=== PATIENT | female | born 1945 | race Caucasian/White ===

== ENCOUNTER → 2018-08-01 | Outpatient (CLI) | payer MEDICARE, BC ==
--- NOTE | 2018-08-02 12:06 | MM ---
Reason for exam: screening (asymptomatic). Last mammogram was performed 1 year ago. History: Patient is postmenopausal. Family history of breast cancer in maternal cousin at age 63, breast cancer in maternal cousin at age 50, and breast cancer in maternal cousin at age 59. Took hormonal contraceptives for 10 years beginning at age 19. Took estrogen for 5 years beginning at age 50. Physical Findings: A clinical breast exam by your physician is recommended on an annual basis and results should be correlated with mammographic findings. MG 3D Screening Mammo W/Cad Bilateral CC and MLO view(s) were taken. Prior study comparison: July 18, 2017, bilateral MG 3d screening mammo w/cad. July 17, 2016, bilateral MG 3d screening mammo w/cad. The breast tissue is heterogeneously dense. This may lower the sensitivity of mammography. Focal asymmetry upper outer left breast. This finding is changed when compared with previous exams. ASSESSMENT: Incomplete: need additional imaging evaluation, BI-RAD 0 RECOMMENDATION: Special view mammogram of the left breast. If lesion persists on supplemental views, image directed ultrasound is recommended. [facility] will attempt to contact patient to return for supplemental views and ultrasound if indicated.
== END | disposition home or self-care (01) ==
LOC: RADMAMWWP 09:45
PROVIDERS: ATTEND Family Medicine
DX: Z12.31 Encounter for screening mammogram for malignant neoplasm of breast (principal)
CPT/HCPCS: 77063; 77067

== ENCOUNTER → 2019-01-17 | Outpatient (CLI) | payer MEDICARE, BC ==
--- NOTE | 2019-01-17 10:03 | P.STRESS ---
- Stress Test Note Stress Test Results/Findings: Exam Performed: stress echo exercise Exam Date: 01/17/19 Reason for Exam: HTN / SOB Height: 5 ft 6 in Weight: 95.254 kg Protocol: DAREK Stage: 2 Duration of Exercise: 4:00 Resting Heart Rate: 78 Resting Blood Pressure: 194/65 Maximum Achieved Heart Rate: 139 Maximum Achieved Blood Pressure: 204/79 85% PMHR: 124 100% PMHR: 146 METS: 5.8 Technologist Comment: Stress Test Results/Findings: This is a 73-year-old female with history of hypertension, diabetes and hypercholesterolemia being evaluated for cardiac status and chest pains and symptoms of shortness of breath. Stress data: Baseline EKG showed sinus rhythm with normal MS interval and QRS duration. Blood pressure at rest is 194/65 with a pulse rate of about 78. Patient walked on the Darek protocol for 4 minutes achieving a maximum heart rate of 139 with a blood pressure of 204/79. EKGs taken during and after exercise did not reveal any significant changes from baseline. Echo data: Baseline echo images show normal wall motion and thickening. Exercise echo images showed augmentation of wall motion and thickening in all the segments. Final impression: #1. Negative stress test #2. Limited excess capacity #3. Negative stress echo.
== END | disposition home or self-care (01) ==
LOC: RADNMMAIN 08:34
PROVIDERS: ATTEND Family Medicine
DX: I20.9 Angina pectoris, unspecified (principal); Z88.1 Allergy status to other antibiotic agents; Z88.7 Allergy status to serum and vaccine
CPT/HCPCS: 93351

== ENCOUNTER → 2019-02-05 | Outpatient (CLI) | payer MEDICARE, BC ==
--- NOTE | 2019-02-05 10:14 | MM ---
Reason for exam: follow-up at short interval from prior study. Last mammogram was performed 6 months ago. History: Patient is postmenopausal. Family history of breast cancer in maternal cousin at age 63, breast cancer in maternal cousin at age 50, and breast cancer in maternal cousin at age 59. Took hormonal contraceptives for 10 years beginning at age 19. Took estrogen for 5 years beginning at age 50. Physical Findings: Nurse did not find any significant physical abnormalities on exam. MG 3D Diag Mammo W/Cad LT CC and MLO view(s) were taken of the left breast. Prior study comparison: August 07, 2018, left breast MG 3d work up w/cad LT. August 01, 2018, bilateral MG 3d screening mammo w/cad. July 18, 2017, bilateral MG 3d screening mammo w/cad. July 17, 2016, bilateral MG 3d screening mammo w/cad. July 13, 2015, bilateral MG screening mammo w CAD. The breast tissue is heterogeneously dense. This may lower the sensitivity of mammography. There is a stable left upper outer quadrant mass with possible fatty notch likely a lymph node. Left upper outer quadrant focal asymmetry appears similar to priors. These results were verbally communicated with the patient and result sheet given to the patient on 02/05/19. ASSESSMENT: Benign, BI-RAD 2 RECOMMENDATION: Return to routine screening mammogram schedule for both breasts. Back on schedule.
--- NOTE | 2019-02-05 10:52 | USB ---
Reason for exam: follow-up at short interval from prior study. History: Patient is postmenopausal. Family history of breast cancer in maternal cousin at age 63, breast cancer in maternal cousin at age 50, and breast cancer in maternal cousin at age 59. Took hormonal contraceptives for 10 years beginning at age 19. Took estrogen for 5 years beginning at age 50. US Breast Limited LT Left limited breast ultrasound including focal area of concern, retroareolar and axilla demonstrates a 5 x 2 x 5mm benign cystic cluster at 1 o'clock and a 4 x 5 x 4mm benign cystic cluster at 2 o'clock. These results were verbally communicated with the patient and result sheet given to the patient on 02/05/19. ASSESSMENT: Benign, BI-RAD 2 RECOMMENDATION: Return to routine screening mammogram schedule for both breasts. Back on schedule for July 2019.
== END | disposition home or self-care (01) ==
LOC: RADMAMWWP 09:26
PROVIDERS: ATTEND Family Medicine
DX: R92.8 Other abnormal and inconclusive findings on diagnostic imaging of breast (principal)
CPT/HCPCS: 77065; 76642; G0279; 77061

== ENCOUNTER 2019-06-22 11:43 | Inpatient (IN) | payer MEDICARE, BC ==
[2019-06-22 13:35] LABS: Basophils # (A) 0.2 k/uL (0-0.2); Basophils % (A) 1 %; Eosinophils # (A) 0.3 k/uL (0-0.7); Eosinophils % (A) 2 %; HCT 40.2 % (34.0-46.0); HGB 13.8 gm/dL (11.4-16.0); Lymphocytes % (A) 28 %; MCH 31.8 pg (25.0-35.0); MCHC 34.4 g/dL (31.0-37.0); MCV 92.3 fL (80.0-100.0); Mean Platelet Volume 7.2; Monocytes # (A) 1.1 k/uL (0-1.0); Monocytes % (A) 8 %; Neutrophils % (A) 57 %; Platelet Count 314 k/uL (150-450); RBC 4.36 m/uL (3.80-5.40); RDW 13.9 % (11.5-15.5)
--- NOTE | 2019-06-22 13:38 | ED ---
General Adult HPI - General Chief complaint: Upper Respiratory Infection Stated complaint: Cough/congestion Time Seen by Provider: 06/22/19 12:27 Source: patient, RN notes reviewed Mode of arrival: ambulatory Limitations: no limitations - History of Present Illness Initial comments: 74-year-old patient with a past medical history IDDM, splenectomy presents to the emergency department for a chief complaint of congestion and cough 3 weeks. States that it started as a congestion and then seemed to settle in her chest. States cough is productive. States she has not had any known fevers. Patient states she was on antibiotic and it did not help her symptoms. Denies sore throat. Denies any ear pain.Patient has no other complaints at this time in cluding shortness of breath, chest pain, abdominal pain, nausea or vomiting, headache, or visual changes. - Related Data Allergies Allergy/AdvReac Type Severity Reaction Status Date / Time erythromycin base Allergy Unknown Verified 06/22/19 15:19 Review of Systems ROS Statement: Those systems with pertinent positive or pertinent negative responses have been documented in the HPI. ROS Other: All systems not noted in ROS Statement are negative. Past Medical History Past Medical History: Diabetes Mellitus History of Any Multi-Drug Resistant Organisms: None Reported Past Surgical History: Appendectomy, Hysterectomy Additional Past Surgical History / Comment(s): splenectomy pancreas cateracts Past Psychological History: No Psychological Hx Reported Smoking Status: Never smoker Past Alcohol Use History: None Reported Past Drug Use History: None Reported General Exam Limitations: no limitations General appearance: alert, in no apparent distress Head exam: Present: atraumatic, normocephalic, normal inspection Eye exam: Present: normal appearance, PERRL, EOMI. Absent: scleral icterus, conjunctival injection, periorbital swelling ENT exam: Present: normal exam, normal oropharynx, mucous membranes moist, TM's normal bilaterally, normal external ear exam Neck exam: Present: normal inspection, full ROM. Absent: tenderness, meningismus, lymphadenopathy Respiratory exam: Present: normal lung sounds bilaterally. Absent: respiratory distress, wheezes, rales, rhonchi, stridor Cardiovascular Exam: Present: regular rate, normal rhythm, normal heart sounds. Absent: systolic murmur, diastolic murmur, rubs, gallop, clicks GI/Abdominal exam: Present: soft, normal bowel sounds. Absent: distended, tenderness, guarding, rebound, rigid Neurological exam: Present: alert Psychiatric exam: Present: normal affect, normal mood Course Vital Signs 06/22/19 06/22/19 06/22/19 12:10 14:12 14:18 Temperature 98.3 F Pulse Rate 80 73 77 Respiratory 18 Rate Blood Pressure 154/82 O2 Sat by Pulse 94 L Oximetry 06/22/19 14:44 Temperature 97.5 F L Pulse Rate 73 Respiratory 18 Rate Blood Pressure 163/67 O2 Sat by Pulse 97 Oximetry EKG Findings - EKG Comments: EKG Findings:: Normal sinus rhythm, ventricular rate 76, [place] interval 158, QTC 454 Medical Decision Making - Medical Decision Making 74-year-old patient with past medical history of IDDM, splenectomy presents for chief of congestion and cough 3 weeks. Started as congestion and then settled in her chest. No fevers at home. Patient has been on antibiotic which has not been helping. She has been hemodynamically stable and well-appearing throughout her time in the emergency department. She has a leukocytosis of 14 noted. CMP unremarkable. Glucose is 228, patient has a history of diabetes. Patient has a lactic acid of 3.2, does not meet sepsis criteria with only one Sirs criteria met. However patient was given fluid bolus and kept on maintenance fluids. Urinalysis and influenza are unremarkable. Chest x-ray shows basilar atelectasis versus early infiltrate. Patient was started on Rocephin and azithromycin. Patient will be admitted given his history of splenectomy. - Lab Data Result diagrams: 06/22/19 13:10 06/22/19 13:10 Lab Results 06/22/19 06/22/19 06/22/19 Range/Units 12:50 13:10 13:10 WBC 14.0 H (3.8-10.6) k/uL RBC 4.36 (3.80-5.40) m/uL Hgb 13.8 (11.4-16.0) gm/dL Hct 40.2 (34.0-46.0) % MCV 92.3 (80.0-100.0) fL MCH 31.8 (25.0-35.0) pg MCHC 34.4 (31.0-37.0) g/dL RDW 13.9 (11.5-15.5) % Plt Count 314 (150-450) k/uL Neutrophils % 57 % Lymphocytes % 28 % Monocytes % 8 % Eosinophils % 2 % Basophils % 1 % Neutrophils # 8.0 H (1.3-7.7) k/uL Lymphocytes # 4.0 (1.0-4.8) k/uL Monocytes # 1.1 H (0-1.0) k/uL Eosinophils # 0.3 (0-0.7) k/uL Basophils # 0.2 (0-0.2) k/uL PT (9.0-12.0) sec INR (<1.2) APTT (22.0-30.0) sec Sodium 139 (137-145) mmol/L Potassium 4.1 (3.5-5.1) mmol/L Chloride 99 (98-107) mmol/L Carbon Dioxide 28 (22-30) mmol/L Anion Gap 12 mmol/L BUN 19 H (7-17) mg/dL Creatinine 0.82 (0.52-1.04) mg/dL Est GFR (CKD-EPI)AfAm 81 (>60 ml/min/1.73 sqM) Est GFR (CKD-EPI)NonAf 70 (>60 ml/min/1.73 sqM) Glucose 228 H (74-99) mg/dL Plasma Lactic Acid Reji (0.7-2.0) mmol/L Calcium 10.3 H (8.4-10.2) mg/dL Total Bilirubin 0.5 (0.2-1.3) mg/dL AST 26 (14-36) U/L ALT 20 (9-52) U/L Alkaline Phosphatase 86 (38-126) U/L Total Protein 6.7 (6.3-8.2) g/dL Albumin 4.1 (3.5-5.0) g/dL Urine Color Urine Appearance (Clear) Urine pH (5.0-8.0) Ur Specific [place] (1.001-1.035) Urine Protein (Negative) Urine Glucose (UA) (Negative) Urine Ketones (Negative) Urine Blood (Negative) Urine Nitrite (Negative) Urine Bilirubin (Negative) Urine Urobilinogen (<2.0) mg/dL Ur Leukocyte Esterase (Negative) Urine RBC (0-5) /hpf Urine WBC (0-5) /hpf Ur Squamous Epith Cells (0-4) /hpf Urine Mucus (None) /hpf Influenza Type A RNA Not Detected (Not Detectd) Influenza Type B (PCR) Not Detected (Not Detectd) 06/22/19 06/22/19 06/22/19 Range/Units 13:10 13:10 13:55 WBC (3.8-10.6) k/uL RBC (3.80-5.40) m/uL Hgb (11.4-16.0) gm/dL Hct (34.0-46.0) % MCV (80.0-100.0) fL MCH (25.0-35.0) pg MCHC (31.0-37.0) g/dL RDW (11.5-15.5) % Plt Count (150-450) k/uL Neutrophils % % Lymphocytes % % Monocytes % % Eosinophils % % Basophils % % Neutrophils # (1.3-7.7) k/uL Lymphocytes # (1.0-4.8) k/uL Monocytes # (0-1.0) k/uL Eosinophils # (0-0.7) k/uL Basophils # (0-0.2) k/uL PT 9.9 (9.0-12.0) sec INR 0.9 (<1.2) APTT 23.0 (22.0-30.0) sec Sodium (137-145) mmol/L Potassium (3.5-5.1) mmol/L Chloride (98-107) mmol/L Carbon Dioxide (22-30) mmol/L Anion Gap mmol/L BUN (7-17) mg/dL Creatinine (0.52-1.04) mg/dL Est GFR (CKD-EPI)AfAm (>60 ml/min/1.73 sqM) Est GFR (CKD-EPI)NonAf (>60 ml/min/1.73 sqM) Glucose (74-99) mg/dL Plasma Lactic Acid Reji 3.2 H* (0.7-2.0) mmol/L Calcium (8.4-10.2) mg/dL Total Bilirubin (0.2-1.3) mg/dL AST (14-36) U/L ALT (9-52) U/L Alkaline Phosphatase (38-126) U/L Total Protein (6.3-8.2) g/dL Albumin (3.5-5.0) g/dL Urine Color Yellow Urine Appearance Clear (Clear) Urine pH 7.0 (5.0-8.0) Ur Specific [place] 1.016 (1.001-1.035) Urine Protein Negative (Negative) Urine Glucose (UA) Negative (Negative) Urine Ketones Negative (Negative) Urine Blood Negative (Negative) Urine Nitrite Negative (Negative) Urine Bilirubin Negative (Negative) Urine Urobilinogen <2.0 (<2.0) mg/dL Ur Leukocyte Esterase Trace H (Negative) Urine RBC <1 (0-5) /hpf Urine WBC 3 (0-5) /hpf Ur Squamous Epith Cells 3 (0-4) /hpf Urine Mucus Rare H (None) /hpf Influenza Type A RNA (Not Detectd) Influenza Type B (PCR) (Not Detectd) Disposition Clinical Impression: Pneumonia, History of splenectomy, Lactic acidosis Disposition: ADMITTED IP TO THIS HOSP Is patient prescribed a controlled substance at d/c from ED?: No Referrals: Hector Sheridan MD [Primary Care Provider] - 1-2 days Time of Disposition: 15:21
[2019-06-22 13:47] LABS: Albumin 4.1 g/dL (3.5-5.0); Calcium 10.3 mg/dL (8.4-10.2); Potassium 4.1 mmol/L (3.5-5.1); Total Bilirubin 0.5 mg/dL (0.2-1.3); Total Protein 6.7 g/dL (6.3-8.2)
[2019-06-22 13:53] LABS: INR 0.9 (<1.2); Prothrombin Time 9.9 sec (9.0-12.0)
[2019-06-22] MEDS ORDERED: IPRATROPIUM-ALBUTEROL 3 ML NEB INHALATION STA (13:59)
[2019-06-22] MEDS ORDERED: SODIUM CHLORIDE 0.9% 1,000 ML IV STA (14:01)
[2019-06-22] MEDS ORDERED: cefTRIAXone IN SWFI 1,000 MG/10 ML SYRINGE IVP STA (14:10)
[2019-06-22 14:20] LABS: Appearance,Urine Clear (Clear); Bilirubin,Urine Negative (Negative); Blood,Urine Negative (Negative); Color,Urine Yellow; Glucose,Urine (UA) Negative (Negative); Ketones,Urine Negative (Negative); Leukocyte Esterase,Urine Trace (Negative); Mucus,Urine Rare /hpf; Nitrite,Urine Negative (Negative); Protein,Urine Negative (Negative); RBC,Urine <1 /hpf (0-5); Specific Gravity,Urine 1.016 (1.001-1.035); Squamous Epithelial Cell,Urine 3 /hpf (0-4); Urobilinogen,Urine <2.0 mg/dL (<2.0); WBC,Urine 3 /hpf (0-5)
--- NOTE | 2019-06-22 14:31 | XR ---
EXAMINATION TYPE: XR chest 2V DATE OF EXAM: 06/22/2019 COMPARISON: NONE TECHNIQUE: PA and lateral views submitted. HISTORY: Fever FINDINGS: Subsegmental changes at the left lung base. No overt failure or pneumothorax. Biapical pleural thicke emmanuel. Heart size normal. Mild degenerative change spine. IMPRESSION: 1. Basilar atelectasis versus early infiltrate.
[2019-06-22] MEDS ORDERED: AZITHROMYCIN 500 MG in SODIUM CHLORIDE 0.9% 250 ML IVPB STA (15:00)
[2019-06-22] MEDS ORDERED: PNEUMONIA PROTOCOL UTILIZED 1 EACH MISC PO PRN (15:13)
[2019-06-22] MEDS: SODIUM CHLORIDE 0.9% 1,000 ML IV SCH ×2 (15:29→23:58)
[2019-06-22 17:02] LABS: Glucose,Whole Blood 152 mg/dL (75-99)
[2019-06-22] MEDS: INSULIN ASPART (NovoLOG) 100 UNIT/ML VIAL SQ SCH ×2 (17:34→20:47)
[2019-06-22 17:51] VITALS: BMI 34.1
[2019-06-22 20:21] LABS: Glucose,Whole Blood 271 mg/dL (75-99)
[2019-06-22] MEDS ORDERED: ACETAMINOPHEN TAB 500 MG TAB PO PRN (21:38)
[2019-06-22] MEDS ORDERED: ALPRAZolam 0.25 MG TAB PO PRN (21:38)
[2019-06-22] MEDS ORDERED: ATORVASTATIN 20 MG TAB PO SCH (21:45)
[2019-06-23 06:22] LABS: Basophils # (A) 0.1 k/uL (0-0.2); Basophils % (A) 1 %; Eosinophils # (A) 0.4 k/uL (0-0.7); Eosinophils % (A) 3 %; HCT 35.4 % (34.0-46.0); HGB 12.3 gm/dL (11.4-16.0); Lymphocytes # (A) 4.4 k/uL (1.0-4.8); Lymphocytes % (A) 36 %; MCH 31.6 pg (25.0-35.0); MCHC 34.8 g/dL (31.0-37.0); MCV 90.9 fL (80.0-100.0); Mean Platelet Volume 6.2; Monocytes % (A) 8 %; Neutrophils % (A) 49 %; Platelet Count 300 k/uL (150-450); RBC 3.89 m/uL (3.80-5.40); RDW 13.9 % (11.5-15.5); WBC 12.3 k/uL (3.8-10.6)
[2019-06-23 06:31] LABS: Glucose,Whole Blood 147 mg/dL (75-99)
[2019-06-23 06:38] LABS: ALT 22 U/L (9-52); AST 21 U/L (14-36); African American GFR (CKD) >90 (>60 ml/min/1.73 sqM); Albumin 3.3 g/dL (3.5-5.0); Alkaline Phosphatase 66 U/L (38-126); Anion Gap 6 mmol/L; Blood Urea Nitrogen 14 mg/dL (7-17); Calcium 8.8 mg/dL (8.4-10.2); Carbon Dioxide 27 mmol/L (22-30); Chloride 107 mmol/L (98-107); Glucose 142 mg/dL (74-99); Potassium 3.7 mmol/L (3.5-5.1); Sodium 140 mmol/L (137-145); Total Bilirubin 0.6 mg/dL (0.2-1.3); Total Protein 5.8 g/dL (6.3-8.2)
[2019-06-23] MEDS: INSULIN ASPART (NovoLOG) 100 UNIT/ML VIAL SQ SCH ×2 (06:56→12:36)
[2019-06-23] MEDS ORDERED: metFORMIN 500 MG TAB PO SCH (07:30)
[2019-06-23] MEDS ORDERED: INSULIN NPH 300 UNIT/3 ML VIAL SQ SCH (07:30)
[2019-06-23] MEDS ORDERED: VERAPAMIL SR 120 MG TABLET.ER PO SCH (09:00)
[2019-06-23] MEDS ORDERED: PSYLLIUM HUSK 100% 6 GM PACKET PO SCH (09:00)
[2019-06-23] MEDS ORDERED: ATENOLOL 50 MG TAB PO SCH (09:00)
[2019-06-23] MEDS ORDERED: MULTIVITAMINS, THERA 1 EACH TAB PO SCH (09:00)
[2019-06-23] MEDS ORDERED: AZITHROMYCIN 500 MG TAB PO SCH (09:00)
[2019-06-23] MEDS ORDERED: LOSARTAN-HCTZ 50-12.5 MG 1 EACH TAB PO SCH (09:00)
[2019-06-23 09:01] VITALS: RESP 16; TEMP 97.2
[2019-06-23 11:48] LABS: Glucose,Whole Blood 193 mg/dL (75-99)
[2019-06-23 12:39] VITALS: BP 137/63; PULSE 76
--- NOTE | 2019-06-23 13:42 | P.HPIM ---
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 Patient said the cough was productive but denies any fever or chills she was on oral antibiotic that did not help her. Vitals in the ER suggested temp of 98.3 pulse of 80 blood pressure 154/82 oxygen sats were 94% on room air. EKG showed normal sinus rhythm. Chest x-ray was obtained that suggested a small infiltrate in the left lung base. Labs suggestive leukocytosis of 14,000. Lactic acid was 3.1. Patient did have sinus dehydration had a blood sugar of 270 on admission. She takes NovoLog N 65 units in the day. He was started on antibiotic Rocephin and azithromycin. Fluid was initially 200 mL/h after IV bolus of 1 L. On evaluation today patient endorses cough which is nonproductive and some sinus pressure but no shortness of breath on exertion. Pro-calcitonin came back as negative. Patient does have history of splenectomy for which she has been vaccinated against pneumonia. Patient will be given Medrol Dosepak and insulin dosage will be adjusted to Novolin N 7030 35 units in the morning and 25 units in the night. Review of Systems Constitutional: Denies chills, Denies fever, Denies lethargy, Denies malaise, Denies poor appetite, Denies weakness, Denies weight loss Eyes: denies decreased vision, denies diplopia, denies discharge, denies pain Ears: deny: decreased hearing Ears, nose, mouth and throat: Denies dental pain, Denies headache, Denies nasal discharge, Denies nose pain Cardiovascular: Denies chest pain, Denies decreased exercise tolerance, Denies edema, Denies high blood pressure, Denies irregular heart beat, Denies palpitations, Denies paroxysmal nocturnal dyspnea, Denies rapid heart beat, Denies shortness of breath Respiratory: Endorses cough and congestion Denies cough with sputum, Denies dyspnea, Denies home oxygen, Denies wheezing Gastrointestinal: Denies abdominal pain, Denies change in bowel habits, Denies coffee ground emesis, Denies early satiety, Denies excessive gas, Denies heartburn, Denies hematemesis, Denies hematochezia, Denies loss of appetite, Denies nausea, Denies vomiting Genitourinary: Denies dysuria, Denies flank pain, Denies kidney stones, Denies menorrhagia, Denies urgency, Denies urinary frequency Musculoskeletal: Denies gait dysfunction, Denies limitation of motion, Denies morning stiffness, Denies muscle cramps Integumentary: Denies rash, Denies wounds, Denies brittle nails, Denies change in hair/nails, Denies darkening of skin Neurological: Denies balance difficulties, Denies change in speech, Denies double vision, Denies gait dysfunction, Denies loss of vision, Denies motor disturbance, Denies numbness, Denies paralysis, Denies paresthesias, Denies seizures Psychiatric: Denies anxiety, Denies depression Endocrine: Denies excessive sweating, Denies excessive thirst, Denies high blood sugars, Denies palpitations Hematologic/Lymphatic: Denies easy bruising, Denies lymphadenopathy Past Medical History Past Medical History: Diabetes Mellitus, Hyperlipidemia, Hypertension, Pneumonia History of Any Multi-Drug Resistant Organisms: None Reported Past Surgical History: Appendectomy, Hysterectomy Additional Past Surgical History / Comment(s): splenectomy, partial pancreas removal, cateracts Additional Past Anesthesia/Blood Transfusion Reaction / Comment(s): Never Received Blood Transfusion Past Psychological History: No Psychological Hx Reported Smoking Status: Never smoker Past Alcohol Use History: None Reported Past Drug Use History: None Reported - Past Family History Father Family Medical History: Myocardial Infarction ([place]) Medications and Allergies Home Medications Medication Instructions Recorded Confirmed Type ALPRAZolam [Xanax] 0.25 mg PO DAILY PRN 06/22/19 06/22/19 History Atenolol [Tenormin] 50 mg PO DAILY 06/22/19 06/22/19 History Atorvastatin [Lipitor] 20 mg PO HS 06/22/19 06/22/19 History Losartan/Hydrochlorothiazide 1 tab PO DAILY 06/22/19 06/22/19 History [Hyzaar 100-25 Tablet] Multivitamins, Thera [Multivitamin 1 tab PO DAILY 06/22/19 06/22/19 History (formulary)] Psyllium Husk (with Sugar) 20 ml PO DAILY 06/22/19 06/22/19 History [Metamucil Powder] Verapamil HCl [Verapamil ER] 120 mg PO DAILY 06/22/19 06/22/19 History metFORMIN HCL [Glucophage] 500 mg PO BID 06/22/19 06/22/19 History Insulin NPH/Reg Insulin 7030 35 unit SQ BID #1 vial 06/23/19 Rx [humuLIN 70/30 VIAL] methylPREDNISolone Dose Pack 4 mg PO DIRECTED #21 package 06/23/19 Rx [Medrol Dose Pack] Allergies Allergy/AdvReac Type Severity Reaction Status Date / Time erythromycin base Allergy Unknown Verified 06/22/19 15:19 Physical Exam Vitals: Vital Signs Temp Pulse Pulse Resp BP BP Pulse Ox 06/23/19 12:00 76 16 137/63 94 L 06/23/19 08:00 97.2 F L 94 16 130/73 98 06/23/19 03:30 98.1 F 69 18 141/63 95 06/22/19 23:50 98.2 F 74 16 160/72 97 06/22/19 20:45 98.3 F 73 16 157/68 95 06/22/19 17:38 98.3 F 79 18 158/72 94 L 06/22/19 16:04 97.9 F 77 18 155/79 96 06/22/19 14:44 97.5 F L 73 18 163/67 97 06/22/19 14:18 77 06/22/19 14:12 73 Intake and Output 06/22/19 06/23/19 06/23/19 22:59 06:59 14:59 Intake Total 360 118 Balance 360 118 Intake: Oral 360 118 Other: Voiding Method Toilet Toilet Toilet # Voids 1 2 1 Weight 96.7 kg - Constitutional General appearance: cooperative, no acute distress, obese - EENT Eyes: anicteric sclerae, PERRLA, normal appearance ENT: hearing grossly normal - Neck Neck: no lymphadenopathy, normal ROM, no other, no rigidity, no stridor, no thyromegaly - Respiratory Respiratory: bilateral: CTA, negative: diminished, dullness, rales, rhonchi - Cardiovascular Rhythm: regular Heart sounds: normal: S1, S2 Abnormal Heart Sounds: no systolic murmur, no diastolic murmur, no rub, no S3 Gallop, no S4 Gallop, no click, no other - Gastrointestinal General gastrointestinal: normal bowel sounds, soft - Integumentary Integumentary: no rash - Neurologic Neurologic: CNII-XII intact - Musculoskeletal Musculoskeletal: gait normal, strength equal bilaterally - Psychiatric Psychiatric: A&O x's 3, appropriate affect Results CBC & Chem 7: 06/23/19 06:00 06/23/19 06:00 Labs: Abnormal Lab Results - Last 24 Hours (Table) 06/22/19 06/22/19 06/22/19 Range/Units 13:10 13:10 13:10 WBC 14.0 H (3.8-10.6) k/uL Neutrophils # 8.0 H (1.3-7.7) k/uL Monocytes # 1.1 H (0-1.0) k/uL BUN 19 H (7-17) mg/dL Glucose 228 H (74-99) mg/dL POC Glucose (mg/dL) (75-99) mg/dL Plasma Lactic Acid Reji 3.2 H* (0.7-2.0) mmol/L Calcium 10.3 H (8.4-10.2) mg/dL Total Protein (6.3-8.2) g/dL Albumin (3.5-5.0) g/dL Ur Leukocyte Esterase (Negative) Urine Mucus (None) /hpf 06/22/19 06/22/19 06/22/19 Range/Units 13:55 17:00 20:20 WBC (3.8-10.6) k/uL Neutrophils # (1.3-7.7) k/uL Monocytes # (0-1.0) k/uL BUN (7-17) mg/dL Glucose (74-99) mg/dL POC Glucose (mg/dL) 152 H 271 H (75-99) mg/dL Plasma Lactic Acid Reji (0.7-2.0) mmol/L Calcium (8.4-10.2) mg/dL Total Protein (6.3-8.2) g/dL Albumin (3.5-5.0) g/dL Ur Leukocyte Esterase Trace H (Negative) Urine Mucus Rare H (None) /hpf 06/23/19 06/23/19 06/23/19 Range/Units 06:00 06:00 06:28 WBC 12.3 H (3.8-10.6) k/uL Neutrophils # (1.3-7.7) k/uL Monocytes # (0-1.0) k/uL BUN (7-17) mg/dL Glucose 142 H (74-99) mg/dL POC Glucose (mg/dL) 147 H (75-99) mg/dL Plasma Lactic Acid Reji (0.7-2.0) mmol/L Calcium (8.4-10.2) mg/dL Total Protein 5.8 L (6.3-8.2) g/dL Albumin 3.3 L (3.5-5.0) g/dL Ur Leukocyte Esterase (Negative) Urine Mucus (None) /hpf 06/23/19 Range/Units 11:46 WBC (3.8-10.6) k/uL Neutrophils # (1.3-7.7) k/uL Monocytes # (0-1.0) k/uL BUN (7-17) mg/dL Glucose (74-99) mg/dL POC Glucose (mg/dL) 193 H (75-99) mg/dL Plasma Lactic Acid Reji (0.7-2.0) mmol/L Calcium (8.4-10.2) mg/dL Total Protein (6.3-8.2) g/dL Albumin (3.5-5.0) g/dL Ur Leukocyte Esterase (Negative) Urine Mucus (None) /hpf Thrombosis Risk Factor Assmnt - DVT/VTE Prophylaxis DVT/VTE Prophylaxis: Pharmacologic Prophylaxis ordered - Choose All That Apply Each Risk Factor Represents 3 Points: Age 75 years or older Thrombosis Risk Factor Assessment Total Risk Factor Score: 3 Thrombosis Risk Factor Assessment Level: Moderate Risk Assessment and Plan Plan: #1 acute cough likely secondary to bronchitis. Chest x-ray concerning for infiltrate which appears to be atelectasis pro-calcitonin negative for any pneumonia. Medrol Dosepak ordered for the patient #2 insulin-dependent diabetes currently on NPH 65 units once a day. Will switch to NPH 7030 35 units in the morning and 25 in the night. New prescription sent to the pharmacy follow up with Dr. Sheridan as outpatient to follow-up on the blood sugar and A1c #3 history of pancreatic cyst status post splenectomy stable #4 hypertension continue metoprolol 120 mg by mouth daily #5 DVT prophylaxis with ambulation #6 disposition can be discharged home today
== END 2019-06-23 13:39 | disposition home or self-care (01) | DRG 202 ==
LOC: EC 11:43 → 3SCARD 15:13
PROVIDERS: ADMIT Internal Medicine; ATTEND Internal Medicine
DX: J40 Bronchitis, not specified as acute or chronic (principal); J98.11 Atelectasis; E11.9 Type 2 diabetes mellitus without complications; E78.5 Hyperlipidemia, unspecified; E86.0 Dehydration; I10 Essential (primary) hypertension; Z79.4 Long term (current) use of insulin; Z79.899 Other long term (current) drug therapy; Z82.49 Family history of ischemic heart disease and other diseases of the circulatory system; Z90.710 Acquired absence of both cervix and uterus; Z90.81 Acquired absence of spleen; Z87.01 Personal history of pneumonia (recurrent); Z88.1 Allergy status to other antibiotic agents
CPT/HCPCS: 36415; 71046; 80053; 81001; 83605; 84145; 85025; 85610; 85730; 87040; 87502; 93005; 94640; 96361; 96365; 96375; 99284

== ENCOUNTER → 2019-08-11 | Outpatient (CLI) | payer MEDICARE, BC ==
--- NOTE | 2019-08-12 11:44 | MM ---
Reason for exam: screening (asymptomatic). Last mammogram was performed 6 months ago. History: Patient is postmenopausal. Family history of breast cancer in maternal cousin at age 63, breast cancer in maternal cousin at age 50, and breast cancer in maternal cousin at age 59. Took hormonal contraceptives for 10 years beginning at age 19. Took estrogen for 5 years beginning at age 50. Physical Findings: A clinical breast exam by your physician is recommended on an annual basis and results should be correlated with mammographic findings. MG 3D Screening Mammo W/Cad Bilateral CC and MLO view(s) were taken. Prior study comparison: February 05, 2019, left breast MG 3d diag mammo w/cad LT. August 07, 2018, left breast MG 3d work up w/cad LT. The breast tissue is heterogeneously dense. This may lower the sensitivity of mammography. Neodensity upper outer right breast 11cm from nipple. This finding is changed when compared with previous exams. ASSESSMENT: Incomplete: need additional imaging evaluation, BI-RAD 0 RECOMMENDATION: Special view mammogram and ultrasound of the right breast. [facility] will attempt to contact patient to return for supplemental views and ultrasound.
== END | disposition home or self-care (01) ==
LOC: RADMAMWWP 10:47
PROVIDERS: ATTEND Family Medicine
DX: Z12.31 Encounter for screening mammogram for malignant neoplasm of breast (principal)
CPT/HCPCS: 77063; 77067

== ENCOUNTER → 2019-08-25 | Outpatient (CLI) | payer MEDICARE, BC ==
--- NOTE | 2019-08-25 15:08 | MM ---
Reason for exam: additional evaluation requested from abnormal screening. Last mammogram was performed less than 1 month ago. History: Patient is postmenopausal. Family history of breast cancer in maternal cousin at age 63, breast cancer in maternal cousin at age 50, and breast cancer in maternal cousin at age 59. Took hormonal contraceptives for 10 years beginning at age 19. Took estrogen for 5 years beginning at age 50. Physical Findings: Nurse did not find any significant physical abnormalities on exam. MG 3D Work Up W/Cad RT Spot compression CC, spot compression MLO, and LM view(s) were taken of the right breast. Prior study comparison: August 11, 2019, bilateral MG 3d screening mammo w/cad. February 05, 2019, left breast MG 3d diag mammo w/cad LT. August 01, 2018, bilateral MG 3d screening mammo w/cad. July 18, 2017, bilateral MG 3d screening mammo w/cad. The breast tissue is heterogeneously dense. This may lower the sensitivity of mammography. Finding: There is a 9 mm spiculated irregular mass in the upper outer quadrant, posterior position of the right breast with calcifications, persists on additional views. New finding since August 11, 2019, February 05, 2019, August 01, 2018, and July 18, 2017. These results were verbally communicated with the patient and result sheet given to the patient on 08/25/19. ASSESSMENT: Incomplete: need additional imaging evaluation, BI-RAD 0 RECOMMENDATION: Ultrasound of the right breast.
--- NOTE | 2019-08-25 15:10 | USB ---
Reason for exam: additional evaluation requested from abnormal screening. History: Patient is postmenopausal. Family history of breast cancer in maternal cousin at age 63, breast cancer in maternal cousin at age 50, and breast cancer in maternal cousin at age 59. Took hormonal contraceptives for 10 years beginning at age 19. Took estrogen for 5 years beginning at age 50. US Breast Workup Limited RT Right limited breast ultrasound including focal area of concern, retroareolar and axilla demonstrates a 0.7 x 0.6 x 0.5cm irregular, hypoechoic, vascular lesion at 11 o'clock. These results were verbally communicated with the patient and result sheet given to the patient on 08/25/19. ASSESSMENT: Suspicious, BI-RAD 4 RECOMMENDATION: Ultrasound core biopsy of the right breast. Called office with mammographic findings and has scheduled an appointment for the patient for 08/26/19 at 10:[address] Weaver. PRELIMINARY REPORT CALLED AND FAXED TO DR. WEAVER ON 08/25/19.
== END ==
LOC: RADMAMWWP 13:59
PROVIDERS: ATTEND Family Medicine
DX: R92.8 Other abnormal and inconclusive findings on diagnostic imaging of breast (principal)
CPT/HCPCS: 77065; 76642; G0279; 77061

== ENCOUNTER → 2019-09-08 | Day surgery (SDC) | payer MEDICARE, BC ==
[2019-09-08 13:15] VITALS: RESP 16
[2019-09-08 15:05] VITALS: BP 140/72; PULSE 77; TEMP 98.1
--- NOTE | 2019-09-08 15:51 | USB ---
EXAMINATION TYPE: US biopsy breast VAD RT, MG diagnostic mammo RT wo CAD DATE OF EXAM: 09/08/2019 CLINICAL HISTORY: R92.8 Abnormal Mammo. TECHNIQUE: Ultrasound guided core biopsy of right breast. COMPARISON: Right breast ultrasound and mammogram dated 08/25/2019 and 08/11/2019 respectively. FINDINGS: The procedure of ultrasound guided core biopsy was explained to the patient. Benefits, alt ernatives, and risks were discussed. An informed consent was then obtained. Preprocedural timeout w as performed. The patient was placed in supine positioning for imaging and for the procedure. The overlying skin w as prepped and draped in usual sterile fashion. 10 cc of 1% lidocaine was used as anesthetic into the skin and subcutaneous tissue up to a 0.7 cm mass at the 11:00 position in the right breast. Under ultrasound guidance, a 12-gauge vacuum assisted biopsy gun device was used to obtain 4 core sarah ples. Following this, a wing shaped biopsy marker was left at the site of biopsy. Postprocedure rosario mogram demonstrates appropriate biopsy marker placement concordant with the mammographic mass. The patient tolerated the procedure well without any immediate complication. The patient was kept in the radiology department for short stay after the procedure and then discharged home in stable condi tion. IMPRESSION: Successful, uncomplicated ultrasound guided core biopsy of a 7 mm mass at the 11:00 posit ion in the right breast, full pathology results to follow.
== END ==
LOC: RADUSWWP 12:46
PROVIDERS: ATTEND Family Medicine
DX: C50.411 Malignant neoplasm of upper-outer quadrant of right female breast (principal); Z17.0 Estrogen receptor positive status [ER+]
CPT/HCPCS: 88305; 88342; 88341; 77065; 19083; A4648; J2001

== ENCOUNTER 2020-02-05 04:14 | Inpatient (IN) | payer MEDICARE, BC ==
[2020-02-05 04:39] LABS: Glucose,Whole Blood 82 mg/dL (75-99)
[2020-02-05] MEDS ORDERED: SODIUM CHLORIDE 0.9% 1,000 ML IV STA ×2 (05:02→06:19)
--- NOTE | 2020-02-05 05:08 | ED ---
Weakness HPI - General Chief complaint: Weakness Stated complaint: Weakness Time Seen by Provider: 02/05/20 05:02 Source: patient, EMS, RN notes reviewed, old records reviewed Mode of arrival: EMS - History of Present Illness Initial comments: This is a 74-year-old female DF for evaluation patient main complaint today is weakness patient states that she is overall not feeling well woke up with chills and rigors this afternoon. Patient just recently finished chemotherapy for breast cancer she also had surgery for breast cancer multiple recent hospital contacts. Patient hospital visits. No fevers. Patient usually does service and dehydration she admits to significantly decreased appetite MD Complaint: generalized weakness, lack of energy -: hour(s) Location: generalized Severity: moderate Severity scale (1-10): 6 Quality: numbness, other (Patient complains of diffuse chills) Consistency: constant Improves with: none Context: recent illness, recent surgery Associated Symptoms: fever/chills, loss of appetite - Related Data Home Medications Medication Instructions Recorded Confirmed ALPRAZolam [Xanax] 0.25 mg PO DAILY PRN 06/22/19 02/05/20 Atenolol [Tenormin] 50 mg PO DAILY 06/22/19 02/05/20 Atorvastatin [Lipitor] 20 mg PO HS 06/22/19 02/05/20 Losartan/Hydrochlorothiazide 1 tab PO DAILY 06/22/19 02/05/20 [Hyzaar 100-25 Tablet] Verapamil HCl [Verapamil ER] 120 mg PO DAILY 06/22/19 02/05/20 Insulin NPH Human Isophane 80 unit SQ DAILY 08/28/19 02/05/20 [NovoLIN N] Fluconazole [Diflucan] 200 mg PO DAILY 02/05/20 02/05/20 Multivit-Min/Iron/Folic/Lutein 1 tab PO DAILY 02/05/20 02/05/20 [Centrum Silver Women Tablet] metFORMIN HCL [Glucophage] 1,000 mg PO BID 02/05/20 02/05/20 Allergies Allergy/AdvReac Type Severity Reaction Status Date / Time erythromycin base Allergy Unknown Verified 02/05/20 08:04 Review of Systems ROS Statement: Those systems with pertinent positive or pertinent negative responses have been documented in the HPI. ROS Other: All systems not noted in ROS Statement are negative. Past Medical History Past Medical History: Diabetes Mellitus, Hyperlipidemia, Hypertension, Pneumonia History of Any Multi-Drug Resistant Organisms: None Reported Past Surgical History: Appendectomy, Hysterectomy Additional Past Surgical History / Comment(s): splenectomy, partial pancreas removal, cateracts Past Anesthesia/Blood Transfusion Reactions: No Reported Reaction Additional Past Anesthesia/Blood Transfusion Reaction / Comment(s): Never Received Blood Transfusion Past Psychological History: No Psychological Hx Reported Smoking Status: Never smoker Past Alcohol Use History: None Reported Past Drug Use History: None Reported - Past Family History Father Family Medical History: Myocardial Infarction ([place]) Mother Additional Family Medical History / Comment(s): Mother at age 75 from a myocardial infarction. Brother(s) Additional Family Medical History / Comment(s): Patient does not have any brothers. Sister(s) Additional Family Medical History / Comment(s): Patient has one sister at age 82 with history of hypertension. General Exam - General Exam Comments Initial Comments: Patient is hypothermic General appearance: alert, in no apparent distress Head exam: Present: atraumatic, normocephalic, normal inspection Eye exam: Present: normal appearance, PERRL, EOMI. Absent: scleral icterus, conjunctival injection, periorbital swelling ENT exam: Present: normal exam, mucous membranes moist Neck exam: Present: normal inspection. Absent: tenderness, meningismus, lymphadenopathy Respiratory exam: Present: normal lung sounds bilaterally. Absent: respiratory distress, wheezes, rales, rhonchi, stridor Cardiovascular Exam: Present: regular rate, normal rhythm, normal heart sounds. Absent: systolic murmur, diastolic murmur, rubs, gallop, clicks GI/Abdominal exam: Present: soft, normal bowel sounds. Absent: distended, tenderness, guarding, rebound, rigid Extremities exam: Present: normal inspection, full ROM, normal capillary refill. Absent: tenderness, pedal edema, joint swelling, calf tenderness Back exam: Present: normal inspection Neurological exam: Present: alert, oriented X3, CN II-XII intact Psychiatric exam: Present: normal affect, normal mood Skin exam: Present: warm, dry, intact, normal color. Absent: rash Course Vital Signs 02/05/20 02/05/20 02/05/20 04:16 06:34 07:33 Temperature 92.8 F L 97.4 F L Pulse Rate 84 79 77 Pulse Rate [ Left Lateral] Respiratory 18 16 16 Rate Blood Pressure 122/101 176/80 154/76 Blood Pressure [Left Radial Artery] O2 Sat by Pulse 96 96 Oximetry 02/05/20 02/05/20 10:40 15:00 Temperature 97.8 F Pulse Rate 92 Pulse Rate [ 88 Left Lateral] Respiratory 18 17 Rate Blood Pressure 143/77 Blood Pressure 154/80 [Left Radial Artery] O2 Sat by Pulse 98 Oximetry - Reevaluation(s) Reevaluation #1: Medical records reviewed Spoke with patient and family regarding results, questions answered Patient still feeling very cold chills temperature is improving the patient still having tremors and rigors - Consultations Consultation #1: Spoke with Dr. Braxton who is agreeable for admission EKG Findings - EKG Comments: EKG Findings:: EKG shows sinus rhythm of 72, NE 136, QRS 104, QTc 479 Medical Decision Making - Medical Decision Making 74 female hypothermic with tremor coming in with UTI complicated with pneumonia as well. Patient covered for antibiotics and will be admitted for IV antibiotics and continued rewarming - Lab Data Result diagrams: 02/05/20 04:39 02/05/20 04:39 Lab Results 02/05/20 02/05/20 02/05/20 Range/Units 04:38 04:39 04:39 WBC 21.7 H (3.8-10.6) k/uL RBC 3.79 L (3.80-5.40) m/uL Hgb 12.0 (11.4-16.0) gm/dL Hct 35.6 (34.0-46.0) % MCV 94.0 (80.0-100.0) fL MCH 31.7 (25.0-35.0) pg MCHC 33.8 (31.0-37.0) g/dL RDW 17.5 H (11.5-15.5) % Plt Count 290 (150-450) k/uL Neutrophils % (Manual) 77 % Band Neutrophils % 10 % Lymphocytes % (Manual) 6 % Monocytes % (Manual) 7 % Neutrophils # (Manual) 18.80 H (1.3-7.7) k/uL Lymphocytes # (Manual) 1.30 (1.0-4.8) k/uL Monocytes # (Manual) 1.52 H (0-1.0) k/uL Nucleated RBCs 0 (0-0) /100 WBC Differential Comment Manual Slide Review Performed Hypochromasia Slight Poikilocytosis Slight Poikilocytosis (manual Present Anisocytosis Slight Anisocytosis (manual) Present Target Cells Present Perry-Castella Bodies Present Fragmented RBCs Present Sodium 139 (137-145) mmol/L Potassium 3.7 (3.5-5.1) mmol/L Chloride 99 (98-107) mmol/L Carbon Dioxide 30 (22-30) mmol/L Anion Gap 10 mmol/L BUN 11 (7-17) mg/dL Creatinine 0.80 (0.52-1.04) mg/dL Est GFR (CKD-EPI)AfAm 84 (>60 ml/min/1.73 sqM) Est GFR (CKD-EPI)NonAf 73 (>60 ml/min/1.73 sqM) Glucose 68 L (74-99) mg/dL POC Glucose (mg/dL) 82 (75-99) mg/dL POC Glu Cyanide Case Hardener ID Chelo Knott Plasma Lactic Acid Reji (0.7-2.0) mmol/L Calcium 9.6 (8.4-10.2) mg/dL Phosphorus 5.1 H (2.5-4.5) mg/dL Magnesium 1.4 L (1.6-2.3) mg/dL Total Bilirubin 0.4 (0.2-1.3) mg/dL AST 37 H (14-36) U/L ALT 25 (4-34) U/L Alkaline Phosphatase 118 (38-126) U/L Total Protein 6.5 (6.3-8.2) g/dL Albumin 3.9 (3.5-5.0) g/dL Lipase 310 H (23-300) U/L Procalcitonin (0.02-0.09) ng/mL 02/05/20 02/05/20 Range/Units 04:39 04:39 WBC (3.8-10.6) k/uL RBC (3.80-5.40) m/uL Hgb (11.4-16.0) gm/dL Hct (34.0-46.0) % MCV (80.0-100.0) fL MCH (25.0-35.0) pg MCHC (31.0-37.0) g/dL RDW (11.5-15.5) % Plt Count (150-450) k/uL Neutrophils % (Manual) % Band Neutrophils % % Lymphocytes % (Manual) % Monocytes % (Manual) % Neutrophils # (Manual) (1.3-7.7) k/uL Lymphocytes # (Manual) (1.0-4.8) k/uL Monocytes # (Manual) (0-1.0) k/uL Nucleated RBCs (0-0) /100 WBC Differential Comment Manual Slide Review Hypochromasia Poikilocytosis Poikilocytosis (manual Anisocytosis Anisocytosis (manual) Target Cells Perry-Castella Bodies Fragmented RBCs Sodium (137-145) mmol/L Potassium (3.5-5.1) mmol/L Chloride (98-107) mmol/L Carbon Dioxide (22-30) mmol/L Anion Gap mmol/L BUN (7-17) mg/dL Creatinine (0.52-1.04) mg/dL Est GFR (CKD-EPI)AfAm (>60 ml/min/1.73 sqM) Est GFR (CKD-EPI)NonAf (>60 ml/min/1.73 sqM) Glucose (74-99) mg/dL POC Glucose (mg/dL) (75-99) mg/dL POC Glu Cyanide Case Hardener ID Plasma Lactic Acid Reji 1.3 (0.7-2.0) mmol/L Calcium (8.4-10.2) mg/dL Phosphorus (2.5-4.5) mg/dL Magnesium (1.6-2.3) mg/dL Total Bilirubin (0.2-1.3) mg/dL AST (14-36) U/L ALT (4-34) U/L Alkaline Phosphatase (38-126) U/L Total Protein (6.3-8.2) g/dL Albumin (3.5-5.0) g/dL Lipase (23-300) U/L Procalcitonin 0.08 (0.02-0.09) ng/mL - Radiology Data Radiology results: report reviewed (Chest x-ray shows positive pneumonia), image reviewed Critical Care Time Critical Care Time: Yes Total Critical Care Time: 31 Disposition Clinical Impression: Hypothermia, History of splenectomy, Pneumonia, Nosocomial pneumonia, Dehydration, UTI (urinary tract infection), Leukocytosis Disposition: ADMITTED IP TO THIS [facility] Condition: Serious Is patient prescribed a controlled substance at d/c from ED?: No
[2020-02-05] MEDS ORDERED: ONDANSETRON 4 MG/2 ML VIAL IVP STA (05:15)
[2020-02-05 05:44] LABS: Albumin 3.9 g/dL (3.5-5.0); Calcium 9.6 mg/dL (8.4-10.2); Magnesium 1.4 mg/dL (1.6-2.3); Phosphorus 5.1 mg/dL (2.5-4.5); Potassium 3.7 mmol/L (3.5-5.1); Total Bilirubin 0.4 mg/dL (0.2-1.3); Total Protein 6.5 g/dL (6.3-8.2)
--- NOTE | 2020-02-05 05:45 | XR ---
EXAMINATION TYPE: XR chest 2V DATE OF EXAM: 02/05/2020 COMPARISON: 06/22/2019 HISTORY: Chest congestion TECHNIQUE: 2 views FINDINGS: There is some mild infiltrate and atelectasis left lung base. There is no heart failure. Th ere is poor inspiration. There is no evidence of pleural effusion. There are chest leads. IMPRESSION: Minimal atelectasis and infiltrate left lung base is slightly worse than old exam. No hea rt failure seen.
[2020-02-05 05:49] LABS: Anisocytosis Slight; HCT 35.6 % (34.0-46.0); Hypochromasia Slight; MCH 31.7 pg (25.0-35.0); MCHC 33.8 g/dL (31.0-37.0); Mean Platelet Volume 7.9; Platelet Count 290 k/uL (150-450); Poikilocytosis Slight; RBC 3.79 m/uL (3.80-5.40); RDW 17.5 % (11.5-15.5); WBC 21.7 k/uL (3.8-10.6)
[2020-02-05 06:11] LABS: Band Neutrophils % 10 %; Monocytes # (M) 1.52 k/uL (0-1.0); Neutrophils % (M) 77 %; Nucleated Red Blood Cells 0 /100 WBC (0-0); Total Cells Counted 100
[2020-02-05 06:12] LABS: Anisocytosis (M) Present; Howell-Jolly Bodies Present; Poikilocytosis (M) Present; RBC Fragments Present; Target Cells Present
[2020-02-05] MEDS ORDERED: PIPERACILLIN-TAZOBACTAM 3.375 GM in SODIUM CHLORIDE 0.9% 100 ML IVPB STA (06:18)
[2020-02-05] MEDS ORDERED: LEVOFLOXACIN 750MG-D5W PMX 750 MG in DEXTROSE/WATER 1 150ML.BAG IVPB STA (06:18)
[2020-02-05] MEDS ORDERED: PNEUMONIA PROTOCOL UTILIZED 1 EACH MISC PO PRN (06:18)
[2020-02-05] MEDS ORDERED: IPRATROPIUM-ALBUTEROL 3 ML NEB INHALATION PRN (06:18)
[2020-02-05] MEDS ORDERED: ONDANSETRON 4 MG/2 ML VIAL IVP PRN (06:19)
[2020-02-05] MEDS ORDERED: LEVOFLOXACIN 750MG-D5W PMX 750 MG in DEXTROSE/WATER 1 150ML.BAG IVPB ONE (06:21)
[2020-02-05] MEDS: SODIUM CHLORIDE 0.9% 1,000 ML IV SCH ×3 (07:31→23:56)
[2020-02-05] MEDS ORDERED: ALPRAZolam 0.25 MG TAB PO PRN (08:54)
[2020-02-05 09:51] LABS: Appearance,Urine Turbid (Clear); Bilirubin,Urine Negative (Negative); Blood,Urine Small (Negative); Color,Urine Light Yellow; Glucose,Urine (UA) Negative (Negative); Ketones,Urine Negative (Negative); Leukocyte Esterase,Urine Large (Negative); Nitrite,Urine Positive (Negative); PH, Urine 6.5 (5.0-8.0); Protein,Urine Trace (Negative); RBC,Urine 5 /hpf (0-5); Specific Gravity,Urine 1.015 (1.001-1.035); Urobilinogen,Urine <2.0 mg/dL (<2.0); WBC,Urine >182 /hpf (0-5)
[2020-02-05] MEDS: LOSARTAN 50 MG TAB PO SCH (10:37)
[2020-02-05] MEDS: MULTIVITAMINS, THERA 1 EACH TAB PO SCH (10:38)
[2020-02-05] MEDS: VERAPAMIL SR 120 MG TABLET.ER PO SCH (10:38)
[2020-02-05] MEDS: PANTOPRAZOLE 40 MG/10 ML VIAL IVP SCH (10:41)
[2020-02-05] MEDS: ENOXAPARIN 40 MG/0.4 ML SYRINGE SQ SCH (10:42)
[2020-02-05] MEDS: ATENOLOL 50 MG TAB PO SCH (10:44)
[2020-02-05] MEDS: FLUCONAZOLE 100 MG TAB PO SCH (10:44)
--- NOTE | 2020-02-05 11:48 | P.HPIM ---
History of Present Illness H&P Date: 02/05/20 Chief Complaint: chills, nausea This is a 74-year-old female patient of Dr. 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 Newman and Dr. Vogel. Patient's last radiation therapy is scheduled for next week. Her last chemotherapy was a couple weeks ago. Complains of nausea that started on Sunday without vomiting. She denies having any body aches. She states she has had some loose stools and then developed crampy abdominal pain in the lower abdomen. Patient denies black or bloody stools. She denies any dysuria but feels like she has to go often but unable to urinate. She patient complains of chills which are improved at the time of this evaluation. She states she has had a hard time eating and drinking and was recently diagnosed with thrush and took her first pill yesterday. She denies any pain with swallowing. She does states she has had change in taste since she started chemotherapy. She denies any cough. Patient came into [facility] emergency center for evaluation. Electrolytes and renal function were normal, lactic acid 1.3, lipase 310, liver function test showed AST of 37. WBC 21.7, hemoglobin 12.0 platelet count 290. Urinalysis turbid, nitrite positive, leukoesterase large, WBC greater than 182 and WBC clumps many. Influenza testing and strep group a rapid negative. Chest x-ray reveals minimal atelectasis and infiltrate left lung base is slightly worse than old exam. No heart failure. Review of Systems Constitutional: Reports chills, Reports fatigue, Reports poor appetite, Denies fever, Denies weight loss Eyes: denies blurred vision, denies pain Ears, nose, mouth and throat: Denies dysphagia, Denies headache, Denies nasal congestion, Denies nasal discharge, Denies sore throat, Denies vertigo Cardiovascular: Denies chest pain, Denies decreased exercise tolerance, Denies dyspnea on exertion, Denies edema, Denies leg edema, Denies lightheadedness, Denies shortness of breath, Denies syncope Respiratory: Reports cough, Denies cough with sputum, Denies dyspnea, Denies excessive sputum, Denies hemoptysis, Denies home oxygen, Denies respiratory infections, Denies wheezing Gastrointestinal: Reports abdominal pain, Reports diarrhea, Reports loss of appetite, Reports nausea, Denies BRBPR, Denies constipation, Denies melena, Denies vomiting Genitourinary: Reports urgency, Reports urinary frequency, Denies dysuria Menstruation: Reports postmenopausal Musculoskeletal: Denies frequent falls, Denies gait dysfunction, Denies muscle weakness, Denies myalgias Integumentary: Denies pruritus, Denies rash, Denies wounds Neurological: Denies change in mentation, Denies change in speech, Denies gait dysfunction, Denies numbness, Denies seizures, Denies weakness Psychiatric: Denies anxiety, Denies depression Endocrine: Denies fatigue, Denies weight change Past Medical History Past Medical History: Diabetes Mellitus, Hyperlipidemia, Hypertension, Pneumonia Additional Past Medical History / Comment(s): Right breast invasive carcinoma status post chemotherapy, radiation therapy History of Any Multi-Drug Resistant Organisms: None Reported Past Surgical History: Appendectomy, Hysterectomy Additional Past Surgical History / Comment(s): splenectomy, partial pancreas removal,, breast biopsy, cataract removal and intraocular lens implants Past Anesthesia/Blood Transfusion Reactions: No Reported Reaction Additional Past Anesthesia/Blood Transfusion Reaction / Comment(s): Never Received Blood Transfusion Past Psychological History: No Psychological Hx Reported Smoking Status: Never smoker Past Alcohol Use History: None Reported Additional Past Alcohol Use History / Comment(s): The patient is a lifelong nonsmoker. No illicit drug use, marijuana use, alcohol use. Past Drug Use History: None Reported - Past Family History Father Family Medical History: Myocardial Infarction ([place]) Additional Family Medical History / Comment(s): Father at age 65 from a m yocardial infarction. Mother Additional Family Medical History / Comment(s): Mother at age 75 from a myocardial infarction. Brother(s) Additional Family Medical History / Comment(s): Patient does not have any brothers. Sister(s) Additional Family Medical History / Comment(s): Patient has one sister at age 82 with history of hypertension. Medications and Allergies Home Medications Medication Instructions Recorded Confirmed Type ALPRAZolam [Xanax] 0.25 mg PO DAILY PRN 06/22/19 02/05/20 History Atenolol [Tenormin] 50 mg PO DAILY 06/22/19 02/05/20 History Atorvastatin [Lipitor] 20 mg PO HS 06/22/19 02/05/20 History Losartan/Hydrochlorothiazide 1 tab PO DAILY 06/22/19 02/05/20 History [Hyzaar 100-25 Tablet] Verapamil HCl [Verapamil ER] 120 mg PO DAILY 06/22/19 02/05/20 History Insulin NPH Human Isophane 80 unit SQ DAILY 08/28/19 02/05/20 History [NovoLIN N] Fluconazole [Diflucan] 200 mg PO DAILY 02/05/20 02/05/20 History Multivit-Min/Iron/Folic/Lutein 1 tab PO DAILY 02/05/20 02/05/20 History [Centrum Silver Women Tablet] metFORMIN HCL [Glucophage] 1,000 mg PO BID 02/05/20 02/05/20 History Allergies Allergy/AdvReac Type Severity Reaction Status Date / Time erythromycin base Allergy Unknown Verified 02/05/20 08:04 Physical Exam Vitals: Vital Signs Temp Pulse Resp BP Pulse Ox 02/05/20 07:33 77 16 154/76 02/05/20 06:34 97.4 F L 79 16 176/80 96 02/05/20 04:16 92.8 F L 84 18 122/101 96 Intake and Output 02/04/20 02/05/20 02/05/20 22:59 06:59 14:59 Other: Weight 93.44 kg Gen: This is a 74-year-old obese, female. Patient is resting on the ER stretcher and appears to be in no acute distress. HEENT: Head is atraumatic, normocephalic. Pupils equal, round. Sclerae is anicteric. NECK: Supple. No JVD. No lymphadenopathy. No thyromegaly. LUNGS: Clear to auscultation. No wheezes or rhonchi. No intercostal retractions. HEART: Regular rate and rhythm. No murmur. ABDOMEN: Soft. Bowel sounds are present. No masses. Generalized low abdominal tenderness. EXTREMITIES: No pedal edema. No calf tenderness. Dorsalis pedis +2 bilaterally. NEUROLOGICAL: Patient is awake, alert and oriented x3. Cranial nerves 2 through 12 are grossly intact. Results CBC & Chem 7: 02/05/20 04:39 02/06/20 07:43 Labs: Abnormal Lab Results - Last 24 Hours (Table) 02/05/20 02/05/20 Range/Units 04:39 04:39 WBC 21.7 H (3.8-10.6) k/uL RBC 3.79 L (3.80-5.40) m/uL RDW 17.5 H (11.5-15.5) % Neutrophils # (Manual) 18.80 H (1.3-7.7) k/uL Monocytes # (Manual) 1.52 H (0-1.0) k/uL Glucose 68 L (74-99) mg/dL Phosphorus 5.1 H (2.5-4.5) mg/dL Magnesium 1.4 L (1.6-2.3) mg/dL AST 37 H (14-36) U/L Lipase 310 H (23-300) U/L Thrombosis Risk Factor Assmnt - DVT/VTE Prophylaxis DVT/VTE Prophylaxis: Mechanical Prophylaxis ordered Assessment and Plan Plan: 1. Sepsis with hypothermia and leukocytosis in immunocompromised host secondary to acute urinary tract infection, pneumonia less likely. Continue. IV antibiotics, consult Dr. Contreras, blood culture and urine culture. Continue Zofran as needed for nausea. DuoNeb treatments as needed. 2. Thrush with difficulty eating and drinking. Modified barium swallow. Co ntinued Diflucan 200 mg daily. 3. Breast cancer status post chemotherapy and radiation under the care of Dr. Newman. 4. Insulin-dependent diabetes secondary to pancreatic cyst removal. Continue NovoLog scale for now. Hold scheduled NPH and metformin. Obtain hemoglobin A1c. 5. Hypertension. Continue verapamil 120 mg daily, atenolol 50 mg daily, losartan 100 mg daily. Hold hydrochlorothiazide for now. 6. Hyperlipidemia. Continue atorvastatin 20 mg at bedtime. 7. Generalized anxiety disorder. Continue Xanax or 0.25 mg as needed. 8. GI prophylaxis. Protonix. 9. DVT prophylaxis. Lovenox. 10. History of splenectomy. 11. COVID-19 infection not present. Patient will be admitted to the hospital for a minimum of 2 night stay. Discharge plan: Most likely return home. PT and OT added. Impression and plan of care have been directed as dictated by the signing physician. Indira Campos nurse practitioner acting as scribe for signing physician.
[2020-02-05 12:38] LABS: Glucose,Whole Blood 169 mg/dL (75-99)
[2020-02-05] MEDS: INSULIN ASPART (NovoLOG) 100 UNIT/ML VIAL SQ SCH ×3 (13:28→21:53)
[2020-02-05] MEDS ORDERED: VANCOMYCIN 1,000 MG in SODIUM CHLORIDE 0.9% 250 ML IVPB STA (15:08)
[2020-02-05] MEDS ORDERED: PIPERACILLIN-TAZOBACTAM 3.375 GM in SODIUM CHLORIDE 0.9% 100 ML IVPB SCH (16:00)
[2020-02-05] MEDS: VANCOMYCIN 1,500 MG in SODIUM CHLORIDE 0.9% 250 ML IVPB SCH (16:18)
[2020-02-05] MEDS: PIPERACILLIN-TAZOBACTAM 3.375 GM in SODIUM CHLORIDE 0.9% 100 ML IVPB SCH ×2 (16:31→23:57)
[2020-02-05 16:39] LABS: Glucose,Whole Blood 181 mg/dL (75-99)
[2020-02-05] MEDS: IOPAMIDOL CONTRAST (ORAL USE) VIAL PO PRN ×2 (19:40→20:28)
--- NOTE | 2020-02-05 21:37 | CT ---
EXAMINATION TYPE: CT abdomen pelvis w con DATE OF EXAM: 02/05/2020 COMPARISON: 05/13/2010 HISTORY: Sepsis. CT DLP: 1408.1 mGycm Automated exposure control for dose reduction was used. CONTRAST: Performed with IV Contrast, patient injected with 100 mL of Isovue 300. There is some patchy atelectasis at the lung bases on the left side more than the right. Heart is bor derline enlarged. There is no pericardial effusion. There is no pleural effusion. Liver shows no foca l defect. Gallbladder appears normal. Stomach is intact. The spleen is absent. There is no evidence o f the pancreatic mass. Tail of the pancreas is absent. There are surgical clips at the anterior aspec t of the pancreatic head. There is no adrenal mass. Kidneys show satisfactory contrast opacification. There is no hydronephrosi s. There is 1.5 cm cortical cyst lateral right kidney. The right renal collecting system is larger th an the left. I see no definite obstructing calculus. Delayed images show fairly normal renal excretio n. The bladder distends smoothly. There is no inguinal hernia. There are scattered sigmoid diverticul a. There is no sign of diverticulitis. There is no free fluid in the pelvis. There is no evidence of pelvic mass. Appendix is not seen. There is no sign of thickened appendix. There is no mesenteric edema. There is no ascites or free air. There is no sign of bowel obstruction. Lumbar vertebra have normal alignment. There is some narrowing of L4-5 disc space. The posterior barrow ents are intact. There is no compression fracture. The bony pelvis is intact. IMPRESSION: There is pancreatic surgery compared to old exam. No dilated ducts. No evidence of renal stone or obs truction. There is clearing of the pancreatic pseudocysts compared to old exam. Sigmoid diverticulosis without diverticulitis.
[2020-02-05 21:48] LABS: Glucose,Whole Blood 223 mg/dL (75-99)
[2020-02-05] MEDS: ATORVASTATIN 20 MG TAB PO SCH (21:54)
--- NOTE | 2020-02-06 00:45 | P.CONS ---
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 patient also have recent diagnosis of breast cancer for the patient is on chemoradiation therapy last chemo has been about 2 weeks ago patient is presenting to my clinic [facility] ER with chief complaints of generalized body aches not feeling well decreased appetite however denies having any difficulty swallowing no headache or URI symptoms no chest pain or shortness of breath very minimal cough has been complaining some lower abdominal pain and loose stool but no blood or mucus in the stool with the symptom the patient has been evaluated by the ER physician on arrival to the ER patient did have a hypothermia with a temperature of 92.degrees Fahrenheit, patient did have elevated white count of 21,000 ,patient did have a positive UA, influenza PCR was negative, patient did have a have a chest x-ray some minimal infiltrate but no definite consolidation, patient has been started on vancomycin and Zosyn admitted to the hospital infectious was consulted for further management of antibiotic therapy Review of Systems Positive point has been mentioned in HPI rest of the systems are negative Past Medical History Past Medical History: Diabetes Mellitus, Hyperlipidemia, Hypertension, Pneumonia Additional Past Medical History / Comment(s): Right breast invasive carcinoma status post chemotherapy, radiation therapy History of Any Multi-Drug Resistant Organisms: None Reported Past Surgical History: Appendectomy, Hysterectomy Additional Past Surgical History / Comment(s): splenectomy, partial pancreas removal,, breast biopsy, cataract removal and intraocular lens implants Past Anesthesia/Blood Transfusion Reactions: No Reported Reaction Additional Past Anesthesia/Blood Transfusion Reaction / Comm: Never Received Blood Transfusion Past Psychological History: No Psychological Hx Reported Smoking Status: Never smoker Past Alcohol Use History: None Reported Additional Past Alcohol Use History / Comment(s): The patient is a lifelong nonsmoker. No illicit drug use, marijuana use, alcohol use. Past Drug Use History: None Reported - Past Family History Father Family Medical History: Myocardial Infarction ([place]) Additional Family Medical History / Comment(s): Father at age 65 from a myocardial infarction. Mother Additional Family Medical History / Comment(s): Mother at age 75 from a myocardial infarction. Brother(s) Additional Family Medical History / Comment(s): Patient does not have any brothers. Sister(s) Additional Family Medical History / Comment(s): Patient has one sister at age 82 with history of hypertension. Medications and Allergies Home Medications Medication Instructions Recorded Confirmed Type ALPRAZolam [Xanax] 0.25 mg PO DAILY PRN 06/22/19 02/05/20 History Atenolol [Tenormin] 50 mg PO DAILY 06/22/19 02/05/20 History Atorvastatin [Lipitor] 20 mg PO HS 06/22/19 02/05/20 History Losartan/Hydrochlorothiazide 1 tab PO DAILY 06/22/19 02/05/20 History [Hyzaar 100-25 Tablet] Verapamil HCl [Verapamil ER] 120 mg PO DAILY 06/22/19 02/05/20 History Insulin NPH Human Isophane 80 unit SQ DAILY 08/28/19 02/05/20 History [NovoLIN N] Fluconazole [Diflucan] 200 mg PO DAILY 02/05/20 02/05/20 History Multivit-Min/Iron/Folic/Lutein 1 tab PO DAILY 02/05/20 02/05/20 History [Centrum Silver Women Tablet] metFORMIN HCL [Glucophage] 1,000 mg PO BID 02/05/20 02/05/20 History Allergies Allergy/AdvReac Type Severity Reaction Status Date / Time erythromycin base Allergy Unknown Verified 02/05/20 08:04 Physical Exam Vitals: Vital Signs Temp Pulse Pulse Resp BP BP Pulse Ox 02/05/20 15:07 98 F 80 18 128/79 98 02/05/20 15:00 97.8 F 88 17 154/80 98 02/05/20 10:40 92 18 143/77 02/05/20 07:33 77 16 154/76 02/05/20 06:34 97.4 F L 79 16 176/80 96 02/05/20 04:16 92.8 F L 84 18 122/101 96 Intake and Output 02/05/20 02/05/20 02/05/20 06:59 14:59 22:59 Other: Weight 93.44 kg 93.44 kg GENERAL DESCRIPTION: Elderly female up in the chair, no distress. No tachypnea or accessory muscle of respiration use. HEENT: Shows Pallor , no scleral icterus. Oral mucous membrane is dry. NECK: Trachea central, no thyromegaly. LUNGS: Unlabored breathing. Clear to auscultation anteriorly. No wheeze or crackle. HEART: S1, S2, regular rate and rhythm. ABDOMEN: Soft, no tenderness , guarding or rigidity EXTREMITIES: No edema of feet. SKIN: No rash, no masses palpable. NEUROLOGICAL: The patient is awake, alert, oriented x3, mood and affect normal. Results CBC & Chem 7: 02/05/20 04:39 02/05/20 04:39 Labs: Abnormal Lab Results - Last 24 Hours (Table) 02/05/20 02/05/20 02/05/20 Range/Units 04:39 04:39 09:25 WBC 21.7 H (3.8-10.6) k/uL RBC 3.79 L (3.80-5.40) m/uL RDW 17.5 H (11.5-15.5) % Neutrophils # (Manual) 18.80 H (1.3-7.7) k/uL Monocytes # (Manual) 1.52 H (0-1.0) k/uL Glucose 68 L (74-99) mg/dL POC Glucose (mg/dL) (75-99) mg/dL Phosphorus 5.1 H (2.5-4.5) mg/dL Magnesium 1.4 L (1.6-2.3) mg/dL AST 37 H (14-36) U/L Lipase 310 H (23-300) U/L Urine Appearance Turbid H (Clear) Urine Protein Trace H (Negative) Urine Blood Small H (Negative) Urine Nitrite Positive H (Negative) Ur Leukocyte Esterase Large H (Negative) Urine WBC >182 H (0-5) /hpf Urine WBC Clumps Many H (None) /hpf 02/05/20 Range/Units 12:35 WBC (3.8-10.6) k/uL RBC (3.80-5.40) m/uL RDW (11.5-15.5) % Neutrophils # (Manual) (1.3-7.7) k/uL Monocytes # (Manual) (0-1.0) k/uL Glucose (74-99) mg/dL POC Glucose (mg/dL) 169 H (75-99) mg/dL Phosphorus (2.5-4.5) mg/dL Magnesium (1.6-2.3) mg/dL AST (14-36) U/L Lipase (23-300) U/L Urine Appearance (Clear) Urine Protein (Negative) Urine Blood (Negative) Urine Nitrite (Negative) Ur Leukocyte Esterase (Negative) Urine WBC (0-5) /hpf Urine WBC Clumps (None) /hpf Microbiology - Last 24 Hours (Table) 02/05/20 09:25 Urine Culture - Preliminary Urine,Voided 02/05/20 06:30 Group A Strep Throat Culture - Preliminary Throat Assessment and Plan Assessment: -patient presented hospital generalized weakness in this patient who did have a hypothermia significant elevated white count patient with a history of breast cancer for the patient is currently undergoing chemo therapy asking her visit about 2 weeks ago patient did have a positive UA that could be the likely source of infection clinical suspicion is low for a underlying pneumonia do not have any predominant respiratory symptom with concern for abdominal and underlying abdominal source needs to be ruled out (1) UTI (urinary tract infection) Current Visit: Yes Status: Acute Code(s): N39.0 - URINARY TRACT INFECTION, SITE NOT SPECIFIED SNOMED Code(s): 83378814 Plan: 1-we will obtain CT of abdominal pelvis with contrast that should evaluate the lung bases as well 2-Zosyn 3.375 g every 8 hours to continue or discontinue vancomycin We will follow on clinical condition and cultures to further adjust medication if needed Thank you for this consultation we will follow the patient along with you Time with Patient: Greater than 30
[2020-02-06 07:10] LABS: Glucose,Whole Blood 152 mg/dL (75-99)
[2020-02-06] MEDS: PIPERACILLIN-TAZOBACTAM 3.375 GM in SODIUM CHLORIDE 0.9% 100 ML IVPB SCH ×2 (07:34→16:03)
[2020-02-06] MEDS: SODIUM CHLORIDE 0.9% 1,000 ML IV SCH (07:34)
[2020-02-06] MEDS: VANCOMYCIN 1,500 MG in SODIUM CHLORIDE 0.9% 250 ML IVPB SCH (07:35)
[2020-02-06] MEDS: INSULIN ASPART (NovoLOG) 100 UNIT/ML VIAL SQ SCH ×4 (07:36→20:55)
[2020-02-06] MEDS ORDERED: LEVOFLOXACIN 750MG-D5W PMX 750 MG in DEXTROSE/WATER 1 150ML.BAG IVPB SCH (08:00)
[2020-02-06] MEDS: ENOXAPARIN 40 MG/0.4 ML SYRINGE SQ SCH (08:25)
[2020-02-06] MEDS: FLUCONAZOLE 100 MG TAB PO SCH (08:26)
[2020-02-06] MEDS: LOSARTAN 50 MG TAB PO SCH (08:26)
[2020-02-06] MEDS: PANTOPRAZOLE 40 MG/10 ML VIAL IVP SCH (08:26)
[2020-02-06] MEDS: MULTIVITAMINS, THERA 1 EACH TAB PO SCH (08:26)
[2020-02-06] MEDS: ATENOLOL 50 MG TAB PO SCH (08:26)
[2020-02-06] MEDS: VERAPAMIL SR 120 MG TABLET.ER PO SCH (08:26)
[2020-02-06] MEDS: INSULIN NPH 300 UNIT/3 ML VIAL SQ SCH ×2 (09:19→17:30)
[2020-02-06] MEDS: IBUPROFEN 400 MG TAB PO PRN ×2 (09:23→20:54)
--- NOTE | 2020-02-06 12:07 | P.PN ---
Subjective Progress Note Date: 02/06/20 This is a 74-year-old female patient of Dr. 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 Newman and Dr. Vogel. Patient's last radiation therapy is scheduled for next week. Her last chemotherapy was a couple weeks ago. Complains of nausea that started on Sunday without vomiting. She denies h aving any body aches. She states she has had some loose stools and then developed crampy abdominal pain in the lower abdomen. Patient denies black or bloody stools. She denies any dysuria but feels like she has to go often but unable to urinate. She patient complains of chills which are improved at the time of this evaluation. She states she has had a hard time eating and drinking and was recently diagnosed with thrush and took her first pill yesterday. She denies any pain with swallowing. She does states she has had change in taste since she started chemotherapy. She denies any cough. Patient came into [facility] emergency center for evaluation. Electrolytes and renal function were normal, lactic acid 1.3, lipase 310, liver function test showed AST of 37. WBC 21.7, hemoglobin 12.0 platelet count 290. Urinalysis turbid, nitrite positive, leukoesterase large, WBC greater than 182 and WBC clumps many. Influenza testing and strep group a rapid negative. Chest x-ray reveals minimal atelectasis and infiltrate left lung base is slightly worse than old exam. No heart failure. 02/05: Patient states that her lower abdominal pain is improved from yesterday but not quite 100%. She states she ate her supper well last evening but not much appetite this morning for breakfast. She does complain of some nasal congestion but no cough or shortness of breath. She states she has had some diarrhea since contrast for CAT scan. Patient has been seen by Dr. Contreras and he has ordered a CAT scan of the abdomen and pelvis with contrast that revealed pancreatic surgery compared to old exam, comparison was from April 2010. No dilated ducts. No evidence of renal stone or obstruction. Clearing of pancreatic pseudocysts compared to old exam. Sigmoid diverticulosis without diverticulitis. There is some patchy atelectasis at the lung bases on the left side more than the right. Heart is borderline enlarged. No pericardial effusion. No pleural effusion. Patient is currently on Zosyn and vancomycin. Urine culture is in progress. Blood culture no growth after 24 hours. Patient's temperature has been normal since admission, heart rate 87, blood pressure 10/17/1964, pulse ox 95% on room air. Blood sugars are running between 152-223. Repeat creatinine 0.82. Patient has been evaluated by speech therapy and no deficits were noted. Speech therapist did not feel patient would benefit from a modified barium swallow. Patient denies having any difficulty with swallowing. She states her lack of taste is at the tip of her tongue. Patient is on Diflucan for thrush. Repeat blood work is ordered for tomorrow. Coronavirus PCR not detected. Objective - Vital Signs Vital signs: Vital Signs Temp 97.7 F 02/06/20 07:00 Pulse 87 02/06/20 07:00 Resp 17 02/06/20 07:00 BP 124/64 02/06/20 07:00 Pulse Ox 95 02/06/20 07:00 Intake & Output 02/05/20 02/06/20 02/06/20 18:59 06:59 18:59 Intake Total 1200 Balance 1200 Weight 93.44 kg Intake: Oral 1200 - Exam Review of Systems Constitutional: Denies chills, Denies fatigue, Reports poor appetite, Denies fever, Denies weight loss Eyes: denies blurred vision, denies pain Ears, nose, mouth and throat: Denies dysphagia, Denies headache, reports nasal congestion, Denies nasal discharge, Denies sore throat, Denies vertigo Cardiovascular: Denies chest pain, Denies decreased exercise tolerance, Denies dyspnea on exertion, Denies edema, Denies leg edema, Denies lightheadedness, Denies shortness of breath, Denies syncope Respiratory: Denies cough, Denies cough with sputum, Denies dyspnea, Denies excessive sputum, Denies hemoptysis, Denies home oxygen, Denies respiratory infections, Denies wheezing Gastrointestinal: Reports abdominal pain, Reports diarrhea, Reports loss of appetite, denies nausea, Denies BRBPR, Denies constipation, Denies melena, Denies vomiting Genitourinary: Reports urgency, Reports urinary frequency, Denies dysuria Menstruation: Reports postmenopausal Musculoskeletal: Denies frequent falls, Denies gait dysfunction, Denies muscle weakness, Denies myalgias Integumentary: Denies pruritus, Denies rash, Denies wounds Neurological: Denies change in mentation, Denies change in speech, Denies gait dysfunction, Denies numbness, Denies seizures, Denies weakness Psychiatric: Denies anxiety, Denies depression Endocrine: Denies fatigue, Denies weight change Physical Examination Gen: This is a 74-year-old obese, female. Patient is ambulating in her room and appears to be in no acute distress. HEENT: Head is atraumatic, normocephalic. Pupils equal, round. Sclerae is anicteric. NECK: Supple. No JVD. No lymphadenopathy. No thyromegaly. LUNGS: Clear to auscultation. No wheezes or rhonchi. No intercostal retractions. HEART: Regular rate and rhythm. No murmur. ABDOMEN: Soft. Bowel sounds are present. No masses. Mild low abdominal tenderness. EXTREMITIES: No pedal edema. No calf tenderness. Dorsalis pedis +2 bilaterally. NEUROLOGICAL: Patient is awake, alert and oriented x3. Cranial nerves 2 through 12 are grossly intact. - Labs CBC & Chem 7: 02/05/20 04:39 02/06/20 07:43 Labs: Abnormal Lab Results - Last 24 Hours (Table) 02/05/20 02/05/20 02/05/20 Range/Units 09:25 12:35 16:37 POC Glucose (mg/dL) 169 H 181 H (75-99) mg/dL Urine Appearance Turbid H (Clear) Urine Protein Trace H (Negative) Urine Blood Small H (Negative) Urine Nitrite Positive H (Negative) Ur Leukocyte Esterase Large H (Negative) Urine WBC >182 H (0-5) /hpf Urine WBC Clumps Many H (None) /hpf 02/05/20 02/06/20 Range/Units 21:46 07:08 POC Glucose (mg/dL) 223 H 152 H (75-99) mg/dL Urine Appearance (Clear) Urine Protein (Negative) Urine Blood (Negative) Urine Nitrite (Negative) Ur Leukocyte Esterase (Negative) Urine WBC (0-5) /hpf Urine WBC Clumps (None) /hpf Microbiology - Last 24 Hours (Table) 02/05/20 04:39 Blood Culture - Preliminary Blood No Growth after 24 hours 02/05/20 09:25 Urine Culture - Preliminary Urine,Voided 02/05/20 06:30 Group A Strep Throat Culture - Preliminary Throat Assessment and Plan Plan: 1. Sepsis with hypothermia and leukocytosis in immunocompromised host secondary to acute urinary tract infection, pneumonia less likely. Continue IV Zosyn and vancomycin, consult Dr. Contreras, blood culture and urine culture. Continue Zofran as needed for nausea. DuoNeb treatments as needed. 2. Thrush with difficulty eating and drinking. Speech therapy evaluation revealed no swallowing difficulties. Continued Diflucan 200 mg daily. 3. Breast cancer status post chemotherapy and radiation under the care of Dr. Newman. 4. Insulin-dependent diabetes secondary to pancreatic cyst removal. Continue NovoLog scale for now. Hold scheduled NPH and metformin. Obtain hemoglobin A1c. 5. Hypertension. Continue verapamil 120 mg daily, atenolol 50 mg daily, losartan 100 mg daily. Hold hydrochlorothiazide for now. 6. Hyperlipidemia. Continue atorvastatin 20 mg at bedtime. 7. Generalized anxiety disorder. Continue Xanax or 0.25 mg as needed. 8. GI prophylaxis. Protonix. 9. DVT prophylaxis. Lovenox. 10. History of splenectomy. 11. COVID-19 infection not present. Discharge plan: home on Sunday pending urine culture report. Impression and plan of care have been directed as dictated by the signing physician. Indira Campos nurse practitioner acting as scribe for signing physician.
[2020-02-06 12:09] LABS: Glucose,Whole Blood 197 mg/dL (75-99)
[2020-02-06 16:29] LABS: Glucose,Whole Blood 169 mg/dL (75-99)
[2020-02-06 16:58] LABS: Hemoglobin A1C 9.4 % (4.0-6.0)
[2020-02-06 20:33] LABS: Glucose,Whole Blood 150 mg/dL (75-99)
[2020-02-06] MEDS: ATORVASTATIN 20 MG TAB PO SCH (20:54)
--- NOTE | 2020-02-06 22:56 | PN ---
PROGRESS NOTE DATE OF SERVICE: 02/06/2020 REASON FOR FOLLOWUP: Fever, likely UTI. INTERVAL HISTORY: The patient is currently afebrile. The patient overall is feeling better, breathing comfortably. Denies having any chest pain or shortness of breath or cough. No nausea, no vomiting. No abdominal pain. No diarrhea. PHYSICAL EXAMINATION: Blood pressure 119/72 with a pulse of 69, temperature 97.3. She is 93% on room air. General description is an elderly female up in the chair in no distress. RESPIRATORY SYSTEM: Unlabored breathing with decreased breath sounds at the base. No wheeze. HEART: S1, S2. Regular rate and rhythm. ABDOMEN: Soft. No tenderness. LABS: No new labs have been obtained today. Culture so far pending. DIAGNOSTIC IMPRESSION AND PLAN: Patient admitted to hospital with weakness, mental status changes and concern for urinary tract infection, as no other obvious clinical focus of infection. Continue Zosyn. Follow cultures. Monitor clinical course closely. MMODL / IJN: [id number] /
[2020-02-07] MEDS: SODIUM CHLORIDE 0.9% 1,000 ML IV SCH ×3 (00:13→20:21)
[2020-02-07] MEDS: PIPERACILLIN-TAZOBACTAM 3.375 GM in SODIUM CHLORIDE 0.9% 100 ML IVPB SCH ×3 (00:14→17:30)
[2020-02-07 07:06] LABS: Glucose,Whole Blood 79 mg/dL (75-99)
[2020-02-07] MEDS: INSULIN ASPART (NovoLOG) 100 UNIT/ML VIAL SQ SCH ×4 (07:10→20:21)
[2020-02-07 08:10] LABS: Anisocytosis Slight; HCT 32.6 % (34.0-46.0); HGB 10.8 gm/dL (11.4-16.0); Hypochromasia Slight; MCH 31.2 pg (25.0-35.0); MCV 94.5 fL (80.0-100.0); Macrocytosis Slight; Mean Platelet Volume 8.4; Platelet Count 275 k/uL (150-450); Poikilocytosis Slight; RBC 3.45 m/uL (3.80-5.40); WBC 15.9 k/uL (3.8-10.6)
[2020-02-07 08:29] LABS: ALT 20 U/L (4-34); AST 36 U/L (14-36); African American GFR (CKD) >90 (>60 ml/min/1.73 sqM); Albumin 3.3 g/dL (3.5-5.0); Alkaline Phosphatase 91 U/L (38-126); Anion Gap 8 mmol/L; Blood Urea Nitrogen 7 mg/dL (7-17); Calcium 8.8 mg/dL (8.4-10.2); Carbon Dioxide 26 mmol/L (22-30); Chloride 111 mmol/L (98-107); Glucose 67 mg/dL (74-99); Non-African American GFR(CKD) 80 (>60 ml/min/1.73 sqM); Sodium 145 mmol/L (137-145); Total Bilirubin 0.4 mg/dL (0.2-1.3); Total Protein 5.8 g/dL (6.3-8.2)
[2020-02-07] MEDS: LOSARTAN 50 MG TAB PO SCH (08:56)
[2020-02-07] MEDS: INSULIN NPH 300 UNIT/3 ML VIAL SQ SCH ×2 (08:56→17:50)
[2020-02-07] MEDS: ENOXAPARIN 40 MG/0.4 ML SYRINGE SQ SCH (08:57)
[2020-02-07] MEDS: PANTOPRAZOLE 40 MG/10 ML VIAL IVP SCH (08:57)
[2020-02-07] MEDS: FLUCONAZOLE 100 MG TAB PO SCH (08:57)
[2020-02-07] MEDS: MULTIVITAMINS, THERA 1 EACH TAB PO SCH (08:57)
[2020-02-07] MEDS: VERAPAMIL SR 120 MG TABLET.ER PO SCH (08:57)
[2020-02-07] MEDS: ATENOLOL 50 MG TAB PO SCH (08:57)
--- NOTE | 2020-02-07 10:13 | P.PN ---
Subjective Progress Note Date: 02/07/20 This is a 74-year-old female patient of Dr. 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 Newman and Dr. Vogel. Patient's last radiation therapy is scheduled for next week. Her last chemotherapy was a couple weeks ago. Complains of nausea that started on Sunday without vomiting. She denies having any body aches. She states she has had some loose stools and then developed crampy abdominal pain in the lower abdomen. Patient denies black or bloody stools. She denies any dysuria but feels like she has to go often but unable to urinate. She patient complains of chills which are improved at the time of this evaluation. She states she has had a hard time eating and drinking and was rece ntly diagnosed with thrush and took her first pill yesterday. She denies any pain with swallowing. She does states she has had change in taste since she started chemotherapy. She denies any cough. Patient came into [facility] emergency center for evaluation. Electrolytes and renal function were normal, lactic acid 1.3, lipase 310, liver function test showed AST of 37. WBC 21.7, hemoglobin 12.0 platelet count 290. Urinalysis turbid, nitrite positive, leukoesterase large, WBC greater than 182 and WBC clumps many. Influenza testing and strep group a rapid negative. Chest x-ray reveals minimal atelectasis and infiltrate left lung base is slightly worse than old exam. No heart failure. 02/07/2020: Patient is sitting up in a chair with complaints of chills. Patient states that in the night she began to feel cold and has not been able to get warm. Patient states she is able to tolerate food and drink without any difficulties she continues to take Diflucan. Urine culture has shown no growth and 18 hours. Patient is anxious to go home we'll await recommendations for oral antibiotics prior to discharge. Review of Systems: Constitutional: Reports chills, Reports fatigue, Reports poor appetite improved, Denies fever, Denies weight loss Eyes: denies blurred vision, denies pain Ears, nose, mouth and throat: Denies dysphagia, Denies headache, Denies nasal congestion, Denies nasal discharge, Denies sore throat, Denies vertigo Cardiovascular: Denies chest pain, Denies decreased exercise tolerance, Denies dyspnea on exertion, Denies edema, Denies leg edema, Denies lightheadedness, Denies shortness of breath, Denies syncope Respiratory: Reports cough, Denies cough with sputum, Denies dyspnea, Denies excessive sputum, Denies hemoptysis, Denies home oxygen, Denies respiratory infections, Denies wheezing Gastrointestinal: Reports abdominal pain, Reports diarrhea, Reports loss of appetite, Reports nausea, Denies BRBPR, Denies constipation, Denies melena, De nies vomiting Genitourinary: Reports urgency, Reports urinary frequency, Denies dysuria Menstruation: Reports postmenopausal Musculoskeletal: Denies frequent falls, Denies gait dysfunction, Denies muscle weakness, Denies myalgias Integumentary: Denies pruritus, Denies rash, Denies wounds Neurological: Denies change in mentation, Denies change in speech, Denies gait dysfunction, Denies numbness, Denies seizures, Denies weakness Psychiatric: Denies anxiety, Denies depression Endocrine: Denies fatigue, Denies weight change Objective - Vital Signs Vital signs: Vital Signs Temp 97.4 F L 02/07/20 09:07 Pulse 69 02/07/20 07:55 Resp 16 02/07/20 07:55 BP 132/83 02/07/20 07:55 Pulse Ox 95 02/07/20 07:55 Intake & Output 02/06/20 02/07/20 02/07/20 18:59 06:59 18:59 Intake Total 750 600 Balance 750 600 Intake: Intake, IV Titration 750 Amount Piperacillin-Tazobactam 3 100 .375 gm In Sodium Chloride 0.9% 100 ml @ 25 mls/hr IVPB Q8HR ISATU Rx# :[id number] Sodium Chloride 0.9% 1, 400 000 ml @ 100 mls/hr IV . Q10H ISATU Rx#:[id number] Vancomycin 1,500 mg In 250 Sodium Chloride 0.9% 250 ml @ 125 mls/hr IVPB Q16H ISATU Rx#:[id number] Oral 600 Other: Voiding Method Toilet # Voids 2 - Exam Gen: This is a 74-year-old obese, female. Patient is resting in the chair at bedside and appears to be in no acute distress. HEENT: Head is atraumatic, normocephalic. Pupils equal, round. Sclerae is anicteric. NECK: Supple. No JVD. No lymphadenopathy. No thyromegaly. LUNGS: Clear to auscultation. No wheezes or rhonchi. No intercostal retractions. HEART: Regular rate and rhythm. No murmur. ABDOMEN: Soft. Bowel sounds are present. No masses. Generalized low abdominal tenderness. EXTREMITIES: No pedal edema. No calf tenderness. Dorsalis pedis +2 bilaterally. NEUROLOGICAL: Patient is awake, alert and oriented x3. Cranial nerves 2 through 12 are grossly intact. - Labs CBC & Chem 7: 02/07/20 06:59 02/07/20 06:59 Labs: Abnormal Lab Results - Last 24 Hours (Table) 02/06/20 02/06/20 02/06/20 Range/Units 07:43 12:07 16:27 WBC (3.8-10.6) k/uL RBC (3.80-5.40) m/uL Hgb (11.4-16.0) gm/dL Hct (34.0-46.0) % RDW (11.5-15.5) % Chloride (98-107) mmol/L Glucose (74-99) mg/dL POC Glucose (mg/dL) 197 H 169 H (75-99) mg/dL Hemoglobin A1c 9.4 H (4.0-6.0) % Total Protein (6.3-8.2) g/dL Albumin (3.5-5.0) g/dL 02/06/20 02/07/20 02/07/20 Range/Units 20:31 06:59 06:59 WBC 15.9 H (3.8-10.6) k/uL RBC 3.45 L (3.80-5.40) m/uL Hgb 10.8 L (11.4-16.0) gm/dL Hct 32.6 L (34.0-46.0) % RDW 18.0 H (11.5-15.5) % Chloride 111 H (98-107) mmol/L Glucose 67 L (74-99) mg/dL POC Glucose (mg/dL) 150 H (75-99) mg/dL Hemoglobin A1c (4.0-6.0) % Total Protein 5.8 L (6.3-8.2) g/dL Albumin 3.3 L (3.5-5.0) g/dL Microbiology - Last 24 Hours (Table) 02/05/20 06:30 Group A Strep Throat Culture - Final Throat 02/05/20 04:39 Blood Culture - Preliminary Blood No Growth after 48 hours 02/05/20 09:25 Urine Culture - Final Urine,Voided Assessment and Plan Plan: 1. Sepsis with hypothermia and leukocytosis in immunocompromised host secondary to acute urinary tract infection, pneumonia less likely. Urine culture shows no growth and 18 hours and final. Awaiting Dr. Contreras recommendations for oral antibiotics for discharge. Continue Zofran as needed for nausea. DuoNeb treatments as needed. 2. Thrush with difficulty eating and drinking. Modified barium swallow. Continued Diflucan 200 mg daily. 3. Breast cancer status post chemotherapy and radiation under the care of Dr. Newman. 4. Insulin-dependent diabetes secondary to pancreatic cyst removal. Continue NovoLog scale for now. Hold scheduled NPH and metformin. Obtain hemoglobin A1c. 5. Hypertension. Continue verapamil 120 mg daily, atenolol 50 mg daily, losartan 100 mg daily. Hold hydrochlorothiazide for now. 6. Hyperlipidemia. Continue atorvastatin 20 mg at bedtime. 7. Generalized anxiety disorder. Continue Xanax or 0.25 mg as needed. 8. GI prophylaxis. Protonix. 9. DVT prophylaxis. Lovenox. 10. History of splenectomy. 11. COVID-19 infection not present. Patient will be admitted to the hospital for a minimum of 2 night stay. Discharge plan: Most likely return home. PT and OT added. Impression and plan of care have been directed as dictated by the signing physician. Roseanna Pinto nurse practitioner acting as scribe for signing physician. Additional CC's: Hector Sheridan
[2020-02-07 11:49] LABS: Glucose,Whole Blood 302 mg/dL (75-99)
[2020-02-07 11:54] VITALS: BMI 33.2
[2020-02-07 12:45] LABS: Glucose,Whole Blood 270 mg/dL (75-99)
--- NOTE | 2020-02-07 16:37 | PN ---
PROGRESS NOTE DATE OF SERVICE: 02/07/2020 REASON FOR FOLLOWUP: Fever, likely UTI. INTERVAL HISTORY: The patient is currently afebrile. The patient is breathing comfortably. Denies having any chest pain. No shortness of breath or cough. No nausea, vomiting, abdominal pain or diarrhea. PHYSICAL EXAMINATION: Blood pressure is 132/83 with a pulse of 79, temperature 97.4. She is 95% on room air. General description is an elderly female up in the chair in no distress. Respiratory system: Unlabored breathing, clear to auscultation. Heart S1, S2. Regular rate and rhythm. Abdomen soft, no tenderness. LABS: Hemoglobin is 10.8, white count 15.9. BUN of 7, creatinine 0.74. Blood culture negative. Urine so far negative as well. DIAGNOSTIC IMPRESSION AND PLAN: Patient admitted to hospital with hyperthermia, elevated white count. She did have positive UA and has been treated with Zosyn with overall improvement of her symptoms. Culture has been negative. Keep on IV antibiotic for 24 hours . Hopefully switch to oral antibiotics. Continue supportive care. MMODL / IJN: [id number] /
[2020-02-07 17:11] LABS: Glucose,Whole Blood 289 mg/dL (75-99)
[2020-02-07 20:10] LABS: Glucose,Whole Blood 319 mg/dL (75-99)
[2020-02-07] MEDS: ATORVASTATIN 20 MG TAB PO SCH (20:21)
[2020-02-08] MEDS: PIPERACILLIN-TAZOBACTAM 3.375 GM in SODIUM CHLORIDE 0.9% 100 ML IVPB SCH ×3 (00:46→17:22)
[2020-02-08] MEDS: IBUPROFEN 400 MG TAB PO PRN (00:50)
[2020-02-08 07:02] LABS: Glucose,Whole Blood 99 mg/dL (75-99)
[2020-02-08] MEDS: SODIUM CHLORIDE 0.9% 1,000 ML IV SCH ×2 (07:04→17:14)
[2020-02-08] MEDS: INSULIN ASPART (NovoLOG) 100 UNIT/ML VIAL SQ SCH ×4 (07:04→21:20)
[2020-02-08 08:17] LABS: Anisocytosis Slight; Basophils # (A) 0.1 k/uL (0-0.2); Basophils % (A) 1 %; Eosinophils # (A) 0.1 k/uL (0-0.7); Eosinophils % (A) 1 %; HCT 30.5 % (34.0-46.0); HGB 9.6 gm/dL (11.4-16.0); Hypochromasia Slight; Lymphocytes # (A) 2.6 k/uL (1.0-4.8); Lymphocytes % (A) 22 %; MCH 30.3 pg (25.0-35.0); MCHC 31.6 g/dL (31.0-37.0); MCV 95.8 fL (80.0-100.0); Macrocytosis Slight; Monocytes # (A) 0.9 k/uL (0-1.0); Monocytes % (A) 8 %; Neutrophils # (A) 7.5 k/uL (1.3-7.7); Neutrophils % (A) 64 %; Platelet Count 311 k/uL (150-450); Poikilocytosis Slight; RBC 3.18 m/uL (3.80-5.40); RDW 18.4 % (11.5-15.5); WBC 11.6 k/uL (3.8-10.6)
[2020-02-08 08:23] LABS: Calcium 8.3 mg/dL (8.4-10.2); Potassium 3.8 mmol/L (3.5-5.1)
[2020-02-08] MEDS: FLUCONAZOLE 100 MG TAB PO SCH (08:35)
[2020-02-08] MEDS: ENOXAPARIN 40 MG/0.4 ML SYRINGE SQ SCH (08:35)
[2020-02-08] MEDS: INSULIN NPH 300 UNIT/3 ML VIAL SQ SCH ×2 (08:35→17:50)
[2020-02-08] MEDS: ATENOLOL 50 MG TAB PO SCH (08:35)
[2020-02-08] MEDS: PANTOPRAZOLE 40 MG TABLET PO SCH (08:36)
[2020-02-08] MEDS: VERAPAMIL SR 120 MG TABLET.ER PO SCH (08:36)
[2020-02-08] MEDS: LOSARTAN 50 MG TAB PO SCH (08:36)
[2020-02-08] MEDS: MULTIVITAMINS, THERA 1 EACH TAB PO SCH (08:36)
--- NOTE | 2020-02-08 09:36 | P.PN ---
Subjective Progress Note Date: 02/08/20 This is a 74-year-old female patient of Dr. 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 Newman and Dr. Vogel. Patient's last radiation therapy is scheduled for next week. Her last chemotherapy was a couple weeks ago. Complains of nausea that started on Sunday without vomiting. She denies having any body aches. She states she has had some loose stools and then developed crampy abdominal pain in the lower abdomen. Patient denies black or bloody stools. She denies any dysuria but feels like she has to go often but unable to urinate. She patient complains of chills which are improved at the time of this evaluation. She states she has had a hard time eating and drinking and was rece ntly diagnosed with thrush and took her first pill yesterday. She denies any pain with swallowing. She does states she has had change in taste since she started chemotherapy. She denies any cough. Patient came into [facility] emergency center for evaluation. Electrolytes and renal function were normal, lactic acid 1.3, lipase 310, liver function test showed AST of 37. WBC 21.7, hemoglobin 12.0 platelet count 290. Urinalysis turbid, nitrite positive, leukoesterase large, WBC greater than 182 and WBC clumps many. Influenza testing and strep group a rapid negative. Chest x-ray reveals minimal atelectasis and infiltrate left lung base is slightly worse than old exam. No heart failure. 02/07/2020: Patient is sitting up in a chair with complaints of chills. Patient states that in the night she began to has not been able to get warm. Patient states she is able to tolerate food and drink without any difficulties she continues to take Diflucan. Urine culture has shown no growth and 18 hours. Patient is anxious to go home we'll await recommendations for oral antibiotics prior to discharge. 02/08/2020: Patient is sitting up in the chair without any complaints or concerns today. Patient is anxious to go home. ID patient yesterday and requested 24 hours of Zosyn to be completed. To transition to oral antibiotics. At this time patient may go home if approved by infectious disease. WBC 11.6, Hemoglobin 9.6, potassium 3.8, BUN 8 creatinine 0.8. Vision has been afebrile. Blood pressure 157/77 heart rate 67 pulse ox 95% on room air Review of Systems: Constitutional: Reports chills, denies fatigue, denies poor appetite improved, Denies fever, Denies weight loss Eyes: denies blurred vision, denies pain Ears, nose, mouth and throat: Denies dysphagia, Denies headache, Denies nasal congestion, Denies nasal discharge, Denies sore throat, Denies vertigo Cardiovascular: Denies chest pain, Denies decreased exercise tolerance, Denies dyspnea on exertion, Denies edema, Denies leg edema, Denies lightheadedness, Denies shortness of breath, Denies syncope Respiratory: Reports cough, Denies cough with sputum, Denies dyspnea, Denies excessive sputum, Denies hemoptysis, Denies home oxygen, Denies respiratory infections, Denies wheezing Gastrointestinal: Reports abdominal pain, Reports diarrhea, Reports loss of appetite, Reports nausea, Denies BRBPR, Denies constipation, Denies melena, Denies vomiting Genitourinary: Denies urgency, denies urinary frequency, Denies dysuria Menstruation: Reports postmenopausal Musculoskeletal: Denies frequent falls, Denies gait dysfunction, Denies muscle weakness, Denies myalgias Integumentary: Denies pruritus, Denies rash, Denies wounds Neurological: Denies change in mentation, Denies change in speech, Denies gait dysfunction, Denies numbness, Denies seizures, Denies weakness Psychiatric: Denies anxiety, Denies depression Endocrine: Denies fatigue, Denies weight change Objective - Vital Signs Vital signs: Vital Signs Temp 98.2 F 02/08/20 04:11 Pulse 67 02/08/20 04:11 Resp 17 02/08/20 04:11 BP 157/77 02/08/20 04:11 Pulse Ox 95 02/08/20 04:11 Intake & Output 02/07/20 02/08/20 02/08/20 18:59 06:59 18:59 Intake Total 600 Balance 600 Weight 93.44 kg Intake: Intake, IV Titration 600 Amount Piperacillin-Tazobactam 3 100 .375 gm In Sodium Chloride 0.9% 100 ml @ 25 mls/hr IVPB Q8HR [facility] Rx# :[id number] Sodium Chloride 0.9% 1, 500 000 ml @ 100 mls/hr IV . Q10H [facility] Rx#:[id number] Other: Voiding Method Toilet Toilet # Voids 1 # Bowel Movements 1 - Exam Gen: This is a 74-year-old obese, female. Patient is resting in the chair at bedside and appears to be in no acute distress. HEENT: Head is atraumatic, normocephalic. Pupils equal, round. Sclerae is anic teric. NECK: Supple. No JVD. No lymphadenopathy. No thyromegaly. LUNGS: Clear to auscultation. No wheezes or rhonchi. No intercostal retractions. HEART: Regular rate and rhythm. No murmur. ABDOMEN: Soft. Bowel sounds are present. No masses. Generalized low abdominal tenderness. EXTREMITIES: No pedal edema. No calf tenderness. Dorsalis pedis +2 bilaterally. NEUROLOGICAL: Patient is awake, alert and oriented x3. Cranial nerves 2 through 12 are grossly intact. - Labs CBC & Chem 7: 02/08/20 07:38 02/08/20 07:38 Labs: Abnormal Lab Results - Last 24 Hours (Table) 02/07/20 02/07/20 02/07/20 Range/Units 11:47 12:44 17:08 WBC (3.8-10.6) k/uL RBC (3.80-5.40) m/uL Hgb (11.4-16.0) gm/dL Hct (34.0-46.0) % RDW (11.5-15.5) % Chloride (98-107) mmol/L POC Glucose (mg/dL) 302 H 270 H 289 H (75-99) mg/dL Calcium (8.4-10.2) mg/dL 02/07/20 02/08/20 02/08/20 Range/Units 20:08 07:38 07:38 WBC 11.6 H (3.8-10.6) k/uL RBC 3.18 L (3.80-5.40) m/uL Hgb 9.6 L (11.4-16.0) gm/dL Hct 30.5 L (34.0-46.0) % RDW 18.4 H (11.5-15.5) % Chloride 110 H (98-107) mmol/L POC Glucose (mg/dL) 319 H (75-99) mg/dL Calcium 8.3 L (8.4-10.2) mg/dL Microbiology - Last 24 Hours (Table) 02/05/20 04:39 Blood Culture - Preliminary Blood No Growth after 72 hours 02/05/20 06:30 Group A Strep Throat Culture - Final Throat Assessment and Plan Plan: 1. Sepsis with hypothermia and leukocytosis in immunocompromised host secondary to acute urinary tract infection, pneumonia less likely. Urine culture shows no growth and 18 hours and final. Patient is able to go home today if oral antibiotic recommendations are given. Continue Zofran as needed for nausea. DuoNeb treatments as needed. 2. Thrush with difficulty eating and drinking. Modified barium swallow. Continued Diflucan 200 mg daily. 3. Breast cancer status post chemotherapy and radiation under the care of Dr. Newman. 4. Insulin-dependent diabetes secondary to pancreatic cyst removal. Continue NovoLog scale for now. Hold scheduled NPH and metformin. Obtain hemoglobin A1c. 5. Hypertension. Continue verapamil 120 mg daily, atenolol 50 mg daily, losartan 100 mg daily. Hold hydrochlorothiazide for now. 6. Hyperlipidemia. Continue atorvastatin 20 mg at bedtime. 7. Generalized anxiety disorder. Continue Xanax or 0.25 mg as needed. 8. GI prophylaxis. Protonix. 9. DVT prophylaxis. Lovenox. 10. History of splenectomy. 11. COVID-19 infection not present. Patient will be admitted to the hospital for a minimum of 2 night stay. Discharge plan: Most likely return home. PT and OT added. Impression and plan of care have been directed as dictated by the signing physician. Roseanna Pinto nurse practitioner acting as scribe for signing physician. Additional CC's: Hector Sheridan
[2020-02-08 11:59] LABS: Glucose,Whole Blood 163 mg/dL (75-99)
[2020-02-08 17:27] LABS: Glucose,Whole Blood 182 mg/dL (75-99)
[2020-02-08 20:19] LABS: Glucose,Whole Blood 254 mg/dL (75-99)
[2020-02-08] MEDS: ATORVASTATIN 20 MG TAB PO SCH (21:20)
[2020-02-09] MEDS: PIPERACILLIN-TAZOBACTAM 3.375 GM in SODIUM CHLORIDE 0.9% 100 ML IVPB SCH ×2 (00:34→08:13)
[2020-02-09] MEDS: SODIUM CHLORIDE 0.9% 1,000 ML IV SCH (00:35)
--- NOTE | 2020-02-09 00:48 | PN ---
PROGRESS NOTE DATE OF SERVICE: 02/08/2020 REASON FOR FOLLOWUP: Fever, question of UTI. INTERVAL HISTORY: The patient is currently afebrile. Patient is breathing comfortably, feeling better. No chest pain or shortness of breath or cough. No nausea, no vomiting. No abdominal pain. Still complaining of some diarrhea. No other symptoms. PHYSICAL EXAMINATION: Blood pressure 137/78 with a pulse of 68, temperature 98.2. She is 96% on room air. General description is an elderly female up in the chair in no distress. RESPIRATORY SYSTEM: Unlabored breathing, clear to auscultation. No wheeze. HEART: S1, S2. Regular rate and rhythm. ABDOMEN: Soft, no tenderness. EXTREMITIES: No edema of the feet. LABS: White count 11.6. Creatinine 0.80. All cultures have been negative so far. DIAGNOSTIC IMPRESSION AND PLAN: Patient admitted to the hospital sepsis with concern for possible urinary source as the patient did have significantly positive UA and other obvious focus of infection overall resolution improvement of symptoms with Zosyn with culture negative. She will be able to finish therapy with oral Ceftin 500 b.i.d. for 7 days. She was offered discharge today however the patient wanted to stay until tomorrow. MMODL / IJN: [id number] /
[2020-02-09 07:08] LABS: Glucose,Whole Blood 155 mg/dL (75-99)
[2020-02-09 08:12] VITALS: BP 159/79; PULSE 76; RESP 16; TEMP 98
[2020-02-09] MEDS: INSULIN ASPART (NovoLOG) 100 UNIT/ML VIAL SQ SCH (08:13)
[2020-02-09] MEDS: INSULIN NPH 300 UNIT/3 ML VIAL SQ SCH (08:14)
[2020-02-09] MEDS: VERAPAMIL SR 120 MG TABLET.ER PO SCH (08:15)
[2020-02-09] MEDS: MULTIVITAMINS, THERA 1 EACH TAB PO SCH (08:15)
[2020-02-09] MEDS: PANTOPRAZOLE 40 MG TABLET PO SCH (08:15)
[2020-02-09] MEDS: ENOXAPARIN 40 MG/0.4 ML SYRINGE SQ SCH (08:15)
[2020-02-09] MEDS: LOSARTAN 50 MG TAB PO SCH (08:15)
[2020-02-09] MEDS: ATENOLOL 50 MG TAB PO SCH (08:15)
[2020-02-09] MEDS: FLUCONAZOLE 100 MG TAB PO SCH (08:15)
--- NOTE | 2020-02-09 10:54 | P.DS ---
Providers Date of admission: 02/05/20 06:18 Expected date of discharge: 02/09/20 Attending physician: Bandar Moore Consults: 02/05/20 08:59 Consult Physician Routine Consulting Provider: Edmundo Contreras Consult Reason/Comments: immunocompromised sepsis Do you want consulting provider notified?: Yes Primary care physician: Hector Sheridan [facility] Course: This is a 74-year-old female patient of Dr. 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 Newman and Dr. Vogel. Patient's last radiation therapy is scheduled for next week. Her last chemotherapy was a couple weeks ago. Complains of nausea that started on Sunday without vomiting. She denies having any body aches. She states she has had some loose stools and then developed crampy abdominal pain in the lower abdomen. Patient denies black or bloody stools. She denies any dysuria but feels like she has to go often but unable to urinate. She patient complains of chills which are improved at the time of this evaluation. She states she has had a hard time eating and drinking and was recently diagnosed with thrush and took her first pill yesterday. She denies any pain with swallowing. She does states she has had change in taste since she started chemotherapy. She denies any cough. Patient came into [facility] emergency center for evaluation. Electrolytes and renal function were normal, lactic acid 1.3, lipase 310, liver function test showed AST of 37. WBC 21.7, hemoglobin 12.0 platelet count 290. Urinalysis turbid, nitrite positive, leukoesterase large, WBC greater than 182 and WBC clumps many. Influenza testing and strep group a rapid negative. Chest x-ray reveals minimal atelectasis and infiltrate left lung base is slightly worse than old exam. No heart failure. 02/07/2020: Patient is sitting up in a chair with complaints of chills. Patient states that in the night she began to has not been able to get warm. Patient states she is able to tolerate food and drink without any difficulties she continues to take Diflucan. Urine culture has shown no growth and 18 hours. Patient is anxious to go home we'll await recommendations for oral antibiotics prior to discharge. 02/08/2020: Patient is sitting up in the chair without any complaints or concerns today. Patient is anxious to go home. ID patient yesterday and requested 24 hours of Zosyn to be completed. To transition to oral antibiotics. At this time patient may go home if approved by infectious disease. WBC 11.6, Hemoglobin 9.6, potassium 3.8, BUN 8 creatinine 0.8. Vision has been afebrile. Blood pressure 157/77 heart rate 67 pulse ox 95% on room air 02/08: Dr. Contreras has recommended Ceftin for 7 days and cleared for discharge. Patient does have some lower extremity edema for which we will give her a prescription for Lasix to continue for 2 weeks. Patient would like to leave by noon today. She has been afebrile, heart rate 76, blood pressure 159/79, pulse ox 94% on room air. Capillary blood glucose running between 155 and 254. Patient will be discharged home today in stable condition. Discharge diagnoses: 1. Sepsis with hypothermia and leukocytosis in immunocompromised host secondary to acute urinary tract infection, pneumonia not likely. 2. Thrush with difficulty eating and drinking. 3. Breast cancer status post chemotherapy and radiation under the care of Dr. Newman. 4. Insulin-dependent diabetes secondary to pancreatic cyst removal. 5. Hypertension. 6. Hyperlipidemia. 7. Generalized anxiety disorder. 8. History of splenectomy. 9. COVID-19 infection not present. . Discharge plan: home. Impression and plan of care have been directed as dictated by the signing physician. Roseanna Pinto nurse practitioner acting as scribe for signing physician. Patient Condition at Discharge: Good Plan - Discharge Summary Discharge Rx Participant: Yes New Discharge Prescriptions: New Cefuroxime Axetil [Ceftin] 500 mg PO BID 7 Days #14 tab Potassium Chloride [Klor-Con 10] 10 meq PO DAILY #14 tablet.er Furosemide [Lasix] 20 mg PO DAILY #14 tab Continue ALPRAZolam [Xanax] 0.25 mg PO DAILY PRN PRN Reason: Anxiety Verapamil HCl [Verapamil ER] 120 mg PO DAILY Losartan/Hydrochlorothiazide [Hyzaar 100-25 Tablet] 1 tab PO DAILY Atorvastatin [Lipitor] 20 mg PO HS Atenolol [Tenormin] 50 mg PO DAILY Insulin NPH Human Isophane [NovoLIN N] 80 unit SQ DAILY metFORMIN HCL [Glucophage] 1,000 mg PO BID Multivit-Min/Iron/Folic/Lutein [Centrum Silver Women Tablet] 1 tab PO DAILY Fluconazole [Diflucan] 200 mg PO DAILY Discharge Medication List ALPRAZolam [Xanax] 0.25 mg PO DAILY PRN 06/22/19 [History] Atenolol [Tenormin] 50 mg PO DAILY 06/22/19 [History] Atorvastatin [Lipitor] 20 mg PO HS 06/22/19 [History] Losartan/Hydrochlorothiazide [Hyzaar 100-25 Tablet] 1 tab PO DAILY 06/22/19 [History] Verapamil HCl [Verapamil ER] 120 mg PO DAILY 06/22/19 [History] Insulin NPH Human Isophane [NovoLIN N] 80 unit SQ DAILY 08/28/19 [History] Fluconazole [Diflucan] 200 mg PO DAILY 02/05/20 [History] Multivit-Min/Iron/Folic/Lutein [Centrum Silver Women Tablet] 1 tab PO DAILY 02/05/20 [History] metFORMIN HCL [Glucophage] 1,000 mg PO BID 02/05/20 [History] Cefuroxime Axetil [Ceftin] 500 mg PO BID 7 Days #14 tab 02/09/20 [Rx] Furosemide [Lasix] 20 mg PO DAILY #14 tab 02/09/20 [Rx] Potassium Chloride [Klor-Con 10] 10 meq PO DAILY #14 tablet.er 02/09/20 [Rx] Follow up Appointment(s)/Referral(s): Hector Sheridan MD [Primary Care Provider] - 02/12/20 1:15 pm Patient Instructions/Handouts: Viral Pneumonia (DC)
[2020-02-09 11:51] LABS: Glucose,Whole Blood 158 mg/dL (75-99)
--- NOTE | 2020-02-09 14:11 | PN ---
PROGRESS NOTE DATE OF SERVICE: 02/09/2028. REASON FOR FOLLOWUP: Fever, possible UTI. INTERVAL HISTORY: The patient is seen on rounds this afternoon. The patient has been afebrile. Patient is breathing comfortably. Denies having any chest pain or shortness of breath. No abdominal pain and diarrhea improved. PHYSICAL EXAMINATION: Blood pressure 110/79 with a pulse of 76, temperature 98. She is 94% on room air. General description is an elderly female, up in the chair, in no distress. RESPIRATORY SYSTEM: Unlabored breathing, clear to auscultation anteriorly. HEART: S1, S2. Regular rate and rhythm. ABDOMEN: Soft, no tenderness. LABS: Cultures remain to be negative. White count 9.6 from yesterday. DIAGNOSTIC IMPRESSION AND PLAN: Patient admitted to the hospital with sepsis, concern for UTI, overall improvement on Zosyn. Finish therapy with oral Ceftin. Continue supportive care. MMODL / IJN: [id number] /
== END 2020-02-09 12:25 | disposition home or self-care (01) | DRG 872 ==
LOC: EC 04:14 → 4SSUR 06:18
PROVIDERS: ADMIT Internal Medicine Geriatric Medicine; ATTEND Internal Medicine Geriatric Medicine
DX: A41.9 Sepsis, unspecified organism (principal); N39.0 Urinary tract infection, site not specified; E78.5 Hyperlipidemia, unspecified; E86.0 Dehydration; F41.1 Generalized anxiety disorder; I10 Essential (primary) hypertension; Z96.1 Presence of intraocular lens; R63.3 Feeding difficulties; B37.9 Candidiasis, unspecified; E11.9 Type 2 diabetes mellitus without complications; C50.911 Malignant neoplasm of unspecified site of right female breast; K57.30 Diverticulosis of large intestine without perforation or abscess without bleeding; T45.1X5A Adverse effect of antineoplastic and immunosuppressive drugs, initial encounter; Z20.828 Contact with and (suspected) exposure to other viral communicable diseases; Z92.3 Personal history of irradiation; Z92.21 Personal history of antineoplastic chemotherapy; Z90.81 Acquired absence of spleen; Z90.710 Acquired absence of both cervix and uterus; Z90.411 Acquired partial absence of pancreas; Z85.3 Personal history of malignant neoplasm of breast; Z82.49 Family history of ischemic heart disease and other diseases of the circulatory system; Z79.899 Other long term (current) drug therapy; Z79.4 Long term (current) use of insulin; Z88.1 Allergy status to other antibiotic agents; Z87.01 Personal history of pneumonia (recurrent); Z90.49 Acquired absence of other specified parts of digestive tract; Z98.890 Other specified postprocedural states; Z98.49 Cataract extraction status, unspecified eye
CPT/HCPCS: 36415; 71046; 74177; 80048; 80053; 81001; 82565; 83036; 83605; 83690; 83735; 84100; 84145; 85025; 85027; 87040; 87081; 87086; 87430; 87502; 87635; 93005; 96361; 96365; 96366; 96367; 96372; 96375; 96376; 99291

== ENCOUNTER 2020-02-15 13:30 | Emergency (ER) | payer MEDICARE, BC ==
[2020-02-15 13:36] VITALS: RESP 18; TEMP 98.6
--- NOTE | 2020-02-15 15:13 | ED ---
Recheck HPI - General Chief Complaint: Recheck/Abnormal Lab/Rx Stated Complaint: Fever, chills Time Seen by Provider: 02/15/20 14:57 Source: patient Mode of arrival: ambulatory Limitations: no limitations - History of Present Illness Initial Comments: 74-year-old presenting for possible urinary tract infection patient states she has had chills and night sweats. She states that she had a recent urinary tract infection on the hospital with outpatient antibiotics. Patients states she is on lasix and not sure if that is the cause of the increased frequency. I asked patient about the SOB and cough documented in her triage, she states "i dont know why they keep saying that, I am not short of breath and I dont have a cough anymore". She states she was concerned the chills and night sweats were secondary to UTI because she also mentioned sensation of fullness in her back. No sharp stabbing unilateral pain, no hematuria noted or history of stones. crissy kidd dneies chest pain. .Denies leg swelling or difficulty lying flat. Patient denies current diarrhea but states she had a day where she had multiple episodes 2 days ago. Denies bloody stools or abdominal pain. Patient states she has no additional complaints. On arrival afebrile, nontoxic in appearance. - Related Data Home Medications Medication Instructions Recorded Confirmed ALPRAZolam [Xanax] 0.25 mg PO DAILY PRN 06/22/19 02/05/20 Atenolol [Tenormin] 50 mg PO DAILY 06/22/19 02/05/20 Atorvastatin [Lipitor] 20 mg PO HS 06/22/19 02/05/20 Losartan/Hydrochlorothiazide 1 tab PO DAILY 06/22/19 02/05/20 [Hyzaar 100-25 Tablet] Verapamil HCl [Verapamil ER] 120 mg PO DAILY 06/22/19 02/05/20 Insulin NPH Human Isophane 80 unit SQ DAILY 08/28/19 02/05/20 [NovoLIN N] Fluconazole [Diflucan] 200 mg PO DAILY 02/05/20 02/05/20 Multivit-Min/Iron/Folic/Lutein 1 tab PO DAILY 02/05/20 02/05/20 [Centrum Silver Women Tablet] metFORMIN HCL [Glucophage] 1,000 mg PO BID 02/05/20 02/05/20 Previous Rx's Medication Instructions Recorded Cefuroxime Axetil [Ceftin] 500 mg PO BID 7 Days #14 tab 02/09/20 Furosemide [Lasix] 20 mg PO DAILY #14 tab 02/09/20 Potassium Chloride [Klor-Con 10] 10 meq PO DAILY #14 tablet.er 02/09/20 Allergies Allergy/AdvReac Type Severity Reaction Status Date / Time erythromycin base Allergy Unknown Verified 02/15/20 13:36 Review of Systems ROS Statement: Those systems with pertinent positive or pertinent negative responses have been documented in the HPI. ROS Other: All systems not noted in ROS Statement are negative. Past Medical History Past Medical History: Diabetes Mellitus, Hyperlipidemia, Hypertension, Pneumonia Additional Past Medical History / Comment(s): Right breast invasive carcinoma status post chemotherapy, radiation therapy History of Any Multi-Drug Resistant Organisms: None Reported Past Surgical History: Appendectomy, Hysterectomy Additional Past Surgical History / Comment(s): splenectomy, partial pancreas removal,, breast biopsy, cataract removal and intraocular lens implants Past Anesthesia/Blood Transfusion Reactions: No Reported Reaction Additional Past Anesthesia/Blood Transfusion Reaction / Comment(s): Never Received Blood Transfusion Past Psychological History: No Psychological Hx Reported Smoking Status: Never smoker Past Alcohol Use History: None Reported Past Drug Use History: None Reported - Past Family History Father Family Medical History: Myocardial Infarction ([place]) Additional Family Medical History / Comment(s): Father at age 65 from a myocardial infarction. Mother Additional Family Medical History / Comment(s): Mother at age 75 from a myocardial infarction. Brother(s) Additional Family Medical History / Comment(s): Patient does not have any brothers. Sister(s) Additional Family Medical History / Comment(s): Patient has one sister at age 82 with history of hypertension. General Exam - General Exam Comments Initial Comments: General: The patient is awake and alert, in no distress Eye: +3 mm pupils are equal, round and reactive to light, extra-ocular movements are intact. No nystagmus. There is normal conjunctiva bilaterally. No signs of icterus. Ears, nose, mouth and throat: There are moist mucous membranes and no oral lesions. Neck: The neck is supple, there is no tenderness or JVD. Cardiovascular: There is a regular rate and rhythm. No murmur, rub or gallop is appreciated. Respiratory: Lungs are clear to auscultation, respirations are non-labored, breath sounds are equal. No wheezes, stridor, rales, or rhonchi. Gastrointestinal: Soft, non-distended, non-tender abdomen without masses or org anomegaly noted. There is no rebound or guarding present. NO CVA tenderness. Musculoskeletal: Normal ROM, no tenderness. Strength 5/5. Sensation intact. Radial pulses equal bilaterally 2+. Neurological: A&O x 3. CN II-XII intact grossly, There are no obvious motor or sensory deficits. Coordination appears grossly intact. Speech is normal. Skin: Skin is warm and dry and no rashes or lesions are noted. No LE swelling. Psychiatric: Cooperative, appropriate mood & affect, normal judgment. Limitations: no limitations Course Vital Signs 02/15/20 02/15/20 13:34 18:53 Temperature 98.6 F Pulse Rate 77 72 Respiratory 18 18 Rate Blood Pressure 129/79 135/57 O2 Sat by Pulse 97 99 Oximetry Medical Decision Making - Medical Decision Making ABdomen benign, Pt appears dry. Lactic acid elevated otherwise labs stable. Patient CT (-) for acute process. UA unremarkable. CXR no acute findings. No other localizing symptoms. Patient requesting to go home. Patient lactic trending down with fluids. Patient VS stable discussed case with Dr. Ellington who is agreeable to discharge. Urine culture pending. - Lab Data Result diagrams: 02/15/20 15:33 02/15/20 15:33 Lab Results 02/15/20 02/15/20 02/15/20 Range/Units 15:33 15:33 15:33 WBC 10.6 (3.8-10.6) k/uL RBC 4.01 (3.80-5.40) m/uL Hgb 11.9 (11.4-16.0) gm/dL Hct 37.9 (34.0-46.0) % MCV 94.6 (80.0-100.0) fL MCH 29.6 (25.0-35.0) pg MCHC 31.3 (31.0-37.0) g/dL RDW 18.3 H (11.5-15.5) % Plt Count 483 H (150-450) k/uL Neutrophils % 53 % Lymphocytes % 33 % Monocytes % 11 % Eosinophils % 1 % Basophils % 1 % Neutrophils # 5.6 (1.3-7.7) k/uL Lymphocytes # 3.5 (1.0-4.8) k/uL Monocytes # 1.1 H (0-1.0) k/uL Eosinophils # 0.1 (0-0.7) k/uL Basophils # 0.1 (0-0.2) k/uL Hypochromasia Slight Poikilocytosis Slight Anisocytosis Slight Macrocytosis Slight PT 10.5 (9.0-12.0) sec INR 1.0 (<1.2) APTT 23.6 (22.0-30.0) sec Sodium 134 L (137-145) mmol/L Potassium 4.5 (3.5-5.1) mmol/L Chloride 97 L (98-107) mmol/L Carbon Dioxide 25 (22-30) mmol/L Anion Gap 12 mmol/L BUN 20 H (7-17) mg/dL Creatinine 0.84 (0.52-1.04) mg/dL Est GFR (CKD-EPI)AfAm 79 (>60 ml/min/1.73 sqM) Est GFR (CKD-EPI)NonAf 68 (>60 ml/min/1.73 sqM) Glucose 105 H (74-99) mg/dL Lactic Ac Sepsis Rflx Plasma Lactic Acid Reji (0.7-2.0) mmol/L Calcium 10.7 H (8.4-10.2) mg/dL Total Bilirubin 0.6 (0.2-1.3) mg/dL AST 36 (14-36) U/L ALT 20 (4-34) U/L Alkaline Phosphatase 84 (38-126) U/L Total Protein 7.0 (6.3-8.2) g/dL Albumin 4.3 (3.5-5.0) g/dL Urine Color Urine Appearance (Clear) Urine pH (5.0-8.0) Ur Specific [place] (1.001-1.035) Urine Protein (Negative) Urine Glucose (UA) (Negative) Urine Ketones (Negative) Urine Blood (Negative) Urine Nitrite (Negative) Urine Bilirubin (Negative) Urine Urobilinogen (<2.0) mg/dL Ur Leukocyte Esterase (Negative) Urine RBC (0-5) /hpf Urine WBC (0-5) /hpf Ur Squamous Epith Cells (0-4) /hpf Hyaline Casts (0-2) /lpf Urine Mucus (None) /hpf 02/15/20 02/15/20 02/15/20 Range/Units 15:33 15:33 16:29 WBC (3.8-10.6) k/uL RBC (3.80-5.40) m/uL Hgb (11.4-16.0) gm/dL Hct (34.0-46.0) % MCV (80.0-100.0) fL MCH (25.0-35.0) pg MCHC (31.0-37.0) g/dL RDW (11.5-15.5) % Plt Count (150-450) k/uL Neutrophils % % Lymphocytes % % Monocytes % % Eosinophils % % Basophils % % Neutrophils # (1.3-7.7) k/uL Lymphocytes # (1.0-4.8) k/uL Monocytes # (0-1.0) k/uL Eosinophils # (0-0.7) k/uL Basophils # (0-0.2) k/uL Hypochromasia Poikilocytosis Anisocytosis Macrocytosis PT (9.0-12.0) sec INR (<1.2) APTT (22.0-30.0) sec Sodium (137-145) mmol/L Potassium (3.5-5.1) mmol/L Chloride (98-107) mmol/L Carbon Dioxide (22-30) mmol/L Anion Gap mmol/L BUN (7-17) mg/dL Creatinine (0.52-1.04) mg/dL Est GFR (CKD-EPI)AfAm (>60 ml/min/1.73 sqM) Est GFR (CKD-EPI)NonAf (>60 ml/min/1.73 sqM) Glucose (74-99) mg/dL Lactic Ac Sepsis Rflx Y Plasma Lactic Acid Reji 3.9 H* (0.7-2.0) mmol/L Calcium (8.4-10.2) mg/dL Total Bilirubin (0.2-1.3) mg/dL AST (14-36) U/L ALT (4-34) U/L Alkaline Phosphatase (38-126) U/L Total Protein (6.3-8.2) g/dL Albumin (3.5-5.0) g/dL Urine Color Yellow Urine Appearance Clear (Clear) Urine pH 5.5 (5.0-8.0) Ur Specific [place] 1.011 (1.001-1.035) Urine Protein Negative (Negative) Urine Glucose (UA) Negative (Negative) Urine Ketones Negative (Negative) Urine Blood Negative (Negative) Urine Nitrite Negative (Negative) Urine Bilirubin Negative (Negative) Urine Urobilinogen <2.0 (<2.0) mg/dL Ur Leukocyte Esterase Trace H (Negative) Urine RBC 1 (0-5) /hpf Urine WBC 3 (0-5) /hpf Ur Squamous Epith Cells 1 (0-4) /hpf Hyaline Casts 51 H (0-2) /lpf Urine Mucus Rare H (None) /hpf 02/15/20 02/15/20 Range/Units 17:55 18:23 WBC (3.8-10.6) k/uL RBC (3.80-5.40) m/uL Hgb (11.4-16.0) gm/dL Hct (34.0-46.0) % MCV (80.0-100.0) fL MCH (25.0-35.0) pg MCHC (31.0-37.0) g/dL RDW (11.5-15.5) % Plt Count (150-450) k/uL Neutrophils % % Lymphocytes % % Monocytes % % Eosinophils % % Basophils % % Neutrophils # (1.3-7.7) k/uL Lymphocytes # (1.0-4.8) k/uL Monocytes # (0-1.0) k/uL Eosinophils # (0-0.7) k/uL Basophils # (0-0.2) k/uL Hypochromasia Poikilocytosis Anisocytosis Macrocytosis PT (9.0-12.0) sec INR (<1.2) APTT (22.0-30.0) sec Sodium (137-145) mmol/L Potassium (3.5-5.1) mmol/L Chloride (98-107) mmol/L Carbon Dioxide (22-30) mmol/L Anion Gap mmol/L BUN (7-17) mg/dL Creatinine (0.52-1.04) mg/dL Est GFR (CKD-EPI)AfAm (>60 ml/min/1.73 sqM) Est GFR (CKD-EPI)NonAf (>60 ml/min/1.73 sqM) Glucose (74-99) mg/dL Lactic Ac Sepsis Rflx Y Plasma Lactic Acid Reji 2.6 H* (0.7-2.0) mmol/L Calcium (8.4-10.2) mg/dL Total Bilirubin (0.2-1.3) mg/dL AST (14-36) U/L ALT (4-34) U/L Alkaline Phosphatase (38-126) U/L Total Protein (6.3-8.2) g/dL Albumin (3.5-5.0) g/dL Urine Color Urine Appearance (Clear) Urine pH (5.0-8.0) Ur Specific [place] (1.001-1.035) Urine Protein (Negative) Urine Glucose (UA) (Negative) Urine Ketones (Negative) Urine Blood (Negative) Urine Nitrite (Negative) Urine Bilirubin (Negative) Urine Urobilinogen (<2.0) mg/dL Ur Leukocyte Esterase (Negative) Urine RBC (0-5) /hpf Urine WBC (0-5) /hpf Ur Squamous Epith Cells (0-4) /hpf Hyaline Casts (0-2) /lpf Urine Mucus (None) /hpf Disposition Clinical Impression: Chills, Lactic acidosis, Dehydration Disposition: HOME SELF-CARE Condition: Good Additional Instructions: Please use medication as discussed. Please follow-up with family doctor in the next 2 days. Please return to emergency room if the symptoms increase or worsen or for any other concerns. Is patient prescribed a controlled substance at d/c from ED?: No Referrals: Hector Sheridan MD [Primary Care Provider] - 1-2 days Time of Disposition: 19:24
[2020-02-15 16:10] LABS: Anisocytosis Slight; Basophils # (A) 0.1 k/uL (0-0.2); Basophils % (A) 1 %; Eosinophils # (A) 0.1 k/uL (0-0.7); Eosinophils % (A) 1 %; HCT 37.9 % (34.0-46.0); HGB 11.9 gm/dL (11.4-16.0); Hypochromasia Slight; Lymphocytes # (A) 3.5 k/uL (1.0-4.8); Lymphocytes % (A) 33 %; MCH 29.6 pg (25.0-35.0); MCHC 31.3 g/dL (31.0-37.0); MCV 94.6 fL (80.0-100.0); Macrocytosis Slight; Mean Platelet Volume 7.7; Monocytes # (A) 1.1 k/uL (0-1.0); Monocytes % (A) 11 %; Neutrophils # (A) 5.6 k/uL (1.3-7.7); Neutrophils % (A) 53 %; Platelet Count 483 k/uL (150-450); Poikilocytosis Slight; RBC 4.01 m/uL (3.80-5.40); RDW 18.3 % (11.5-15.5); WBC 10.6 k/uL (3.8-10.6)
[2020-02-15 16:14] LABS: Appearance,Urine Clear (Clear); Bilirubin,Urine Negative (Negative); Blood,Urine Negative (Negative); Color,Urine Yellow; Glucose,Urine (UA) Negative (Negative); Hyaline Casts,Urine 51 /lpf (0-2); Ketones,Urine Negative (Negative); Leukocyte Esterase,Urine Trace (Negative); Mucus,Urine Rare /hpf; Nitrite,Urine Negative (Negative); PH, Urine 5.5 (5.0-8.0); Protein,Urine Negative (Negative); RBC,Urine 1 /hpf (0-5); Specific Gravity,Urine 1.011 (1.001-1.035); Squamous Epithelial Cell,Urine 1 /hpf (0-4); Urobilinogen,Urine <2.0 mg/dL (<2.0); WBC,Urine 3 /hpf (0-5)
[2020-02-15 16:17] LABS: Albumin 4.3 g/dL (3.5-5.0); Calcium 10.7 mg/dL (8.4-10.2); Potassium 4.5 mmol/L (3.5-5.1); Total Bilirubin 0.6 mg/dL (0.2-1.3)
[2020-02-15 16:22] LABS: Partial Thromboplastin Time 23.6 sec (22.0-30.0); Prothrombin Time 10.5 sec (9.0-12.0)
[2020-02-15] MEDS ORDERED: SODIUM CHLORIDE 0.9% 500 ML 500 ML IV ONE (16:29)
[2020-02-15] MEDS ORDERED: SODIUM CHLORIDE 0.9% 1,000 ML IV ONE (16:29)
[2020-02-15] MEDS ORDERED: SODIUM CHLORIDE 0.9% 1,000 ML IV SCH (16:30)
--- NOTE | 2020-02-15 16:44 | XR ---
EXAMINATION TYPE: XR chest 2V DATE OF EXAM: 02/15/2020 COMPARISON: Prior chest x-ray 02/05/2020 HISTORY: Chills, cough and shortness of breath TECHNIQUE: Frontal and lateral views of the chest are obtained. FINDINGS: There is no focal air space opacity, pleural effusion, or pneumothorax seen. The cardiac silhouette size is stable. Metallic densities are present within the right breast. The osseous struc tures are intact. IMPRESSION: No acute cardiopulmonary process.
[2020-02-15 18:56] VITALS: BP 135/57; PULSE 72
--- NOTE | 2020-02-15 18:56 | CT ---
EXAMINATION TYPE: CT abdomen pelvis w con DATE OF EXAM: 02/15/2020 COMPARISON: CT 02/05/2020 HISTORY: Lactic acidosis, low back abdominal pain. CT DLP: 1251.5 mGycm Automated exposure control for dose reduction was used. TECHNIQUE: Helical acquisition of images from the lung bases through the pelvis have been completed. CONTRAST: Performed without Oral Contrast and with IV Contrast, patient injected with 100 mL of Isovue 300. FINDINGS: Calcified focus within the mesenteric fat the left lower quadrant shows is stable appearanc e is likely no clinical significance LUNG BASES: No significant abnormality is appreciated, minimal dependent atelectatic changes on the l eft AORTA: No significant abnormality is appreciated. LIVER/GB: No significant abnormality is appreciated. Gallbladder is contracted. PANCREAS: No significant interval change is seen. Distal pancreas is not seen, question prior pancrea tic surgery SPLEEN: Spleen is not seen as on prior exam, some minimal soft tissue shows a stable appearance at th is level the splenic fossa ADRENALS: No significant abnormality is seen. KIDNEYS: No significant change is seen. REPRODUCTIVE ORGANS: Not seen BOWEL: No significant abnormality is seen. FREE AIR: No Free Air visible. ASCITES: None visible. PELVIC ADENOPATHY: None visualized. RETROPERITONEAL ADENOPATHY: No Retroperitoneal Adenopathy visible. URINARY BLADDER: No significant abnormality is seen. OSSEOUS STRUCTURES: No significant abnormality is seen. IMPRESSION: POSTOP CHANGES. NO SIGNIFICANT INTERVAL CHANGE COMPARED TO PRIOR EXAM 10 DAYS PRIOR.
== END 2020-02-15 19:41 | disposition home or self-care (01) ==
LOC: EC 13:30
DX: E86.0 Dehydration (principal); E87.2 Acidosis; R68.83 Chills (without fever); E11.9 Type 2 diabetes mellitus without complications; I10 Essential (primary) hypertension; E78.5 Hyperlipidemia, unspecified; Z79.899 Other long term (current) drug therapy; Z79.4 Long term (current) use of insulin; Z88.1 Allergy status to other antibiotic agents; Z85.3 Personal history of malignant neoplasm of breast; Z92.21 Personal history of antineoplastic chemotherapy; Z92.3 Personal history of irradiation
CPT/HCPCS: 36415; 80053; 83605; 85025; 85610; 85730; 81001; 71046; 74177; 99284; 96360; Q9967

== ENCOUNTER 2020-02-21 06:56 | Emergency (ER) | payer MEDICARE, BC ==
[2020-02-21] MEDS ORDERED: SODIUM CHLORIDE 0.9% 500 ML 500 ML IV STA (07:16)
[2020-02-21] MEDS ORDERED: LORazepam 2 MG/ML INJ IV STA (07:16)
[2020-02-21 07:27] VITALS: RESP 18; TEMP 98.5
--- NOTE | 2020-02-21 07:34 | ED ---
General Adult HPI - General Source: EMS, RN notes reviewed, old records reviewed Mode of arrival: EMS Limitations: no limitations <Ben Vallejo - Last Filed: 02/21/20 10:48> <Quinton Hodges - Last Filed: 02/21/20 15:37> - General Stated complaint: Weakness Time Seen by Provider: 02/21/20 07:10 - History of Present Illness Initial comments: 74-year-old female patient past history significant for type 2 diabetes, splenectomy, right breast cancer, status post surgery, chemotherapy which is since been completed for over a month still undergoing she'll be radiation presents to ED for chief complaint of generalized weakness, tremulousness. Patient reports has been ongoing for 2 weeks. States that her upper extremities are somewhat tremulous as well. Denies any facial droop. Denies any area pain. She states that she has had a very mild cough for the last 3 days. Denies any other complaints. Systemic: Pt denies fatigue, fever/chills, rash. Pt denies weakness, night sweats, weight loss. Neuro: Pt denies headache, visual disturbances, syncope or pre-syncope. HEENT: Pt denies ocular discharge or irritation, otalgia, rhinorrhea, pharyngitis or notable lymphadenopathy. Cardiopulmonary: Pt denies chest pain, SOB, heart palpitations, dyspnea on exertion. Abdominal/GI: Pt denies abdominal pain, n/v/d. : Pt denies dysuria, burning w/ urination, frequency/urgency. Denies new onset urinary or bowel incontinence. MSK: Pt denies myalgia, loss of strength or function in extremities. Neuro: Pt denies new onset weakness, paresthesias. (Ben Vallejo) - Related Data Home Medications Medication Instructions Recorded Confirmed ALPRAZolam [Xanax] 0.25 mg PO DAILY PRN 06/22/19 02/05/20 Atenolol [Tenormin] 50 mg PO DAILY 06/22/19 02/05/20 Atorvastatin [Lipitor] 20 mg PO HS 06/22/19 02/05/20 Losartan/Hydrochlorothiazide 1 tab PO DAILY 06/22/19 02/05/20 [Hyzaar 100-25 Tablet] Verapamil HCl [Verapamil ER] 120 mg PO DAILY 06/22/19 02/05/20 Insulin NPH Human Isophane 80 unit SQ DAILY 08/28/19 02/05/20 [NovoLIN N] Fluconazole [Diflucan] 200 mg PO DAILY 02/05/20 02/05/20 Multivit-Min/Iron/Folic/Lutein 1 tab PO DAILY 02/05/20 02/05/20 [Centrum Silver Women Tablet] metFORMIN HCL [Glucophage] 1,000 mg PO BID 02/05/20 02/05/20 Previous Rx's Medication Instructions Recorded Cefuroxime Axetil [Ceftin] 500 mg PO BID 7 Days #14 tab 02/09/20 Furosemide [Lasix] 20 mg PO DAILY #14 tab 02/09/20 Potassium Chloride [Klor-Con 10] 10 meq PO DAILY #14 tablet.er 02/09/20 Cephalexin [Keflex] 500 mg PO Q6HR 10 Days #40 cap 02/21/20 Allergies Allergy/AdvReac Type Severity Reaction Status Date / Time erythromycin base Allergy Unknown Verified 02/15/20 13:36 Review of Systems ROS Other: All systems not noted in ROS Statement are negative. <Ben Vallejo - Last Filed: 02/21/20 10:48> ROS Other: All systems not noted in ROS Statement are negative. <Quinton Hodges - Last Filed: 02/21/20 15:37> ROS Statement: Those systems with pertinent positive or pertinent negative responses have been documented in the HPI. Past Medical History Past Medical History: Diabetes Mellitus, Hyperlipidemia, Hypertension, Pneumonia Additional Past Medical History / Comment(s): Right breast invasive carcinoma status post chemotherapy, radiation therapy History of Any Multi-Drug Resistant Organisms: None Reported Past Surgical History: Appendectomy, Hysterectomy Additional Past Surgical History / Comment(s): splenectomy, partial pancreas removal,, breast biopsy, cataract removal and intraocular lens implants Past Anesthesia/Blood Transfusion Reactions: No Reported Reaction Additional Past Anesthesia/Blood Transfusion Reaction / Comment(s): Never Received Blood Transfusion Past Psychological History: No Psychological Hx Reported Smoking Status: Never smoker Past Alcohol Use History: None Reported Past Drug Use History: None Reported - Past Family History Father Family Medical History: Myocardial Infarction (VT) Additional Family Medical History / Comment(s): Father at age 65 from a myocardial infarction. Mother Additional Family Medical History / Comment(s): Mother at age 75 from a myocardial infarction. Brother(s) Additional Family Medical History / Comment(s): Patient does not have any brot hers. Sister(s) Additional Family Medical History / Comment(s): Patient has one sister at age 82 with history of hypertension. <Ben Vallejo - Last Filed: 02/21/20 10:48> General Exam Limitations: no limitations <GenevieveBen Kavitha - Last Filed: 02/21/20 10:48> - General Exam Comments Initial Comments: Constitutional: NAD, AOX3, Pt has pleasant affect. HEENT: NC/AT, trachea midline, neck supple, no lymphadenopathy. Posterior pharynx non erythematous, without exudates. External ears appear normal, without discharge. Mucous membranes moist. Eyes PERRLA, EOM intact. There is no scleral icterus. No pallor noted. Cardiopulmonary: RRR, no murmurs, rubs or gallops, no JVD noted. Lungs CTAB in anterior and posterior urrutia. No peripheral edema. Abdominal exam: Abdomen soft and non-distended. Abdomen non-tender to palpation in all 4 quadrants. Bowel sounds active in LLQ. No hepatosplenomegaly. No ecchymosis Neuro: CN II-XII intact. No nuchal rigidity. No raccon eyes, no weir sign, no hemotympanum. No cervical spinal tenderness. NIH 0. MSK: No posterior calf tenderness bilaterally, homans sign negative bilaterally. Posterior tibialis and radial pulse +2 bilaterally. Sensation intact in upper and lower extremities. Full active ROM in upper and lower extremities, 5/5 stregnth. (Ben Vallejo) Course <Quinton Hodges - Last Filed: 02/21/20 15:37> Vital Signs 02/21/20 02/21/20 02/21/20 07:10 09:08 10:21 Temperature 98.5 F Pulse Rate 76 90 72 Respiratory 18 18 18 Rate Blood Pressure 167/85 152/76 139/69 O2 Sat by Pulse 97 98 96 Oximetry - Reevaluation(s) Reevaluation #1: 02/21/20 15:35 PA supervision: I proceeded [id number] evaluation the patient did discuss the findings the patient and her family member who was present. Patient does have a history of breast cancer with chemotherapy last 1 month ago and radiation therapy this week. Patient was found to have evidence of a UTI with dehydration. Patient is feeling improved after treatment in the emergency department we did a long discussion regarding the findings the patient family as well as I did discuss the case with Dr. Gunter. Patient does have a history of splenectomy. She currently is in satisfactory condition for discharge the family was given closed return parameters. Ago home and try to stay in the hospital realizing there is a slightly increased risk of splenectomy medications. During the current pandemic they feel better at home. (Quinton Hodges) Medical Decision Making - Lab Data Result diagrams: 02/21/20 07:02 02/21/20 07:02 - EKG Data -: EKG Interpreted by Me (and Dr. Hodges ) <Ben Vallejo - Last Filed: 02/21/20 10:48> - Lab Data Result diagrams: 02/21/20 07:02 02/21/20 07:02 <Quinton Hodges - Last Filed: 02/21/20 15:37> - Medical Decision Making 74-year-old female patient past history significant for type 2 diabetes, splenectomy, right breast cancer, status post surgery, chemotherapy which is since been completed for over a month still undergoing she'll be radiation presents to ED for chief complaint of generalized weakness, tremulousness. Patient reports has been ongoing for 2 weeks. States that her upper extremities are somewhat tremulous as well. Denies any facial droop. Denies any area pain. She states that she has had a very mild cough for the last 3 days. D enies any other complaints. Patient rolled signs are stable, afebrile. Physical exam the acute pathology. Neurologic exam is intact, and a G0. Abdomen soft nontender, cardiopulmonary exam is nonimpressive. Laboratory investigations are obtained, significant for hypomagnesemia at 1.4 this was aly bmitted orally in ED. BUN is slightly elevated patient was administered a 500 mL normal saline bolus. UA significant for a nitrate positive urinary tract infection. Previous culture did not reveal gross. Patient initiated on Rocephin. Will be discharged with close return precautions and will follow up with primary care provider Sunday and return to ER physician worsens. Case discussed with Dr. Hodges who discussed case with patient's recreation facilities supervisor physician Dr. Gunter who is in agreement with plan and antibiotics. (Ben Vallejo) - Lab Data Lab Results 02/21/20 02/21/20 02/21/20 Range/Units 07:02 07:02 07:02 WBC 9.8 (3.8-10.6) k/uL RBC 3.80 (3.80-5.40) m/uL Hgb 11.3 L (11.4-16.0) gm/dL Hct 36.4 (34.0-46.0) % MCV 96.0 (80.0-100.0) fL MCH 29.8 (25.0-35.0) pg MCHC 31.0 (31.0-37.0) g/dL RDW 17.3 H (11.5-15.5) % Plt Count 343 (150-450) k/uL Neutrophils % 69 % Lymphocytes % 18 % Monocytes % 9 % Eosinophils % 1 % Basophils % 1 % Neutrophils # 6.8 (1.3-7.7) k/uL Lymphocytes # 1.8 (1.0-4.8) k/uL Monocytes # 0.9 (0-1.0) k/uL Eosinophils # 0.1 (0-0.7) k/uL Basophils # 0.1 (0-0.2) k/uL Hypochromasia Slight Poikilocytosis Slight Anisocytosis Slight Macrocytosis Slight PT 10.4 (9.0-12.0) sec INR 1.0 (<1.2) APTT 23.9 (22.0-30.0) sec Sodium 136 L (137-145) mmol/L Potassium 4.5 (3.5-5.1) mmol/L Chloride 102 (98-107) mmol/L Carbon Dioxide 28 (22-30) mmol/L Anion Gap 6 mmol/L BUN 22 H (7-17) mg/dL Creatinine 0.65 (0.52-1.04) mg/dL Est GFR (CKD-EPI)AfAm >90 (>60 ml/min/1.73 sqM) Est GFR (CKD-EPI)NonAf 87 (>60 ml/min/1.73 sqM) Glucose 82 (74-99) mg/dL Plasma Lactic Acid Reji (0.7-2.0) mmol/L Calcium 9.9 (8.4-10.2) mg/dL Phosphorus 5.5 H (2.5-4.5) mg/dL Magnesium 1.4 L (1.6-2.3) mg/dL Total Bilirubin 0.6 (0.2-1.3) mg/dL AST 33 (14-36) U/L ALT 17 (4-34) U/L Alkaline Phosphatase 85 (38-126) U/L Troponin I (0.000-0.034) ng/mL Total Protein 6.4 (6.3-8.2) g/dL Albumin 3.9 (3.5-5.0) g/dL Urine Color Urine Appearance (Clear) Urine pH (5.0-8.0) Ur Specific Nickerson (1.001-1.035) Urine Protein (Negative) Urine Glucose (UA) (Negative) Urine Ketones (Negative) Urine Blood (Negative) Urine Nitrite (Negative) Urine Bilirubin (Negative) Urine Urobilinogen (<2.0) mg/dL Ur Leukocyte Esterase (Negative) Urine RBC (0-5) /hpf Urine WBC (0-5) /hpf Urine Bacteria (None) /hpf 02/21/20 02/21/20 02/21/20 Range/Units 07:02 07:54 09:06 WBC (3.8-10.6) k/uL RBC (3.80-5.40) m/uL Hgb (11.4-16.0) gm/dL Hct (34.0-46.0) % MCV (80.0-100.0) fL MCH (25.0-35.0) pg MCHC (31.0-37.0) g/dL RDW (11.5-15.5) % Plt Count (150-450) k/uL Neutrophils % % Lymphocytes % % Monocytes % % Eosinophils % % Basophils % % Neutrophils # (1.3-7.7) k/uL Lymphocytes # (1.0-4.8) k/uL Monocytes # (0-1.0) k/uL Eosinophils # (0-0.7) k/uL Basophils # (0-0.2) k/uL Hypochromasia Poikilocytosis Anisocytosis Macrocytosis PT (9.0-12.0) sec INR (<1.2) APTT (22.0-30.0) sec Sodium (137-145) mmol/L Potassium (3.5-5.1) mmol/L Chloride (98-107) mmol/L Carbon Dioxide (22-30) mmol/L Anion Gap mmol/L BUN (7-17) mg/dL Creatinine (0.52-1.04) mg/dL Est GFR (CKD-EPI)AfAm (>60 ml/min/1.73 sqM) Est GFR (CKD-EPI)NonAf (>60 ml/min/1.73 sqM) Glucose (74-99) mg/dL Plasma Lactic Acid Reji 1.2 (0.7-2.0) mmol/L Calcium (8.4-10.2) mg/dL Phosphorus (2.5-4.5) mg/dL Magnesium (1.6-2.3) mg/dL Total Bilirubin (0.2-1.3) mg/dL AST (14-36) U/L ALT (4-34) U/L Alkaline Phosphatase (38-126) U/L Troponin I <0.012 (0.000-0.034) ng/mL Total Protein (6.3-8.2) g/dL Albumin (3.5-5.0) g/dL Urine Color Light Yellow Urine Appearance Turbid H (Clear) Urine pH 6.5 (5.0-8.0) Ur Specific Nickerson 1.014 (1.001-1.035) Urine Protein Trace H (Negative) Urine Glucose (UA) Negative (Negative) Urine Ketones Negative (Negative) Urine Blood Small H (Negative) Urine Nitrite Positive H (Negative) Urine Bilirubin Negative (Negative) Urine Urobilinogen <2.0 (<2.0) mg/dL Ur Leukocyte Esterase Large H (Negative) Urine RBC 7 H (0-5) /hpf Urine WBC >182 H (0-5) /hpf Urine Bacteria Few H (None) /hpf - EKG Data EKG Comments: Ventricular rate 88, OR interval 170, QRS 94, QT/QTc 402/486, Normal sinus rhythm, possible left atrial enlargement, possible anterior infarct, age undetermined, abnormal EKG. No concern for acute ischemia. No significant from prior. (Ben Vallejo) Disposition Is patient prescribed a controlled substance at d/c from ED?: No <Ben Vallejo - Last Filed: 02/21/20 10:48> <Quinton Hodges - Last Filed: 02/21/20 15:37> Clinical Impression: UTI (urinary tract infection) Disposition: HOME SELF-CARE Condition: Stable Instructions (If sedation given, give patient instructions): Urinary Tract Infection in Women (ED) Additional Instructions: Patient to adhere to previously discussed treatment plan and will take medications as directed. Follow up with PCP tomorrow. Return immediately to emergency department if condition worsens in any way. Prescriptions: Cephalexin [Keflex] 500 mg PO Q6HR 10 Days #40 cap Referrals: Hector Sheridan MD [Primary Care Provider] - 1-2 days
[2020-02-21 07:56] LABS: Anisocytosis Slight; Basophils # (A) 0.1 k/uL (0-0.2); Basophils % (A) 1 %; Eosinophils # (A) 0.1 k/uL (0-0.7); Eosinophils % (A) 1 %; HCT 36.4 % (34.0-46.0); HGB 11.3 gm/dL (11.4-16.0); Hypochromasia Slight; Lymphocytes # (A) 1.8 k/uL (1.0-4.8); Lymphocytes % (A) 18 %; MCH 29.8 pg (25.0-35.0); Macrocytosis Slight; Mean Platelet Volume 8.4; Monocytes # (A) 0.9 k/uL (0-1.0); Monocytes % (A) 9 %; Neutrophils # (A) 6.8 k/uL (1.3-7.7); Neutrophils % (A) 69 %; Platelet Count 343 k/uL (150-450); Poikilocytosis Slight; RDW 17.3 % (11.5-15.5); WBC 9.8 k/uL (3.8-10.6)
[2020-02-21 07:59] LABS: Partial Thromboplastin Time 23.9 sec (22.0-30.0); Prothrombin Time 10.4 sec (9.0-12.0)
[2020-02-21 08:01] LABS: ALT 17 U/L (4-34); AST 33 U/L (14-36); African American GFR (CKD) >90 (>60 ml/min/1.73 sqM); Albumin 3.9 g/dL (3.5-5.0); Alkaline Phosphatase 85 U/L (38-126); Anion Gap 6 mmol/L; Blood Urea Nitrogen 22 mg/dL (7-17); Calcium 9.9 mg/dL (8.4-10.2); Carbon Dioxide 28 mmol/L (22-30); Chloride 102 mmol/L (98-107); Glucose 82 mg/dL (74-99); Magnesium 1.4 mg/dL (1.6-2.3); Non-African American GFR(CKD) 87 (>60 ml/min/1.73 sqM); Phosphorus 5.5 mg/dL (2.5-4.5); Potassium 4.5 mmol/L (3.5-5.1); Sodium 136 mmol/L (137-145); Total Bilirubin 0.6 mg/dL (0.2-1.3); Total Protein 6.4 g/dL (6.3-8.2)
--- NOTE | 2020-02-21 08:05 | XR ---
EXAMINATION TYPE: XR chest 2V DATE OF EXAM: 02/21/2020 COMPARISON: Chest x-ray 6 days ago. HISTORY: Weakness. TECHNIQUE: Frontal and lateral views of the chest are obtained. FINDINGS: Diminished inspiration on current study. There is redemonstration of chronic parenchymal ch jigna without suspicious new focal air space opacity, pleural effusion, or pneumothorax seen. The car diac silhouette size remains upper limits of normal. The osseous structures are intact. Surgical cl ips in the right breast redemonstrated. IMPRESSION: Diminished inspiration current study. No new focal infiltrate.
--- NOTE | 2020-02-21 08:08 | CT ---
EXAMINATION TYPE: CT brain cspine wo con DATE OF EXAM: 02/21/2020 COMPARISON: CT brain and cervical spine September 01, 2016 HISTORY: shakes and weakness, history of breast CA, neck pain. CT DLP: 1502.1 mGycm. Automated Exposure Control for Dose Reduction was Utilized. TECHNIQUE: CT scan of the head and cervical spine are performed without contrast. FINDINGS: There is no acute intracranial hemorrhage or midline shift identified. Diffuse ventricula r and sulcal prominence. Low-attenuation in the periventricular white matter. Bilateral basal gangli a calcifications redemonstrated. Vascular calcification distal internal carotid and vertebral arterie s noted. The globes are intact and the visualized sinuses are clear. Cervical spine is visualized in its entirety from C1 through upper thoracic levels and demonstrates s atisfactory alignment without evidence of acute fracture or dislocation. Prevertebral soft tissue ap pears within normal limits. The C1-C2 articulation is within normal limits on the coronal images. V ertebral body heights and disc space heights fairly well maintained. Axial images show multilevel unc overtebral facet degenerative changes contributing to multilevel mild neural foraminal narrowing. Thy roid gland felt within normal limits. Some emphysematous change seen in the visualized upper lungs. IMPRESSION: 1. There is no acute fracture or dislocation evident in the cervical spine. 2. No acute intracranial hemorrhage or midline shift is seen. [id number] diffuse cerebral atrop hy and chronic small vessel ischemic changes redemonstrated with some progression from 2016 study not ed.
[2020-02-21 09:22] LABS: Appearance,Urine Turbid (Clear); Bacteria,Urine Few /hpf; Bilirubin,Urine Negative (Negative); Blood,Urine Small (Negative); Color,Urine Light Yellow; Glucose,Urine (UA) Negative (Negative); Ketones,Urine Negative (Negative); Leukocyte Esterase,Urine Large (Negative); Nitrite,Urine Positive (Negative); PH, Urine 6.5 (5.0-8.0); Protein,Urine Trace (Negative); RBC,Urine 7 /hpf (0-5); Specific Gravity,Urine 1.014 (1.001-1.035); Urobilinogen,Urine <2.0 mg/dL (<2.0); WBC,Urine >182 /hpf (0-5)
[2020-02-21] MEDS ORDERED: MAGNESIUM OXIDE 400 MG TAB PO STA (09:37)
[2020-02-21 10:22] VITALS: BP 139/69; PULSE 72
[2020-02-21] MEDS ORDERED: CEPHALEXIN 500MG STARTER PACK 4 CAP BTL PO STA (10:31)
== END 2020-02-21 10:32 | disposition home or self-care (01) ==
LOC: EC 06:56
DX: N39.0 Urinary tract infection, site not specified (principal); R05 Cough; E11.9 Type 2 diabetes mellitus without complications; E83.42 Hypomagnesemia; I10 Essential (primary) hypertension; E78.5 Hyperlipidemia, unspecified; Z79.4 Long term (current) use of insulin; Z79.899 Other long term (current) drug therapy; Z88.1 Allergy status to other antibiotic agents; Z90.81 Acquired absence of spleen; Z85.3 Personal history of malignant neoplasm of breast; Z92.21 Personal history of antineoplastic chemotherapy; Z92.3 Personal history of irradiation
CPT/HCPCS: 36415; 93005; 80053; 83605; 83735; 84100; 84484; 85025; 85610; 85730; 81001; 87086; 71046; 72125; 70450; 99285; 96365; 96375; 96361; U0003; J2060; J0696; 87077; 87186

== ENCOUNTER 2020-02-23 18:53 | Emergency (ER) | payer MEDICARE, BC ==
[2020-02-23 19:21] LABS: Glucose,Whole Blood 80 mg/dL (75-99)
--- NOTE | 2020-02-23 19:38 | ED ---
Recheck HPI - General Chief Complaint: Recheck/Abnormal Lab/Rx Stated Complaint: Hyperglycemia Time Seen by Provider: 02/23/20 19:21 Source: patient, family, EMS, RN notes reviewed, old records reviewed Mode of arrival: EMS Limitations: no limitations - History of Present Illness Initial Comments: This a 74-year-old female with a recent history of chemotherapy and radiation treatment which is her last week for cancer who came in today because of change in mental status and she was found have a low blood sugar. She states she's feeling chilled today he has no other complaints she did have her last chemo therapy in January 11 and started radiation therapy last week. No overt phlegm production or cough no sore throat rhinorrhea earaches she is currently being treated for urinary tract infection which was found 2 days ago. She is being treated with Keflex. Otherwise medication change. - Related Data Home Medications Medication Instructions Recorded Confirmed ALPRAZolam [Xanax] 0.25 mg PO DAILY PRN 06/22/19 02/05/20 Atenolol [Tenormin] 50 mg PO DAILY 06/22/19 02/05/20 Atorvastatin [Lipitor] 20 mg PO HS 06/22/19 02/05/20 Losartan/Hydrochlorothiazide 1 tab PO DAILY 06/22/19 02/05/20 [Hyzaar 100-25 Tablet] Verapamil HCl [Verapamil ER] 120 mg PO DAILY 06/22/19 02/05/20 Insulin NPH Human Isophane 80 unit SQ DAILY 08/28/19 02/05/20 [NovoLIN N] Fluconazole [Diflucan] 200 mg PO DAILY 02/05/20 02/05/20 Multivit-Min/Iron/Folic/Lutein 1 tab PO DAILY 02/05/20 02/05/20 [Centrum Silver Women Tablet] metFORMIN HCL [Glucophage] 1,000 mg PO BID 02/05/20 02/05/20 Previous Rx's Medication Instructions Recorded Cefuroxime Axetil [Ceftin] 500 mg PO BID 7 Days #14 tab 02/09/20 Furosemide [Lasix] 20 mg PO DAILY #14 tab 02/09/20 Potassium Chloride [Klor-Con 10] 10 meq PO DAILY #14 tablet.er 02/09/20 Cephalexin [Keflex] 500 mg PO Q6HR 10 Days #40 cap 02/21/20 Allergies Allergy/AdvReac Type Severity Reaction Status Date / Time erythromycin base Allergy Unknown Verified 02/23/20 19:06 Review of Systems ROS Statement: Those systems with pertinent positive or pertinent negative responses have been documented in the HPI. ROS Other: All systems not noted in ROS Statement are negative. Past Medical History Past Medical History: Cancer, Diabetes Mellitus, Hyperlipidemia, Hypertension, Pneumonia Additional Past Medical History / Comment(s): Right breast invasive carcinoma s tatus post chemotherapy, radiation therapy History of Any Multi-Drug Resistant Organisms: None Reported Past Surgical History: Appendectomy, Hysterectomy Additional Past Surgical History / Comment(s): splenectomy, partial pancreas removal,, breast biopsy, cataract removal and intraocular lens implants, Past Anesthesia/Blood Transfusion Reactions: No Reported Reaction Additional Past Anesthesia/Blood Transfusion Reaction / Comment(s): Never Received Blood Transfusion Past Psychological History: No Psychological Hx Reported Smoking Status: Never smoker Past Alcohol Use History: None Reported Past Drug Use History: None Reported - Past Family History Father Family Medical History: Myocardial Infarction ([place]) Additional Family Medical History / Comment(s): Father at age 65 from a my ocardial infarction. Mother Additional Family Medical History / Comment(s): Mother at age 75 from a myocardial infarction. Brother(s) Additional Family Medical History / Comment(s): Patient does not have any brothers. Sister(s) Additional Family Medical History / Comment(s): Patient has one sister at age 82 with history of hypertension. General Exam - General Exam Comments Initial Comments: This is a well-developed well-nourished awake alert oriented 3 female Limitations: no limitations General appearance: alert, in no apparent distress Head exam: Present: atraumatic, normocephalic, normal inspection Eye exam: Present: normal appearance, PERRL, EOMI. Absent: scleral icterus, conjunctival injection, periorbital swelling ENT exam: Present: mucous membranes dry Neck exam: Present: normal inspection. Absent: tenderness, meningismus, lymphadenopathy Respiratory exam: Present: normal lung sounds bilaterally. Absent: respiratory distress, wheezes, rales, rhonchi, stridor Cardiovascular Exam: Present: regular rate, normal rhythm, normal heart sounds. Absent: systolic murmur, diastolic murmur, rubs, gallop, clicks GI/Abdominal exam: Present: soft, normal bowel sounds. Absent: distended, tenderness, guarding, rebound, rigid Extremities exam: Present: normal inspection, full ROM, normal capillary refill. Absent: tenderness, pedal edema, joint swelling, calf tenderness Back exam: Present: normal inspection Neurological exam: Present: alert, oriented X3, CN II-XII intact Psychiatric exam: Present: normal affect, normal mood Skin exam: Present: warm, dry, intact, normal color. Absent: rash Course Vital Signs 02/23/20 02/23/20 19:02 20:39 Temperature 97.7 F Pulse Rate 68 77 Respiratory 18 16 Rate Blood Pressure 165/84 127/78 O2 Sat by Pulse 97 97 Oximetry Medical Decision Making - Medical Decision Making I did a long discussion with the patient and her daughter regarding the findings patient is feeling back to normal no evidence of any infectious processes the patient is are ready discuss insulin dosing adjustments with her doctor she did initially give himself extra insulin tonight. She'll be discharged home she will cut down the insulin as directed to 50 units instead of the current number up. She will follow-up with him tomorrow as planned. - Lab Data Result diagrams: 02/23/20 19:55 02/23/20 19:18 Lab Results 02/23/20 02/23/20 02/23/20 Range/Units 19:11 19:18 19:55 WBC 11.0 H (3.8-10.6) k/uL RBC 3.79 L (3.80-5.40) m/uL Hgb 12.1 (11.4-16.0) gm/dL Hct 36.7 (34.0-46.0) % MCV 96.9 (80.0-100.0) fL MCH 31.9 (25.0-35.0) pg MCHC 32.9 (31.0-37.0) g/dL RDW 17.4 H (11.5-15.5) % Plt Count 331 (150-450) k/uL Neutrophils % 72 % Lymphocytes % 17 % Monocytes % 7 % Eosinophils % 2 % Basophils % 1 % Neutrophils # 7.9 H (1.3-7.7) k/uL Lymphocytes # 1.8 (1.0-4.8) k/uL Monocytes # 0.8 (0-1.0) k/uL Eosinophils # 0.2 (0-0.7) k/uL Basophils # 0.1 (0-0.2) k/uL Hypochromasia Slight Poikilocytosis Slight Anisocytosis Slight Macrocytosis Slight Sodium 134 L (137-145) mmol/L Potassium 3.8 (3.5-5.1) mmol/L Chloride 105 (98-107) mmol/L Carbon Dioxide 20 L (22-30) mmol/L Anion Gap 9 mmol/L BUN 16 (7-17) mg/dL Creatinine 0.60 (0.52-1.04) mg/dL Est GFR (CKD-EPI)AfAm >90 (>60 ml/min/1.73 sqM) Est GFR (CKD-EPI)NonAf 90 (>60 ml/min/1.73 sqM) Glucose 73 L (74-99) mg/dL POC Glucose (mg/dL) 80 (75-99) mg/dL POC Glu Delivery Crew Worker ID Marilin Reyna Calcium 9.1 (8.4-10.2) mg/dL Magnesium (1.6-2.3) mg/dL Total Bilirubin 0.6 (0.2-1.3) mg/dL AST 40 H (14-36) U/L ALT 16 (4-34) U/L Alkaline Phosphatase 63 (38-126) U/L Creatine Kinase (30-135) U/L Troponin I (0.000-0.034) ng/mL Total Protein 6.1 L (6.3-8.2) g/dL Albumin 3.6 (3.5-5.0) g/dL Urine Color Urine Appearance (Clear) Urine pH (5.0-8.0) Ur Specific [place] (1.001-1.035) Urine Protein (Negative) Urine Glucose (UA) (Negative) Urine Ketones (Negative) Urine Blood (Negative) Urine Nitrite (Negative) Urine Bilirubin (Negative) Urine Urobilinogen (<2.0) mg/dL Ur Leukocyte Esterase (Negative) Urine RBC (0-5) /hpf Urine WBC (0-5) /hpf Ur Squamous Epith Cells (0-4) /hpf 02/23/20 02/23/20 02/23/20 Range/Units 19:55 19:55 20:52 WBC (3.8-10.6) k/uL RBC (3.80-5.40) m/uL Hgb (11.4-16.0) gm/dL Hct (34.0-46.0) % MCV (80.0-100.0) fL MCH (25.0-35.0) pg MCHC (31.0-37.0) g/dL RDW (11.5-15.5) % Plt Count (150-450) k/uL Neutrophils % % Lymphocytes % % Monocytes % % Eosinophils % % Basophils % % Neutrophils # (1.3-7.7) k/uL Lymphocytes # (1.0-4.8) k/uL Monocytes # (0-1.0) k/uL Eosinophils # (0-0.7) k/uL Basophils # (0-0.2) k/uL Hypochromasia Poikilocytosis Anisocytosis Macrocytosis Sodium (137-145) mmol/L Potassium (3.5-5.1) mmol/L Chloride (98-107) mmol/L Carbon Dioxide (22-30) mmol/L Anion Gap mmol/L BUN (7-17) mg/dL Creatinine (0.52-1.04) mg/dL Est GFR (CKD-EPI)AfAm (>60 ml/min/1.73 sqM) Est GFR (CKD-EPI)NonAf (>60 ml/min/1.73 sqM) Glucose (74-99) mg/dL POC Glucose (mg/dL) (75-99) mg/dL POC Glu Delivery Crew Worker ID Calcium (8.4-10.2) mg/dL Magnesium 1.6 (1.6-2.3) mg/dL Total Bilirubin (0.2-1.3) mg/dL AST (14-36) U/L ALT (4-34) U/L Alkaline Phosphatase (38-126) U/L Creatine Kinase 142 H (30-135) U/L Troponin I <0.012 (0.000-0.034) ng/mL Total Protein (6.3-8.2) g/dL Albumin (3.5-5.0) g/dL Urine Color Light Yellow Urine Appearance Clear (Clear) Urine pH 6.0 (5.0-8.0) Ur Specific [place] 1.007 (1.001-1.035) Urine Protein Negative (Negative) Urine Glucose (UA) Negative (Negative) Urine Ketones Negative (Negative) Urine Blood Negative (Negative) Urine Nitrite Negative (Negative) Urine Bilirubin Negative (Negative) Urine Urobilinogen <2.0 (<2.0) mg/dL Ur Leukocyte Esterase Small H (Negative) Urine RBC 1 (0-5) /hpf Urine WBC 13 H (0-5) /hpf Ur Squamous Epith Cells <1 (0-4) /hpf - Radiology Data Radiology results: report reviewed (I did review the imaging and report no acute findings.), image reviewed Disposition Clinical Impression: Hypoglycemia Disposition: HOME SELF-CARE Condition: Good Instructions (If sedation given, give patient instructions): Hypoglycemia in a Person with Diabetes (ED) Is patient prescribed a controlled substance at d/c from ED?: No Referrals: Hector Sheridan MD [Primary Care Provider] - 1-2 days
[2020-02-23 20:05] LABS: ALT 16 U/L (4-34); AST 40 U/L (14-36); African American GFR (CKD) >90 (>60 ml/min/1.73 sqM); Albumin 3.6 g/dL (3.5-5.0); Alkaline Phosphatase 63 U/L (38-126); Anion Gap 9 mmol/L; Blood Urea Nitrogen 16 mg/dL (7-17); Calcium 9.1 mg/dL (8.4-10.2); Carbon Dioxide 20 mmol/L (22-30); Chloride 105 mmol/L (98-107); Glucose 73 mg/dL (74-99); Non-African American GFR(CKD) 90 (>60 ml/min/1.73 sqM); Sodium 134 mmol/L (137-145); Total Bilirubin 0.6 mg/dL (0.2-1.3); Total Protein 6.1 g/dL (6.3-8.2)
[2020-02-23 20:13] LABS: Potassium 3.8 mmol/L (3.5-5.1)
[2020-02-23 20:19] LABS: Anisocytosis Slight; Basophils # (A) 0.1 k/uL (0-0.2); Basophils % (A) 1 %; Eosinophils # (A) 0.2 k/uL (0-0.7); Eosinophils % (A) 2 %; HCT 36.7 % (34.0-46.0); HGB 12.1 gm/dL (11.4-16.0); Hypochromasia Slight; Lymphocytes # (A) 1.8 k/uL (1.0-4.8); Lymphocytes % (A) 17 %; MCH 31.9 pg (25.0-35.0); MCHC 32.9 g/dL (31.0-37.0); MCV 96.9 fL (80.0-100.0); Macrocytosis Slight; Mean Platelet Volume 7.7; Monocytes # (A) 0.8 k/uL (0-1.0); Monocytes % (A) 7 %; Neutrophils # (A) 7.9 k/uL (1.3-7.7); Neutrophils % (A) 72 %; Platelet Count 331 k/uL (150-450); Poikilocytosis Slight; RBC 3.79 m/uL (3.80-5.40); RDW 17.4 % (11.5-15.5)
--- NOTE | 2020-02-23 20:26 | XR ---
EXAMINATION TYPE: XR chest 2V DATE OF EXAM: 02/23/2020 COMPARISON: 02/21/2020 HISTORY: 74-year-old female with mental status change, confusion TECHNIQUE: AP and lateral views FINDINGS: Heart mildly enlarged. Low lung volumes with crowded vascular markings. Interstitial prominence is un changed. Some strandy atelectasis left base. No pleural effusion. IMPRESSION: Mild cardiomegaly. Hypoventilatory changes. No acute change identified.
[2020-02-23 20:44] VITALS: TEMP 97.7
[2020-02-23 20:48] LABS: Magnesium 1.6 mg/dL (1.6-2.3)
[2020-02-23 21:00] LABS: Appearance,Urine Clear (Clear); Bilirubin,Urine Negative (Negative); Blood,Urine Negative (Negative); Color,Urine Light Yellow; Glucose,Urine (UA) Negative (Negative); Ketones,Urine Negative (Negative); Leukocyte Esterase,Urine Small (Negative); Nitrite,Urine Negative (Negative); Protein,Urine Negative (Negative); RBC,Urine 1 /hpf (0-5); Specific Gravity,Urine 1.007 (1.001-1.035); Squamous Epithelial Cell,Urine <1 /hpf (0-4); Urobilinogen,Urine <2.0 mg/dL (<2.0); WBC,Urine 13 /hpf (0-5)
[2020-02-23 21:46] VITALS: BP 133/68; PULSE 79; RESP 17
== END 2020-02-23 21:53 | disposition home or self-care (01) ==
LOC: EC 18:53
DX: E11.649 Type 2 diabetes mellitus with hypoglycemia without coma (principal); E78.5 Hyperlipidemia, unspecified; I10 Essential (primary) hypertension; Z79.899 Other long term (current) drug therapy; Z79.4 Long term (current) use of insulin; Z88.1 Allergy status to other antibiotic agents; Z92.21 Personal history of antineoplastic chemotherapy; Z92.3 Personal history of irradiation; Z85.3 Personal history of malignant neoplasm of breast; Z98.890 Other specified postprocedural states
CPT/HCPCS: 36415; 71046; 80053; 81001; 82550; 83735; 84484; 85025; 87086; 99285

== ENCOUNTER 2020-03-30 08:19 | Inpatient (IN) | payer MEDICARE, BC ==
[2020-03-30] MEDS ORDERED: LIDOCAINE 5% PATCH TOPICAL STA (08:54)
--- NOTE | 2020-03-30 08:55 | ED ---
General Adult HPI - General Chief complaint: Back Pain/Injury Stated complaint: abd & back pain Time Seen by Provider: 03/30/20 08:32 Source: patient Mode of arrival: ambulatory Limitations: no limitations - History of Present Illness Initial comments: Dictation was produced using [employer] dictation software. please excuse any grammatical, word or spelling errors. This patient was cared for during a federal and state declared state of emergency secondary to Covid 19 Chief Complaint: 74-year-old male presents with mid back pain. History of Present Illness: 74-year-old female she presents today with mid back pain. Patient states her symptoms began yesterday. She was sitting outside of the son. She thought that her symptoms are secondary to being outside in the heat. She went to bed however could not get comfortable and did not really sleep. States that right lateral decubitus position is worse for her pain however she feels pain constantly despite her positioning. Pain is worse with taking deep breath. Patient has multiple comorbidities including splenectomy for a spleen cyst, diabetes, dyslipidemia hypertension and pneumonia. She reports that she has a chronic cough. She denies that her cough is any worse. Her cough is not productive. She does complain of some nausea and right abdominal pain. Denies any shortness of breath. States that her abdominal pain is in the suprapubic region. Denies any urinary changes. She also has had some diarrhea. The ROS documented in this emergency department record has been reviewed and confirmed by me. Those systems with pertinent positive or negative responses h ave been documented in the HPI. All other systems are other negative and/or noncontributory. PHYSICAL EXAM: General Impression: Alert and oriented x3, not in acute distress HEENT: Normocephalic atraumatic, extra-ocular movements intact, pupils equal and reactive to light bilaterally, mucous membranes moist. Cardiovascular: Heart regular rate and rhythm Chest: Able to complete full sentences, no retractions, no tachypnea, bilateral basilar lung crackles Abdomen: abdomen soft, non-tender, non-distended, no organomegaly Musculoskeletal: Pulses present and equal in all extremities, no peripheral edema, tenderness to palpation over the right paraspinal muscle at the level of approximately T10 Motor: no focal deficits noted Neurological: CN II-XII grossly intact, no focal motor or sensory deficits noted, no gait ataxia, able to stand Skin: Intact with no visualized rashes Psych: Normal affect and mood ED course: 74-year-old female presents with mid back pain. Vital signs upon arrival are within acceptable limits. Laboratory evaluation obtained. Leukocytosis 16.3. Coag panel unremarkable. D-dimer is 2.24. Metabolic panel shows sodium 132. There is elevated BUN of 18. Glucose 319. Cardiac enzymes negative. Urinalysis shows findings to suggest urinary tract infection. There are 3 white blood cells. Chest x-ray shows bibasilar infiltrates with 1 for drift on the right. Results concern of underlying mass with convex outer margin of the right hilum. Patient has a history of cancer. CT angios the chest was ordered because elevated d-dimer. D-dimer was requested by Dr. Moore. Radiology interpretation shows acute right lower lobe pulmonary embolism patient started on heparin. Pulmonology consulted. Patient will be admitted. EKG interpretation: Ventricular rate 65, sinus rhythm second-degree type I AV block, QRS 104, QTC 449. No NE prolongation, no QTC prolongation, no ST or T- wave changes noted. Overall, this EKG is unremarkable - Related Data Home Medications Medication Instructions Recorded Confirmed ALPRAZolam [Xanax] 0.25 mg PO DAILY PRN 06/22/19 03/30/20 Atenolol [Tenormin] 50 mg PO DAILY 06/22/19 03/30/20 Atorvastatin [Lipitor] 20 mg PO HS 06/22/19 03/30/20 Losartan/Hydrochlorothiazide 1 tab PO DAILY 06/22/19 03/30/20 [Hyzaar 100-25 Tablet] Verapamil HCl [Verapamil ER] 120 mg PO DAILY 06/22/19 03/30/20 Insulin NPH Human Isophane 50 unit SQ DAILY 08/28/19 03/30/20 [NovoLIN N] Multivit-Min/Iron/Folic/Lutein 1 tab PO DAILY 02/05/20 03/30/20 [Centrum Silver Women Tablet] metFORMIN HCL [Glucophage] 1,000 mg PO BID 02/05/20 03/30/20 Nystatin 100,000 Unit/ml Susp 4 ml PO QID 03/30/20 03/30/20 [Mycostatin Oral Susp] Ondansetron [Zofran] 4 mg PO TID PRN 03/30/20 03/30/20 Allergies Allergy/AdvReac Type Severity Reaction Status Date / Time erythromycin base Allergy Unknown Verified 03/30/20 09:56 Review of Systems ROS Statement: Those systems with pertinent positive or pertinent negative responses have been documented in the HPI. ROS Other: All systems not noted in ROS Statement are negative. Past Medical History Past Medical History: Cancer, Diabetes Mellitus, Hyperlipidemia, Hypertension, Pneumonia Additional Past Medical History / Comment(s): Right breast invasive carcinoma status post chemotherapy, radiation therapy History of Any Multi-Drug Resistant Organisms: None Reported Past Surgical History: Appendectomy, Hysterectomy Additional Past Surgical History / Comment(s): splenectomy, partial pancreas removal,, breast biopsy, cataract removal and intraocular lens implants, Past Anesthesia/Blood Transfusion Reactions: No Reported Reaction Additional Past Anesthesia/Blood Transfusion Reaction / Comment(s): Never Received Blood Transfusion Past Psychological History: No Psychological Hx Reported Smoking Status: Never smoker Past Alcohol Use History: None Reported Past Drug Use History: None Reported - Past Family History Father Family Medical History: Myocardial Infarction ([place]) Additional Family Medical History / Comment(s): Father at age 65 from a myocardial infarction. Mother Additional Family Medical History / Comment(s): Mother at age 75 from a myocardial infarction. Brother(s) Additional Family Medical History / Comment(s): Patient does not have any brothers. Sister(s) Additional Family Medical History / Comment(s): Patient has one sister at age 82 with history of hypertension. General Exam Limitations: no limitations Course Vital Signs 03/30/20 03/30/20 03/30/20 08:28 10:41 12:15 Temperature 98.1 F Pulse Rate 77 71 71 Respiratory 16 18 18 Rate Blood Pressure 119/61 119/61 116/72 O2 Sat by Pulse 95 95 93 L Oximetry Medical Decision Making - Lab Data Result diagrams: 03/30/20 08:55 03/30/20 08:55 Lab Results 03/30/20 03/30/20 03/30/20 Range/Units 08:55 08:55 08:55 WBC 16.3 H (3.8-10.6) k/uL RBC 3.69 L (3.80-5.40) m/uL Hgb 11.5 (11.4-16.0) gm/dL Hct 35.4 (34.0-46.0) % MCV 95.8 (80.0-100.0) fL MCH 31.1 (25.0-35.0) pg MCHC 32.4 (31.0-37.0) g/dL RDW 14.3 (11.5-15.5) % Plt Count 217 (150-450) k/uL Neutrophils % 73 % Lymphocytes % 15 % Monocytes % 8 % Eosinophils % 1 % Basophils % 1 % Neutrophils # 12.0 H (1.3-7.7) k/uL Lymphocytes # 2.4 (1.0-4.8) k/uL Monocytes # 1.4 H (0-1.0) k/uL Eosinophils # 0.2 (0-0.7) k/uL Basophils # 0.1 (0-0.2) k/uL PT 10.2 (9.0-12.0) sec INR 1.0 (<1.2) APTT 24.4 (22.0-30.0) sec D-Dimer (<0.60) mg/L FEU Sodium 132 L (137-145) mmol/L Potassium 4.0 (3.5-5.1) mmol/L Chloride 96 L (98-107) mmol/L Carbon Dioxide 24 (22-30) mmol/L Anion Gap 12 mmol/L BUN 18 H (7-17) mg/dL Creatinine 1.02 (0.52-1.04) mg/dL Est GFR (CKD-EPI)AfAm 63 (>60 ml/min/1.73 sqM) Est GFR (CKD-EPI)NonAf 54 (>60 ml/min/1.73 sqM) Glucose 319 H (74-99) mg/dL Calcium 9.4 (8.4-10.2) mg/dL Total Bilirubin 0.8 (0.2-1.3) mg/dL AST 23 (14-36) U/L ALT 14 (4-34) U/L Alkaline Phosphatase 77 (38-126) U/L Troponin I (0.000-0.034) ng/mL Total Protein 6.2 L (6.3-8.2) g/dL Albumin 4.0 (3.5-5.0) g/dL Lipase 46 (23-300) U/L Urine Color Urine Appearance (Clear) Urine pH (5.0-8.0) Ur Specific [place] (1.001-1.035) Urine Protein (Negative) Urine Glucose (UA) (Negative) Urine Ketones (Negative) Urine Blood (Negative) Urine Nitrite (Negative) Urine Bilirubin (Negative) Urine Urobilinogen (<2.0) mg/dL Ur Leukocyte Esterase (Negative) Urine RBC (0-5) /hpf Urine WBC (0-5) /hpf Ur Squamous Epith Cells (0-4) /hpf Urine Bacteria (None) /hpf Hyaline Casts (0-2) /lpf Urine Mucus (None) /hpf 03/30/20 03/30/20 03/30/20 Range/Units 08:55 08:55 10:11 WBC (3.8-10.6) k/uL RBC (3.80-5.40) m/uL Hgb (11.4-16.0) gm/dL Hct (34.0-46.0) % MCV (80.0-100.0) fL MCH (25.0-35.0) pg MCHC (31.0-37.0) g/dL RDW (11.5-15.5) % Plt Count (150-450) k/uL Neutrophils % % Lymphocytes % % Monocytes % % Eosinophils % % Basophils % % Neutrophils # (1.3-7.7) k/uL Lymphocytes # (1.0-4.8) k/uL Monocytes # (0-1.0) k/uL Eosinophils # (0-0.7) k/uL Basophils # (0-0.2) k/uL PT (9.0-12.0) sec INR (<1.2) APTT (22.0-30.0) sec D-Dimer 2.24 H (<0.60) mg/L FEU Sodium (137-145) mmol/L Potassium (3.5-5.1) mmol/L Chloride (98-107) mmol/L Carbon Dioxide (22-30) mmol/L Anion Gap mmol/L BUN (7-17) mg/dL Creatinine (0.52-1.04) mg/dL Est GFR (CKD-EPI)AfAm (>60 ml/min/1.73 sqM) Est GFR (CKD-EPI)NonAf (>60 ml/min/1.73 sqM) Glucose (74-99) mg/dL Calcium (8.4-10.2) mg/dL Total Bilirubin (0.2-1.3) mg/dL AST (14-36) U/L ALT (4-34) U/L Alkaline Phosphatase (38-126) U/L Troponin I <0.012 (0.000-0.034) ng/mL Total Protein (6.3-8.2) g/dL Albumin (3.5-5.0) g/dL Lipase (23-300) U/L Urine Color Yellow Urine Appearance Cloudy H (Clear) Urine pH 6.5 (5.0-8.0) Ur Specific [place] 1.011 (1.001-1.035) Urine Protein Trace H (Negative) Urine Glucose (UA) Trace H (Negative) Urine Ketones Negative (Negative) Urine Blood Negative (Negative) Urine Nitrite Negative (Negative) Urine Bilirubin Negative (Negative) Urine Urobilinogen <2.0 (<2.0) mg/dL Ur Leukocyte Esterase Large H (Negative) Urine RBC 5 (0-5) /hpf Urine WBC 30 H (0-5) /hpf Ur Squamous Epith Cells 14 H (0-4) /hpf Urine Bacteria Occasional H (None) /hpf Hyaline Casts 15 H (0-2) /lpf Urine Mucus Rare H (None) /hpf Disposition Clinical Impression: Pulmonary embolism, Pneumonia Disposition: ADMITTED IP TO THIS [facility] Condition: Fair Referrals: Hector Sheridan MD [Primary Care Provider] - 1-2 days Decision Time: 12:48
[2020-03-30 09:12] LABS: Basophils # (A) 0.1 k/uL (0-0.2); Basophils % (A) 1 %; Eosinophils # (A) 0.2 k/uL (0-0.7); Eosinophils % (A) 1 %; HCT 35.4 % (34.0-46.0); HGB 11.5 gm/dL (11.4-16.0); Lymphocytes # (A) 2.4 k/uL (1.0-4.8); Lymphocytes % (A) 15 %; MCH 31.1 pg (25.0-35.0); MCHC 32.4 g/dL (31.0-37.0); MCV 95.8 fL (80.0-100.0); Mean Platelet Volume 7.9; Monocytes # (A) 1.4 k/uL (0-1.0); Monocytes % (A) 8 %; Neutrophils % (A) 73 %; Platelet Count 217 k/uL (150-450); RBC 3.69 m/uL (3.80-5.40); RDW 14.3 % (11.5-15.5); WBC 16.3 k/uL (3.8-10.6)
[2020-03-30 09:30] LABS: Calcium 9.4 mg/dL (8.4-10.2); Total Bilirubin 0.8 mg/dL (0.2-1.3); Total Protein 6.2 g/dL (6.3-8.2)
[2020-03-30 09:39] LABS: Partial Thromboplastin Time 24.4 sec (22.0-30.0); Prothrombin Time 10.2 sec (9.0-12.0)
--- NOTE | 2020-03-30 09:39 | XR ---
EXAMINATION TYPE: XR chest 2V DATE OF EXAM: 03/30/2020 COMPARISON: 02/23/2020 TECHNIQUE: PA and lateral views submitted. HISTORY: Body aches back pain FINDINGS: Subsegmental changes at both lung bases. Surgical clips overlying the right chest or breast. Limited inspiration. Heart size normal. There is prominence of the right hilum. Biapical pleural thickening. No overt failure. IMPRESSION: 1. Bibasilar areas of infiltrate greater on the right. 2. Convex outer margin of the right hilum. Underlying mass or adenopathy in the differential consider CT scan chest.
[2020-03-30] MEDS ORDERED: AMPICILLIN-SULBACTAM 3 GM in SODIUM CHLORIDE 0.9% 100 ML IVPB STA (10:46)
[2020-03-30 10:57] LABS: Appearance,Urine Cloudy (Clear); Bacteria,Urine Occasional /hpf; Bilirubin,Urine Negative (Negative); Blood,Urine Negative (Negative); Color,Urine Yellow; Glucose,Urine (UA) Trace (Negative); Hyaline Casts,Urine 15 /lpf (0-2); Ketones,Urine Negative (Negative); Leukocyte Esterase,Urine Large (Negative); Mucus,Urine Rare /hpf; Nitrite,Urine Negative (Negative); PH, Urine 6.5 (5.0-8.0); Protein,Urine Trace (Negative); RBC,Urine 5 /hpf (0-5); Specific Gravity,Urine 1.011 (1.001-1.035); Squamous Epithelial Cell,Urine 14 /hpf (0-4); Urobilinogen,Urine <2.0 mg/dL (<2.0); WBC,Urine 30 /hpf (0-5)
[2020-03-30] MEDS ORDERED: MORPHINE SULFATE 4 MG/ML SYRINGE IV STA (11:42)
--- NOTE | 2020-03-30 12:42 | CT ---
EXAMINATION TYPE: CT angio chest DATE OF EXAM: 03/30/2020 12:31 PM COMPARISON: None HISTORY: elevated d dimer CT DLP: 319.6 mGycm Automated exposure control for dose reduction was used. CONTRAST: CTA scan of the thorax is performed with IV Contrast, patient injected with 66 mL of Isovue 370, pulm onary embolism protocol. . FINDINGS: LUNGS: Bilateral areas of subsegmental consolidation are noted. Small right pleural effusion. No pneu mothorax. Apical pleural thickening noted. Groundglass changes are seen posterior likely in the basis of dependent atelectasis. Calcified granuloma right upper lobe with additional 3 mm subpleural nodul e. MEDIASTINUM: There is abnormal attenuation in the subcutaneous tissues the right chest. Adjacent lymp h nodes are seen all measuring short axis less than a centimeter correlate for recent biopsy or proce dure with surgical clips. Multiple adjacent small lymph nodes are seen. Skin thickening correlate for history of previous breast cancer. There is an intraluminal filling defect within the right lower lobe on axial image 82 through 95 comp atible with acute pulmonary embolism. Heart is mildly enlarged and there is dense coronary artery sj cification. Atherosclerotic change of the aorta. Prominent lymph node is seen in the right hilum fazal uring a short axis of 1.4 cm compatible with pathologic adenopathy. OTHER: Abnormal soft tissue attenuation in the left upper quadrant may be related to splenules and w ere present on the prior CT scan of 02/15/2020. Hypertrophic and degenerative change of the spine. IMPRESSION: 1. Acute right lower lobe pulmonary embolism bilateral lower lobe consolidation and small right effus ion. 2. Cardiomegaly and dense coronary artery calcification. 3. Postsurgical changes involving the right breast correlate for history of breast cancer or biopsy. 4. Probable splenules noted in the left upper quadrant with absence of spleen. 5. Right hilar adenopathy. Calcified granuloma right upper lobe with additional nonspecific 3 mm subpleural nodule axial image 6 7 too small to characterize.
[2020-03-30] MEDS ORDERED: HEPARIN SODIUM,PORCINE 10,000 UNIT/ML 1 ML VIAL IV ONE (12:46)
[2020-03-30] MEDS ORDERED: HEPARIN SODIUM,PORCINE 5,000 UNIT/ML 1 ML VIAL IV PRN (12:46)
[2020-03-30] MEDS ORDERED: NALOXONE 0.4 MG/ML 1 ML VIAL IV PRN (12:48)
[2020-03-30] MEDS ORDERED: ACETAMINOPHEN TAB 325 MG TAB PO PRN (12:48)
[2020-03-30 13:16] LABS: Glucose,Whole Blood 186 mg/dL (75-99)
[2020-03-30] MEDS: SODIUM CHLORIDE 0.9% 1,000 ML IV SCH (13:36)
[2020-03-30] MEDS: HEPARIN SOD,PORK IN 0.45% NACL 25,000 UNIT in 0.45% NACL 1 250ML.BAG IV SCH (13:37)
[2020-03-30] MEDS ORDERED: ONDANSETRON 4 MG/2 ML VIAL IVP PRN (17:26)
[2020-03-30 17:50] LABS: Glucose,Whole Blood 153 mg/dL (75-99)
[2020-03-30] MEDS: INSULIN ASPART (NovoLOG) 100 UNIT/ML VIAL SQ SCH ×2 (17:53→21:24)
[2020-03-30 20:35] LABS: Glucose,Whole Blood 226 mg/dL (75-99)
[2020-03-30] MEDS ORDERED: ALPRAZolam 0.25 MG TAB PO PRN (20:37)
[2020-03-30] MEDS: NYSTATIN 100,000 UNIT/ML SUSP 500,000 UNIT/5 ML CUP PO SCH (21:24)
[2020-03-30] MEDS: ATORVASTATIN 20 MG TAB PO SCH (21:24)
--- NOTE | 2020-03-30 22:55 | P.HPIM ---
History of Present Illness H&P Date: 03/30/20 Chief Complaint: Acute PE, bilateral pneumonia, UTI, severe dyspnea and shor tness of breath. 74-year-old female one of Dr. Hector Sheridan's patient with past medical history of breast cancer, diabetes, hypertension, hyperlipidemia and recurrent pneumonia who developed since yesterday to have right flank pain worsening with deep inspiration along with severe dyspnea and shortness of breath has been having low-grade temperature with mild cough nonproductive along with mild lower abdominal pain and discomfort with urination. With the severity of her discomfort ended up coming to demurs department at [facility] chest x- ray shows bibasilar infiltrate worsening on the right than the left side. CTA after d-dimer was positive came back with right lower side acute pulmonary embolism with bilateral infiltrate. Surprisingly her UA came back very positive for urinary tract infection. D-dimer was negative blood sugar was mildly elevated and patient had significantly elevated white blood cell at 16.3. Patient was started on Rocephin and azithromycin heparin drip and will be admitted to the hospital. Review of Systems CONSTITUTIONAL: Well-developed no acute respiratory distress. EYES: No icterus sclerae, no conjunctivitis. EARS, NOSE, MOUTH, THROAT, and FACE: No sore throat, lymphadenopathy, carotid bruits or deformity. RESPIRATORY: Positive shortness of breath cough wheezes. CARDIOVASCULAR: Positive PND and orthopnea with worsening chest pain with inspiration. GASTROINTESTINAL: No Abd pain, Nausea or vomiting, no Diarrhea or constipation, No GI Bleed, no distention or masses. GENITOURINARY: Positive lower abdominal discomfort and mild irritation with urination. INTEGUMENT/BREAST: Negative for any muscular injury with mild osteoarthritis.. HEMATOLOGIC/LYMPHATIC: Negative for bleed or purpura. MUSCULOSKELTAL: Negative for Myalgia or arthralgia. NEURLOGICAL: No LOC, Sz or syncope, blurred vision dizziness or abnormality.. BEHAVIORAL/PSYCH: Negative. ENDOCRINE: Negative. Past Medical History Past Medical History: Cancer, Diabetes Mellitus, GERD/Reflux, Hyperlipidemia, Hypertension, Pneumonia Additional Past Medical History / Comment(s): R breast cancer with lumpectomy/chemo finished 01/21/20 and radiation that finished 3 weeks ago, pt states she has a bitter taste with eating and that the tip of her tongue always feels burned since chemo, PT HAS HAD A SPLEENECTOMY/partial pancreas removed d/t cysts, IDDM, neuropathy bilateral feet, UTIs, UTI with sepsis, chronic cough, past gastric ulcer. History of Any Multi-Drug Resistant Organisms: None Reported Past Surgical History: Appendectomy, Breast Surgery, Hysterectomy Additional Past Surgical History / Comment(s): splenectomy, partial pancreas removal, R breast biopsy, R breast lumpectomy, cataracts removal and intraocular lens implants, colonoscopy Past Anesthesia/Blood Transfusion Reactions: No Reported Reaction Additional Past Anesthesia/Blood Transfusion Reaction / Comment(s): Never Received Blood Transfusion Smoking Status: Never smoker - Past Family History Father Family Medical History: Myocardial Infarction ([place]) Additional Family Medical History / Comment(s): Father at age 65 from a myocardial infarction. Mother Additional Family Medical History / Comment(s): Mother at age 75 from a myocardial infarction. Brother(s) Additional Family Medical History / Comment(s): Patient does not have any brothers. Sister(s) Family Medical History: Hypertension Additional Family Medical History / Comment(s): Patient has one sister at age 82. Medications and Allergies Home Medications Medication Instructions Recorded Confirmed Type ALPRAZolam [Xanax] 0.25 mg PO DAILY PRN 06/22/19 03/30/20 History Atenolol [Tenormin] 50 mg PO DAILY 06/22/19 03/30/20 History Atorvastatin [Lipitor] 20 mg PO HS 06/22/19 03/30/20 History Losartan/Hydrochlorothiazide 1 tab PO DAILY 06/22/19 03/30/20 History [Hyzaar 100-25 Tablet] Verapamil HCl [Verapamil ER] 120 mg PO DAILY 06/22/19 03/30/20 History Insulin NPH Human Isophane 50 unit SQ DAILY 08/28/19 03/30/20 History [NovoLIN N] Multivit-Min/Iron/Folic/Lutein 1 tab PO DAILY 02/05/20 03/30/20 History [Centrum Silver Women Tablet] metFORMIN HCL [Glucophage] 1,000 mg PO BID 02/05/20 03/30/20 History Nystatin 100,000 Unit/ml Susp 4 ml PO QID 03/30/20 03/30/20 History [Mycostatin Oral Susp] Ondansetron [Zofran] 4 mg PO TID PRN 03/30/20 03/30/20 History Allergies Allergy/AdvReac Type Severity Reaction Status Date / Time erythromycin base Allergy Unknown Verified 03/30/20 09:56 Physical Exam Vitals: Vital Signs Temp Pulse Resp BP Pulse Ox 03/30/20 19:12 98.3 F 75 18 134/59 96 03/30/20 16:26 67 18 138/58 97 03/30/20 15:00 70 18 124/45 92 L 03/30/20 13:43 65 18 129/55 95 03/30/20 12:15 71 18 116/72 93 L 03/30/20 10:41 71 18 119/61 95 03/30/20 08:28 98.1 F 77 16 119/61 95 Intake and Output 03/30/20 03/30/20 03/30/20 06:59 14:59 22:59 Other: # Voids 0 Weight 89.358 kg General Appearance: Alert, cooperative, no distress, appears stated age. Neck HEENT: Supple, no lymphadenopathy, no thyroid enlargement, no carotid bruits. Lungs: Decreased breath sound bilaterally with rhonchi and mild crackles in the bases with worsening expiratory wheezes. Chest Wall: Decrease expansion with deep inspiration no tenderness and no deformity was found on exam, no costochondral positive slight discomfort with pleuritic discomfort in the right lower chest area. Heart: Regular rate and rhythm, S1, S2 normal, no murmur, rub or gallop. Back: Symmetric, no curvature, ROM normal, no CVA tenderness. Abdomen: Soft, non-tender, bowel sounds active all four quadrants, no masses, no organomegaly. Extremities: Extremities normal, atraumatic, no cyanosis or edema. Pulses: 2+ and symmetric. Skin: Skin color, texture, tugor normal, no rashes or lesions. Neurologic: Alert oriented x3 cranial nerves II through XII intact, no motor deficit, no abnormal balance or gait. Results CBC & Chem 7: 03/30/20 08:55 03/30/20 08:55 Labs: Abnormal Lab Results - Last 24 Hours (Table) 03/30/20 03/30/20 03/30/20 Range/Units 08:55 08:55 08:55 WBC 16.3 H (3.8-10.6) k/uL RBC 3.69 L (3.80-5.40) m/uL Neutrophils # 12.0 H (1.3-7.7) k/uL Monocytes # 1.4 H (0-1.0) k/uL APTT (22.0-30.0) sec D-Dimer 2.24 H (<0.60) mg/L FEU Sodium 132 L (137-145) mmol/L Chloride 96 L (98-107) mmol/L BUN 18 H (7-17) mg/dL Glucose 319 H (74-99) mg/dL POC Glucose (mg/dL) (75-99) mg/dL Total Protein 6.2 L (6.3-8.2) g/dL Urine Appearance (Clear) Urine Protein (Negative) Urine Glucose (UA) (Negative) Ur Leukocyte Esterase (Negative) Urine WBC (0-5) /hpf Ur Squamous Epith Cells (0-4) /hpf Urine Bacteria (None) /hpf Hyaline Casts (0-2) /lpf Urine Mucus (None) /hpf 03/30/20 03/30/20 03/30/20 Range/Units 10:11 13:15 17:48 WBC (3.8-10.6) k/uL RBC (3.80-5.40) m/uL Neutrophils # (1.3-7.7) k/uL Monocytes # (0-1.0) k/uL APTT (22.0-30.0) sec D-Dimer (<0.60) mg/L FEU Sodium (137-145) mmol/L Chloride (98-107) mmol/L BUN (7-17) mg/dL Glucose (74-99) mg/dL POC Glucose (mg/dL) 186 H 153 H (75-99) mg/dL Total Protein (6.3-8.2) g/dL Urine Appearance Cloudy H (Clear) Urine Protein Trace H (Negative) Urine Glucose (UA) Trace H (Negative) Ur Leukocyte Esterase Large H (Negative) Urine WBC 30 H (0-5) /hpf Ur Squamous Epith Cells 14 H (0-4) /hpf Urine Bacteria Occasional H (None) /hpf Hyaline Casts 15 H (0-2) /lpf Urine Mucus Rare H (None) /hpf 03/30/20 03/30/20 Range/Units 19:46 20:30 WBC (3.8-10.6) k/uL RBC (3.80-5.40) m/uL Neutrophils # (1.3-7.7) k/uL Monocytes # (0-1.0) k/uL APTT >200.0 H* (22.0-30.0) sec D-Dimer (<0.60) mg/L FEU Sodium (137-145) mmol/L Chloride (98-107) mmol/L BUN (7-17) mg/dL Glucose (74-99) mg/dL POC Glucose (mg/dL) 226 H (75-99) mg/dL Total Protein (6.3-8.2) g/dL Urine Appearance (Clear) Urine Protein (Negative) Urine Glucose (UA) (Negative) Ur Leukocyte Esterase (Negative) Urine WBC (0-5) /hpf Ur Squamous Epith Cells (0-4) /hpf Urine Bacteria (None) /hpf Hyaline Casts (0-2) /lpf Urine Mucus (None) /hpf Thrombosis Risk Factor Assmnt - DVT/VTE Prophylaxis DVT/VTE Prophylaxis: Pharmacologic Prophylaxis ordered, Mechanical Prophylaxis ordered - Choose All That Apply Any of the Below Risk Factors Present?: Yes Each Factor Represents 1 point: Serious lung disease incl. pneumonia (< 1month) Other Risk Factors: Yes Each Risk Factor Represents 2 Points: Malignancy Each Risk Factor Represents 3 Points: Age 75 years or older, History of DVT/PE Thrombosis Risk Factor Assessment Total Risk Factor Score: 9 Thrombosis Risk Factor Assessment Level: High Risk Assessment and Plan Assessment: 1 acute pulmonary embolism: Not a clear etiology will order ultrasound of the lower extremity exclude DVT. Patient will be continue on heparin drip for now with switch patient to oral anticoagulation next 48 hours, consult pulmonary. 2 bilateral pneumonia: Patient has not had any further exposure, Covid 19 still pending at this point, patient will be continue on Rocephin and azithromycin continue updrafts and O2. 3 UTI with sepsis: UA was very positive for the elevated white blood cell continue patient on Rocephin 1 g daily switch to oral Ceftin in the next 2 days. 4 severe hypoxia: Most likely secondary to PE and pneumonia continue patient on updraft with DuoNeb along with O2 titrate oxygen to keep pulse ox above 92 percentile. 5 type 2 diabetes: Has been on metformin 500 mg 2 tablets twice a day with insulin NPH 50 daily. continue medication continue Accu-Chek with sliding scales coverage. 6 hypertension: Has been on verapamil 120 mg a day atenolol 50 mg daily and losartan HCT handed/25 mg a day. 7 hyperlipidemia: Continue patient on atorvastatin 20 mg a day. 8 tachycardia: Continue patient on verapamil and Tenormin. 9 history of breast cancer: Has been in remission doing well. 10 DVT prophylaxis: Continue patient on heparin drip. 11 GI prophylaxis: Continue patient on Pepcid 20 mg daily. 12 Covid 19 testing is pending. CODE STATUS: Full code. Admit patient to inpatient service for more than 2 night stay.
--- NOTE | 2020-03-31 00:01 | US ---
EXAMINATION TYPE: US venous doppler duplex LE DATE OF EXAM: 03/30/2020 11:41 PM COMPARISON: No previous US CLINICAL HISTORY: DVT. DVT per order. Patient on heparin. Patient has PE. SIDE PERFORMED: Bilateral TECHNIQUE: The lower extremity deep venous system is examined utilizing real time linear array sonog north with graded compression, doppler sonography and color-flow sonography. VESSELS IMAGED: External Iliac Vein (EIV) Common Femoral Vein Deep Femoral Vein Greater Saphenous Vein * Femoral Vein Popliteal Vein Small Saphenous Vein * Proximal Calf Veins (* superficial vessels) Right Leg: No evidence of DVT in veins imaged at this time from prox calf veins to EIV. Anechoic are a seen right popliteal fossa: 4.3 x 2.7 x 1.1 cm. Left Leg: No evidence of DVT in veins imaged at this time from prox calf veins to EIV. IMPRESSION: No evidence of deep vein thrombosis in both legs. Right side popliteal cyst noted.
[2020-03-31] MEDS: AZITHROMYCIN 500 MG in SODIUM CHLORIDE 0.9% 250 ML IVPB SCH ×2 (01:14→23:58)
[2020-03-31 04:09] LABS: Basophils # (A) 0.1 k/uL (0-0.2); Basophils % (A) 1 %; Eosinophils # (A) 0.4 k/uL (0-0.7); Eosinophils % (A) 3 %; HCT 35.4 % (34.0-46.0); HGB 11.7 gm/dL (11.4-16.0); Lymphocytes # (A) 2.4 k/uL (1.0-4.8); Lymphocytes % (A) 16 %; MCH 31.9 pg (25.0-35.0); MCV 96.7 fL (80.0-100.0); Mean Platelet Volume 8.5; Monocytes # (A) 0.9 k/uL (0-1.0); Monocytes % (A) 7 %; Neutrophils # (A) 10.4 k/uL (1.3-7.7); Neutrophils % (A) 72 %; Platelet Count 243 k/uL (150-450); RBC 3.66 m/uL (3.80-5.40); WBC 14.4 k/uL (3.8-10.6)
[2020-03-31 04:24] LABS: Albumin 3.6 g/dL (3.5-5.0); Calcium 9.2 mg/dL (8.4-10.2); Potassium 3.5 mmol/L (3.5-5.1); Total Bilirubin 0.5 mg/dL (0.2-1.3)
[2020-03-31] MEDS: HEPARIN SOD,PORK IN 0.45% NACL 25,000 UNIT in 0.45% NACL 1 250ML.BAG IV SCH ×2 (05:16→06:32)
[2020-03-31 06:10] LABS: Glucose,Whole Blood 137 mg/dL (75-99)
[2020-03-31] MEDS: INSULIN ASPART (NovoLOG) 100 UNIT/ML VIAL SQ SCH ×4 (06:33→21:06)
[2020-03-31] MEDS ORDERED: IPRATROPIUM-ALBUTEROL 3 ML NEB INHALATION PRN (08:30)
--- NOTE | 2020-03-31 10:55 | ECHOF ---
Referral Reason:lvfunction MEASUREMENTS -------- HEIGHT: 165.1 cm WEIGHT: 90.3 kg BP: RVIDd: 2.7 cm (< 3.3) IVSd: 1.1 cm (0.6 - 1.1) LVIDd: 4.6 cm (3.9 - 5.3) LVPWd: 1.1 cm (0.6 - 1.1) IVSs: 1.3 cm LVIDs: 3.4 cm LVPWs: 1.6 cm LA Diam: 4.6 cm (2.7 - 3.8) LAESV Index (A-L): 34.86 ml/m Ao Diam: 2.9 cm (2.0 - 3.7) AV Cusp: 1.8 cm (1.5 - 2.6) LA Diam: 4.0 cm (2.7 - 3.8) MV EXCURSION: 17.354 mm (> 18.000) MV EF SLOPE: 71 mm/s (70 - 150) EPSS: 0.5 cm MV E Branden: 0.59 m/s MV DecT: 249 ms MV A Branden: 0.84 m/s MV E/A Ratio: 0.70 RAP: 5.00 mmHg RVSP: 13.57 mmHg FINDINGS -------- Sinus rhythm. This was a techncally difficult study with suboptimal views, , Lumason utilized for enhancement of im ages. The left ventricular size is normal. There is mild concentric left ventricular hypertrophy. Overa ll left ventricular systolic function is normal with, an EF between 55 - 60 %. The right ventricle is normal in size. LA is moderately dilated 34-39 ml/m2 The right atrial size is normal. 5.0mg OF Lumason UTLIZED: 2 OR MORE WALL SEGMENTS NOT VISUALIZED. There is mild aortic valve sclerosis. There is mild aortic regurgitation. Mild mitral annular calcification present. Mild mitral regurgitation is present. Mild tricuspid regurgitation present. Right ventricular systolic pressure is normal at < 35 mmHg. The pulmonic valve was not well visualized. Trace/mild (physiologic) pulmonic regurgitation. The aortic root size is normal. There is no pericardial effusion. CONCLUSIONS -------- 1. This was a techncally difficult study with suboptimal views, , Lumason utilized for enhancement of images. 2. The left ventricular size is normal. 3. There is mild concentric left ventricular hypertrophy. 4. Overall left ventricular systolic function is normal with, an EF between 55 - 60 %. 5. LA is moderately dilated 34-39 ml/m2 6. 5.0mg OF Lumason UTLIZED: 2 OR MORE WALL SEGMENTS NOT VISUALIZED. 7. There is mild aortic valve sclerosis. 8. There is mild aortic regurgitation. 9. Mild mitral annular calcification present. 10. Mild mitral regurgitation is present. 11. Mild tricuspid regurgitation present. 12. Trace/mild (physiologic) pulmonic regurgitation. 13. There is no pericardial effusion. STUDENT SERVICES DEAN: Deloris Muñoz RDCS
[2020-03-31 12:02] LABS: Glucose,Whole Blood 231 mg/dL (75-99)
[2020-03-31] MEDS: MULTIVITAMINS, THERA 1 EACH TAB PO SCH (12:46)
[2020-03-31] MEDS: FAMOTIDINE 20 MG TAB PO SCH (12:46)
[2020-03-31] MEDS: LOSARTAN 50 MG TAB PO SCH (12:46)
[2020-03-31] MEDS: INSULIN NPH 300 UNIT/3 ML VIAL SQ SCH (12:46)
[2020-03-31] MEDS: atenoloL 50 MG TAB PO SCH (12:46)
[2020-03-31] MEDS: hydroCHLOROthiazide 25 MG TAB PO SCH (12:46)
[2020-03-31] MEDS: NYSTATIN 100,000 UNIT/ML SUSP 500,000 UNIT/5 ML CUP PO SCH ×4 (12:47→21:06)
[2020-03-31] MEDS: VERAPAMIL SR 120 MG TABLET.ER PO SCH (12:47)
[2020-03-31] MEDS: SODIUM CHLORIDE 0.9% 1,000 ML IV SCH (13:11)
--- NOTE | 2020-03-31 14:07 | P.CONS ---
History of Present Illness - Reason for Consult Consult date: 03/31/20 breast cancer Requesting physician: Bandar Moore - Chief Complaint PE - History of Present Illness Mrs. Bush is a very pleasant 74-year-old female patient of Dr. Alexander who was diagnosed in August 2019 with breast cancer. On routine mammogram, patient was found to have a non-palpable mass, upper outer quadrant of the right breast at 11:00, US confirmed 7 mm nodule, core biopsy 09/08/19 revealed grade 2 invasive ductal carcinoma, ER/CA 91%/91%, HER-2/camila +1 by IHC- negative. She had a right partial mastectomy with sentinel lymph node biopsy on 10/09/[address] mireles. Final path grade 3, invasive ductal carcinoma of 1 cm, 0 of 3 sentinel lymph nodes, residual focus of DCIS, margins were negative. She is started on adjuvant TC with Neulasta in November, status post 4 cycles. She just completed radiation 03/10/20. She has follow-up scheduled for next week. Patient noted yesterday that she had pain in the upper part of her back and front of the chest that she couldn't relieve, no positioning helped, she also noted a dry cough, some mild shortness of breath. Review of Systems 14 point review of systems is negative except as stated in HPI Past Medical History Past Medical History: Cancer, Diabetes Mellitus, GERD/Reflux, Hyperlipidemia, Hypertension, Pneumonia Additional Past Medical History / Comment(s): R breast cancer with lumpectomy/chemo finished 01/21/20 and radiation that finished 3 weeks ago, pt states she has a bitter taste with eating and that the tip of her tongue always feels burned since chemo, PT HAS HAD A SPLEENECTOMY/partial pancreas removed d/t cysts, IDDM, neuropathy bilateral feet, UTIs, UTI with sepsis, chronic cough, past gastric ulcer. History of Any Multi-Drug Resistant Organisms: None Reported Past Surgical History: Appendectomy, Breast Surgery, Hysterectomy Additional Past Surgical History / Comment(s): splenectomy, partial pancreas removal, R breast biopsy, R breast lumpectomy, cataracts removal and intraocular lens implants, colonoscopy Past Anesthesia/Blood Transfusion Reactions: No Reported Reaction Additional Past Anesthesia/Blood Transfusion Reaction / Comm: Never Received Blood Transfusion Smoking Status: Never smoker - Past Family History Father Family Medical History: Myocardial Infarction ([place]) Additional Family Medical History / Comment(s): Father at age 65 from a myocardial infarction. Mother Additional Family Medical History / Comment(s): Mother at age 75 from a myocardial infarction. Brother(s) Additional Family Medical History / Comment(s): Patient does not have any brothers. Sister(s) Family Medical History: Hypertension Additional Family Medical History / Comment(s): Patient has one sister at age 82. Medications and Allergies Home Medications Medication Instructions Recorded Confirmed Type ALPRAZolam [Xanax] 0.25 mg PO DAILY PRN 06/22/19 03/30/20 History Atenolol [Tenormin] 50 mg PO DAILY 06/22/19 03/30/20 History Atorvastatin [Lipitor] 20 mg PO HS 06/22/19 03/30/20 History Losartan/Hydrochlorothiazide 1 tab PO DAILY 06/22/19 03/30/20 History [Hyzaar 100-25 Tablet] Verapamil HCl [Verapamil ER] 120 mg PO DAILY 06/22/19 03/30/20 History Insulin NPH Human Isophane 50 unit SQ DAILY 08/28/19 03/30/20 History [NovoLIN N] Multivit-Min/Iron/Folic/Lutein 1 tab PO DAILY 02/05/20 03/30/20 History [Centrum Silver Women Tablet] metFORMIN HCL [Glucophage] 1,000 mg PO BID 02/05/20 03/30/20 History Nystatin 100,000 Unit/ml Susp 4 ml PO QID 03/30/20 03/30/20 History [Mycostatin Oral Susp] Ondansetron [Zofran] 4 mg PO TID PRN 03/30/20 03/30/20 History Rivaroxaban [Xarelto Starter Pack] 0 mg PO DIRECTED 30 Days #1 pack 03/31/20 Rx Allergies Allergy/AdvReac Type Severity Reaction Status Date / Time erythromycin base Allergy Unknown Verified 03/30/20 09:56 Physical Exam Vitals: Vital Signs Temp Pulse Pulse Resp BP BP Pulse Ox 03/31/20 12:41 97.1 F L 70 18 112/76 97 03/31/20 08:00 97.1 F L 72 19 144/61 98 03/31/20 04:00 79 18 158/65 98 03/31/20 00:00 71 18 152/67 98 03/30/20 20:00 97.9 F 102 H 18 103/69 100 03/30/20 19:12 98.3 F 75 18 134/59 96 03/30/20 16:26 67 18 138/58 97 03/30/20 15:00 70 18 124/45 92 L Intake and Output 03/30/20 03/31/20 03/31/20 22:59 06:59 14:59 Intake Total 136.446 113.040 480 Output Total 400 Balance 136.446 -286.960 480 Intake: Intake, IV Titration 136.446 113.040 Amount Heparin Sod,Pork in 0.45% 136.446 113.040 NaCl 25,000 unit In 0.45 % NaCl 1 250ml.bag @ 18 UNITS/KG/HR 16.084 mls/hr IV .[id number] [facility] Rx#: [id number] Oral 480 Output: Urine 400 Other: Voiding Method Bedpan Bedpan # Voids 0 1 Weight 90.4 kg 90.4 kg - Constitutional General appearance: average body habitus, cooperative, no acute distress - EENT Eyes: anicteric sclerae, EOMI ENT: hearing grossly normal, normal oropharynx - Neck Neck: no lymphadenopathy - Respiratory Respiratory: right: diminished, left: CTA - Cardiovascular Rhythm: regular Heart sounds: normal: S1, S2 Abnormal Heart Sounds: no systolic murmur, no diastolic murmur, no rub, no S3 Gallop, no S4 Gallop, no click, no other leg Peripheral Edema: bilateral: None - Gastrointestinal General gastrointestinal: no absent bowel sounds, no decreased bowel sounds, no distended, no hepatomegaly, no hyperactive bowel sounds, normal bowel sounds, no organomegaly, no rigid, no scaphoid, soft, no splenomegaly, no tenderness, no umbilical hernia, no ventral hernia - Integumentary Integumentary: normal - Neurologic Neurologic: CNII-XII intact - Musculoskeletal Musculoskeletal: strength equal bilaterally - Psychiatric Psychiatric: A&O x's 3, appropriate affect, intact judgment & insight Results CBC & Chem 7: 04/01/20 06:00 04/01/20 06:00 Labs: Abnormal Lab Results - Last 24 Hours (Table) 03/30/20 03/30/20 03/30/20 Range/Units 17:48 19:46 20:30 WBC (3.8-10.6) k/uL RBC (3.80-5.40) m/uL Neutrophils # (1.3-7.7) k/uL APTT >200.0 H* (22.0-30.0) sec Sodium (137-145) mmol/L BUN (7-17) mg/dL Glucose (74-99) mg/dL POC Glucose (mg/dL) 153 H 226 H (75-99) mg/dL Total Protein (6.3-8.2) g/dL 03/31/20 03/31/20 03/31/20 Range/Units 03:30 03:30 03:30 WBC 14.4 H (3.8-10.6) k/uL RBC 3.66 L (3.80-5.40) m/uL Neutrophils # 10.4 H (1.3-7.7) k/uL APTT 59.1 H (22.0-30.0) sec Sodium 135 L (137-145) mmol/L BUN 21 H (7-17) mg/dL Glucose 115 H (74-99) mg/dL POC Glucose (mg/dL) (75-99) mg/dL Total Protein 6.0 L (6.3-8.2) g/dL 03/31/20 03/31/20 Range/Units 06:05 11:49 WBC (3.8-10.6) k/uL RBC (3.80-5.40) m/uL Neutrophils # (1.3-7.7) k/uL APTT (22.0-30.0) sec Sodium (137-145) mmol/L BUN (7-17) mg/dL Glucose (74-99) mg/dL POC Glucose (mg/dL) 137 H 231 H (75-99) mg/dL Total Protein (6.3-8.2) g/dL Microbiology - Last 24 Hours (Table) 03/30/20 10:11 Urine Culture - Preliminary Urine,Voided CT Scan - head: report reviewed Venous US: report reviewed Assessment and Plan (1) Pulmonary embolism Narrative/Plan: New pulmonary embolism, right upper lobe. There is a small amount of hilar adenopathy on the right as well. Bilateral lower extremity Dopplers negative. Would consider this a provoked PE has patient has been recently treated for cancer with chemotherapy, she just completed radiation about 3 weeks ago. Patient is symptomatic at this time. States her symptoms are improving (specifically positioning for pain in the upper part of her back). She still has a dry cough with any deep inspiration. Recommend continuing heparin drip until tomorrow morning and transition over to Xarelto (which her insurance has approved). Did communicate with [facility]. Current Visit: Yes Status: Acute Priority: High Code(s): I26.99 - OTHER PULMONARY EMBOLISM WITHOUT ACUTE COR PULMONALE SNOMED Code(s): 83352615 (2) Breast cancer Narrative/Plan: Patient completed radiation about 3 weeks ago. She is hormone receptor positive, HER-2 negative. Would anticipate AI treatment in the near future. She does have a follow-up appointment next Sunday which she will keep. It will be communicated to her Primary Oncologist her current situation. Current Visit: No Status: Chronic Priority: Medium Code(s): C50.919 - MALIGNANT NEOPLASM OF UNSP SITE OF UNSPECIFIED FEMALE BREAST SNOMED Code(s): 610596219
--- NOTE | 2020-03-31 14:28 | P.PN ---
Subjective Progress Note Date: 03/31/20 74-year-old female one of Dr. Hector Sheridan's patient with past medical history of breast cancer, diabetes, hypertension, hyperlipidemia and recurrent pneumonia who developed since yesterday to have right flank pain worsening with deep inspiration along with severe dyspnea and shortness of breath has been having low-grade temperature with mild cough nonproductive along with mild lower abdominal pain and discomfort with urination. With the severity of her discomfort ended up coming to demurs department at [facility] chest x- ray shows bibasilar infiltrate worsening on the right than the left side. CTA after d-dimer was positive came back with right lower side acute pulmonary embolism with bilateral infiltrate. Surprisingly her UA came back very positive for urinary tract infection. D-dimer was negative blood sugar was mildly elevated and patient had significantly elevated white blood cell at 16.3. Patient was started on Rocephin and azithromycin heparin drip and will be admitted to the hospital. 03/31: Patient is seen today in follow-up. She states her breathing is better tod ay. But she feels tired. She has been started on antibiotics for UTI and pneumonia. Nebulizer treatments and Solu-Medrol will be ordered.. She states she would have an appointment on Sunday with Dr. Newman and Dr. Vogel. She has been seen by oncology and pulmonary medicine. She has been afebrile, heart rate 72, blood pressure 144/61, pulse ox 90% on 3 L nasal cannula. Lower extremity ultrasound negative for DVT. Echocardiogram reveals EF of 55-60%, mild concentric left ventricular hypertrophy, LV moderately dilated, mild aortic regurgitation, mild mitral regurgitation, mild tricuspid regurgitation. Repeat blood work reveals WBC 14.4, hemoglobin 11.7, platelet count 243. Sodium 135, BUN 21 creatinine 0.92. Blood sugars run between 115 and 226. Urine culture is in progress. The patient is currently on heparin drip. Eliquis is not covered by her insurance and patient will be started on Xarelto. Review of Systems CONSTITUTIONAL: Well-developed no acute respiratory distress. Denies fever, denies chills. EYES: No icterus sclerae, no conjunctivitis. EARS, NOSE, MOUTH, THROAT, and FACE: No sore throat, lymphadenopathy, carotid bruits or deformity. RESPIRATORY: Positive shortness of breath cough improved from yesterday, reports wheezes. CARDIOVASCULAR: Positive PND and orthopnea with worsening chest pain with inspiration. GASTROINTESTINAL: No Abd pain, Nausea or vomiting, no Diarrhea or constipation, No GI Bleed, no distention or masses. GENITOURINARY: Positive lower abdominal discomfort and mild irritation with urination. INTEGUMENT/BREAST: Negative for any muscular injury with mild osteoarthritis. HEMATOLOGIC/LYMPHATIC: Negative for bleed or purpura. MUSCULOSKELTAL: Negative for Myalgia or arthralgia. NEURLOGICAL: No LOC, Sz or syncope, blurred vision dizziness or abnormality. BEHAVIORAL/PSYCH: Negative. ENDOCRINE: Negative. Physical Examination General Appearance: Alert, cooperative, no distress, appears stated age. Patient is sitting on edge of the bed and appears to be comfortable. No acute respiratory distress noted. Neck HEENT: Supple, no lymphadenopathy, no thyroid enlargement, no carotid bruits. Lungs: Decreased breath sound bilaterally with rhonchi and mild crackles in the bases with worsening expiratory wheezes. Chest Wall: Decrease expansion with deep inspiration no tenderness and no deformity was found on exam, no costochondral positive slight discomfort with pleuritic discomfort in the right lower chest area. Heart: Regular rate and rhythm, S1, S2 normal, no murmur, rub or gallop. Back: Symmetric, no curvature, ROM normal, no CVA tenderness. Abdomen: Soft, non-tender, bowel sounds active all four quadrants, no masses, no organomegaly. Extremities: Extremities normal, atraumatic, no cyanosis or edema. Pulses: 2+ and symmetric. Skin: Skin color, texture, tugor normal, no rashes or lesions. Neurologic: Alert oriented x3 cranial nerves II through XII intact, no motor deficit, no abnormal balance or gait. Assessment and Plan 1 acute pulmonary embolism. Lower extremity ultrasound ruled out DVT. Patient will be continue on heparin drip and transitioned to Xarelto for now if okay with oncology. Consult pulmonary medicine and oncology. 2 bilateral pneumonia. Continue on Rocephin and azithromycin continue updrafts and O2. Start Solu-Medrol 40 mg IV every 8 hours. Consult with pulmonary medicine. 3 UTI with sepsis: UA was very positive for the elevated white blood cell continue patient on Rocephin 1 g daily switch to oral Ceftin in the next 2 days. Urine culture is pending. 4 severe hypoxia: Most likely secondary to PE and pneumonia continue patient on updraft with DuoNeb along with O2 titrate oxygen to keep pulse ox above 92 percentile. 5 type 2 diabetes: Has been on metformin 500 mg 2 tablets twice a day with insulin NPH 50 daily. continue medication continue Accu-Chek with sliding scales coverage. 6 hypertension: Has been on verapamil 120 mg a day atenolol 50 mg daily and losartan HCT handed/25 mg a day. 7 hyperlipidemia: Continue patient on atorvastatin 20 mg a day. 8 tachycardia: Continue patient on verapamil and Tenormin. 9 history of breast cancer. Oncology consult. 10 DVT prophylaxis: Continue patient on heparin drip. 11 GI prophylaxis: Continue patient on Pepcid 20 mg daily. 12 Covid 19 testing is pending. CODE STATUS: Full code. Discharge plan: Home Impression and plan of care have been directed as dictated by the signing physician. Indira Campos nurse practitioner acting as scribe for signing physician. Objective - Vital Signs Vital signs: Vital Signs Temp 97.9 F 03/30/20 20:00 Pulse 79 03/31/20 04:00 Resp 18 03/31/20 04:00 BP 158/65 03/31/20 04:00 Pulse Ox 98 03/31/20 04:00 Intake & Output 03/30/20 03/31/20 03/31/20 18:59 06:59 18:59 Intake Total 249.486 Output Total 400 Balance -150.514 Weight 89.358 kg 90.4 kg Intake: Intake, IV Titration 249.486 Amount Heparin Sod,Pork in 0.45% 249.486 NaCl 25,000 unit In 0.45 % NaCl 1 250ml.bag @ 18 UNITS/KG/HR 16.084 mls/hr IV .[id number] [facility] Rx#: [id number] Output: Urine 400 Other: Voiding Method Bedpan # Voids 1 - Labs CBC & Chem 7: 03/31/20 03:30 03/31/20 03:30 Labs: Abnormal Lab Results - Last 24 Hours (Table) 03/30/20 03/30/20 03/30/20 Range/Units 08:55 08:55 08:55 WBC 16.3 H (3.8-10.6) k/uL RBC 3.69 L (3.80-5.40) m/uL Neutrophils # 12.0 H (1.3-7.7) k/uL Monocytes # 1.4 H (0-1.0) k/uL APTT (22.0-30.0) sec D-Dimer 2.24 H (<0.60) mg/L FEU Sodium 132 L (137-145) mmol/L Chloride 96 L (98-107) mmol/L BUN 18 H (7-17) mg/dL Glucose 319 H (74-99) mg/dL POC Glucose (mg/dL) (75-99) mg/dL Total Protein 6.2 L (6.3-8.2) g/dL Urine Appearance (Clear) Urine Protein (Negative) Urine Glucose (UA) (Negative) Ur Leukocyte Esterase (Negative) Urine WBC (0-5) /hpf Ur Squamous Epith Cells (0-4) /hpf Urine Bacteria (None) /hpf Hyaline Casts (0-2) /lpf Urine Mucus (None) /hpf 03/30/20 03/30/20 03/30/20 Range/Units 10:11 13:15 17:48 WBC (3.8-10.6) k/uL RBC (3.80-5.40) m/uL Neutrophils # (1.3-7.7) k/uL Monocytes # (0-1.0) k/uL APTT (22.0-30.0) sec D-Dimer (<0.60) mg/L FEU Sodium (137-145) mmol/L Chloride (98-107) mmol/L BUN (7-17) mg/dL Glucose (74-99) mg/dL POC Glucose (mg/dL) 186 H 153 H (75-99) mg/dL Total Protein (6.3-8.2) g/dL Urine Appearance Cloudy H (Clear) Urine Protein Trace H (Negative) Urine Glucose (UA) Trace H (Negative) Ur Leukocyte Esterase Large H (Negative) Urine WBC 30 H (0-5) /hpf Ur Squamous Epith Cells 14 H (0-4) /hpf Urine Bacteria Occasional H (None) /hpf Hyaline Casts 15 H (0-2) /lpf Urine Mucus Rare H (None) /hpf 03/30/20 03/30/20 03/31/20 Range/Units 19:46 20:30 03:30 WBC (3.8-10.6) k/uL RBC (3.80-5.40) m/uL Neutrophils # (1.3-7.7) k/uL Monocytes # (0-1.0) k/uL APTT >200.0 H* 59.1 H (22.0-30.0) sec D-Dimer (<0.60) mg/L FEU Sodium (137-145) mmol/L Chloride (98-107) mmol/L BUN (7-17) mg/dL Glucose (74-99) mg/dL POC Glucose (mg/dL) 226 H (75-99) mg/dL Total Protein (6.3-8.2) g/dL Urine Appearance (Clear) Urine Protein (Negative) Urine Glucose (UA) (Negative) Ur Leukocyte Esterase (Negative) Urine WBC (0-5) /hpf Ur Squamous Epith Cells (0-4) /hpf Urine Bacteria (None) /hpf Hyaline Casts (0-2) /lpf Urine Mucus (None) /hpf 03/31/20 03/31/20 03/31/20 Range/Units 03:30 03:30 06:05 WBC 14.4 H (3.8-10.6) k/uL RBC 3.66 L (3.80-5.40) m/uL Neutrophils # 10.4 H (1.3-7.7) k/uL Monocytes # (0-1.0) k/uL APTT (22.0-30.0) sec D-Dimer (<0.60) mg/L FEU Sodium 135 L (137-145) mmol/L Chloride (98-107) mmol/L BUN 21 H (7-17) mg/dL Glucose 115 H (74-99) mg/dL POC Glucose (mg/dL) 137 H (75-99) mg/dL Total Protein 6.0 L (6.3-8.2) g/dL Urine Appearance (Clear) Urine Protein (Negative) Urine Glucose (UA) (Negative) Ur Leukocyte Esterase (Negative) Urine WBC (0-5) /hpf Ur Squamous Epith Cells (0-4) /hpf Urine Bacteria (None) /hpf Hyaline Casts (0-2) /lpf Urine Mucus (None) /hpf Microbiology - Last 24 Hours (Table) 03/30/20 10:11 Urine Culture - Preliminary Urine,Voided
[2020-03-31] MEDS ORDERED: IPRATROPIUM-ALBUTEROL 3 ML NEB IH PRN (16:46)
[2020-03-31 17:13] LABS: Glucose,Whole Blood 218 mg/dL (75-99)
--- NOTE | 2020-03-31 17:18 | CONS ---
CONSULTATION This is a pulmonary medical consultation. This is a 74-year-old female patient of Dr. Hector Sheridan with past medical history of breast cancer status post lumpectomy followed by chemotherapy and radiation, diabetes mellitus type 2, hypertension, hyperlipidemia, and recurrent pneumonia who presented to the emergency department on 03/30/2020 with complaint of right flank pain that was worsening with deep inspiration and was accompanied by severe shortness of breath. The patient also had a mild cough, nonproductive. The pain in her back was also radiating to the front wrapping around the abdomen and the patient was also having some discomfort with urination. In the emergency department, the patient had a chest x- ray that showed bibasilar infiltrates, right greater than left. The D-dimer was elevated at 2.24 and this was followed by CTA chest that showed acute right lower lobe pulmonary embolism, bilateral lower lobe consolidation and a small right-sided pleural effusion. There was a right hilar adenopathy with calcified granuloma in the right upper lobe with additional nonspecific 3 mm subpleural nodule that was too small to characterize. Her blood work was reviewed, white blood cell count was 16.3. Hemoglobin is 11.5, sodium was 132, potassium is 4.0, chloride is 96, CO2 is 24, BUN is 18, creatinine is 1.02, LFTs were within normal limits. Troponin was less than 0.012, urinalysis showed evidence of infection with large amount of leukocyte esterase, bacteria, and white blood cells. Patient was started on antibiotics, she was started on heparin infusion for acute pulmonary embolism in the right lung. She was afebrile, EKG showed sinus rhythm with first-degree AV block with no acute ST or T-wave changes. It was an unremarkable EKG. REVIEW OF SYSTEM: Patient reports shortness of breath, mild nonproductive cough, right flank pain, abdominal pain, and dysuria. Reports fever, but no night sweats, no recent weight gain or loss. SKIN: No rashes or other changes. HEENT: Reports no dry eyes, no vision changes. No irritation, reports no difficulty hearing and no ear pain. Reports no nosebleeds or sinus problems, no sore throat, bleeding gums or snoring. NECK: No lumps, goiter or pain. BREASTS: Patient has a history of right breast cancer with lumpectomy, but no pain or discharge. RESPIRATORY: See history of present illness. CARDIOVASCULAR: Reports no orthopnea or palpitations. Does report dyspnea and right flank pain. Reports no heart disease. GI: No nausea, vomiting, no indigestion, no pain, no jaundice. : Patient does report dysuria. MUSCULOSKELETAL: No muscle aches. No muscle weakness. No arthralgias. Does report some mild swelling in the lower extremities. PSYCHIATRIC: No history of psychiatric illness. NEUROLOGIC: No seizures, motor or sensory loss. No headaches. PHYSICAL EXAM: GENERAL: Well-developed 74-year-old white female, on 2 L of oxygen, sitting up on the side of the bed, in no acute distress. HEENT: Patient has alopecia. No scalp lesions were noted. Normocephalic, atraumatic. Conjunctivae are pink, sclera is white, PERRLA. NECK: Supple. No neck masses. No JVD. No thyroid enlargement. No adenopathy. LUNGS: Symmetrical expansion, diminished breath sounds at the bases. No crackles, rhonchi, or wheezes. CARDIOVASCULAR: Regular rate and rhythm. Normal S1, S2. No gallops, no murmurs, no rubs. ABDOMEN: Soft, nontender, obese. No organomegaly. No rebound tenderness. No guarding. Positive bowel sounds. EXTREMITIES: No clubbing, no edema. No cyanosis. 2+ pulses in upper and lower extremities, mild pretibial edema. MUSCULOSKELETAL: Muscle strength and tone are normal. NEUROLOGIC: Patient is alert and oriented x3, no focal neurological deficits. ASSESSMENT: 1. Acute pulmonary embolism. CTA chest showed acute right lower lobe pulmonary embolism. 2. Bilateral lower lobe consolidation and small right-sided pleural effusions likely related to bilateral pneumonia, COVID-19 is still pending at this time, patient has been started on combination of Rocephin and azithromycin for possibility of community-acquired pneumonia. 3. Acute urinary tract infection. 4. Acute hypoxic respiratory failure related to acute pulmonary embolism and community- acquired pneumonia. 5. History of right breast cancer, status post lumpectomy followed by chemoradiation, the patient is under the care of Dr. Newman. 6. Type 2 diabetes mellitus. 7. History of hypertension. 8. Hyperlipidemia. 9. Previous episodes of pneumonia. PLAN: Continue azithromycin and Rocephin, continue breathing treatments. Continue heparin infusion, echocardiogram has been completed, we do not have the report available to us yet, hemodynamically patient is stable, troponin was negative, no CT evidence of right heart strain. Try to collect sputum for culture, we are unable to review any of the films of the chest x-ray or CTA chest, at this time, will review, patient is otherwise stable, mentation is appropriate, awaiting results of the urine culture. Will continue to follow. MMSIOBHANL / IJN: [id number] /
[2020-03-31] MEDS ORDERED: RIVAROXABAN 15 MG TAB PO SCH (17:30)
[2020-03-31] MEDS: methylPREDNISolone SOD SUCCI 40 MG/ML 1 ML VIAL IV SCH ×2 (17:56→23:59)
[2020-03-31] MEDS: RIVAROXABAN 15 MG TAB PO SCH (17:58)
[2020-03-31] MEDS: IPRATROPIUM-ALBUTEROL 3 ML NEB IH SCH (19:28)
[2020-03-31 20:13] LABS: Glucose,Whole Blood 239 mg/dL (75-99)
[2020-03-31] MEDS: ATORVASTATIN 20 MG TAB PO SCH (21:06)
[2020-04-01 06:44] LABS: Glucose,Whole Blood 364 mg/dL (75-99)
[2020-04-01] MEDS: INSULIN ASPART (NovoLOG) 100 UNIT/ML VIAL SQ SCH ×3 (06:57→17:38)
[2020-04-01] MEDS: RIVAROXABAN 15 MG TAB PO SCH ×2 (06:57→17:39)
[2020-04-01 07:05] LABS: HCT 36.2 % (34.0-46.0); HGB 11.9 gm/dL (11.4-16.0); MCH 31.6 pg (25.0-35.0); MCHC 32.9 g/dL (31.0-37.0); MCV 96.3 fL (80.0-100.0); Mean Platelet Volume 8.5; Platelet Count 267 k/uL (150-450); RBC 3.76 m/uL (3.80-5.40); RDW 14.1 % (11.5-15.5); WBC 12.4 k/uL (3.8-10.6)
[2020-04-01] MEDS: methylPREDNISolone SOD SUCCI 40 MG/ML 1 ML VIAL IV SCH ×4 (07:22→08:26)
[2020-04-01] MEDS: IPRATROPIUM-ALBUTEROL 3 ML NEB INHALATION SCH ×2 (07:22→07:23)
[2020-04-01 07:34] LABS: ALT 18 U/L (4-34); AST 31 U/L (14-36); African American GFR (CKD) >90 (>60 ml/min/1.73 sqM); Albumin 3.5 g/dL (3.5-5.0); Alkaline Phosphatase 100 U/L (38-126); Anion Gap 9 mmol/L; Blood Urea Nitrogen 21 mg/dL (7-17); Calcium 9.2 mg/dL (8.4-10.2); Carbon Dioxide 24 mmol/L (22-30); Chloride 102 mmol/L (98-107); Glucose 350 mg/dL (74-99); Magnesium 1.9 mg/dL (1.6-2.3); Non-African American GFR(CKD) 78 (>60 ml/min/1.73 sqM); Potassium 4.6 mmol/L (3.5-5.1); Sodium 135 mmol/L (137-145); Total Bilirubin 0.4 mg/dL (0.2-1.3)
[2020-04-01] MEDS: FAMOTIDINE 20 MG TAB PO SCH (08:24)
[2020-04-01] MEDS: LOSARTAN 50 MG TAB PO SCH (08:24)
[2020-04-01] MEDS: MULTIVITAMINS, THERA 1 EACH TAB PO SCH (08:25)
[2020-04-01] MEDS: INSULIN NPH 300 UNIT/3 ML VIAL SQ SCH (08:25)
[2020-04-01] MEDS: hydroCHLOROthiazide 25 MG TAB PO SCH (08:25)
[2020-04-01] MEDS: atenoloL 50 MG TAB PO SCH (08:25)
[2020-04-01] MEDS: NYSTATIN 100,000 UNIT/ML SUSP 500,000 UNIT/5 ML CUP PO SCH ×4 (08:29→23:39)
[2020-04-01] MEDS: VERAPAMIL SR 120 MG TABLET.ER PO SCH (08:30)
[2020-04-01] MEDS: IPRATROPIUM-ALBUTEROL 3 ML NEB IH SCH ×3 (08:50→20:22)
--- NOTE | 2020-04-01 09:34 | P.PN ---
Subjective Progress Note Date: 04/01/20 74-year-old female one of Dr. Hector Sheridan's patient with past medical history of breast cancer, diabetes, hypertension, hyperlipidemia and recurrent pneumonia who developed since yesterday to have right flank pain worsening with deep inspiration along with severe dyspnea and shortness of breath has been having low-grade temperature with mild cough nonproductive along with mild lower abdominal pain and discomfort with urination. With the severity of her discomfort ended up coming to demurs department at [facility] chest x- ray shows bibasilar infiltrate worsening on the right than the left side. CTA after d-dimer was positive came back with right lower side acute pulmonary embolism with bilateral infiltrate. Surprisingly her UA came back very positive for urinary tract infection. D-dimer was negative blood sugar was mildly elevated and patient had significantly elevated white blood cell at 16.3. Patient was started on Rocephin and azithromycin heparin drip and will be admitted to the hospital. 03/31: Patient is seen today in follow-up. She states her breathing is better tod ay. But she feels tired. She has been started on antibiotics for UTI and pneumonia. Nebulizer treatments and Solu-Medrol will be ordered.. She states she would have an appointment on Sunday with Dr. Newman and Dr. Vogel. She has been seen by oncology and pulmonary medicine. She has been afebrile, heart rate 72, blood pressure 144/61, pulse ox 90% on 3 L nasal cannula. Lower extremity ultrasound negative for DVT. Echocardiogram reveals EF of 55-60%, mild concentric left ventricular hypertrophy, LV moderately dilated, mild aortic regurgitation, mild mitral regurgitation, mild tricuspid regurgitation. Repeat blood work reveals WBC 14.4, hemoglobin 11.7, platelet count 243. Sodium 135, BUN 21 creatinine 0.92. Blood sugars run between 115 and 226. Urine culture is in progress. The patient is currently on heparin drip. Eliquis is not covered by her insurance and patient will be started on Xarelto. 04/01: The patient's shortness of breath is most improved as well as chest d iscomfort. She states that she is no longer coughing with deep breathing. She was started on Xarelto last evening and heparin drip was discontinued. Patient has been afebrile, heart rate 67, blood pressure 140/64, pulse ox 96% on 3 L nasal cannula. Repeat blood work reveals WBC 12.4, hemoglobin 11.9, platelet count 367. Sodium 135, potassium 4.6, chloride 102, CO2 24, BUN 21 creatinine 0.75. Urine culture is in progress. Blood sugars running between 350 and 218. Schedule NovoLog will be started and patient will resume metformin this evening. Solu-Medrol will be decreased frequency and start prednisone in the morning. Plan to increase activity with anticipated discharge home tomorrow. Review of Systems CONSTITUTIONAL: Well-developed no acute respiratory distress. Denies fever, denies chills. EYES: No icterus sclerae, no conjunctivitis. EARS, NOSE, MOUTH, THROAT, and FACE: No sore throat, lymphadenopathy, carotid bruits or deformity. RESPIRATORY: shortness of breath cough improved, denies wheezes. CARDIOVASCULAR: Positive PND and orthopnea, chest pain improved. GASTROINTESTINAL: No Abd pain, Nausea or vomiting, no Diarrhea or constipation, No GI Bleed, no distention or masses. GENITOURINARY: Positive lower abdominal discomfort and mild irritation with urination. INTEGUMENT/BREAST: Negative for any muscular injury with mild osteoarthritis. HEMATOLOGIC/LYMPHATIC: Negative for bleed or purpura. MUSCULOSKELTAL: Negative for Myalgia or arthralgia. NEURLOGICAL: No LOC, Sz or syncope, blurred vision dizziness or abnormality. BEHAVIORAL/PSYCH: Negative. ENDOCRINE: Negative. Physical Examination General Appearance: Alert, cooperative, no distress, appears stated age. Patient is sitting on edge of the bed and appears to be comfortable. No acute respiratory distress noted. Neck HEENT: Supple, no lymphadenopathy, no thyroid enlargement, no carotid bruits. Lungs: Decreased breath sound bilaterally with rhonchi and mild crackles in the bases with worsening expiratory wheezes. Chest Wall: no tenderness and no deformity was found on exam, no costochondral positive slight discomfort with pleuritic discomfort in the right lower chest area. Heart: Regular rate and rhythm, S1, S2 normal, no murmur, rub or gallop. Back: Symmetric, no curvature, ROM normal, no CVA tenderness. Abdomen: Soft, non-tender, bowel sounds active all four quadrants, no masses, no organomegaly. Extremities: Extremities normal, atraumatic, no cyanosis or edema. Pulses: 2+ and symmetric. Skin: Skin color, texture, tugor normal, no rashes or lesions. Neurologic: Alert oriented x3 cranial nerves II through XII intact, no motor deficit, no abnormal balance or gait. Assessment and Plan 1 acute pulmonary embolism. Lower extremity ultrasound ruled out DVT. Continue Xarelto. Consult pulmonary medicine and oncology appreciated. 2 bilateral pneumonia. Continue on Rocephin and azithromycin continue updrafts and O2. Continue Solu-Medrol 40 mg IV and decreased frequency to every 12 hours and start prednisone in the morning. Consult with pulmonary medicine appreciated. 3 UTI with sepsis: UA was very positive for the elevated white blood cell continue patient on Rocephin 1 g daily switch to oral Ceftin in the next 2 days. Urine culture is pending. 4 severe hypoxia: Most likely secondary to PE and pneumonia continue patient on updraft with DuoNeb along with O2 titrate oxygen to keep pulse ox above 92 percentile. 5 type 2 diabetes uncontrolled with hyperglycemia secondary to steroids. Continue NPH 50 units daily, and NovoLog 5 units scheduled with meals, continue NovoLog scale, resume metformin this evening. 6 hypertension. Continue verapamil 120 mg a day atenolol 50 mg daily and losartan HCT 100/25 mg a day. 7 hyperlipidemia. Continue patient on atorvastatin 20 mg a day. 8 tachycardia: Continue patient on verapamil and Tenormin. 9 history of breast cancer. Oncology consult. 10 DVT prophylaxis: Continue patient on heparin drip. 11 GI prophylaxis: Continue patient on Pepcid 20 mg daily. 12 Covid 19 infection present. CODE STATUS: Full code. Discharge plan: Home on Sunday. Impression and plan of care have been directed as dictated by the signing physician. Indira Campos nurse practitioner acting as scribe for signing physician. Objective - Vital Signs Vital signs: Vital Signs Temp 97.4 F L 03/31/20 20:00 Pulse 76 04/01/20 04:00 Resp 18 04/01/20 04:00 BP 137/66 04/01/20 04:00 Pulse Ox 96 04/01/20 04:00 Intake & Output 03/31/20 04/01/20 04/01/20 18:59 06:59 18:59 Intake Total 1569.231 Balance 1569.231 Weight 90.4 kg 91.5 kg Intake: Intake, IV Titration 349.231 Amount Heparin Sod,Pork in 0.45% 149.231 NaCl 25,000 unit In 0.45 % NaCl 1 250ml.bag @ 18 UNITS/KG/HR 16.084 mls/hr IV .[id number] [facility] Rx#: [id number] Sodium Chloride 0.9% 1, 200 000 ml @ 20 mls/hr IV . Q24H [facility] Rx#:[id number] Oral 1220 Other: Voiding Method Toilet Toilet # Voids 4 1 - Labs CBC & Chem 7: 04/01/20 06:00 04/01/20 06:00 Labs: Abnormal Lab Results - Last 24 Hours (Table) 03/31/20 03/31/20 03/31/20 Range/Units 11:49 17:08 20:12 WBC (3.8-10.6) k/uL RBC (3.80-5.40) m/uL Sodium (137-145) mmol/L BUN (7-17) mg/dL Glucose (74-99) mg/dL POC Glucose (mg/dL) 231 H 218 H 239 H (75-99) mg/dL Total Protein (6.3-8.2) g/dL 04/01/20 04/01/20 04/01/20 Range/Units 06:00 06:00 06:41 WBC 12.4 H (3.8-10.6) k/uL RBC 3.76 L (3.80-5.40) m/uL Sodium 135 L (137-145) mmol/L BUN 21 H (7-17) mg/dL Glucose 350 H (74-99) mg/dL POC Glucose (mg/dL) 364 H (75-99) mg/dL Total Protein 6.0 L (6.3-8.2) g/dL Microbiology - Last 24 Hours (Table) 03/30/20 10:11 Urine Culture - Preliminary Urine,Voided 03/30/20 11:43 Blood Culture - Preliminary Blood No Growth after 24 hours
--- NOTE | 2020-04-01 11:29 | P.PN ---
Subjective Progress Note Date: 04/01/20 Principal diagnosis: Back pain, abdominal pain, shortness of breath 74-year-old white female patient that was admitted to the hospital on 04/01/2020 when she came in for evaluation of right flank pain, there was rapid on her abdomen extending to her abdomen, increased shortness of breath, and cough. Her chest x-ray showed subsegmental changes at both lung bases with possibility of infiltrates. Since d-dimer was elevated at 2.24, CTA chest was obtained showing acute right lower lobe pulmonary embolism and bilateral lower lobe consolidation and small right pleural effusion. There was a right hilar adenopathy. She is under the care of Dr. Newman whom she follows with for her history of breast cancer status post lumpectomy followed by chemoradiation. Lower extremity Dopplers showed no evidence of DVT in the left leg, right leg showed anechoic area in the right popliteal fossa, but no evidence of DVT in the proximal calf veins. Patient was placed on heparin infusion, today she has been transitioned over to Xarelto, she continues on azithromycin and Rocephin. Sravani diggs was also found to have urinary tract infection, urine culture is pending. Blood culture has shown no growth. She seen resting in bed, she is complaining of some chills, but she has been afebrile while in hospital, they on 3 L of oxygen pulse ox of 96%, lung sounds are positive for coarse inspiratory crackles and bilateral mid to lower lungs posteriorly. His labs have been reviewed, showing white blood cell count trending down and is down to 12.4 on today's labs, hemoglobin is 11.9, sodium is 135, Mary electrolytes and renal profile were unremarkable Objective - Vital Signs Vital signs: Vital Signs Temp 97.0 F L 04/01/20 08:00 Pulse 74 04/01/20 09:03 Resp 16 04/01/20 08:00 BP 140/64 04/01/20 08:00 Pulse Ox 96 04/01/20 04:00 Intake & Output 03/31/20 04/01/20 04/01/20 18:59 06:59 18:59 Intake Total 1569.231 236 Balance 1569.231 236 Weight 90.4 kg 91.5 kg Intake: Intake, IV Titration 349.231 Amount Heparin Sod,Pork in 0.45% 149.231 NaCl 25,000 unit In 0.45 % NaCl 1 250ml.bag @ 18 UNITS/KG/HR 16.084 mls/hr IV .[id number] [facility] Rx#: [id number] Sodium Chloride 0.9% 1, 200 000 ml @ 20 mls/hr IV . Q24H [facility] Rx#:[id number] Oral 1220 236 Other: Voiding Method Toilet Toilet # Voids 4 1 - Exam GENERAL EXAM: Alert, very pleasant, 74-year-old white female, currently on 3 L of oxygen, the pulse ox of 96%, comfortable in no apparent distress. HEAD: Normocephalic/atraumatic. EYES: Normal reaction of pupils, equal size. Conjunctiva pink, sclera white. NOSE: Clear with pink turbinates. THROAT: No erythema or exudates. NECK: No masses, no JVD, no thyroid enlargement, no adenopathy. CHEST: No chest wall deformity. Symmetrical expansion. LUNGS: Equal air entry with coarse inspiratory crackles bilateral mid to lower lungs bilaterally CVS: Regular rate and rhythm, normal S1 and S2, no gallops, no murmurs, no rubs ABDOMEN: Soft, nontender. No hepatosplenomegaly, normal bowel sounds, no guarding or rigidity. EXTREMITIES: No clubbing, no edema, no cyanosis, 2+ pulses and upper and lower extremities. MUSCULOSKELETAL: Muscle strength and tone normal. SPINE: No scoliosis or deformity SKIN: No rashes CENTRAL NERVOUS SYSTEM: Alert and oriented -3. No focal deficits, tone is normal in all 4 extremities. PSYCHIATRIC: Alert and oriented -3. Appropriate affect. Intact judgment and insight. - Labs CBC & Chem 7: 04/01/20 06:00 04/01/20 06:00 Labs: Abnormal Lab Results - Last 24 Hours (Table) 03/31/20 03/31/20 03/31/20 Range/Units 11:49 17:08 20:12 WBC (3.8-10.6) k/uL RBC (3.80-5.40) m/uL Sodium (137-145) mmol/L BUN (7-17) mg/dL Glucose (74-99) mg/dL POC Glucose (mg/dL) 231 H 218 H 239 H (75-99) mg/dL Total Protein (6.3-8.2) g/dL 04/01/20 04/01/20 04/01/20 Range/Units 06:00 06:00 06:41 WBC 12.4 H (3.8-10.6) k/uL RBC 3.76 L (3.80-5.40) m/uL Sodium 135 L (137-145) mmol/L BUN 21 H (7-17) mg/dL Glucose 350 H (74-99) mg/dL POC Glucose (mg/dL) 364 H (75-99) mg/dL Total Protein 6.0 L (6.3-8.2) g/dL Microbiology - Last 24 Hours (Table) 03/30/20 10:11 Urine Culture - Preliminary Urine,Voided 03/30/20 11:43 Blood Culture - Preliminary Blood No Growth after 24 hours Assessment and Plan Plan: Assessment: #1. Acute pulmonary embolism, CTA chest showing right lower lobe pulmonary embolism #2. Bilateral lower lobe consolidation and small right-sided pleural effusion, with the possibility of community-acquired pneumonia, patient is covered with a combination of azithromycin and Rocephin. COVID 19 was ruled out #3. Acute urinary tract infection #4. Acute hypoxic respiratory failure related to acute pulmonary embolism and community-acquired pneumonia #5. History of right breast cancer, status post lumpectomy followed by chemoradiation the patient is under the care of Dr. Harris #6. History of type 2 diabetes mellitus #7. Hypertension #8. Hyperlipidemia #9. Previous episodes of pneumonia Plan: Continue current medical treatment, continue same antibiotics, patient is on conization of azithromycin and Rocephin, today's chest x-ray CTA chest have been reviewed, showing some bibasilar densities, small right-sided pleural effusion, with the possibility of of pneumonia. We'll obtain follow-up chest x-ray tomorrow. Clinically patient stable, she has been transitioned to oral anticoagulation. Continue with breathing treatments, will follow I performed a history & physical examination of the patient and discussed their management with my nurse practitioner, Sangita Quesada. I reviewed the nurse practitioner's note and agree with the documented findings and plan of care. Lung sounds are positive for crackles in both lungs. The findings and the impression was discussed with the patient. I attest to the documentation by the nurse practitioner. Time with Patient: Less than 30
[2020-04-01 12:06] LABS: Glucose,Whole Blood 450 mg/dL (75-99)
[2020-04-01] MEDS ORDERED: INSULIN ASPART (NovoLOG) 100 UNIT/ML VIAL SQ SCH ×2 (12:30→17:30)
--- NOTE | 2020-04-01 13:30 | P.PN ---
Subjective Progress Note Date: 04/01/20 Principal diagnosis: PE In follow-up today patient's symptoms from pulmonary embolism are resolved, even her dry cough is decreased. She is just got out of the shower, she denies any chest pain, difficulty breathing, bleeding Objective - Vital Signs Vital signs: Vital Signs Temp 96.9 F L 04/01/20 12:00 Pulse 74 04/01/20 12:10 Resp 16 04/01/20 12:00 BP 138/65 04/01/20 12:00 Pulse Ox 94 L 04/01/20 12:00 Intake & Output 03/31/20 04/01/20 04/01/20 18:59 06:59 18:59 Intake Total 1569.231 236 Balance 1569.231 236 Weight 90.4 kg 91.5 kg Intake: Intake, IV Titration 349.231 Amount Heparin Sod,Pork in 0.45% 149.231 NaCl 25,000 unit In 0.45 % NaCl 1 250ml.bag @ 18 UNITS/KG/HR 16.084 mls/hr IV .[id number] [facility] Rx#: [id number] Sodium Chloride 0.9% 1, 200 000 ml @ 20 mls/hr IV . Q24H [facility] Rx#:[id number] Oral 1220 236 Other: Voiding Method Toilet Toilet # Voids 4 1 - Exam Well-developed, overweight female, no acute distress, alert and oriented 4 - Labs CBC & Chem 7: 04/01/20 06:00 04/01/20 06:00 Labs: Abnormal Lab Results - Last 24 Hours (Table) 03/31/20 03/31/20 04/01/20 Range/Units 17:08 20:12 06:00 WBC 12.4 H (3.8-10.6) k/uL RBC 3.76 L (3.80-5.40) m/uL Sodium (137-145) mmol/L BUN (7-17) mg/dL Glucose (74-99) mg/dL POC Glucose (mg/dL) 218 H 239 H (75-99) mg/dL Total Protein (6.3-8.2) g/dL 04/01/20 04/01/20 04/01/20 Range/Units 06:00 06:41 12:01 WBC (3.8-10.6) k/uL RBC (3.80-5.40) m/uL Sodium 135 L (137-145) mmol/L BUN 21 H (7-17) mg/dL Glucose 350 H (74-99) mg/dL POC Glucose (mg/dL) 364 H 450 H (75-99) mg/dL Total Protein 6.0 L (6.3-8.2) g/dL Microbiology - Last 24 Hours (Table) 03/30/20 10:11 Urine Culture - Preliminary Urine,Voided 03/30/20 11:43 Blood Culture - Preliminary Blood No Growth after 24 hours Assessment and Plan (1) Pulmonary embolism Narrative/Plan: New pulmonary embolism, right upper lobe. Xarelto started. Symptoms improved. Bilateral lower extremity is negative for DVT. Requested bilateral upper extremity Doppler for baseline. Current Visit: Yes Status: Acute Priority: High Code(s): I26.99 - OTHER PULMONARY EMBOLISM WITHOUT ACUTE COR PULMONALE SNOMED Code(s): 46029583 (2) Breast cancer Narrative/Plan: Patient completed radiation about 3 weeks ago. She is hormone receptor positive, HER-2 negative. Would anticipate AI treatment in the near future. She does have a follow-up appointment next Sunday which she will keep. It will be communicated to her Primary Oncologist her current situation. Current Visit: No Status: Chronic Priority: Medium Code(s): C50.919 - MALIGNANT NEOPLASM OF UNSP SITE OF UNSPECIFIED FEMALE BREAST SNOMED Code(s): 060840182
[2020-04-01 14:26] LABS: Glucose,Whole Blood 586 mg/dL (75-99)
[2020-04-01 14:26] LABS: Glucose,Whole Blood >600 mg/dL (75-99)
[2020-04-01] MEDS ORDERED: INSULIN ASPART (NovoLOG) 100 UNIT/ML VIAL SQ ONE ×2 (14:31→14:45)
--- NOTE | 2020-04-01 16:00 | US ---
EXAMINATION TYPE: US venous doppler duplex UE DATE OF EXAM: 04/01/2020 COMPARISON: NONE CLINICAL HISTORY: PE. SIDE PERFORMED: Bilateral Grayscale, color doppler, spectral doppler imaging performed of the deep veins of the upper extremiti es. The left and right internal jugular vein, visualized portions of the subclavian veins and axillary ve ins, brachial veins all show normal compressibility and no abnormal luminal echoes. Cephalic and basi lic veins are also unremarkable. Radial and ulnar veins are unremarkable. Patient of large body habitus. There is normal flow, compressibility and vascular waveforms. Right Arm: Negative for DVT Left Arm: Negative for DVT IMPRESSION: No evident deep venous thrombosis.
[2020-04-01] MEDS: SODIUM CHLORIDE 0.9% 1,000 ML IV SCH (16:53)
[2020-04-01] MEDS ORDERED: INSULIN REGULAR BOLUS (FROM DRIP BAG) IV ONE (16:57)
[2020-04-01 16:58] LABS: Glucose,Whole Blood 543 mg/dL (75-99)
[2020-04-01] MEDS ORDERED: metFORMIN 500 MG TAB PO SCH (17:30)
[2020-04-01 18:00] LABS: Glucose,Whole Blood 451 mg/dL (75-99)
[2020-04-01] MEDS: INSULIN REGULAR 100 UNIT in SODIUM CHLORIDE 0.9% 100 ML IV SCH (18:00)
[2020-04-01 18:33] LABS: Glucose,Whole Blood 394 mg/dL (75-99)
[2020-04-01 19:03] LABS: Glucose,Whole Blood 329 mg/dL (75-99)
[2020-04-01 19:33] LABS: Glucose,Whole Blood 266 mg/dL (75-99)
[2020-04-01 20:02] LABS: Glucose,Whole Blood 221 mg/dL (75-99)
[2020-04-01] MEDS: ATORVASTATIN 20 MG TAB PO SCH (20:04)
[2020-04-01] MEDS: AZITHROMYCIN 500 MG TAB PO SCH (20:04)
[2020-04-01] MEDS ORDERED: methylPREDNISolone SOD SUCCI 40 MG/ML 1 ML VIAL IV SCH (21:00)
[2020-04-01 22:02] LABS: Glucose,Whole Blood 177 mg/dL (75-99)
[2020-04-02] LABS: Glucose,Whole Blood 176 mg/dL (75-99)
[2020-04-02 02:06] LABS: Glucose,Whole Blood 269 mg/dL (75-99)
[2020-04-02 04:04] LABS: Glucose,Whole Blood 228 mg/dL (75-99)
[2020-04-02 06:03] LABS: Glucose,Whole Blood 194 mg/dL (75-99)
[2020-04-02] MEDS: INSULIN REGULAR 100 UNIT in SODIUM CHLORIDE 0.9% 100 ML IV SCH (06:07)
[2020-04-02] MEDS: RIVAROXABAN 15 MG TAB PO SCH ×2 (06:51→17:30)
[2020-04-02 07:58] LABS: Glucose,Whole Blood 164 mg/dL (75-99)
[2020-04-02] MEDS: FAMOTIDINE 20 MG TAB PO SCH (08:31)
[2020-04-02] MEDS: LOSARTAN 50 MG TAB PO SCH (08:31)
[2020-04-02] MEDS: MULTIVITAMINS, THERA 1 EACH TAB PO SCH (08:32)
[2020-04-02] MEDS: hydroCHLOROthiazide 25 MG TAB PO SCH (08:32)
[2020-04-02] MEDS: atenoloL 50 MG TAB PO SCH (08:32)
[2020-04-02] MEDS: IPRATROPIUM-ALBUTEROL 3 ML NEB IH SCH ×3 (08:38→19:14)
[2020-04-02] MEDS: NYSTATIN 100,000 UNIT/ML SUSP 500,000 UNIT/5 ML CUP PO SCH ×4 (08:38→21:29)
[2020-04-02] MEDS: VERAPAMIL SR 120 MG TABLET.ER PO SCH (08:39)
[2020-04-02] MEDS: INSULIN ASPART (NovoLOG) 100 UNIT/ML VIAL SQ SCH ×6 (08:39→21:21)
--- NOTE | 2020-04-02 08:53 | XR ---
EXAMINATION TYPE: XR chest 2V DATE OF EXAM: 04/02/2020 COMPARISON: 03/30/2020 TECHNIQUE: PA and lateral views submitted. HISTORY: Abnormal x-ray FINDINGS: Subsegmental changes at both lung bases with small right pleural effusion. Heart is prominent there i s atherosclerotic change aorta. No interstitial edema. There is degenerative change of the spine. IMPRESSION: 1. Bibasilar infiltrate and small right pleural effusion.
[2020-04-02] MEDS ORDERED: predniSONE 20 MG TAB PO SCH (09:00)
[2020-04-02 09:21] VITALS: BMI 32.1
[2020-04-02] MEDS: INSULIN NPH 300 UNIT/3 ML VIAL SQ SCH (09:52)
[2020-04-02 10:02] LABS: Glucose,Whole Blood 358 mg/dL (75-99)
[2020-04-02 11:49] LABS: Glucose,Whole Blood 275 mg/dL (75-99)
--- NOTE | 2020-04-02 11:52 | P.PN ---
Subjective Progress Note Date: 04/02/20 Principal diagnosis: Back pain, abdominal pain, shortness of breath 74-year-old white female patient that was admitted to the hospital on 04/01/2020 when she came in for evaluation of right flank pain, there was rapid on her abdomen extending to her abdomen, increased shortness of breath, and cough. Her chest x-ray showed subsegmental changes at both lung bases with possibility of infiltrates. Since d-dimer was elevated at 2.24, CTA chest was obtained showing acute right lower lobe pulmonary embolism and bilateral lower lobe consolidation and small right pleural effusion. There was a right hilar adenopathy. She is under the care of Dr. Newman whom she follows with for her history of breast cancer status post lumpectomy followed by chemoradiation. Lower extremity Dopplers showed no evidence of DVT in the left leg, right leg showed anechoic area in the right popliteal fossa, but no evidence of DVT in the proximal calf veins. Patient was placed on heparin infusion, today she has been transitioned over to Xarelto, she continues on azithromycin and Rocephin. Sravani diggs was also found to have urinary tract infection, urine culture is pending. Blood culture has shown no growth. She seen resting in bed, she is complaining of some chills, but she has been afebrile while in hospital, they on 3 L of oxygen pulse ox of 96%, lung sounds are positive for coarse inspiratory crackles and bilateral mid to lower lungs posteriorly. His labs have been reviewed, showing white blood cell count trending down and is down to 12.4 on today's labs, hemoglobin is 11.9, sodium is 135, Mary electrolytes and renal profile were unremarkable On 04/02/2020 patient seen in follow-up on selective care unit, she is only comfortable, room air pulse ox is 97-98%, she's been afebrile, breathing is comfortable, no acute complaints, no acute events overnight, vital signs have been stable. Patient has developed significant steroid-induced hyperglycemia, requiring additional insulin, she has been transitioned to oral prednisone, at this time she can be taken off the steroids altogether, no rhonchi no wheezing, no significant cough or congestion. Today's chest x-ray shows subsegmental changes of both lung bases with small right pleural effusion, clinically stable, patient continues on Rocephin and Zithromax, continues on breathing treatments and oral anticoagulation for acute pulmonary embolism. Objective - Vital Signs Vital signs: Vital Signs Temp 98.5 F 04/02/20 08:00 Pulse 79 04/02/20 08:00 Resp 16 04/02/20 08:00 BP 119/57 04/02/20 08:00 Pulse Ox 98 04/02/20 09:07 Intake & Output 04/01/20 04/02/20 04/02/20 18:59 06:59 18:59 Intake Total 735.5 67.646 246.975 Balance 735.5 67.646 246.975 Weight 91.8 kg Intake: Intake, IV Titration 19.5 67.646 10.975 Amount Insulin Regular 100 unit 19.5 67.646 10.975 In Sodium Chloride 0.9% 100 ml @ Titrate IV .Q0M [facility] Rx#:[id number] Oral 716 236 Other: Voiding Method Toilet # Voids 2 2 - Exam GENERAL EXAM: Alert, very pleasant, 74-year-old white female, currently on room air,, the pulse ox of 97%, comfortable in no apparent distress. HEAD: Normocephalic/atraumatic. EYES: Normal reaction of pupils, equal size. Conjunctiva pink, sclera white. NOSE: Clear with pink turbinates. THROAT: No erythema or exudates. NECK: No masses, no JVD, no thyroid enlargement, no adenopathy. CHEST: No chest wall deformity. Symmetrical expansion. LUNGS: Equal air entry with coarse inspiratory crackles bilateral mid to lower lungs bilaterally CVS: Regular rate and rhythm, normal S1 and S2, no gallops, no murmurs, no rubs ABDOMEN: Soft, nontender. No hepatosplenomegaly, normal bowel sounds, no guarding or rigidity. EXTREMITIES: No clubbing, no edema, no cyanosis, 2+ pulses and upper and lower extremities. MUSCULOSKELETAL: Muscle strength and tone normal. SPINE: No scoliosis or deformity SKIN: No rashes CENTRAL NERVOUS SYSTEM: Alert and oriented -3. No focal deficits, tone is normal in all 4 extremities. PSYCHIATRIC: Alert and oriented -3. Appropriate affect. Intact judgment and insight. - Labs CBC & Chem 7: 04/01/20 06:00 04/01/20 14:51 Labs: Abnormal Lab Results - Last 24 Hours (Table) 04/01/20 04/01/20 04/01/20 Range/Units 12:01 14:21 14:23 Glucose (74-99) mg/dL POC Glucose (mg/dL) 450 H >600 H 586 H (75-99) mg/dL 04/01/20 04/01/20 04/01/20 Range/Units 14:51 16:55 17:59 Glucose 581 H* (74-99) mg/dL POC Glucose (mg/dL) 543 H 451 H (75-99) mg/dL 04/01/20 04/01/20 04/01/20 Range/Units 18:32 19:01 19:29 Glucose (74-99) mg/dL POC Glucose (mg/dL) 394 H 329 H 266 H (75-99) mg/dL 04/01/20 04/01/20 04/01/20 Range/Units 19:59 22:01 23:58 Glucose (74-99) mg/dL POC Glucose (mg/dL) 221 H 177 H 176 H (75-99) mg/dL 04/02/20 04/02/20 04/02/20 Range/Units 02:04 04:02 06:02 Glucose (74-99) mg/dL POC Glucose (mg/dL) 269 H 228 H 194 H (75-99) mg/dL 04/02/20 04/02/20 Range/Units 07:57 10:00 Glucose (74-99) mg/dL POC Glucose (mg/dL) 164 H 358 H (75-99) mg/dL Microbiology - Last 24 Hours (Table) 03/30/20 10:11 Urine Culture - Final Urine,Voided Enterococcus faecalis 03/30/20 11:43 Blood Culture - Preliminary Blood No Growth after 48 hours Assessment and Plan Plan: Assessment: #1. Acute pulmonary embolism, CTA chest showing right lower lobe pulmonary embolism #2. Bilateral lower lobe infiltrates and small right-sided pleural effusion, with the possibility of community-acquired pneumonia, patient is covered with a combination of azithromycin and Rocephin. COVID 19 was ruled out #3. Acute urinary tract infection #4. Acute hypoxic respiratory failure related to acute pulmonary embolism and community-acquired pneumonia #5. History of right breast cancer, status post lumpectomy followed by chemoradiation the patient is under the care of Dr. Harris #6. History of type 2 diabetes mellitus #7. Hypertension #8. Hyperlipidemia #9. Previous episodes of pneumonia #10. Steroid-induced hyperglycemia Plan: We can discontinue the oral prednisone, no significant rhonchi or wheezing, breathing is comfortable, patient is on room air, no fever or chills, clinically stable, she can be considered for discharge home today from pulmonary perspective. However the patient developed significant steroid-induced hyperglycemia and will likely need additional management of her blood sugars. She will need outpatient follow-up in the office with Dr. Jacobsen in 7-10 days. I performed a history & physical examination of the patient and discussed their management with my nurse practitioner, Sangita Quesada. I reviewed the nurse practitioner's note and agree with the documented findings and plan of care. Lung sounds are positive for crackles in both lungs. The findings and the impression was discussed with the patient. I attest to the documentation by the nurse practitioner. Time with Patient: Less than 30
--- NOTE | 2020-04-02 13:05 | P.PN ---
Subjective Progress Note Date: 04/02/20 74-year-old female one of Dr. Hector Sheridan's patient with past medical history of breast cancer, diabetes, hypertension, hyperlipidemia and recurrent pneumonia who developed since yesterday to have right flank pain worsening with deep inspiration along with severe dyspnea and shortness of breath has been having low-grade temperature with mild cough nonproductive along with mild lower abdominal pain and discomfort with urination. With the severity of her discomfort ended up coming to demurs department at [facility] chest x- ray shows bibasilar infiltrate worsening on the right than the left side. CTA after d-dimer was positive came back with right lower side acute pulmonary embolism with bilateral infiltrate. Surprisingly her UA came back very positive for urinary tract infection. D-dimer was negative blood sugar was mildly elevated and patient had significantly elevated white blood cell at 16.3. Patient was started on Rocephin and azithromycin heparin drip and will be admitted to the hospital. 03/31: Patient is seen today in follow-up. She states her breathing is better tod ay. But she feels tired. She has been started on antibiotics for UTI and pneumonia. Nebulizer treatments and Solu-Medrol will be ordered.. She states she would have an appointment on Sunday with Dr. Newman and Dr. Vogel. She has been seen by oncology and pulmonary medicine. She has been afebrile, heart rate 72, blood pressure 144/61, pulse ox 90% on 3 L nasal cannula. Lower extremity ultrasound negative for DVT. Echocardiogram reveals EF of 55-60%, mild concentric left ventricular hypertrophy, LV moderately dilated, mild aortic regurgitation, mild mitral regurgitation, mild tricuspid regurgitation. Repeat blood work reveals WBC 14.4, hemoglobin 11.7, platelet count 243. Sodium 135, BUN 21 creatinine 0.92. Blood sugars run between 115 and 226. Urine culture is in progress. The patient is currently on heparin drip. Eliquis is not covered by her insurance and patient will be started on Xarelto. 04/01: The patient's shortness of breath is most improved as well as chest d iscomfort. She states that she is no longer coughing with deep breathing. She was started on Xarelto last evening and heparin drip was discontinued. Patient has been afebrile, heart rate 67, blood pressure 140/64, pulse ox 96% on 3 L nasal cannula. Repeat blood work reveals WBC 12.4, hemoglobin 11.9, platelet count 367. Sodium 135, potassium 4.6, chloride 102, CO2 24, BUN 21 creatinine 0.75. Urine culture is in progress. Blood sugars running between 350 and 218. Schedule NovoLog will be started and patient will resume metformin this evening. Solu-Medrol will be decreased frequency and start prednisone in the morning. Plan to increase activity with anticipated discharge home tomorrow. 04/02: Yesterday, blood sugars were elevated and patient required insulin drip. This morning, we will transition to NPH, NovoLog scale and NovoLog scheduled. Urine culture is positive for Enterococcus faecalis and aromatics we'll transition to Cipro. Dr. Earl is clear patient for discharge and no need for steroids which will be discontinued. She did have a dose of prednisone this morning plan to monitor blood sugars overnight and discharge home tomorrow. Patient has been afebrile, heart rate 79, blood pressure 119/57, pulse ox 97% on room air. Review of Systems CONSTITUTIONAL: Well-developed no acute respiratory distress. Denies fever, denies chills. EYES: No icterus sclerae, no conjunctivitis. EARS, NOSE, MOUTH, THROAT, and FACE: No sore throat, lymphadenopathy, carotid bruits or deformity. RESPIRATORY: shortness of breath cough improved, denies wheezes. CARDIOVASCULAR: Positive PND and orthopnea, chest pain improved. GASTROINTESTINAL: No Abd pain, Nausea or vomiting, no Diarrhea or constipation, No GI Bleed, no distention or masses. GENITOURINARY: Positive lower abdominal discomfort and mild irritation with urination. INTEGUMENT/BREAST: Negative for any muscular injury with mild osteoarthritis. HEMATOLOGIC/LYMPHATIC: Negative for bleed or purpura. MUSCULOSKELTAL: Negative for Myalgia or arthralgia. NEURLOGICAL: No LOC, Sz or syncope, blurred vision dizziness or abnormality. BEHAVIORAL/PSYCH: Negative. ENDOCRINE: Negative. Reports abnormal blood sugars. Physical Examination General Appearance: Alert, cooperative, no distress, appears stated age. Patient is sitting on edge of the bed and appears to be comfortable. No acute respiratory distress noted. Neck HEENT: Supple, no lymphadenopathy, no thyroid enlargement, no carotid bruits. Lungs: Decreased breath sound bilaterally with rhonchi and mild crackles in the bases without wheezes. Chest Wall: no tenderness and no deformity was found on exam. Heart: Regular rate and rhythm, S1, S2 normal, no murmur, rub or gallop. Back: Symmetric, no curvature, ROM normal, no CVA tenderness. Abdomen: Soft, non-tender, bowel sounds active all four quadrants, no masses, no organomegaly. Extremities: Extremities normal, atraumatic, no cyanosis or edema. Pulses: 2+ and symmetric. Skin: Skin color, texture, tugor normal, no rashes or lesions. Neurologic: Alert oriented x3 cranial nerves II through XII intact, no motor deficit, no abnormal balance or gait. Assessment and Plan 1 acute pulmonary embolism. Lower extremity ultrasound ruled out DVT. Continue Xarelto. Consult pulmonary medicine and oncology appreciated. 2 bilateral pneumonia. Continue on Rocephin and azithromycin continue updrafts and O2. Continue Solu-Medrol 40 mg IV and decreased frequency to every 12 hours and start prednisone in the morning and subsequently discontinued no steroids needed per pulmonary medicine. Consult with pulmonary medicine appreciated. 3 enterococcus UTI with sepsis. Change Rocephin to Cipro. 4 severe hypoxia: Most likely secondary to PE and pneumonia continue patient on updraft with DuoNeb along with O2 titrate oxygen to keep pulse ox above 92 percentile. 5 type 2 diabetes uncontrolled with hyperglycemia secondary to steroids. Yesterday, patient was started on insulin drip and we will transition to NPH 50 units daily, and NovoLog 10 units scheduled with meals, continue NovoLog scale, resume metformin this evening. 6 hypertension. Continue verapamil 120 mg a day atenolol 50 mg daily and losartan HCT 100/25 mg a day. 7 hyperlipidemia. Continue patient on atorvastatin 20 mg a day. 8 tachycardia: Continue patient on verapamil and Tenormin. 9 history of breast cancer. Oncology consult. 10 DVT prophylaxis: Continue patient on heparin drip. 11 GI prophylaxis: Continue patient on Pepcid 20 mg daily. 12 Covid 19 infection present. CODE STATUS: Full code. Discharge plan: Home on Sunday. Impression and plan of care have been directed as dictated by the signing physician. Indira Campos nurse practitioner acting as scribe for signing physician. Objective - Vital Signs Vital signs: Vital Signs Temp 98.5 F 04/02/20 08:00 Pulse 79 04/02/20 08:00 Resp 16 04/02/20 08:00 BP 119/57 04/02/20 08:00 Pulse Ox 98 04/02/20 09:07 Intake & Output 04/01/20 04/02/20 04/02/20 18:59 06:59 18:59 Intake Total 735.5 67.646 246.975 Balance 735.5 67.646 246.975 Weight 91.8 kg Intake: Intake, IV Titration 19.5 67.646 10.975 Amount Insulin Regular 100 unit 19.5 67.646 10.975 In Sodium Chloride 0.9% 100 ml @ Titrate IV .Q0M [facility] Rx#:[id number] Oral [id number] [id number] Other: Voiding Method Toilet # Voids 2 2 - Labs CBC & Chem 7: 04/01/20 06:00 04/01/20 14:51 Labs: Abnormal Lab Results - Last 24 Hours (Table) 04/01/20 04/01/20 04/01/20 Range/Units 14:21 14:23 14:51 Glucose 581 H* (74-99) mg/dL POC Glucose (mg/dL) >600 H 586 H (75-99) mg/dL 04/01/20 04/01/20 04/01/20 Range/Units 16:55 17:59 18:32 Glucose (74-99) mg/dL POC Glucose (mg/dL) 543 H 451 H 394 H (75-99) mg/dL 04/01/20 04/01/20 04/01/20 Range/Units 19:01 19:29 19:59 Glucose (74-99) mg/dL POC Glucose (mg/dL) 329 H 266 H 221 H (75-99) mg/dL 04/01/20 04/01/20 04/02/20 Range/Units 22:01 23:58 02:04 Glucose (74-99) mg/dL POC Glucose (mg/dL) 177 H 176 H 269 H (75-99) mg/dL 04/02/20 04/02/20 04/02/20 Range/Units 04:02 06:02 07:57 Glucose (74-99) mg/dL POC Glucose (mg/dL) 228 H 194 H 164 H (75-99) mg/dL 04/02/20 04/02/20 Range/Units 10:00 11:48 Glucose (74-99) mg/dL POC Glucose (mg/dL) 358 H 275 H (75-99) mg/dL Microbiology - Last 24 Hours (Table) 03/30/20 10:11 Urine Culture - Final Urine,Voided Enterococcus faecalis 03/30/20 11:43 Blood Culture - Preliminary Blood No Growth after 48 hours
--- NOTE | 2020-04-02 15:04 | P.PN ---
Subjective Progress Note Date: 04/02/20 Principal diagnosis: Pulm Embolism Improving daily, still SOB, Chest xray reviewed. Afebrile Objective - Vital Signs Vital signs: Vital Signs Temp 97.5 F L 04/02/20 12:00 Pulse 76 04/02/20 13:55 Resp 16 04/02/20 12:00 BP 125/66 04/02/20 12:00 Pulse Ox 96 04/02/20 12:00 Intake & Output 04/01/20 04/02/20 04/02/20 18:59 06:59 18:59 Intake Total 735.5 67.646 246.975 Balance 735.5 67.646 246.975 Weight 91.8 kg Intake: Intake, IV Titration 19.5 67.646 10.975 Amount Insulin Regular 100 unit 19.5 67.646 10.975 In Sodium Chloride 0.9% 100 ml @ Titrate IV .Q0M [facility] Rx#:[id number] Oral 716 [id number] Other: Voiding Method Toilet # Voids 2 2 - Constitutional General appearance: Present: no acute distress, obese - EENT Eyes: Present: EOMI, PERRLA ENT: Present: NA/AT, normal oropharynx - Neck Neck: Present: normal ROM - Respiratory Respiratory: bilateral: diminished (mild increase effort) - Cardiovascular Rhythm: regular Heart sounds: normal: S1, S2 - Gastrointestinal General gastrointestinal: Present: normal bowel sounds, soft - Integumentary Integumentary: Present: pale - Neurologic Neurologic: Present: CNII-XII intact - Musculoskeletal Musculoskeletal: Present: gait normal, generalized weakness, strength equal bilaterally - Psychiatric Psychiatric: Present: A&O x's 3, appropriate affect, intact judgment & insight - Labs CBC & Chem 7: 04/01/20 06:00 04/01/20 14:51 Labs: Abnormal Lab Results - Last 24 Hours (Table) 04/01/20 04/01/20 04/01/20 Range/Units 14:51 16:55 17:59 Glucose 581 H* (74-99) mg/dL POC Glucose (mg/dL) 543 H 451 H (75-99) mg/dL 04/01/20 04/01/20 04/01/20 Range/Units 18:32 19:01 19:29 Glucose (74-99) mg/dL POC Glucose (mg/dL) 394 H 329 H 266 H (75-99) mg/dL 04/01/20 04/01/20 04/01/20 Range/Units 19:59 22:01 23:58 Glucose (74-99) mg/dL POC Glucose (mg/dL) 221 H 177 H 176 H (75-99) mg/dL 04/02/20 04/02/20 04/02/20 Range/Units 02:04 04:02 06:02 Glucose (74-99) mg/dL POC Glucose (mg/dL) 269 H 228 H 194 H (75-99) mg/dL 04/02/20 04/02/20 04/02/20 Range/Units 07:57 10:00 11:48 Glucose (74-99) mg/dL POC Glucose (mg/dL) 164 H 358 H 275 H (75-99) mg/dL Microbiology - Last 24 Hours (Table) 03/30/20 11:43 Blood Culture - Preliminary Blood No Growth after 72 hours 03/30/20 10:11 Urine Culture - Final Urine,Voided Enterococcus faecalis - Imaging and Cardiology Chest x-ray: report reviewed Assessment and Plan Plan: Assessment and Plan Pulmonary embolism - New pulmonary embolism, right upper lobe. - Xarelto started. - Continue on Xarelto - Bilateral lower extremity is negative for DVT. - Bilateral Upper extremity Dopplers negative Breast cancer - Patient completed radiation about 3 weeks ago. - She is hormone receptor positive, HER-2 negative. - Would anticipate AI treatment in the near future. - She does have a follow-up appointment next Sunday which she will keep. - It will be communicated to her Primary Oncologist her current situation. Bilateral Pneumonia: - IV antibiotics - Solu Medrol - Pulmonary Following Aevere Hypoxia: Secondary to PNA and Pulm Embolism - Pulm Following COntinu as above UTI: Positive Culture Enterococcus - Antibiotics per primary team Type 2 DM - Uncontrolled sugars - Per Primary Team - Was on Insulin Drip Physician Attest I have completed full history and physical and agree with above dictation, dictated as a scribe
[2020-04-02 16:41] LABS: Glucose,Whole Blood 317 mg/dL (75-99)
[2020-04-02] MEDS: metFORMIN 500 MG TAB PO SCH (17:29)
[2020-04-02] MEDS: AZITHROMYCIN 500 MG TAB PO SCH (20:40)
[2020-04-02] MEDS: CIPROFLOXACIN HCL 500 MG TAB PO SCH (20:41)
[2020-04-02] MEDS: ATORVASTATIN 20 MG TAB PO SCH (20:41)
[2020-04-02 20:52] LABS: Glucose,Whole Blood 332 mg/dL (75-99)
[2020-04-02] MEDS ORDERED: INSULIN ASPART (NovoLOG) 100 UNIT/ML VIAL SQ ONE (23:29)
[2020-04-02 23:32] LABS: Glucose,Whole Blood 229 mg/dL (75-99)
[2020-04-03 03:28] VITALS: TEMP 98
[2020-04-03 06:12] LABS: Glucose,Whole Blood 157 mg/dL (75-99)
[2020-04-03] MEDS: RIVAROXABAN 15 MG TAB PO SCH (06:37)
[2020-04-03] MEDS: metFORMIN 500 MG TAB PO SCH (06:37)
[2020-04-03 08:08] LABS: Glucose,Whole Blood 138 mg/dL (75-99)
[2020-04-03] MEDS: hydroCHLOROthiazide 25 MG TAB PO SCH (08:33)
[2020-04-03] MEDS: LOSARTAN 50 MG TAB PO SCH (08:33)
[2020-04-03] MEDS: CIPROFLOXACIN HCL 500 MG TAB PO SCH (08:33)
[2020-04-03] MEDS: INSULIN NPH 300 UNIT/3 ML VIAL SQ SCH (08:34)
[2020-04-03] MEDS: FAMOTIDINE 20 MG TAB PO SCH (08:34)
[2020-04-03] MEDS: INSULIN ASPART (NovoLOG) 100 UNIT/ML VIAL SQ SCH ×2 (08:34)
[2020-04-03] MEDS: atenoloL 50 MG TAB PO SCH (08:34)
[2020-04-03] MEDS: VERAPAMIL SR 120 MG TABLET.ER PO SCH (08:35)
[2020-04-03] MEDS: NYSTATIN 100,000 UNIT/ML SUSP 500,000 UNIT/5 ML CUP PO SCH (08:35)
[2020-04-03 08:48] VITALS: BP 178/77; PULSE 65; RESP 18
--- NOTE | 2020-04-03 09:34 | P.DS ---
Providers Date of admission: 03/30/20 12:45 Attending physician: Bandar Moore Consults: 03/30/20 12:46 Consult Physician Routine Consulting Provider: Quinton Jacobsen Consult Reason/Comments: PE Do you want consulting provider notified?: Yes 03/31/20 08:29 Consult Physician Routine Consulting Provider: Quang Leyva Consult Reason/Comments: hx breast ca, New PE Do you want consulting provider notified?: Yes Primary care physician: Hector Sheridan [facility] Course: 74-year-old female one of Dr. Hector Sheridan's patient with past medical history of breast cancer, diabetes, hypertension, hyperlipidemia and recurrent pneumonia who developed since yesterday to have right flank pain worsening with deep inspiration along with severe dyspnea and shortness of breath has been having low-grade temperature with mild cough nonproductive along with mild lower abdominal pain and discomfort with urination. With the severity of her discomfort ended up coming to demurs department at [facility] chest x- ray shows bibasilar infiltrate worsening on the right than the left side. CTA after d-dimer was positive came back with right lower side acute pulmonary embolism with bilateral infiltrate. Surprisingly her UA came back very positive for urinary tract infection. D-dimer was negative blood sugar was mildly elevated and patient had significantly elevated white blood cell at 16.3. Patient was started on Rocephin and azithromycin heparin drip and will be admitted to the hospital. 03/31: Patient is seen today in follow-up. She states her breathing is better today. But she feels tired. She has been started on antibiotics for UTI and pneumonia. Nebulizer treatments and Solu-Medrol will be ordered.. She states she would have an appointment on Sunday with Dr. Newman and Dr. Vogel. Isis collins has been seen by oncology and pulmonary medicine. She has been afebrile, heart rate 72, blood pressure 144/61, pulse ox 90% on 3 L nasal cannula. Lower extremity ultrasound negative for DVT. Echocardiogram reveals EF of 55-60%, mild concentric left ventricular hypertrophy, LV moderately dilated, mild aortic regurgitation, mild mitral regurgitation, mild tricuspid regurgitation. Repeat blood work reveals WBC 14.4, hemoglobin 11.7, platelet count 243. Sodium 135, BUN 21 creatinine 0.92. Blood sugars run between 115 and 226. Urine culture is in progress. The patient is currently on heparin drip. Eliquis is not covered by her insurance and patient will be started on Xarelto. 04/01: The patient's shortness of breath is most improved as well as chest discomfort. She states that she is no longer coughing with deep breathing. She was started on Xarelto last evening and heparin drip was discontinued. Patient has been afebrile, heart rate 67, blood pressure 140/64, pulse ox 96% on 3 L nasal cannula. Repeat blood work reveals WBC 12.4, hemoglobin 11.9, platelet count 367. Sodium 135, potassium 4.6, chloride 102, CO2 24, BUN 21 creatinine 0.75. Urine culture is in progress. Blood sugars running between 350 and 218. Schedule NovoLog will be started and patient will resume metformin this evening. Solu-Medrol will be decreased frequency and start prednisone in the morning. Plan to increase activity with anticipated discharge home tomorrow. 04/02: Yesterday, blood sugars were elevated and patient required insulin drip. This morning, we will transition to NPH, NovoLog scale and NovoLog scheduled. Urine culture is positive for Enterococcus faecalis and aromatics we'll transition to Cipro. Dr. Earl is clear patient for discharge and no need for steroids which will be discontinued. She did have a dose of prednisone this morning plan to monitor blood sugars overnight and discharge home tomorrow. Patient has been afebrile, heart rate 79, blood pressure 119/57, pulse ox 97% on room air. 04/03: Patient is sitting up in a chair complaining of increased weakness and fatigue. Blood sugars have improved. Patient is anxious to go home. She feels she will be able to regain some of her strength. Patient has been afebrile, blood pressure 170/77, heart rate 65, respirations 18, pulse ox 96% on room air. Glucose this morning 151. Discharge diagnosis: 1 acute pulmonary embolism. 2 bilateral pneumonia. 3 enterococcus UTI with sepsis. 4 severe hypoxia: 5 type 2 diabetes uncontrolled with hyperglycemia secondary to steroids. 6 hypertension. 7 hyperlipidemia. 8 tachycardia: 9 history of breast cancer. 10 Covid 19 infection present. Discharge disposition: Home with self-care Impression and plan of care have been directed as dictated by the signing physician. Roseanna Pinto nurse practitioner acting as scribe for signing physician. Patient Condition at Discharge: Good Plan - Discharge Summary Discharge Rx Participant: No (A 49 and regular with AN orwound check O is a is as he 7.7: Is probably RO he was migraine willOL is 1 is still smoking wall for workup available 5 is is that 45) she is she is is this is) New Discharge Prescriptions: New Rivaroxaban [Xarelto Starter Pack] 0 mg PO DIRECTED 30 Days #1 pack Ciprofloxacin HCl [Cipro] 500 mg PO BID #12 tab Hydrochlorothiazide [Hydrodiuril] 25 mg PO DAILY #30 tab Famotidine [Pepcid] 20 mg PO DAILY #30 tab Continue ALPRAZolam [Xanax] 0.25 mg PO DAILY PRN PRN Reason: Anxiety Verapamil HCl [Verapamil ER] 120 mg PO DAILY Losartan/Hydrochlorothiazide [Hyzaar 100-25 Tablet] 1 tab PO DAILY Atorvastatin [Lipitor] 20 mg PO HS Atenolol [Tenormin] 50 mg PO DAILY Insulin NPH Human Isophane [NovoLIN N] 50 unit SQ DAILY metFORMIN HCL [Glucophage] 1,000 mg PO BID Multivit-Min/Iron/Folic/Lutein [Centrum Silver Women Tablet] 1 tab PO DAILY Ondansetron [Zofran] 4 mg PO TID PRN PRN Reason: Nausea Nystatin 100,000 Unit/ml Susp [Mycostatin Oral Susp] 4 ml PO QID Discharge Medication List ALPRAZolam [Xanax] 0.25 mg PO DAILY PRN 06/22/19 [History] Atenolol [Tenormin] 50 mg PO DAILY 06/22/19 [History] Atorvastatin [Lipitor] 20 mg PO HS 06/22/19 [History] Losartan/Hydrochlorothiazide [Hyzaar 100-25 Tablet] 1 tab PO DAILY 06/22/19 [History] Verapamil HCl [Verapamil ER] 120 mg PO DAILY 06/22/19 [History] Insulin NPH Human Isophane [NovoLIN N] 50 unit SQ DAILY 08/28/19 [History] Multivit-Min/Iron/Folic/Lutein [Centrum Silver Women Tablet] 1 tab PO DAILY 02/05/20 [History] metFORMIN HCL [Glucophage] 1,000 mg PO BID 02/05/20 [History] Nystatin 100,000 Unit/ml Susp [Mycostatin Oral Susp] 4 ml PO QID 03/30/20 [History] Ondansetron [Zofran] 4 mg PO TID PRN 03/30/20 [History] Rivaroxaban [Xarelto Starter Pack] 0 mg PO DIRECTED 30 Days #1 pack 03/31/20 [Rx] Ciprofloxacin HCl [Cipro] 500 mg PO BID #12 tab 04/02/20 [Rx] Famotidine [Pepcid] 20 mg PO DAILY #30 tab 04/02/20 [Rx] Hydrochlorothiazide [Hydrodiuril] 25 mg PO DAILY #30 tab 04/02/20 [Rx] Follow up Appointment(s)/Referral(s): Oralia Pierre NPC [Nurse Practitioner] - 04/15/20 2:45 pm () Marquis Newman MD [STAFF PHYSICIAN] - 04/08/20 9:45 am () Hector Sheridan MD [Primary Care Provider] - 04/06/20 2:15 pm (Sunday) Patient Instructions/Handouts: Pulmonary Embolism (DC), Safe Use of Anticoagulants (DC)
[2020-04-03] MEDS: IPRATROPIUM-ALBUTEROL 3 ML NEB IH SCH (09:35)
--- NOTE | 2020-04-03 12:50 | PN ---
PROGRESS NOTE PULMONARY/CRITICAL CARE PROGRESS NOTE: DATE OF SERVICE: April 03, 2020. This is a 74-year-old female who was admitted with a diagnosis of acute pulmonary embolism involving the right lower lobe pulmonary artery. The patient also was admitted with a diagnosis of possible bibasilar lower lobe pneumonia. Currently, the patient is maintained on Zithromax and Rocephin. Covid testing was negative. She also complained of acute urinary retention. She does have a history of breast cancer. Breast cancer was treated with lumpectomy followed by chemoradiation. Currently, she is doing much better. Her breathing is fine. She denies any difficulty breathing coughing wheezing or phlegm production. She denies any chest pain or pressure. She has been weaned off O2. Current vital signs are reviewed. Temperature 98. Heart rate 65, respiratory rate 18, blood pressure 154/66, mean 95, room air saturation 96%. Appears in no acute distress. HEENT: Examination is grossly unremarkable. Mucous membranes are moist. No oral lesions. NECK: Supple. Full range of motion. No adenopathy. Neck veins are flat. CARDIOVASCULAR: Examination reveals regular rhythm rate. S1, S2 normal. No S3, S4, or murmur. LUNGS: Relatively clear. Breath sounds equal. No wheezes, rhonchi, or crackles. ABDOMEN: Soft bowel sounds are heard. EXTREMITIES are intact. No cyanosis, clubbing, or edema. SKIN: Without rash. NEUROLOGIC: Examination is brief but nonfocal. LABS: Reviewed. Nothing new to report. No new x-rays to report. X-ray from April 02 shows minimal bibasilar infiltrates or atelectasis. Microbiology showing Enterococcus faecalis in the urine. Medications are reviewed. ASSESSMENT: 1. Acute pulmonary embolism, right lower lobe pulmonary artery. Currently on a factor Xa inhibitor. 2. Bilateral lower lobe infiltrates with small right-sided pleural effusion, with possible community-acquired pneumonia, currently improved. 3. COVID-19 testing by nasopharyngeal swab was negative. 4. Acute urinary tract infection secondary to enterococcus faecalis. 5. Acute hypoxemic respiratory failure secondary to PE and community-acquired pneumonia. 6. History of right breast cancer, status post lumpectomy followed by chemoradiation. 7. History of type 2 diabetes mellitus. 8. Obesity. 9. Hypertension. 10.Hyperlipidemia. 11.Prior episode of pneumonia. 12.Steroid induced hyperglycemia. PLAN: The patient's steroids were discontinued. The patient is doing well. Clinically, she is much improved. X-ray is reviewed. She is not requiring any supplemental oxygen. The patient could be considered for discharge from the pulmonary standpoint although there may be medical reasons to keep her in the hospital. She is to follow up with us in the office in 1-2 weeks. CHIDI / JOHN: [id number] /
--- NOTE | 2020-04-06 10:07 | CDI ---
Documentation Clarification Form Date: 04/06/2020 09:42:24 AM From: Maueren Kebede RN CCDS Admit Date: 03/30/2020 12:45:00 PM Patient Name: Anabel Rogers Visit Number: [id number] Discharge Date: 04/03/2020 10:43:00 AM ATTENTION: The Clinical Documentation Specialists (CDI) and [facility] Coding Staff appreciate your assistance in clarifying documentation. Please respond to the clarification below the line at the bottom and electronically sign. The CDI & [facility] Coding staff will review the response and follow-up if needed. Please note: Queries are made part of the Legal Health Record. If you have any questions, please contact the author of this message via ITS. Dr. Bandar Moore Conflicting documentation is found in the medical record. 04/01 Internal Medicine Addendum to Progress Note COVID 19 infection NOT present 04/02 Internal Medicine Progress Note COVID 19 infection present 04/03 Discharge Summary COVID 19 infection present The COVID-19 test obtained on 03/30 was reported as Negative on 03/30 Patient history/risk factors: 74-year-old male presents to the ED with back pain that started yesterday. Medical history of Cancer, DM, HLD, HTN and Pneumonia Clinical Indicators Patient reported back pain. 03/30 CT- Acute right lower lobe pulmonary embolism bilateral lower lobe consolidation and small right effusion. 03/30 VS in ED Triage: T: 98.1, P:77, R:16, Sat: 95 % on room air 03/30 Wbc: 16.3 Treatment: 04/01 Pulmonary progress note possibility of community-acquired pneumonia, patient is covered with a combination of azithromycin and Rocephin. COVID 19 was ruled out. 03/30 Azithromycin Ivpb d/cd 03/31; 04/01 Azithromycin po daily d/c 04/02 In order to capture the severity of condition, please clarify the COVID-19 status: XX COVID-19 ruled out False negative, treating for COVID-19 infection Other, please specify (Last Form Revision: November 2019) MTDD
== END 2020-04-03 10:43 | disposition home or self-care (01) | DRG 871 ==
LOC: EC 08:19 → 3SCARD 12:45
PROVIDERS: ADMIT Internal Medicine Geriatric Medicine; ATTEND Internal Medicine Geriatric Medicine
DX: A41.81 Sepsis due to Enterococcus (principal); I26.99 Other pulmonary embolism without acute cor pulmonale; J96.01 Acute respiratory failure with hypoxia; J18.9 Pneumonia, unspecified organism; N39.0 Urinary tract infection, site not specified; J90 Pleural effusion, not elsewhere classified; I44.1 Atrioventricular block, second degree; E78.5 Hyperlipidemia, unspecified; I11.9 Hypertensive heart disease without heart failure; Z96.1 Presence of intraocular lens; E66.9 Obesity, unspecified; K21.9 Gastro-esophageal reflux disease without esophagitis; E11.65 Type 2 diabetes mellitus with hyperglycemia; C50.919 Malignant neoplasm of unspecified site of unspecified female breast; T38.0X5A Adverse effect of glucocorticoids and synthetic analogues, initial encounter; R00.0 Tachycardia, unspecified; Z20.828 Contact with and (suspected) exposure to other viral communicable diseases; Z92.3 Personal history of irradiation; Z82.49 Family history of ischemic heart disease and other diseases of the circulatory system; Z68.32 Body mass index [BMI] 32.0-32.9, adult; Z87.11 Personal history of peptic ulcer disease; Z92.21 Personal history of antineoplastic chemotherapy; Z90.49 Acquired absence of other specified parts of digestive tract; Z90.89 Acquired absence of other organs; Z79.899 Other long term (current) drug therapy; Z98.49 Cataract extraction status, unspecified eye; Z79.4 Long term (current) use of insulin; Z79.01 Long term (current) use of anticoagulants; Z88.1 Allergy status to other antibiotic agents; Z87.01 Personal history of pneumonia (recurrent); Z90.710 Acquired absence of both cervix and uterus; Z90.81 Acquired absence of spleen
CPT/HCPCS: 36415; 71046; 71275; 80053; 81001; 82947; 83690; 83735; 84484; 85025; 85027; 85379; 85610; 85730; 87040; 87077; 87086; 87186; 93005; 93306; 93970; 94640; 96365; 96366; 96367; 96375; 96376; 99285

== ENCOUNTER → 2020-07-14 | Outpatient (CLI) | payer MEDICARE, BC ==
--- NOTE | 2020-07-14 22:22 | BD ---
EXAMINATION TYPE: Axial Bone Density DATE OF EXAM: 07/14/2020 COMPARISON: 01/06/2010 CLINICAL HISTORY: Postmenopausal female. History of breast cancer. Height: 65 IN Weight: 198 LBS FRAX RISK QUESTIONS: Secondary Osteoporosis: 3. Menopause before 45: PARTIAL HYST AGE 41 RISK FACTORS HISTORY OF: Active: YES Postmenopausal woman: PARTIAL HYST AGE 41 Take estrogen and/or progesterone medications: NOT NOW How lon YEAR MEDICATIONS: Additional Medications: CENTRUM SILVER, TENORMIN, LIPITOR, NOVOLIN, METFORMIN, HYZAAR, VERAPAMIL, TOMI AX, XARELTO, LETROZOLE Additional History: BREAST CANCER WITH CHEMO AND RADIATION EXAM MEASUREMENTS: Bone mineral densitometry was performed using the [employer] System. Bone mineral density as measured about the Lumbar spine is: ----- L1-L4(G/cm2): 1.462 T Score Values are as follows: ----- L2: 1.9 ----- L3: 2.6 ----- L4: 3.3 ----- L1-L4: 2.4 Bone mineral density has: Increased 7.2% since study of: 01/06/2010 Bone mineral density about the R hip (g/cm2): 1.068 Bone mineral density about the L hip (g/cm2): 0.989 T Score values are as follows: -----R Neck: 0.2 -----L Neck: -0.3 -----R Total: 1.2 -----L Total: 0.6 Bone mineral density has: Decreased -0.6% since study of: 01/06/2010 IMPRESSION: Normal (Values between +1 and -1 indicate normal bone mass). Consider repeating this study in 5 year s or sooner if there is some new clinical indication. NOTE: T-SCORE=SD OF THE YOUNG ADULT MEAN.
== END | disposition home or self-care (01) ==
LOC: RADBDWWP 08:19
PROVIDERS: ATTEND Internal Medicine Hematology & Oncology
DX: C50.411 Malignant neoplasm of upper-outer quadrant of right female breast (principal); Z79.890 Hormone replacement therapy; Z88.1 Allergy status to other antibiotic agents
CPT/HCPCS: 77080

== ENCOUNTER → 2020-08-13 | Outpatient (CLI) | payer MEDICARE, BC ==
--- NOTE | 2020-08-13 11:38 | MM ---
Reason for exam: additional evaluation requested from prior study. Last mammogram was performed 11 months ago. History: Patient is postmenopausal and has history of breast cancer at age 74. Family history of breast cancer in maternal cousin at age 63, breast cancer in maternal cousin at age 50, and breast cancer in maternal cousin at age 59. Lumpectomy of the right breast, September 2019. Chemotherapy, 2019. Radiation therapy, 2019. Malignant US biopsy breast VAD RT of the right breast, September 08, 2019. Took hormonal contraceptives for 10 years beginning at age 19. Took estrogen for 5 years beginning at age 50. Physical Findings: Nurse did not find any significant physical abnormalities on exam. MG 3D Diag Mammo W/Cad GRANT Bilateral CC and MLO view(s) were taken. Prior study comparison: September 08, 2019, right breast MG diagnostic mammo RT wo CAD. August 25, 2019, right breast MG 3d work up w/cad RT. There are scattered fibroglandular densities. Skin thickening right breast. Post biopsy changes right upper outer quadrant. No significant new findings when compared with previous films. These results were verbally communicated with the patient and result sheet given to the patient on 08/13/20. ASSESSMENT: Probably benign, BI-RAD 3 RECOMMENDATION: Follow-up diagnostic mammogram of the right breast in 3 months.
== END | disposition home or self-care (01) ==
LOC: RADMAMWWP 10:44
PROVIDERS: ATTEND Radiology Radiation Oncology
DX: C50.411 Malignant neoplasm of upper-outer quadrant of right female breast (principal); Z17.0 Estrogen receptor positive status [ER+]; Z92.21 Personal history of antineoplastic chemotherapy
CPT/HCPCS: 77066; G0279; 77062

== ENCOUNTER → 2020-08-18 | Outpatient (CLI) | payer MEDICARE, BC ==
--- NOTE | 2020-08-18 14:46 | NM ---
EXAMINATION TYPE: NM bone scan whole body DATE OF EXAM: 08/18/2020 COMPARISON: NONE HISTORY: Breast Delayed whole-body scanning was performed following the injection of 23.7 mCi Tc 99m MDP. Images acq uired 3 hours post injection. FINDINGS: No intense uptake to suggest metastatic disease. Degenerative uptake about the shoulders, sternoclavi cular joints, bilateral wrists, bilateral knees, bilateral ankles and feet. IMPRESSION: No scintigraphic evidence to suggest metastatic disease.
== END | disposition home or self-care (01) ==
LOC: RADNMMAIN 09:45
PROVIDERS: ATTEND Radiology Radiation Oncology
DX: C50.411 Malignant neoplasm of upper-outer quadrant of right female breast (principal); Z92.3 Personal history of irradiation; Z92.21 Personal history of antineoplastic chemotherapy; Z17.0 Estrogen receptor positive status [ER+]
CPT/HCPCS: 78306; A9503

== ENCOUNTER → 2020-11-11 | Outpatient (CLI) | payer MEDICARE, BC | END | disposition home or self-care (01) | LOC: RADNMMAIN 09:44 | PROVIDERS: ATTEND Family Medicine | DX: Z53.9 Procedure and treatment not carried out, unspecified reason (principal) ==

== ENCOUNTER 2020-11-13 18:55 | Emergency (ER) | payer MEDICARE, BC ==
[2020-11-13] MEDS ORDERED: SODIUM CHLORIDE 0.9% 500 ML 500 ML IV STA (19:43)
--- NOTE | 2020-11-13 20:00 | ED ---
General Adult HPI - General Chief complaint: Chest Pain Stated complaint: High Blood pressure Time Seen by Provider: 11/13/20 19:19 Source: patient Mode of arrival: wheelchair Limitations: no limitations - History of Present Illness Initial comments: 75 year-old female patient presents to the emergency department with reports of elevated blood pressure and chest tightness. Patient states that she does take three blood pressure medications. She was going to have a stress test last week due to some persistent neck and chest tightness, but was unable to get it done due to her elevated blood pressure. States since then she has been checking it in the morning and at night, tonight it was 208 systolic so she came in for evaluation. States that she is still experiencing the chest and throat tightness, but it does not generally go away. States she does get short of breath with activity. Also reports episodes of sweating, but attributes this to taking a medication to prevent recurrence of breast cancer. She denies any cough or congestion. Denies any history of coronary artery disease or [place]. Patient denies any recent rash, fever, chills, cough, abdominal pain, nausea, vomiting, diarrhea, constipation, back pain, numbness, tingling, dizziness, w eakness, hematuria, dysuria, urinary urgency, urinary frequency, headache, visual changes, or any other complaints. - Related Data Home Medications Medication Instructions Recorded Confirmed ALPRAZolam [Xanax] 0.25 mg PO DAILY PRN 06/22/19 11/13/20 Atorvastatin [Lipitor] 20 mg PO DAILY 06/22/19 11/13/20 Losartan/Hydrochlorothiazide 1 tab PO DAILY 06/22/19 11/13/20 [Hyzaar 100-25 Tablet] Verapamil HCl [Verapamil ER] 120 mg PO DAILY 06/22/19 11/13/20 atenoloL [Tenormin] 50 mg PO DAILY 06/22/19 11/13/20 Insulin NPH Human Isophane 55 unit SQ DAILY 08/28/19 11/13/20 [NovoLIN N] Multivit-Min/Iron/Folic/Lutein 1 tab PO DAILY 02/05/20 11/13/20 [Centrum Silver Women Tablet] metFORMIN HCL [Glucophage] 1,000 mg PO BID 02/05/20 11/13/20 Acetaminophen [Tylenol 8 Hour] 650 mg PO Q8H PRN 11/13/20 11/13/20 Letrozole 2.5 mg PO DAILY 11/13/20 11/13/20 Omeprazole 40 mg PO DAILY 11/13/20 11/13/20 Rivaroxaban [Xarelto] 20 mg PO DAILY 11/13/20 11/13/20 Allergies Allergy/AdvReac Type Severity Reaction Status Date / Time erythromycin base Allergy Unknown Verified 11/13/20 20:40 Review of Systems ROS Statement: Those systems with pertinent positive or pertinent negative responses have been documented in the HPI. ROS Other: All systems not noted in ROS Statement are negative. Past Medical History Past Medical History: Cancer, Diabetes Mellitus, GERD/Reflux, Hyperlipidemia, Hypertension, Pneumonia Additional Past Medical History / Comment(s): R breast cancer with lumpectomy/chemo finished 01/21/20 and radiation that finished 3 weeks ago, pt states she has a bitter taste with eating and that the tip of her tongue always feels burned since chemo, PT HAS HAD A SPLEENECTOMY/partial pancreas removed d/t cysts, IDDM, neuropathy bilateral feet, UTIs, UTI with sepsis, chronic cough, past gastric ulcer. History of Any Multi-Drug Resistant Organisms: None Reported Past Surgical History: Appendectomy, Breast Surgery, Hysterectomy Additional Past Surgical History / Comment(s): splenectomy, partial pancreas removal, R breast biopsy, R breast lumpectomy, cataracts removal and intraocular lens implants, colonoscopy Past Anesthesia/Blood Transfusion Reactions: No Reported Reaction Additional Past Anesthesia/Blood Transfusion Reaction / Comment(s): Never Received Blood Transfusion Past Psychological History: Anxiety, Depression Smoking Status: Former smoker Past Alcohol Use History: None Reported Past Drug Use History: None Reported - Past Family History Father Family Medical History: Myocardial Infarction ([place]) Additional Family Medical History / Comment(s): Father at age 65 from a myocardial infarction. Mother Additional Family Medical History / Comment(s): Mother at age 75 from a myocardial infarction. Brother(s) Additional Family Medical History / Comment(s): Patient does not have any brothers. Sister(s) Family Medical History: Hypertension Additional Family Medical History / Comment(s): Patient has one sister at age 82. General Exam Limitations: no limitations General appearance: alert, in no apparent distress, other (This is a well- developed, well-nourished adult female patient in no acute distress. Vital signs upon presentation are temperature 97.8F, pulse 77, respirations 18, blood pressure 167/94, pulse ox 97% on room air.) Eye exam: Present: normal appearance, PERRL, EOMI. Absent: scleral icterus, conjunctival injection, periorbital swelling ENT exam: Present: normal exam, normal oropharynx, mucous membranes moist Respiratory exam: Present: normal lung sounds bilaterally. Absent: respiratory distress, wheezes, rales, rhonchi, stridor Cardiovascular Exam: Present: regular rate, normal rhythm, normal heart sounds. Absent: systolic murmur, diastolic murmur, rubs, gallop, clicks GI/Abdominal exam: Present: soft, normal bowel sounds. Absent: distended, tenderness, guarding, rebound, rigid Neurological exam: Present: alert, oriented X3, CN II-XII intact Psychiatric exam: Present: normal affect, normal mood Skin exam: Present: warm, dry, intact, normal color. Absent: rash Course Vital Signs 11/13/20 11/13/20 11/13/20 19:07 19:17 19:28 Temperature 97.8 F Pulse Rate 77 76 Pulse Rate [ [address] [employer] ] Respiratory 18 18 Rate Blood Pressure 167/94 169/70 O2 Sat by Pulse 97 97 Oximetry 11/13/20 11/13/20 11/13/20 19:37 20:02 20:30 Temperature Pulse Rate 68 69 60 Pulse Rate [ [employer] ] Respiratory 18 16 16 Rate Blood Pressure 180/78 179/73 165/72 O2 Sat by Pulse 98 98 99 Oximetry 11/13/20 21:39 Temperature 98.1 F Pulse Rate 77 Pulse Rate [ [employer] ] Respiratory 16 Rate Blood Pressure 154/67 O2 Sat by Pulse 96 Oximetry EKG Findings - EKG Comments: EKG Findings:: EKG obtained at 1917 shows normal sinus rhythm with a ventricular rate of 77, WA interval 160, QRS duration 112, QT 420, QTC 475. No evidence of ST elevation or depression however exam is somewhat limited by artifact. Medical Decision Making - Medical Decision Making 75-year-old female patient percents into the emergency department today for evaluation of elevated blood pressure. Patient is also been having chest tightness and throat tightness over the last couple of weeks has a stress test scheduled on , had one previously was having issues with blood pressure. Physical examination was unremarkable. Blood pressure upon arrival was in the 160 systolic. She does take 3 blood pressure medications including verapamil, Tenormin, and Hyzaar at home. During her visit her blood pressures did improve to the 130s over 80s. EKG was unremarkable. Troponins negative. She'll be discharged to follow-up with her primary care physician and continue with her stress test as planned. Return parameters were discussed in detail. She verbalizes understanding and agrees with this plan. - Lab Data Result diagrams: 11/13/20 19:50 11/13/20 19:50 Lab Results 11/13/20 11/13/20 11/13/20 Range/Units 19:50 19:50 19:50 WBC 12.2 H (3.8-10.6) k/uL RBC 3.75 L (3.80-5.40) m/uL Hgb 11.5 (11.4-16.0) gm/dL Hct 33.9 L (34.0-46.0) % MCV 90.3 (80.0-100.0) fL MCH 30.5 (25.0-35.0) pg MCHC 33.8 (31.0-37.0) g/dL RDW 14.9 (11.5-15.5) % Plt Count 298 (150-450) k/uL MPV 7.8 Neutrophils % 45 % Lymphocytes % 37 % Monocytes % 10 % Eosinophils % 4 % Basophils % 1 % Neutrophils # 5.5 (1.3-7.7) k/uL Lymphocytes # 4.4 (1.0-4.8) k/uL Monocytes # 1.2 H (0-1.0) k/uL Eosinophils # 0.5 (0-0.7) k/uL Basophils # 0.2 (0-0.2) k/uL PT 11.9 (9.0-12.0) sec INR 1.1 (<1.2) APTT 24.3 (22.0-30.0) sec Sodium 136 L (137-145) mmol/L Potassium 4.1 (3.5-5.1) mmol/L Chloride 102 (98-107) mmol/L Carbon Dioxide 25 (22-30) mmol/L Anion Gap 9 mmol/L BUN 28 H (7-17) mg/dL Creatinine 1.09 H (0.52-1.04) mg/dL Est GFR (CKD-EPI)AfAm 57 (>60 ml/min/1.73 sqM) Est GFR (CKD-EPI)NonAf 50 (>60 ml/min/1.73 sqM) Glucose 121 H (74-99) mg/dL Calcium 10.1 (8.4-10.2) mg/dL Magnesium 1.6 (1.6-2.3) mg/dL Total Bilirubin 0.4 (0.2-1.3) mg/dL AST 29 (14-36) U/L ALT 19 (4-34) U/L Alkaline Phosphatase 82 (38-126) U/L Troponin I (0.000-0.034) ng/mL Total Protein 6.9 (6.3-8.2) g/dL Albumin 4.3 (3.5-5.0) g/dL 11/13/20 Range/Units 19:50 WBC (3.8-10.6) k/uL RBC (3.80-5.40) m/uL Hgb (11.4-16.0) gm/dL Hct (34.0-46.0) % MCV (80.0-100.0) fL MCH (25.0-35.0) pg MCHC (31.0-37.0) g/dL RDW (11.5-15.5) % Plt Count (150-450) k/uL MPV Neutrophils % % Lymphocytes % % Monocytes % % Eosinophils % % Basophils % % Neutrophils # (1.3-7.7) k/uL Lymphocytes # (1.0-4.8) k/uL Monocytes # (0-1.0) k/uL Eosinophils # (0-0.7) k/uL Basophils # (0-0.2) k/uL PT (9.0-12.0) sec INR (<1.2) APTT (22.0-30.0) sec Sodium (137-145) mmol/L Potassium (3.5-5.1) mmol/L Chloride (98-107) mmol/L Carbon Dioxide (22-30) mmol/L Anion Gap mmol/L BUN (7-17) mg/dL Creatinine (0.52-1.04) mg/dL Est GFR (CKD-EPI)AfAm (>60 ml/min/1.73 sqM) Est GFR (CKD-EPI)NonAf (>60 ml/min/1.73 sqM) Glucose (74-99) mg/dL Calcium (8.4-10.2) mg/dL Magnesium (1.6-2.3) mg/dL Total Bilirubin (0.2-1.3) mg/dL AST (14-36) U/L ALT (4-34) U/L Alkaline Phosphatase (38-126) U/L Troponin I <0.012 (0.000-0.034) ng/mL Total Protein (6.3-8.2) g/dL Albumin (3.5-5.0) g/dL - Radiology Data Radiology results: report reviewed, image reviewed Two-view x-ray of the chest is obtained. Report was reviewed in its entirety. Impression by Dr. Edouard shows subsegmental atelectasis left lung base. There is improved aeration of the lungs compared to old exam. Disposition Clinical Impression: Hypertension, Chest tightness Disposition: HOME SELF-CARE Condition: Good Instructions (If sedation given, give patient instructions): Chest Pain (ED), Hypertension (ED) Additional Instructions: Follow-up with her primary care physician as you have planned. Return to the emergency department for any new, worsening, or concerning symptoms. Is patient prescribed a controlled substance at d/c from ED?: No Referrals: Hector Sheridan MD [Primary Care Provider] - 1-2 days Time of Disposition: 21:25
[2020-11-13 20:14] LABS: Basophils # (A) 0.2 k/uL (0-0.2); Basophils % (A) 1 %; Eosinophils # (A) 0.5 k/uL (0-0.7); Eosinophils % (A) 4 %; HCT 33.9 % (34.0-46.0); HGB 11.5 gm/dL (11.4-16.0); Lymphocytes # (A) 4.4 k/uL (1.0-4.8); Lymphocytes % (A) 37 %; MCH 30.5 pg (25.0-35.0); MCHC 33.8 g/dL (31.0-37.0); MCV 90.3 fL (80.0-100.0); Mean Platelet Volume 7.8; Monocytes # (A) 1.2 k/uL (0-1.0); Monocytes % (A) 10 %; Neutrophils # (A) 5.5 k/uL (1.3-7.7); Neutrophils % (A) 45 %; Platelet Count 298 k/uL (150-450); RBC 3.75 m/uL (3.80-5.40); RDW 14.9 % (11.5-15.5); WBC 12.2 k/uL (3.8-10.6)
[2020-11-13 20:31] VITALS: RESP 16
[2020-11-13 20:32] LABS: Albumin 4.3 g/dL (3.5-5.0); Calcium 10.1 mg/dL (8.4-10.2); Magnesium 1.6 mg/dL (1.6-2.3); Total Bilirubin 0.4 mg/dL (0.2-1.3); Total Protein 6.9 g/dL (6.3-8.2)
[2020-11-13 20:34] LABS: INR 1.1 (<1.2); Partial Thromboplastin Time 24.3 sec (22.0-30.0); Prothrombin Time 11.9 sec (9.0-12.0)
[2020-11-13 20:39] LABS: Potassium 4.1 mmol/L (3.5-5.1)
--- NOTE | 2020-11-13 20:47 | XR ---
EXAMINATION TYPE: XR chest 2V DATE OF EXAM: 11/13/2020 COMPARISON: 04/02/2020 HISTORY: Chest pain TECHNIQUE: FINDINGS: There is minimal subsegmental atelectasis left lung base. Heart is normal. There is no hear t failure. There are chest leads. There is no pulmonary consolidation. IMPRESSION: Subsegmental atelectasis left lung base. There is improved aeration of the lungs compared to old exam.
[2020-11-13 21:41] VITALS: BP 154/67; PULSE 77; TEMP 98.1
== END 2020-11-13 21:57 | disposition home or self-care (01) ==
LOC: EC 18:55
DX: I10 Essential (primary) hypertension (principal); R07.89 Other chest pain; C50.911 Malignant neoplasm of unspecified site of right female breast; E78.5 Hyperlipidemia, unspecified; E11.40 Type 2 diabetes mellitus with diabetic neuropathy, unspecified; E11.36 Type 2 diabetes mellitus with diabetic cataract; H26.9 Unspecified cataract; K21.9 Gastro-esophageal reflux disease without esophagitis; F32.9 Major depressive disorder, single episode, unspecified; F41.9 Anxiety disorder, unspecified; Z79.899 Other long term (current) drug therapy; Z79.4 Long term (current) use of insulin; Z79.01 Long term (current) use of anticoagulants; Z88.1 Allergy status to other antibiotic agents; Z87.891 Personal history of nicotine dependence
CPT/HCPCS: 36415; 71046; 80053; 83735; 84484; 85025; 85610; 85730; 93005; 99285

== ENCOUNTER → 2020-11-18 | Outpatient (CLI) | payer MEDICARE, BC ==
--- NOTE | 2020-11-18 15:18 | CONS ---
CONSULTATION CHIEF COMPLAINT: Severe uncontrolled hypertension. This is a 75-year-old lady who came for a stress test to [facility] and this was the second visit she has made here and has severe uncontrolled hypertension. Apparently, following her last visit, she was supposed to go see her primary care physician, but could not see him as the office was closed and she is back here again has severe uncontrolled hypertension at 190/90 mm. She is currently on Tenormin 50 mg daily, Hyzaar 100/25, Calan SR 120 mg daily along with insulin and Xarelto. The patient had history of DVT and had been on Xarelto for the same. She has history of breast cancer. Her predominant symptom was in the form of chest pain that was precordial mild intensity, radiated to her neck that was both at rest and with activity without clear-cut relieving or exacerbating factors. Her EKG shows normal sinus rhythm without acute ST-T wave changes. There is no history of leg edema, PND or orthopnea. There is no history of coronary artery disease or congestive heart failure. There is no family history of premature coronary artery disease. PAST MEDICAL HISTORY: Significant for hypertension, diabetes and dyslipidemia. MEDICATIONS: Medications are as charted. ALLERGIES: Allergies are as charted. FAMILY HISTORY: Negative for premature coronary artery disease. SOCIAL HISTORY: Negative for smoking, EtOH abuse or drug abuse. REVIEW OF SYSTEMS: HEENT is unremarkable. CARDIAC: As described above. RESPIRATORY: As described above. GI: Negative. GENITOURINARY: Negative. ALLERGY/IMMUNOLOGY: Negative. SKIN: Negative. MUSCULOSKELETAL: Significant for arthritis. PSYCHOSOCIAL: Negative. ENDOCRINE: Negative. DERM: Negative. CONSTITUTIONAL: Negative. ONCOLOGICAL: Negative. CLINIC OFFICE ASSISTANT: Negative. Rest of the system review is not relevant. PHYSICAL EXAMINATION: Blood pressure is elevated at 190/90, heart rate is 85 beats per minute. There is no jugular venous distention. Carotid upstroke is normal. There is no bruit. Chest exam reveals good air entry bilaterally. Heart exam reveals first and second heart sounds. An S4 is heard. Abdomen is soft. Examination of extremities did not reveal any edema. Peripheral pulses are felt. ASSESSMENT: 1. Severe uncontrolled hypertension. 2. Precordial chest pain. 3. Diabetes. 4. History of deep vein thrombosis. PLAN: I am going to start the patient on hydralazine 50 mg q.8 hours. Change the Calan SR to amlodipine 10 mg daily. Continue the Hyzaar and atenolol. We will reschedule her stress tests to next week. She will follow up in my office tomorrow morning for a blood pressure check and I will further optimize her medications. MMODL / IJN: [id number] /
== END | disposition home or self-care (01) ==
LOC: RADNMMAIN 09:40
PROVIDERS: ATTEND Family Medicine
DX: Z53.9 Procedure and treatment not carried out, unspecified reason (principal)

== ENCOUNTER → 2020-11-26 | Outpatient (CLI) | payer MEDICARE, BC ==
--- NOTE | 2020-11-26 14:52 | ECHOS ---
STRESS ECHOCARDIOGRAM LUMASON: @@ Vial INDICATIONS: Chest pain. MEDICATIONS: BASELINE HEART RATE: 86 BASELINE BLOOD PRESSURE: 160/76 MAXIMUM HEART RATE: 125 MAXIMUM BLOOD PRESSURE: 163/55 85% MPHR: 122 100% MPHR: 144 METS: 5.2 MAXIMUM STAGE REACHED: 2 TOTAL EXERCISE TIME: 3 minutes CLINICAL INFORMATION: STRESS DATA: Pre-testing physical examination showed a heart rate of 86, pressure is 160/76 mmHg. Baseline EKG showed sinus mechanism. The patient exercised on the treadmill according to Cas protocol for a total of 3 minutes and achieved 5.2 METs with max heart rate was 125, which is about 87% of maximum predicted heart rate. Maximum blood pressure was 163/55 mmHg. Clinically, the patient did not have any symptoms of chest pain or chest discomfort. The EKG did not show any significant ST or T-wave abnormalities concerning for ischemia. ANALYSIS: On echocardiogram images from parasternal long axis view, parasternal short axis view, apical 4 chambers and apical 2 chambers were obtained at the baseline images, at the peak of the heart rate as well as on recovery. The echocardiogram images showed overall good augmentation in the left ventricular systolic function without any evidence of wall motion abnormalities concerning for ischemia. CONCLUSION: 1. Average exercise tolerance. 2. Normal EKG in response to exercise. 3. Normal echocardiogram in response to exercise. 4. Essentially normal stress echocardiogram for the patient. MMODL / IJN: [id number] /
== END ==
LOC: RADNMMAIN 08:41
PROVIDERS: ATTEND Family Medicine
DX: R07.9 Chest pain, unspecified (principal); I10 Essential (primary) hypertension
CPT/HCPCS: 93351

== ENCOUNTER → 2020-12-31 | Outpatient (CLI) | payer MEDICARE, BC ==
--- NOTE | 2020-12-31 13:42 | MM ---
Reason for exam: follow-up at short interval from prior study. Last mammogram was performed 5 months ago. History: Patient is postmenopausal and has history of breast cancer at age 74. Family history of breast cancer in maternal cousin at age 63, breast cancer in maternal cousin at age 50, and breast cancer in maternal cousin at age 59. Lumpectomy of the right breast, September 2019. Chemotherapy, 2019. Radiation therapy, 2019. Malignant US biopsy breast VAD RT of the right breast, September 08, 2019. Took hormonal contraceptives for 10 years beginning at age 19. Took estrogen for 5 years beginning at age 50. Taking antineoplastic for 1 year beginning at age 74. Physical Findings: Nurse did not find any significant physical abnormalities on exam. MG 3D Diag Mammo W/Cad RT CC and MLO view(s) were taken of the right breast. Prior study comparison: August 13, 2020, bilateral MG 3d diag mammo w/cad GRANT. September 08, 2019, right breast MG diagnostic mammo RT wo CAD. The breast tissue is heterogeneously dense. This may lower the sensitivity of mammography. Post surgical and post therapy change right breast. Benign vascular calcifications. Continued short interval follow up to assess for any evolving post therapy changes. No significant new findings when compared with previous films. These results were verbally communicated with the patient and result sheet given to the patient on 12/31/20. ASSESSMENT: Probably benign, BI-RAD 3 RECOMMENDATION: Follow-up diagnostic mammogram of both breasts in 6 months.
== END | disposition home or self-care (01) ==
LOC: RADMAMWWP 12:51
PROVIDERS: ATTEND Family Medicine
DX: Z78.0 Asymptomatic menopausal state (principal); Z85.3 Personal history of malignant neoplasm of breast
CPT/HCPCS: 77065; G0279; 77061

== ENCOUNTER 2021-01-25 01:26 | Emergency (ER) | payer MEDICARE, BC ==
[2021-01-25 01:33] VITALS: RESP 18; TEMP 97.5
[2021-01-25] MEDS ORDERED: ONDANSETRON 4 MG/2 ML VIAL IVP STA (01:38)
[2021-01-25 01:42] LABS: Glucose,Whole Blood 137 mg/dL (75-99)
[2021-01-25] MEDS ORDERED: SODIUM CHLORIDE 0.9% 500 ML 500 ML IV STA ×2 (01:45→02:33)
--- NOTE | 2021-01-25 02:06 | ED ---
Nausea/Vomiting/Diarrhea HPI - General Chief complaint: Nausea/Vomiting/Diarrhea Stated complaint: Low Blood Sugar Time Seen by Provider: 01/25/21 01:36 Source: patient Mode of arrival: ambulatory Limitations: no limitations - History of Present Illness Initial comments: This patient is a 75-year-old woman who presents with a constellation of symptoms that have been going on for 1 day. She states that she was not feeling well for most of yesterday. She was having nausea and also having multiple watery bowel movements. She states probably had for bowel movements. No blood or dark tarry stools. Tonight she was in bed and she woke feeling like her blood sugar was low. She was sweaty and felt like her heart was racing and she was tremulous. She checked her blood sugar and it was in the 60s, she therefore had some peanut butter and orange juice. When she was not feeling much better they decided to come here and be evaluated. MD complaint: nausea, diarrhea Onset/Timin -: days(s) Description of Diarrhea: water Associated Abdominal Pain: No Severity scale (1-10): 0 Improves with: none Worsens with: none Associated Symptoms: diaphoresis, malaise, nausea/vomiting - Related Data Home Medications Medication Instructions Recorded Confirmed ALPRAZolam [Xanax] 0.25 mg PO DAILY PRN 06/22/19 11/13/20 Atorvastatin [Lipitor] 20 mg PO DAILY 06/22/19 11/13/20 Losartan/Hydrochlorothiazide 1 tab PO DAILY 06/22/19 11/13/20 [Hyzaar 100-25 Tablet] Verapamil HCl [Verapamil ER] 120 mg PO DAILY 06/22/19 11/13/20 atenoloL [Tenormin] 50 mg PO DAILY 06/22/19 11/13/20 Insulin NPH Human Isophane 55 unit SQ DAILY 08/28/19 11/13/20 [NovoLIN N] Multivit-Min/Iron/Folic/Lutein 1 tab PO DAILY 02/05/20 11/13/20 [Centrum Silver Women Tablet] metFORMIN HCL [Glucophage] 1,000 mg PO BID 02/05/20 11/13/20 Acetaminophen [Tylenol 8 Hour] 650 mg PO Q8H PRN 11/13/20 11/13/20 Letrozole 2.5 mg PO DAILY 11/13/20 11/13/20 Omeprazole 40 mg PO DAILY 11/13/20 11/13/20 Rivaroxaban [Xarelto] 20 mg PO DAILY 11/13/20 11/13/20 Previous Rx's Medication Instructions Recorded Cephalexin [Keflex] 500 mg PO Q6HR #28 cap 01/25/21 Ondansetron Odt [Zofran ODT] 4 mg PO Q8HR PRN #10 tab 01/25/21 Allergies Allergy/AdvReac Type Severity Reaction Status Date / Time erythromycin base Allergy Unknown Verified 01/25/21 01:33 Review of Systems ROS Statement: Those systems with pertinent positive or pertinent negative responses have been documented in the HPI. ROS Other: All systems not noted in ROS Statement are negative. Constitutional: Denies: fever, chills Eyes: Denies: vision change Respiratory: Denies: cough, dyspnea Cardiovascular: Reports: palpitations. Denies: chest pain, orthopnea, edema, syncope Gastrointestinal: Reports: nausea, diarrhea. Denies: abdominal pain, vomiting, hematemesis, melena, hematochezia Genitourinary: Denies: dysuria, hematuria Musculoskeletal: Denies: back pain Skin: Denies: rash Neurological: Denies: headache, weakness, numbness, paresthesias Psychiatric: Reports: anxiety Past Medical History Past Medical History: Cancer, Diabetes Mellitus, GERD/Reflux, Hyperlipidemia, Hypertension, Pneumonia Additional Past Medical History / Comment(s): R breast cancer with lumpectomy/chemo finished 01/21/20 and radiation that finished 3 weeks ago, pt states she has a bitter taste with eating and that the tip of her tongue always feels burned since chemo, PT HAS HAD A SPLEENECTOMY/partial pancreas removed d/t cysts, IDDM, neuropathy bilateral feet, UTIs, UTI with sepsis, chronic cough, p ast gastric ulcer. History of Any Multi-Drug Resistant Organisms: None Reported Past Surgical History: Appendectomy, Breast Surgery, Hysterectomy Additional Past Surgical History / Comment(s): splenectomy, partial pancreas r emoval, R breast biopsy, R breast lumpectomy, cataracts removal and intraocular lens implants, colonoscopy Past Anesthesia/Blood Transfusion Reactions: No Reported Reaction Additional Past Anesthesia/Blood Transfusion Reaction / Comment(s): Never Rec eived Blood Transfusion Past Psychological History: Anxiety, Depression Smoking Status: Former smoker Past Alcohol Use History: None Reported Past Drug Use History: None Reported - Past Family History Father Family Medical History: Myocardial Infarction ([place]) Additional Family Medical History / Comment(s): Father at age 65 from a myocardial infarction. Mother Additional Family Medical History / Comment(s): Mother at age 75 from a myocardial infarction. Brother(s) Additional Family Medical History / Comment(s): Patient does not have any brothe rs. Sister(s) Family Medical History: Hypertension Additional Family Medical History / Comment(s): Patient has one sister at age 82. General Exam Limitations: no limitations General appearance: alert, anxious Head exam: Present: atraumatic, normocephalic Eye exam: Present: normal appearance. Absent: scleral icterus, conjunctival injection ENT exam: Present: normal oropharynx Neck exam: Present: normal inspection, full ROM Respiratory exam: Present: normal lung sounds bilaterally. Absent: respiratory distress, wheezes, rales, rhonchi, stridor Cardiovascular Exam: Present: regular rate, normal rhythm, normal heart sounds. Absent: systolic murmur, diastolic murmur, rubs, gallop GI/Abdominal exam: Present: soft. Absent: distended, tenderness, guarding, rebound, rigid, mass Extremities exam: Present: normal inspection, normal capillary refill. Absent: pedal edema, calf tenderness Back exam: Present: normal inspection. Absent: CVA tenderness (R), CVA tenderness (L) Neurological exam: Present: alert Skin exam: Present: warm, dry, intact, normal color. Absent: rash Course Vital Signs 01/25/21 01/25/21 01:31 03:21 Temperature 97.5 F L Pulse Rate 80 72 Respiratory 18 18 Rate Blood Pressure 147/63 128/59 O2 Sat by Pulse 96 95 Oximetry Medical Decision Making - Lab Data Result diagrams: 01/25/21 01:45 01/25/21 01:45 Lab Results 01/25/21 01/25/21 01/25/21 Range/Units 01:38 01:45 01:45 WBC 12.5 H (3.8-10.6) k/uL RBC 4.36 (3.80-5.40) m/uL Hgb 13.4 (11.4-16.0) gm/dL Hct 38.4 (34.0-46.0) % MCV 88.1 (80.0-100.0) fL MCH 30.8 (25.0-35.0) pg MCHC 35.0 (31.0-37.0) g/dL RDW 14.6 (11.5-15.5) % Plt Count 312 (150-450) k/uL MPV 7.5 Neutrophils % 67 % Lymphocytes % 20 % Monocytes % 9 % Eosinophils % 2 % Basophils % 1 % Neutrophils # 8.4 H (1.3-7.7) k/uL Lymphocytes # 2.6 (1.0-4.8) k/uL Monocytes # 1.1 H (0-1.0) k/uL Eosinophils # 0.2 (0-0.7) k/uL Basophils # 0.1 (0-0.2) k/uL Sodium 138 (137-145) mmol/L Potassium 4.0 (3.5-5.1) mmol/L Chloride 104 (98-107) mmol/L Carbon Dioxide 22 (22-30) mmol/L Anion Gap 12 mmol/L BUN 27 H (7-17) mg/dL Creatinine 1.15 H (0.52-1.04) mg/dL Est GFR (CKD-EPI)AfAm 54 (>60 ml/min/1.73 sqM) Est GFR (CKD-EPI)NonAf 46 (>60 ml/min/1.73 sqM) Glucose 134 H (74-99) mg/dL POC Glucose (mg/dL) 137 H (75-99) mg/dL POC Glu [employer]orer ID Milagros Hurst Calcium 10.3 H (8.4-10.2) mg/dL Total Bilirubin 0.6 (0.2-1.3) mg/dL AST 30 (14-36) U/L ALT 16 (4-34) U/L Alkaline Phosphatase 80 (38-126) U/L Total Protein 7.1 (6.3-8.2) g/dL Albumin 4.5 (3.5-5.0) g/dL Amylase 60 (30-110) U/L Lipase 177 (23-300) U/L Urine Color Urine Appearance (Clear) Urine pH (5.0-8.0) Ur Specific [place] (1.001-1.035) Urine Protein (Negative) Urine Glucose (UA) (Negative) Urine Ketones (Negative) Urine Blood (Negative) Urine Nitrite (Negative) Urine Bilirubin (Negative) Urine Urobilinogen (<2.0) mg/dL Ur Leukocyte Esterase (Negative) 01/25/21 Range/Units 04:27 WBC (3.8-10.6) k/uL RBC (3.80-5.40) m/uL Hgb (11.4-16.0) gm/dL Hct (34.0-46.0) % MCV (80.0-100.0) fL MCH (25.0-35.0) pg MCHC (31.0-37.0) g/dL RDW (11.5-15.5) % Plt Count (150-450) k/uL MPV Neutrophils % % Lymphocytes % % Monocytes % % Eosinophils % % Basophils % % Neutrophils # (1.3-7.7) k/uL Lymphocytes # (1.0-4.8) k/uL Monocytes # (0-1.0) k/uL Eosinophils # (0-0.7) k/uL Basophils # (0-0.2) k/uL Sodium (137-145) mmol/L Potassium (3.5-5.1) mmol/L Chloride (98-107) mmol/L Carbon Dioxide (22-30) mmol/L Anion Gap mmol/L BUN (7-17) mg/dL Creatinine (0.52-1.04) mg/dL Est GFR (CKD-EPI)AfAm (>60 ml/min/1.73 sqM) Est GFR (CKD-EPI)NonAf (>60 ml/min/1.73 sqM) Glucose (74-99) mg/dL POC Glucose (mg/dL) (75-99) mg/dL POC Glu Home Performance Laborer ID Calcium (8.4-10.2) mg/dL Total Bilirubin (0.2-1.3) mg/dL AST (14-36) U/L ALT (4-34) U/L Alkaline Phosphatase (38-126) U/L Total Protein (6.3-8.2) g/dL Albumin (3.5-5.0) g/dL Amylase (30-110) U/L Lipase (23-300) U/L Urine Color Light Yellow Urine Appearance Clear (Clear) Urine pH 5.0 (5.0-8.0) Ur Specific [place] 1.008 (1.001-1.035) Urine Protein Negative (Negative) Urine Glucose (UA) Negative (Negative) Urine Ketones Negative (Negative) Urine Blood Negative (Negative) Urine Nitrite Negative (Negative) Urine Bilirubin Negative (Negative) Urine Urobilinogen <2.0 (<2.0) mg/dL Ur Leukocyte Esterase Negative (Negative) Disposition Clinical Impression: Dehydration, Diarrhea Disposition: HOME SELF-CARE Condition: Fair Instructions (If sedation given, give patient instructions): Acute Diarrhea (ED) Prescriptions: Cephalexin [Keflex] 500 mg PO Q6HR #28 cap Ondansetron Odt [Zofran ODT] 4 mg PO Q8HR PRN #10 tab PRN Reason: Nausea Is patient prescribed a controlled substance at d/c from ED?: No Referrals: Hector Sheridan MD [Primary Care Provider] - 1-2 days
[2021-01-25 02:09] LABS: Basophils # (A) 0.1 k/uL (0-0.2); Basophils % (A) 1 %; Eosinophils # (A) 0.2 k/uL (0-0.7); Eosinophils % (A) 2 %; HCT 38.4 % (34.0-46.0); HGB 13.4 gm/dL (11.4-16.0); Lymphocytes # (A) 2.6 k/uL (1.0-4.8); Lymphocytes % (A) 20 %; MCH 30.8 pg (25.0-35.0); MCV 88.1 fL (80.0-100.0); Mean Platelet Volume 7.5; Monocytes # (A) 1.1 k/uL (0-1.0); Monocytes % (A) 9 %; Neutrophils # (A) 8.4 k/uL (1.3-7.7); Neutrophils % (A) 67 %; Platelet Count 312 k/uL (150-450); RBC 4.36 m/uL (3.80-5.40); RDW 14.6 % (11.5-15.5); WBC 12.5 k/uL (3.8-10.6)
[2021-01-25 02:19] LABS: Albumin 4.5 g/dL (3.5-5.0); Calcium 10.3 mg/dL (8.4-10.2); Total Bilirubin 0.6 mg/dL (0.2-1.3); Total Protein 7.1 g/dL (6.3-8.2)
[2021-01-25 03:21] VITALS: BP 128/59; PULSE 72
[2021-01-25 05:00] LABS: Appearance,Urine Clear (Clear); Bilirubin,Urine Negative (Negative); Blood,Urine Negative (Negative); Color,Urine Light Yellow; Glucose,Urine (UA) Negative (Negative); Ketones,Urine Negative (Negative); Leukocyte Esterase,Urine Negative (Negative); Nitrite,Urine Negative (Negative); Protein,Urine Negative (Negative); Specific Gravity,Urine 1.008 (1.001-1.035); Urobilinogen,Urine <2.0 mg/dL (<2.0)
== END 2021-01-25 04:32 | disposition home or self-care (01) ==
LOC: EC 01:26
DX: E86.0 Dehydration (principal); R19.7 Diarrhea, unspecified; I10 Essential (primary) hypertension; E11.36 Type 2 diabetes mellitus with diabetic cataract; E78.5 Hyperlipidemia, unspecified; F32.9 Major depressive disorder, single episode, unspecified; F41.9 Anxiety disorder, unspecified; K21.9 Gastro-esophageal reflux disease without esophagitis; Z79.4 Long term (current) use of insulin; Z79.899 Other long term (current) drug therapy; Z82.49 Family history of ischemic heart disease and other diseases of the circulatory system; Z85.3 Personal history of malignant neoplasm of breast; Z87.11 Personal history of peptic ulcer disease; Z87.891 Personal history of nicotine dependence; Z88.1 Allergy status to other antibiotic agents
CPT/HCPCS: 36415; 80053; 82150; 83690; 85025; 81003; 99284; 96374; 96361 ×2; J2405

== ENCOUNTER 2021-04-11 12:31 | Emergency (ER) | payer MEDICARE, BC ==
[2021-04-11 13:25] VITALS: RESP 18; TEMP 98.4
--- NOTE | 2021-04-11 14:18 | XR ---
EXAMINATION TYPE: XR knee complete RT DATE OF EXAM: 04/11/2021 CLINICAL HISTORY: Fall getting into TECHNIQUE: Three views of the left knee are obtained. COMPARISON: None. FINDINGS: There is no acute fracture/dislocation evident in left knee. Knee joint effusion is nonspe cific.. IMPRESSION: Nonspecific knee joint effusion.
--- NOTE | 2021-04-11 14:22 | ED ---
Lower Extremity Injury HPI - General Chief Complaint: Extremity Injury, Lower Stated Complaint: lt knee injury Time Seen by Provider: 04/11/21 13:48 Source: patient Mode of arrival: ambulatory Limitations: no limitations - History of Present Illness Initial Comments: 75-year-old male presents to emergency Department with a chief complaint of left knee injury. The injury occurred about one week ago while she was attempting to get into a truck. Patient cannot recall the exact mechanism of injury but states the pain is worse ambulation and it hurts on the medial lateral aspect of the knee. She reports full range of motion but denies any associated ecchymosis or erythema. Denies any paresthesias or weakness in the leg or foot. Denies taking medication to alleviate the symptoms.states pain is sharp 04/02. - Related Data Home Medications Medication Instructions Recorded Confirmed ALPRAZolam [Xanax] 0.25 mg PO DAILY PRN 06/22/19 11/13/20 Atorvastatin [Lipitor] 20 mg PO DAILY 06/22/19 11/13/20 Losartan/Hydrochlorothiazide 1 tab PO DAILY 06/22/19 11/13/20 [Hyzaar 100-25 Tablet] Verapamil HCl [Verapamil ER] 120 mg PO DAILY 06/22/19 11/13/20 atenoloL [Tenormin] 50 mg PO DAILY 06/22/19 11/13/20 Insulin NPH Human Isophane 55 unit SQ DAILY 08/28/19 11/13/20 [NovoLIN N] Multivit-Min/Iron/Folic/Lutein 1 tab PO DAILY 02/05/20 11/13/20 [Centrum Silver Women Tablet] metFORMIN HCL [Glucophage] 1,000 mg PO BID 02/05/20 11/13/20 Acetaminophen [Tylenol 8 Hour] 650 mg PO Q8H PRN 11/13/20 11/13/20 Letrozole 2.5 mg PO DAILY 11/13/20 11/13/20 Omeprazole 40 mg PO DAILY 11/13/20 11/13/20 Rivaroxaban [Xarelto] 20 mg PO DAILY 11/13/20 11/13/20 Previous Rx's Medication Instructions Recorded Cephalexin [Keflex] 500 mg PO Q6HR #28 cap 01/25/21 Ondansetron Odt [Zofran ODT] 4 mg PO Q8HR PRN #10 tab 01/25/21 Allergies Allergy/AdvReac Type Severity Reaction Status Date / Time erythromycin base Allergy Unknown Verified 01/25/21 01:33 levofloxacin [From Levaquin] Allergy Nausea & Verified 04/11/21 13:27 Vomiting Review of Systems ROS Statement: Those systems with pertinent positive or pertinent negative responses have been documented in the HPI. ROS Other: All systems not noted in ROS Statement are negative. Past Medical History Past Medical History: Cancer, Diabetes Mellitus, GERD/Reflux, Hyperlipidemia, Hypertension, Pneumonia Additional Past Medical History / Comment(s): R breast cancer with lumpectomy/chemo finished 01/21/20 and radiation that finished 3 weeks ago, pt states she has a bitter taste with eating and that the tip of her tongue always feels burned since chemo, PT HAS HAD A SPLEENECTOMY/partial pancreas removed d/t cysts, IDDM, neuropathy bilateral feet, UTIs, UTI with sepsis, chronic cough, past gastric ulcer. blood spot on retina History of Any Multi-Drug Resistant Organisms: None Reported Past Surgical History: Appendectomy, Breast Surgery, Hysterectomy Additional Past Surgical History / Comment(s): splenectomy, partial pancreas removal, R breast biopsy, R breast lumpectomy, cataracts removal and intraocular lens implants, colonoscopy Past Anesthesia/Blood Transfusion Reactions: No Reported Reaction Additional Past Anesthesia/Blood Transfusion Reaction / Comment(s): Never Received Blood Transfusion Past Psychological History: Anxiety, Depression Smoking Status: Never smoker Past Alcohol Use History: None Reported Past Drug Use History: None Reported - Past Family History Father Family Medical History: Myocardial Infarction ([place]) Additional Family Medical History / Comment(s): Father at age 65 from a myocardial infarction. Mother Additional Family Medical History / Comment(s): Mother at age 75 from a myocardial infarction. Brother(s) Additional Family Medical History / Comment(s): Patient does not have any brothers. Sister(s) Family Medical History: Hypertension Additional Family Medical History / Comment(s): Patient has one sister at age 82. General Exam Limitations: no limitations General appearance: alert, in no apparent distress, obese Head exam: Present: atraumatic, normocephalic, normal inspection Eye exam: Present: normal appearance, PERRL, EOMI Pupils: Present: normal accommodation ENT exam: Present: normal exam, normal oropharynx, mucous membranes moist Neck exam: Present: normal inspection, full ROM. Absent: tenderness, lymphadenopathy Respiratory exam: Present: normal lung sounds bilaterally. Absent: respiratory distress, wheezes, rales, rhonchi, stridor Cardiovascular Exam: Present: regular rate, normal rhythm, normal heart sounds. Absent: systolic murmur Extremities exam: Present: normal inspection, full ROM, tenderness (Medial and lateral tenderness of the left knee.), normal capillary refill, other (Palpable DP and PT bilaterally). Absent: pedal edema, joint swelling, calf tenderness Back exam: Present: normal inspection, full ROM. Absent: tenderness, CVA tenderness (R), CVA tenderness (L) Neurological exam: Present: alert, oriented X3 Psychiatric exam: Present: normal affect, normal mood Skin exam: Present: warm, dry, intact, normal color Course Vital Signs 04/11/21 13:22 Temperature 98.4 F Pulse Rate 77 Respiratory 18 Rate Blood Pressure 144/74 O2 Sat by Pulse 97 Oximetry Medical Decision Making - Medical Decision Making 75-year-old male presents to emergency Department with a chief complaint of left knee injury. On physical examination, patient is neurovascularly intact. She still able to ambulate. X-ray shows joint effusion. A shunt advised to follow- up with an route sales specialist. Return parameters were thoroughly discussed the patient is an ascending and agreeable. Case discussed with physician. Disposition Clinical Impression: Joint effusion, Left knee injury Disposition: HOME SELF-CARE Condition: Stable Instructions (If sedation given, give patient instructions): Knee Pain (ED) Additional Instructions: Follow with route sales specialist. Return to emergency department if symptoms worsen. Is patient prescribed a controlled substance at d/c from ED?: No Referrals: Hector Sheridan MD [Primary Care Provider] - 1-2 days Indu Earl DO [Doctor of Osteopathic Medicine] - 1-2 days Time of Disposition: 14:24
[2021-04-11 14:51] VITALS: BP 127/71; PULSE 76
== END 2021-04-11 14:51 | disposition home or self-care (01) ==
LOC: EC 12:31
DX: S89.92XA Unspecified injury of left lower leg, initial encounter (principal); E11.9 Type 2 diabetes mellitus without complications; K21.9 Gastro-esophageal reflux disease without esophagitis; I10 Essential (primary) hypertension; E78.5 Hyperlipidemia, unspecified; X58.XXXA Exposure to other specified factors, initial encounter; Z85.3 Personal history of malignant neoplasm of breast; F32.9 Major depressive disorder, single episode, unspecified
CPT/HCPCS: 99283

== ENCOUNTER → 2021-05-12 | Outpatient (CLI) | payer MEDICARE, BC ==
--- NOTE | 2021-05-13 12:14 | USB ---
Reason for exam: follow-up at short interval from prior study. History: Patient is postmenopausal and has history of breast cancer at age 74. Family history of breast cancer in maternal cousin at age 63, breast cancer in maternal cousin at age 50, and breast cancer in maternal cousin at age 59. Lumpectomy of the right breast, September 2019. Chemotherapy, 2019. Radiation therapy, 2019. Malignant US biopsy breast VAD RT of the right breast, September 08, 2019. Took hormonal contraceptives for 10 years beginning at age 19. Took estrogen for 5 years beginning at age 50. Taking antineoplastic for 1 year beginning at age 74. Physical Findings: Nurse did not find any significant physical abnormalities on exam. US Breast RT Right complete breast ultrasound includes all four quadrants, the retroareolar region and axilla. Finding demonstrates some scattered mild edematous change at 3 o'clock and subareolar region likely post therapy change. Scarring at the axilla and 10 o'clock position. A small normal axillary node is noted. No other solid or cystic lesions. These results were verbally communicated with the patient and result sheet given to the patient on 05/12/21. ASSESSMENT: Benign, BI-RAD 2 RECOMMENDATION: Follow-up diagnostic mammogram of both breasts in 3 months.
== END | disposition home or self-care (01) ==
LOC: RADUSWWP 14:24
PROVIDERS: ATTEND Internal Medicine Hematology & Oncology
DX: R59.0 Localized enlarged lymph nodes (principal); Z78.0 Asymptomatic menopausal state; Z80.3 Family history of malignant neoplasm of breast; Z85.3 Personal history of malignant neoplasm of breast

== ENCOUNTER → 2021-07-04 | Outpatient (CLI) | payer MEDICARE, BC ==
--- NOTE | 2021-07-05 13:38 | MM ---
Reason for exam: follow-up at short interval from prior study. Last mammogram was performed 6 months ago. History: Patient is postmenopausal and has history of breast cancer at age 74. Family history of breast cancer in maternal cousin at age 63, breast cancer in maternal cousin at age 50, and breast cancer in maternal cousin at age 59. Lumpectomy of the right breast, September 2019. Chemotherapy, 2019. Radiation therapy, 2019. Malignant US biopsy breast VAD RT of the right breast, September 08, 2019. Took hormonal contraceptives for 10 years beginning at age 19. Took estrogen for 5 years beginning at age 50. Taking antineoplastic for 1 year beginning at age 74. Physical Findings: Nurse did not find any significant physical abnormalities on exam. MG 3D Diag Mammo W/Cad GRANT Bilateral CC and MLO view(s) were taken. Prior study comparison: December 31, 2020, right breast MG 3d diag mammo w/cad RT. August 13, 2020, bilateral MG 3d diag mammo w/cad GRANT. No significant new findings when compared with previous films. These results were verbally communicated with the patient and result sheet given to the patient on 07/04/21. ASSESSMENT: Benign, BI-RAD 2 RECOMMENDATION: Follow-up diagnostic mammogram of both breasts in 1 year.
== END | disposition home or self-care (01) ==
LOC: RADMAMWWP 13:55
PROVIDERS: ATTEND Radiology Radiation Oncology
DX: R92.8 Other abnormal and inconclusive findings on diagnostic imaging of breast (principal); Z85.3 Personal history of malignant neoplasm of breast; Z80.3 Family history of malignant neoplasm of breast; Z78.0 Asymptomatic menopausal state
CPT/HCPCS: 77066; G0279; 77062

== ENCOUNTER 2022-01-03 11:30 | Emergency (ER) | payer MEDICARE, BC ==
[2022-01-03 11:58] VITALS: PULSE 80
[2022-01-03] MEDS ORDERED: KETOROLAC 15 MG/ML 1 ML VIAL IM STA (12:48)
[2022-01-03] MEDS ORDERED: ORPHENADRINE 30 MG/ML 2 ML VIAL IM STA (12:48)
--- NOTE | 2022-01-03 12:53 | ED ---
Back Pain HPI - General Chief Complaint: Back Pain/Injury Stated Complaint: Pain radiating down right leg Time Seen by Provider: 01/03/22 12:30 Source: patient, family, RN notes reviewed, old records reviewed Mode of arrival: ambulatory Limitations: no limitations - History of Present Illness Initial Comments: Patient is a 76-year-old female, with past medical history of hypertension, diabetes, breast cancer, in remission, presenting to the emergency Department with complaints of right-sided low back pain. Patient has been having this pain for a few months now. She has seen Dr. Staples, who did x-rays of the back 2 weeks ago, told her she has a pinched nerve. He did order an MRI which she has scheduled for tomorrow and also nerve testing which she has scheduled in 6 days. Patient has been trying tramadol at home for the pain however the medicine makes her nauseous, she tried a half a tablet still makes her nauseous so she cannot take this. She states that [place] makes her have hallucinations. She has tried ibuprofen, Tylenol and Tylenol threes without any relief of symptoms. Patient denies any new falls or injury, she denies any numbness and tingling down her extremity. She is having referred pain down her right leg which has been chronic this entire time. She denies any bowel or bladder incontinence, no saddle paresthesia. She denies any fevers or chills, no chest pain or short of breath. She has no further complaints. - Related Data Home Medications Medication Instructions Recorded Confirmed ALPRAZolam [Xanax] 0.25 mg PO DAILY PRN 06/22/19 11/13/20 Atorvastatin [Lipitor] 20 mg PO DAILY 06/22/19 11/13/20 Losartan/Hydrochlorothiazide 1 tab PO DAILY 06/22/19 11/13/20 [Hyzaar 100-25 Tablet] Verapamil HCl [Verapamil ER] 120 mg PO DAILY 06/22/19 11/13/20 atenoloL [Tenormin] 50 mg PO DAILY 06/22/19 11/13/20 Insulin NPH Human Isophane 55 unit SQ DAILY 08/28/19 11/13/20 [NovoLIN N] Multivit-Min/Iron/Folic/Lutein 1 tab PO DAILY 02/05/20 11/13/20 [Centrum Silver Women Tablet] metFORMIN HCL [Glucophage] 1,000 mg PO BID 02/05/20 11/13/20 Acetaminophen [Tylenol 8 Hour] 650 mg PO Q8H PRN 11/13/20 11/13/20 Letrozole 2.5 mg PO DAILY 11/13/20 11/13/20 Omeprazole 40 mg PO DAILY 11/13/20 11/13/20 Rivaroxaban [Xarelto] 20 mg PO DAILY 11/13/20 11/13/20 Previous Rx's Medication Instructions Recorded Cephalexin [Keflex] 500 mg PO Q6HR #28 cap 01/25/21 Ondansetron Odt [Zofran ODT] 4 mg PO Q8HR PRN #10 tab 01/25/21 Lidocaine 5% Patch [Lidoderm 5% 1 patch TOPICAL DAILY #5 patch 01/03/22 Patch] predniSONE [Deltasone] 20 mg PO BID 5 Days #10 tab 01/03/22 Allergies Allergy/AdvReac Type Severity Reaction Status Date / Time erythromycin base Allergy Unknown Verified 01/03/22 11:58 levofloxacin [From Levaquin] Allergy Nausea & Verified 01/03/22 11:58 Vomiting Review of Systems ROS Statement: Those systems with pertinent positive or pertinent negative responses have been documented in the HPI. ROS Other: All systems not noted in ROS Statement are negative. Past Medical History Past Medical History: Cancer, Diabetes Mellitus, GERD/Reflux, Hyperlipidemia, Hypertension, Pneumonia Additional Past Medical History / Comment(s): R breast cancer with lumpectomy/chemo finished 01/21/20 and radiation that finished 3 weeks ago, pt states she has a bitter taste with eating and that the tip of her tongue always feels burned since chemo, PT HAS HAD A SPLEENECTOMY/partial pancreas removed d/t cysts, IDDM, neuropathy bilateral feet, UTIs, UTI with sepsis, chronic cough, past gastric ulcer. blood spot on retina History of Any Multi-Drug Resistant Organisms: None Reported Past Surgical History: Appendectomy, Breast Surgery, Hysterectomy Additional Past Surgical History / Comment(s): splenectomy, partial pancreas removal, R breast biopsy, R breast lumpectomy, cataracts removal and intraocular lens implants, colonoscopy Past Anesthesia/Blood Transfusion Reactions: No Reported Reaction Additional Past Anesthesia/Blood Transfusion Reaction / Comment(s): Never Received Blood Transfusion Past Psychological History: Anxiety, Depression Smoking Status: Never smoker Past Alcohol Use History: None Reported Past Drug Use History: None Reported - Past Family History Father Family Medical History: Myocardial Infarction ([place]) Additional Family Medical History / Comment(s): Father at age 65 from a myocardial infarction. Mother Additional Family Medical History / Comment(s): Mother at age 75 from a myocardial infarction. Brother(s) Additional Family Medical History / Comment(s): Patient does not have any brothers. Sister(s) Family Medical History: Hypertension Additional Family Medical History / Comment(s): Patient has one sister at age 82. General Exam - General Exam Comments Initial Comments: GENERAL: Patient is well-developed and well-nourished. Patient is nontoxic and in no acute distress. HEAD: Atraumatic, normocephalic. EYES: Pupils equal round and reactive to light, extraocular movements intact, sclera anicteric, conjunctiva are normal. Eyelids were unremarkable. ENT: Moist mucous membranes. NECK: Normal range of motion, supple without lymphadenopathy or JVD. LUNGS: Unlabored respirations. Breath sounds clear to auscultation bilaterally and equal. No wheezes rales or rhonchi. HEART: Regular rate and rhythm without murmurs, rubs or gallops. ABDOMEN: Soft, nontender, normoactive bowel sounds. MUSCULOSKELETAL: Patient has mild pain with palpation to the lumbar region, right sciatic area. Neurovascular intact, normal bilateral equal sensation. Normal extremities with adequate strength and normal range of motion, no pitting or edema. No clubbing or cyanosis. NEUROLOGICAL: Patient is alert and oriented x 3. Normal speech, normal gait. PSYCH: Normal mood, normal affect. SKIN: Warm, Dry, normal turgor, no rashes or lesions noted. Course Vital Signs 01/03/22 11:52 Temperature 98.6 F Pulse Rate 80 Respiratory 18 Rate Blood Pressure 138/79 O2 Sat by Pulse 96 Oximetry Medical Decision Making - Medical Decision Making Patient is a 76-year-old female here with low back pain has been chronic in nature for the past 3 months. She does have right-sided radiculopathy. She has seen Dr. Staples for this, x-rays 2 weeks ago showed a pinched nerve. She has a lumbar MRI scheduled for tomorrow as well as nerve testing scheduled in the next 6 days. They were talking about doing injections. Patient is simply here for pain control. She has nausea with tramadol and cannot take [place]. She has tried Tylenol and ibuprofen without relief. I will give her a shot of Norflex today as well as Toradol. I will prescribe her a short course of prednisone and lidocaine patch. She always monitors her glucose levels. She will stop the steroid if levels are increasing. Patient will follow-up with her doctor. She is agreeable with this plan of care. She is stable for discharge. Disposition Clinical Impression: Low back pain radiating to right leg Disposition: HOME SELF-CARE Condition: Stable Instructions (If sedation given, give patient instructions): Acute Low Back Pain (ED) Additional Instructions: Please return to the Emergency Department if symptoms worsen or any other concerns. Continue to follow-up with your doctor. Trial of lidocaine patches, steroids. Monitor your glucose level. Prescriptions: predniSONE [Deltasone] 20 mg PO BID 5 Days #10 tab Lidocaine 5% Patch [Lidoderm 5% Patch] 1 patch TOPICAL DAILY #5 patch Is patient prescribed a controlled substance at d/c from ED?: No Referrals: Hector Sheridan MD [Primary Care Provider] - 1-2 days Dean Staples MD [STAFF PHYSICIAN] - 1-2 days Time of Disposition: 13:22
[2022-01-03 13:38] VITALS: BP 157/84; RESP 16; TEMP 97.8
== END 2022-01-03 13:40 | disposition home or self-care (01) ==
LOC: EC 11:30
DX: M54.16 Radiculopathy, lumbar region (principal); E11.9 Type 2 diabetes mellitus without complications; K21.9 Gastro-esophageal reflux disease without esophagitis; E78.5 Hyperlipidemia, unspecified; I10 Essential (primary) hypertension; F41.9 Anxiety disorder, unspecified; F32.A Depression, unspecified; Z79.4 Long term (current) use of insulin; Z79.84 Long term (current) use of oral hypoglycemic drugs; Z88.1 Allergy status to other antibiotic agents; Z85.3 Personal history of malignant neoplasm of breast; Z87.440 Personal history of urinary (tract) infections; Z90.49 Acquired absence of other specified parts of digestive tract; Z90.710 Acquired absence of both cervix and uterus
CPT/HCPCS: 99283; 96372 ×2; J2360; J1885

== ENCOUNTER 2022-03-24 09:22 | Emergency (ER) | payer MEDICARE, BC ==
[2022-03-24 09:52] LABS: Glucose,Whole Blood 54 mg/dL (70-110)
[2022-03-24] MEDS ORDERED: ONDANSETRON 4 MG/2 ML VIAL IVP STA (09:59)
[2022-03-24] MEDS: DEXTROSE 50% SYRINGE 50 ML IVP STA ×2 (10:01→10:38)
--- NOTE | 2022-03-24 10:03 | ED ---
General Adult HPI - General Chief complaint: Dizziness Stated complaint: low blood sugar Time Seen by Provider: 03/24/22 09:43 Source: patient, family, RN notes reviewed Mode of arrival: wheelchair Limitations: no limitations - History of Present Illness Initial comments: 76-year-old female presents emergency Department with chief complaint of feeling dizzy, hyperglycemia. Patient states she woke up this morning took her insulin which is a long-acting, metformin is normal. Patient states that she did not initially much felt lightheaded, sweaty checked her blood sugar was 50. Patient states took some glucose tablets and some Pepsi blood sugar remains low. Patient denies any chest pain she felt like her heart was fluttering but denies any focal weakness she has been slight nausea and diarrhea no fevers chills no dysuria no other complaints. - Related Data Home Medications Medication Instructions Recorded Confirmed ALPRAZolam [Xanax] 0.25 mg PO DAILY PRN 06/22/19 11/13/20 Atorvastatin [Lipitor] 20 mg PO DAILY 06/22/19 11/13/20 Losartan/Hydrochlorothiazide 1 tab PO DAILY 06/22/19 11/13/20 [Hyzaar 100-25 Tablet] Verapamil HCl [Verapamil ER] 120 mg PO DAILY 06/22/19 11/13/20 atenoloL [Tenormin] 50 mg PO DAILY 06/22/19 11/13/20 Insulin NPH Human Isophane 55 unit SQ DAILY 08/28/19 11/13/20 [NovoLIN N] Multivit-Min/Iron/Folic/Lutein 1 tab PO DAILY 02/05/20 11/13/20 [Centrum Silver Women Tablet] metFORMIN HCL [Glucophage] 1,000 mg PO BID 02/05/20 11/13/20 Acetaminophen [Tylenol 8 Hour] 650 mg PO Q8H PRN 11/13/20 11/13/20 Letrozole 2.5 mg PO DAILY 11/13/20 11/13/20 Omeprazole 40 mg PO DAILY 11/13/20 11/13/20 Rivaroxaban [Xarelto] 20 mg PO DAILY 11/13/20 11/13/20 Previous Rx's Medication Instructions Recorded Cephalexin [Keflex] 500 mg PO Q6HR #28 cap 01/25/21 Ondansetron Odt [Zofran ODT] 4 mg PO Q8HR PRN #10 tab 01/25/21 Cyclobenzaprine [Flexeril] 5 mg PO BID PRN #15 tablet 01/03/22 Lidocaine 5% Patch [Lidoderm 5% 1 patch TOPICAL DAILY #5 patch 01/03/22 Patch] predniSONE [Deltasone] 20 mg PO BID 5 Days #10 tab 01/03/22 Ondansetron Odt [Zofran Odt] 4 mg PO Q8HR PRN #10 tab 03/24/22 Allergies Allergy/AdvReac Type Severity Reaction Status Date / Time erythromycin base Allergy Unknown Verified 03/24/22 09:29 Review of Systems ROS Statement: Those systems with pertinent positive or pertinent negative responses have been documented in the HPI. ROS Other: All systems not noted in ROS Statement are negative. Past Medical History Past Medical History: Cancer, Diabetes Mellitus, GERD/Reflux, Hyperlipidemia, Hypertension, Pneumonia Additional Past Medical History / Comment(s): R breast cancer with lumpectomy/chemo finished 01/21/20 and radiation that finished 3 weeks ago, pt states she has a bitter taste with eating and that the tip of her tongue always feels burned since chemo, PT HAS HAD A SPLEENECTOMY/partial pancreas removed d/t cysts, IDDM, neuropathy bilateral feet, UTIs, UTI with sepsis, chronic cough, past gastric ulcer. blood spot on retina History of Any Multi-Drug Resistant Organisms: None Reported Past Surgical History: Appendectomy, Breast Surgery, Hysterectomy Additional Past Surgical History / Comment(s): splenectomy, partial pancreas removal, R breast biopsy, R breast lumpectomy, cataracts removal and intraocular lens implants, colonoscopy Past Anesthesia/Blood Transfusion Reactions: No Reported Reaction Additional Past Anesthesia/Blood Transfusion Reaction / Comment(s): Never Re ceived Blood Transfusion Past Psychological History: Anxiety, Depression Smoking Status: Never smoker Past Alcohol Use History: None Reported Past Drug Use History: None Reported - Past Family History Father Family Medical History: Myocardial Infarction ([place]) Additional Family Medical History / Comment(s): Father at age 65 from a myocardial infarction. Mother Additional Family Medical History / Comment(s): Mother at age 75 from a myocardial infarction. Brother(s) Additional Family Medical History / Comment(s): Patient does not have any brothe rs. Sister(s) Family Medical History: Hypertension Additional Family Medical History / Comment(s): Patient has one sister at age 82. General Exam Limitations: no limitations General appearance: alert, in no apparent distress Head exam: Present: atraumatic, normocephalic, normal inspection Eye exam: Present: normal appearance, PERRL, EOMI. Absent: scleral icterus, conjunctival injection, periorbital swelling ENT exam: Present: normal exam, normal oropharynx, mucous membranes moist Neck exam: Present: normal inspection, full ROM. Absent: tenderness, meningismus, lymphadenopathy Respiratory exam: Present: normal lung sounds bilaterally. Absent: respiratory distress, wheezes, rales, rhonchi, stridor Cardiovascular Exam: Present: regular rate, normal rhythm, normal heart sounds. Absent: systolic murmur, diastolic murmur, rubs, gallop, clicks GI/Abdominal exam: Present: soft, normal bowel sounds. Absent: distended, tenderness, guarding, rebound, rigid Neurological exam: Present: alert, oriented X3, CN II-XII intact, reflexes normal. Absent: motor sensory deficit Skin exam: Present: warm, dry, intact, normal color. Absent: rash Course Vital Signs 03/24/22 03/24/22 09:22 12:55 Temperature 97.9 F 98.0 F Pulse Rate 80 78 Respiratory 18 20 Rate Blood Pressure 130/59 132/63 O2 Sat by Pulse 96 96 Oximetry Medical Decision Making - Medical Decision Making 76-year-old female presents emergency Department chief complaint of diarrhea and hyperglycemia. Patient blood sugar has improved. Patient's blood sugar is stable, patient was given Lomotil for diarrhea. Patient states she does feel improved. Patient discharged in stable condition return parameters were discussed. - Lab Data Result diagrams: 03/24/22 09:56 03/24/22 09:56 Lab Results 03/24/22 03/24/22 03/24/22 Range/Units 09:50 09:56 09:56 WBC 15.3 H (3.8-10.6) k/uL RBC 4.07 (3.80-5.40) m/uL Hgb 12.6 (11.4-16.0) gm/dL Hct 38.0 (34.0-46.0) % MCV 93.5 (80.0-100.0) fL MCH 31.0 (25.0-35.0) pg MCHC 33.2 (31.0-37.0) g/dL RDW 14.6 (11.5-15.5) % Plt Count 322 (150-450) k/uL MPV 7.2 Neutrophils % 58 % Lymphocytes % 27 % Monocytes % 9 % Eosinophils % 2 % Basophils % 1 % Neutrophils # 8.9 H (1.3-7.7) k/uL Lymphocytes # 4.2 (1.0-4.8) k/uL Monocytes # 1.4 H (0-1.0) k/uL Eosinophils # 0.3 (0-0.7) k/uL Basophils # 0.2 (0-0.2) k/uL Sodium (137-145) mmol/L Potassium (3.5-5.1) mmol/L Chloride (98-107) mmol/L Carbon Dioxide (22-30) mmol/L Anion Gap mmol/L BUN (7-17) mg/dL Creatinine (0.52-1.04) mg/dL Est GFR (CKD-EPI)AfAm (>60 ml/min/1.73 sqM) Est GFR (CKD-EPI)NonAf (>60 ml/min/1.73 sqM) Glucose (74-99) mg/dL POC Glucose (mg/dL) 54 L (70-110) mg/dL POC Glu Perl Programmer ID Jenna Ellington Calcium (8.4-10.2) mg/dL Total Bilirubin (0.2-1.3) mg/dL AST (14-36) U/L ALT (4-34) U/L Alkaline Phosphatase (38-126) U/L Troponin I (0.000-0.034) ng/mL Total Protein (6.3-8.2) g/dL Albumin (3.5-5.0) g/dL Urine Color Light Yellow Urine Appearance Clear (Clear) Urine pH 6.5 (5.0-8.0) Ur Specific [place] 1.007 (1.001-1.035) Urine Protein Negative (Negative) Urine Glucose (UA) Negative (Negative) Urine Ketones Negative (Negative) Urine Blood Negative (Negative) Urine Nitrite Negative (Negative) Urine Bilirubin Negative (Negative) Urine Urobilinogen <2.0 (<2.0) mg/dL Ur Leukocyte Esterase Small H (Negative) Urine RBC <1 (0-5) /hpf Urine WBC 4 (0-5) /hpf Ur Squamous Epith Cells <1 (0-4) /hpf 03/24/22 03/24/22 03/24/22 Range/Units 09:56 09:56 10:29 WBC (3.8-10.6) k/uL RBC (3.80-5.40) m/uL Hgb (11.4-16.0) gm/dL Hct (34.0-46.0) % MCV (80.0-100.0) fL MCH (25.0-35.0) pg MCHC (31.0-37.0) g/dL RDW (11.5-15.5) % Plt Count (150-450) k/uL MPV Neutrophils % % Lymphocytes % % Monocytes % % Eosinophils % % Basophils % % Neutrophils # (1.3-7.7) k/uL Lymphocytes # (1.0-4.8) k/uL Monocytes # (0-1.0) k/uL Eosinophils # (0-0.7) k/uL Basophils # (0-0.2) k/uL Sodium 141 (137-145) mmol/L Potassium 3.7 (3.5-5.1) mmol/L Chloride 102 (98-107) mmol/L Carbon Dioxide 29 (22-30) mmol/L Anion Gap 10 mmol/L BUN 23 H (7-17) mg/dL Creatinine 1.09 H (0.52-1.04) mg/dL Est GFR (CKD-EPI)AfAm 57 (>60 ml/min/1.73 sqM) Est GFR (CKD-EPI)NonAf 49 (>60 ml/min/1.73 sqM) Glucose 40 L* (74-99) mg/dL POC Glucose (mg/dL) 73 (70-110) mg/dL POC Glu Perl Programmer ID Jenna Ellington Calcium 9.9 (8.4-10.2) mg/dL Total Bilirubin 0.6 (0.2-1.3) mg/dL AST 32 (14-36) U/L ALT 19 (4-34) U/L Alkaline Phosphatase 81 (38-126) U/L Troponin I <0.012 (0.000-0.034) ng/mL Total Protein 6.8 (6.3-8.2) g/dL Albumin 4.4 (3.5-5.0) g/dL Urine Color Urine Appearance (Clear) Urine pH (5.0-8.0) Ur Specific [place] (1.001-1.035) Urine Protein (Negative) Urine Glucose (UA) (Negative) Urine Ketones (Negative) Urine Blood (Negative) Urine Nitrite (Negative) Urine Bilirubin (Negative) Urine Urobilinogen (<2.0) mg/dL Ur Leukocyte Esterase (Negative) Urine RBC (0-5) /hpf Urine WBC (0-5) /hpf Ur Squamous Epith Cells (0-4) /hpf 03/24/22 03/24/22 Range/Units 11:19 12:29 WBC (3.8-10.6) k/uL RBC (3.80-5.40) m/uL Hgb (11.4-16.0) gm/dL Hct (34.0-46.0) % MCV (80.0-100.0) fL MCH (25.0-35.0) pg MCHC (31.0-37.0) g/dL RDW (11.5-15.5) % Plt Count (150-450) k/uL MPV Neutrophils % % Lymphocytes % % Monocytes % % Eosinophils % % Basophils % % Neutrophils # (1.3-7.7) k/uL Lymphocytes # (1.0-4.8) k/uL Monocytes # (0-1.0) k/uL Eosinophils # (0-0.7) k/uL Basophils # (0-0.2) k/uL Sodium (137-145) mmol/L Potassium (3.5-5.1) mmol/L Chloride (98-107) mmol/L Carbon Dioxide (22-30) mmol/L Anion Gap mmol/L BUN (7-17) mg/dL Creatinine (0.52-1.04) mg/dL Est GFR (CKD-EPI)AfAm (>60 ml/min/1.73 sqM) Est GFR (CKD-EPI)NonAf (>60 ml/min/1.73 sqM) Glucose (74-99) mg/dL POC Glucose (mg/dL) 111 H 166 H (70-110) mg/dL POC Glu Perl Programmer Jenna Ho Ali Calcium (8.4-10.2) mg/dL Total Bilirubin (0.2-1.3) mg/dL AST (14-36) U/L ALT (4-34) U/L Alkaline Phosphatase (38-126) U/L Troponin I (0.000-0.034) ng/mL Total Protein (6.3-8.2) g/dL Albumin (3.5-5.0) g/dL Urine Color Urine Appearance (Clear) Urine pH (5.0-8.0) Ur Specific [place] (1.001-1.035) Urine Protein (Negative) Urine Glucose (UA) (Negative) Urine Ketones (Negative) Urine Blood (Negative) Urine Nitrite (Negative) Urine Bilirubin (Negative) Urine Urobilinogen (<2.0) mg/dL Ur Leukocyte Esterase (Negative) Urine RBC (0-5) /hpf Urine WBC (0-5) /hpf Ur Squamous Epith Cells (0-4) /hpf Disposition Clinical Impression: Viral diarrhea, Hypoglycemia, Diarrhea Disposition: HOME SELF-CARE Condition: Stable Instructions (If sedation given, give patient instructions): Hypoglycemia in a Person with Diabetes (ED) Additional Instructions: Please return to the Emergency Department if symptoms worsen or any other gregorio rns. Prescriptions: Ondansetron Odt [Zofran Odt] 4 mg PO Q8HR PRN #10 tab PRN Reason: Nausea Is patient prescribed a controlled substance at d/c from ED?: No Referrals: Hector Sheridan MD [Primary Care Provider] - 1-2 days Time of Disposition: 13:35
[2022-03-24 10:09] LABS: Basophils # (A) 0.2 k/uL (0-0.2); Basophils % (A) 1 %; Eosinophils # (A) 0.3 k/uL (0-0.7); Eosinophils % (A) 2 %; HGB 12.6 gm/dL (11.4-16.0); Lymphocytes # (A) 4.2 k/uL (1.0-4.8); Lymphocytes % (A) 27 %; MCHC 33.2 g/dL (31.0-37.0); MCV 93.5 fL (80.0-100.0); Mean Platelet Volume 7.2; Monocytes # (A) 1.4 k/uL (0-1.0); Monocytes % (A) 9 %; Neutrophils # (A) 8.9 k/uL (1.3-7.7); Neutrophils % (A) 58 %; Platelet Count 322 k/uL (150-450); RBC 4.07 m/uL (3.80-5.40); RDW 14.6 % (11.5-15.5); WBC 15.3 k/uL (3.8-10.6)
[2022-03-24 10:16] LABS: Albumin 4.4 g/dL (3.5-5.0); Calcium 9.9 mg/dL (8.4-10.2); Potassium 3.7 mmol/L (3.5-5.1); Total Bilirubin 0.6 mg/dL (0.2-1.3); Total Protein 6.8 g/dL (6.3-8.2)
[2022-03-24 10:40] LABS: Glucose,Whole Blood 73 mg/dL (70-110)
[2022-03-24] MEDS ORDERED: DIPHENOX-ATROP 2.5-0.025 MG 1 EACH TAB PO STA (10:44)
[2022-03-24 11:21] LABS: Glucose,Whole Blood 111 mg/dL (70-110)
[2022-03-24 12:31] LABS: Glucose,Whole Blood 166 mg/dL (70-110)
[2022-03-24 12:32] LABS: Appearance,Urine Clear (Clear); Bilirubin,Urine Negative (Negative); Blood,Urine Negative (Negative); Color,Urine Light Yellow; Glucose,Urine (UA) Negative (Negative); Ketones,Urine Negative (Negative); Leukocyte Esterase,Urine Small (Negative); Nitrite,Urine Negative (Negative); PH, Urine 6.5 (5.0-8.0); Protein,Urine Negative (Negative); RBC,Urine <1 /hpf (0-5); Specific Gravity,Urine 1.007 (1.001-1.035); Squamous Epithelial Cell,Urine <1 /hpf (0-4); Urobilinogen,Urine <2.0 mg/dL (<2.0); WBC,Urine 4 /hpf (0-5)
[2022-03-24 12:57] VITALS: RESP 20
[2022-03-24] MEDS ORDERED: ONDANSETRON 4 MG ODT STARTER PACK 2 TAB BTL PO STA (13:36)
[2022-03-24] MEDS ORDERED: DIPHENOX-ATROP STARTER PACK 8 TAB BTL PO STA (13:36)
[2022-03-24 13:49] VITALS: BP 133/70; PULSE 76; TEMP 97.9
== END 2022-03-24 13:48 | disposition home or self-care (01) ==
LOC: EC 09:22
DX: R73.9 Hyperglycemia, unspecified (principal); R19.7 Diarrhea, unspecified; E78.5 Hyperlipidemia, unspecified; I10 Essential (primary) hypertension; K21.9 Gastro-esophageal reflux disease without esophagitis; Z79.83 Long term (current) use of bisphosphonates; Z82.49 Family history of ischemic heart disease and other diseases of the circulatory system; Z88.1 Allergy status to other antibiotic agents
CPT/HCPCS: 36415; 93005; 80053; 84484; 85025; 81001; 99284; 96374; 96375; J2405; S0119

== ENCOUNTER → 2022-07-17 | Outpatient (CLI) | payer MEDICARE, BC ==
--- NOTE | 2022-07-17 14:53 | BD ---
EXAMINATION TYPE: Axial Bone Density DATE OF EXAM: 07/17/2022 COMPARISON: 07-14-20 CLINICAL HISTORY: 77 years year old Female. 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 Type 1 Diabetes: YES 3. Menopause before 45: YES PARTIAL HYSTERECTOMY AT 41 RISK FACTORS HISTORY OF: Active: NO Postmenopausal woman: YES Take estrogen and/or progesterone medications: YES NONE CURRENT How long: ABOUT 1 YEAR MEDICATIONS: Prednisone or other steroids: STEROID INJECTIONS EVERY 3 MONTH FOR SCIATICA Additional Medications: BP MED, CHOLESTEROL MED, REFLUX MED, FEMARA, INSULIN, METFORMIN Additional History: BREAST CANCER WITH CHEMO AND RADIATION EXAM MEASUREMENTS: Bone mineral densitometry was performed using the [employer] System. Bone mineral density as measured about the Lumbar spine is: ----- L1-L4(G/cm2): 1.529 T Score Values are as follows: ----- L1: 1.6 ----- L2: 1.8 ----- L3: 3.3 ----- L4: 4.5 ----- L1-L4: 2.9 Bone mineral density has: Increased 5.3% since study of: 07-14-20 Bone mineral density about the R hip (g/cm2): 1.064 Bone mineral density about the L hip (g/cm2): 1.022 T Score values are as follows: -----R Neck: -0.6 -----L Neck: -0.8 -----R Total: 0.4 -----L Total: 0.1 Bone mineral density has: Decreased -7.1% since study of: 07-14-20 FRAX%s: The graph provided illustrates a 9.9% chance for a major osteoporotic fx and a 1.6% chance fo r the hips probability for fx in 10 years time. IMPRESSION: Normal (Values between +1 and -1 indicate normal bone mass). Consider repeating this study in 5 year s or sooner if there is some new clinical indication. NOTE: T-SCORE=SD OF THE YOUNG ADULT MEAN.
== END | disposition home or self-care (01) ==
LOC: RADBDWWP 12:25
PROVIDERS: ATTEND Internal Medicine Hematology & Oncology
DX: C50.411 Malignant neoplasm of upper-outer quadrant of right female breast (principal)
CPT/HCPCS: 77080

== ENCOUNTER → 2022-12-25 | Outpatient (CLI) | payer MEDICARE, BC ==
--- NOTE | 2022-12-25 13:35 | MM ---
Reason for Exam: Follow-up at short interval from prior study. Last screening mammogram was performed 6 month(s) ago. Patient History: Menarche at age 12. First Full-Term at age 18. Hysterectomy at age 44. Postmenopausal. Breast cancer, right, age 74. Estrogen for 5 years from age 50 until age 55. Hormonal Contraceptives, starting at age 19 for 10 years. 09/2019, Lumpectomy on the Right side. 09/08/2019, Malignant Core Biopsy on the right side. 2019, Chemotherapy. 2019, Radiation Therapy. Maternal cousin had breast cancer, age 63. Maternal cousin had breast cancer, age 50. Maternal cousin had breast cancer, age 59. Maternal cousin had breast cancer, age 51. Prior Study Comparison: 12/31/2020 Right Diagnostic Mammogram, [facility]. 07/04/2021 Bilateral Diagnostic Mammogram, [facility]. 07/05/2022 Bilateral MG 3D diag mammo w/cad GRANT, [facility]. Tissue Density: Right: The breast tissue is heterogeneously dense. This may lower the sensitivity of mammography. Findings: Analyzed By CAD. Surgical clips in post surgical distortion is in the upper axillary tail right breast. Diffuse skin thickening is present. No suspicious groups of microcalcifications, spiculated or lobular masses, architectural distortion or other secondary signs of malignancy are mammographically apparent. Overall Assessment: Probably benign, BI-RAD 3 Management: Diagnostic Mammogram of both breasts in 6 months. A negative mammogram report should not preclude additional follow up of suspicious palpable abnormalities. Patient should continue monthly self breast exam. A clinical breast exam by your physician is recommended on an annual basis and results should be correlated with mammographic findings. Electronically signed and approved by: Frank Posada D.O. Radiologis
== END | disposition home or self-care (01) ==
LOC: RADMAMWWP 12:38
PROVIDERS: ATTEND Radiology Radiation Oncology
DX: Z92.3 Personal history of irradiation (principal); Z92.21 Personal history of antineoplastic chemotherapy; Z17.0 Estrogen receptor positive status [ER+]; Z78.0 Asymptomatic menopausal state; Z80.3 Family history of malignant neoplasm of breast
CPT/HCPCS: 77065; G0279; 77061

== ENCOUNTER → 2023-06-27 | Outpatient (CLI) | payer MEDICARE, BC ==
--- NOTE | 2023-06-27 09:04 | MM ---
Reason for Exam: Follow-up at short interval from prior study. Last screening mammogram was performed 12 month(s) ago. Patient History: Menarche at age 12. First Full-Term at age 18. Hysterectomy at age 44. Postmenopausal. Breast cancer, right, age 74. Previous chest radiation therapy at age 74. Previous chemotherapy at age 74. Estrogen for 5 years from age 50 until age 55. Hormonal Contraceptives, starting at age 19 for 10 years. 09/2019, Lumpectomy on the Right side. 09/08/2019, Malignant Core Biopsy on the right side. 2019, Chemotherapy. 2019, Radiation Therapy. Maternal cousin had breast cancer, age 63. Maternal cousin had breast cancer, age 50. Maternal cousin had breast cancer, age 59. Maternal cousin had breast cancer, age 51. Prior Study Comparison: 09/12/1996 Screening Mammogram, Unknown. 09/08/2019 Right Diagnostic Mammogram, [facility]. 08/13/2020 Bilateral Diagnostic Mammogram, [facility]. 12/31/2020 Right Diagnostic Mammogram, [facility]. 05/12/2021 Right Diagnostic Ultrasound, [facility]. 07/04/2021 Bilateral Diagnostic Mammogram, [facility]. 07/05/2022 Bilateral MG 3D diag mammo w/cad GRANT, [facility]. 12/25/2022 Right MG 3D diag mammo w/cad RT, [facility]. Tissue Density: The breast tissue is heterogeneously dense. This may lower the sensitivity of mammography. Findings: Analyzed By CAD. Postsurgical and posttreatment changes in the right breast. Benign vascular calcifications within both breasts. No new suspicious mass or group of microcalcifications within either breast. No significant change from prior exam. Overall Assessment: Benign, BI-RAD 2 Management: Diagnostic Mammogram of both breasts in 1 year. A clinical breast exam by your physician is recommended on an annual basis and results should be correlated with mammographic findings. This exam should not preclude additional follow-up of suspicious palpable abnormalities. Results were given to the patient verbally at the time of exam. Electronically signed and approved by: Charan Kitchen D.O.
== END | disposition home or self-care (01) ==
LOC: RADMAMWWP 08:35
PROVIDERS: ATTEND Radiology Radiation Oncology
DX: R92.8 Other abnormal and inconclusive findings on diagnostic imaging of breast (principal); Z80.3 Family history of malignant neoplasm of breast; Z78.0 Asymptomatic menopausal state; Z85.3 Personal history of malignant neoplasm of breast
CPT/HCPCS: 77066; G0279; 77062

== ENCOUNTER 2024-01-01 12:09 | Emergency (ER) | payer MEDICARE, BC ==
--- NOTE | 2024-01-01 12:58 | ED ---
General Adult HPI - General Source: patient, family Mode of arrival: ambulatory Limitations: no limitations <Brian Thorpe - Last Filed: 01/01/24 14:32> <Sylvester Menendez - Last Filed: 01/01/24 17:16> - General Chief complaint: Chest Pain Stated complaint: Chest tightness Time Seen by Provider: 01/01/24 12:22 - History of Present Illness Initial comments: Dictation was produced using [employer] dictation software. please excuse any grammatical, word or spelling errors. Chief Complaint: 78-year-old female with 3 days of chest tightness History of Present Illness: Patient 78-year-old female presents to the emergency department for what she describes as chest discomfort. States that it is in her substernal chest radiates to her subscapular area and also in her left shoulder. She denies that it is painful. Denies any associate shortness of breath. No numbness tingling paresthesias to the arms or legs. Patient denies any history of cardiac disease. States that her symptoms not worse with deep inspiration. Not coughing. She does not have any shortness of breath. The ROS documented in this emergency department record has been reviewed and confirmed by me. Those systems with pertinent positive or negative responses have been documented in the HPI. All other systems are other negative and/or noncontributory. (Brian Thorpe) - Related Data Home Medications Medication Instructions Recorded Confirmed ALPRAZolam [Xanax] 0.25 mg PO DAILY PRN 06/22/19 11/13/20 Atorvastatin [Lipitor] 20 mg PO DAILY 06/22/19 11/13/20 Losartan/Hydrochlorothiazide 1 tab PO DAILY 06/22/19 11/13/20 [Hyzaar 100-25 Tablet] Verapamil HCl [Verapamil ER] 120 mg PO DAILY 06/22/19 11/13/20 atenoloL [Tenormin] 50 mg PO DAILY 06/22/19 11/13/20 Insulin NPH Human Isophane 55 unit SQ DAILY 08/28/19 11/13/20 [NovoLIN N] Multivit-Min/Iron/Folic/Lutein 1 tab PO DAILY 02/05/20 11/13/20 [Centrum Silver Women Tablet] metFORMIN HCL [Glucophage] 1,000 mg PO BID 02/05/20 11/13/20 Acetaminophen [Tylenol 8 Hour] 650 mg PO Q8H PRN 11/13/20 11/13/20 Letrozole 2.5 mg PO DAILY 11/13/20 11/13/20 Omeprazole 40 mg PO DAILY 11/13/20 11/13/20 Rivaroxaban [Xarelto] 20 mg PO DAILY 11/13/20 11/13/20 Previous Rx's Medication Instructions Recorded Cephalexin [Keflex] 500 mg PO Q6HR #28 cap 01/25/21 Ondansetron Odt [Zofran ODT] 4 mg PO Q8HR PRN #10 tab 01/25/21 Cyclobenzaprine [Flexeril] 5 mg PO BID PRN #15 tablet 01/03/22 Lidocaine 5% Patch [Lidoderm 5% 1 patch TOPICAL DAILY #5 patch 01/03/22 Patch] predniSONE [Deltasone] 20 mg PO BID 5 Days #10 tab 01/03/22 Ondansetron Odt [Zofran Odt] 4 mg PO Q8HR PRN #10 tab 03/24/22 Allergies Allergy/AdvReac Type Severity Reaction Status Date / Time erythromycin base Allergy Unknown Verified 01/01/24 12:14 Review of Systems ROS Other: All systems not noted in ROS Statement are negative. <Brian Thorpe - Last Filed: 01/01/24 14:32> ROS Other: All systems not noted in ROS Statement are negative. <Sylvester Menendez - Last Filed: 01/01/24 17:16> ROS Statement: Those systems with pertinent positive or pertinent negative responses have been documented in the HPI. Past Medical History Past Medical History: Cancer, Diabetes Mellitus, GERD/Reflux, Hyperlipidemia, Hypertension, Pneumonia Additional Past Medical History / Comment(s): R breast cancer with lumpectomy/chemo finished 01/21/20 and radiation that finished 3 weeks ago, pt states she has a bitter taste with eating and that the tip of her tongue always feels burned since chemo, PT HAS HAD A SPLEENECTOMY/partial pancreas removed d/t cysts, IDDM, neuropathy bilateral feet, UTIs, UTI with sepsis, chronic cough, past gastric ulcer. blood spot on retina History of Any Multi-Drug Resistant Organisms: None Reported Past Surgical History: Appendectomy, Breast Surgery, Hysterectomy Additional Past Surgical History / Comment(s): splenectomy, partial pancreas re moval, R breast biopsy, R breast lumpectomy, cataracts removal and intraocular lens implants, colonoscopy Past Anesthesia/Blood Transfusion Reactions: No Reported Reaction Additional Past Anesthesia/Blood Transfusion Reaction / Comment(s): Never Rece ived Blood Transfusion Past Psychological History: Anxiety, Depression Smoking Status: Never smoker Past Alcohol Use History: None Reported Past Drug Use History: None Reported - Past Family History Father Family Medical History: Myocardial Infarction (ME) Additional Family Medical History / Comment(s): Father at age 65 from a myocardial infarction. Mother Additional Family Medical History / Comment(s): Mother at age 75 from a myocardial infarction. Brother(s) Additional Family Medical History / Comment(s): Patient does not have any brothers. Sister(s) Family Medical History: Hypertension Additional Family Medical History / Comment(s): Patient has one sister at age 82. <Brian Thorpe - Last Filed: 01/01/24 14:32> General Exam Limitations: no limitations <Brian Thorpe - Last Filed: 01/01/24 14:32> General appearance: alert, in no apparent distress Head exam: Present: atraumatic, normocephalic, normal inspection Eye exam: Present: normal appearance, PERRL, EOMI. Absent: scleral icterus, conjunctival injection, periorbital swelling ENT exam: Present: normal exam, mucous membranes moist Neck exam: Present: normal inspection. Absent: tenderness, meningismus, lymphad enopathy Respiratory exam: Present: normal lung sounds bilaterally. Absent: respiratory distress, wheezes, rales, rhonchi, stridor Cardiovascular Exam: Present: regular rate, normal rhythm, normal heart sounds. Absent: systolic murmur, diastolic murmur, rubs, gallop, clicks GI/Abdominal exam: Present: soft, normal bowel sounds. Absent: distended, tenderness, guarding, rebound, rigid Extremities exam: Present: normal inspection, full ROM, normal capillary refill. Absent: tenderness, pedal edema, joint swelling, calf tenderness Back exam: Present: normal inspection Neurological exam: Present: alert, oriented X3, CN II-XII intact Psychiatric exam: Present: normal affect, normal mood Skin exam: Present: warm, dry, intact, normal color. Absent: rash <Sylvester Menendez - Last Filed: 01/01/24 17:16> - General Exam Comments Initial Comments: PHYSICAL EXAM: General Impression: Alert and oriented x3, not in acute distress HEENT: Normocephalic atraumatic, extra-ocular movements intact, pupils equal and reactive to light bilaterally, mucous membranes moist. Cardiovascular: Heart regular rate and rhythm Chest: Able to complete full sentences, no retractions, no tachypnea Abdomen: abdomen soft, non-tender, non-distended, no organomegaly Musculoskeletal: Pulses present and equal in all extremities, no peripheral evan a Motor: no focal deficits noted Neurological: CN II-XII grossly intact, no focal motor or sensory deficits noted Skin: Intact with no visualized rashes Psych: Normal affect and mood (Brian Thorpe) Course Vital Signs 01/01/24 01/01/24 01/01/24 12:10 12:50 14:25 Temperature 98.5 F 98.2 F Pulse Rate 73 68 Pulse Rate [ 74 Game Show Host ] Respiratory 18 17 Rate Blood Pressure 186/77 169/74 O2 Sat by Pulse 97 97 Oximetry EKG Findings - EKG Comments: EKG Findings:: My EKG interpretation: Ventricular rate 83, sinus rhythm,. 150, cures 113, QTc 428. No WI prolongation, no QTC prolongation, no ST or T-wave changes noted. Overall, this EKG is unremarkable <Brian Thorpe - Last Filed: 01/01/24 14:32> Medical Decision Making - Lab Data Result diagrams: 01/01/24 12:55 01/01/24 12:55 <Brian Thorpe - Last Filed: 01/01/24 14:32> - Lab Data Result diagrams: 01/01/24 12:55 01/01/24 12:55 <Sylvester Menendez - Last Filed: 01/01/24 17:16> - Medical Decision Making Was pt. sent in by a medical professional or institution (, PA, PLANE RUNNER, urgent care, hospital, or [place] health care facility...) When possible be specific @ -No Did you speak to anyone other than the patient for history (EMS, parent, family, police, friend...)? What history was obtained from this source @ -No Did you review nursing and triage notes (agree or disagree)? Why? @ -I reviewed and agree with nursing and triage notes Were old charts reviewed (outside hosp., previous admission, EMS record, old EKG, old radiological studies, urgent care reports/EKG's, [place] health care facility records)? Report findings @ -No old charts were reviewed Differential Diagnosis (chest pain, altered mental status, abdominal pain women, abdominal pain men, vaginal bleeding, musculoskeletal, weakness, fever, dyspnea, syncope, headache, dizziness, GI bleed, back pain, seizure, CVA, palpatations, mental health)? @ -Differential Chest Pain: Stable Angina, Unstable Angina, STEMI, NSTEMI Aortic Dissection, Pneumothorax, Musculoskeletal, Esophageal Spasm GERD, Cholecystitis, Pancreatitis, Zoster, this is not meant to be an all-inclusive list. EKG interpreted by me (3pts min.). @ -See above X-rays interpreted by me (1pt min.). @ -Chest x-ray is unremarkable CT interpreted by me (1pt min.). @ - U/S interpreted by me (1pt. min.). @ -None done What testing was considered but not performed or refused? (CT, X-rays, U/S, labs)? Why? @ -None What meds were considered but not given or refused? Why? @ -None Did you discuss the management of the patient with other professionals (professionals i.e. , PA, PLANE RUNNER, lab, RT, psych nurse, social work faculty member, vegetable loader machine operator, teacher, principal gifts officer, hospice case manager)? Give summary @ -No Was smoking cessation discussed for >3mins.? @ -No Was critical care preformed (if so, how long)? @ -No Were there social determinants of health that impacted care today? How? (Homelessness, low income, unemployed, alcoholism, drug addiction, transportation, low edu. Level, literacy, decrease access to med. care, retirement, rehab)? @ -No Was there de-escalation of care discussed even if they declined (Discuss DNR or withdrawal of care, Hospice)? DNR status @ -No What co-morbidities impacted this encounter? (DM, HTN, Smoking, COPD, CAD, Cancer, CVA, ARF, Chemo, Hep., AIDS, mental health diagnosis, sleep apnea, mor bid obesity)? @ -None Was patient admitted / discharged? Hospital course, mention meds given and ro mary, prescriptions, significant lab abnormalities, going to OR and other pertinent info. @ -78-year-old female presents to the emergency department for chest pain. Her symptoms are atypical typical features. Vital signs upon arrival are within acceptable limits. EKG is unremarkable. Laboratory evaluation obtained. Initial troponin is negative. Rest of labs negative. Disposition options were discussed with patient. She is not agreeable to observation admission for cardiac monitoring. She is however agreeable to s second 3-hour troponin. Patient care signed out to oncoming physician for follow-up of second troponin and determination of final disposition. Undiagnosed new problem with uncertain prognosis? @ -No Drug Therapy requiring intensive monitoring for toxicity (Heparin, Nitro, Insulin, Cardizem)? @ -No Were any procedures done? @ -No Diagnosis/symptom? Acute, or Chronic, or Acute on Chronic? Uncomplicated (without systemic symptoms) or Complicated (systemic symptoms)? @ -Chest pain Side effects of treatment? @ -No Exacerbation, Progression, or Severe Exacerbation? @ -No Poses a threat to life or bodily function? How? (Chest pain, USA, ME, pneumonia, PE, COPD, DKA, ARF, appy, cholecystitis, CVA, Diverticulitis, Homicidal, Suicidal, threat to staff... and all critical care pts) @ -yes (Brian Thorpe) - Lab Data Lab Results 01/01/24 01/01/24 01/01/24 Range/Units 12:55 12:55 12:55 WBC 11.9 H (3.8-10.6) k/uL RBC 4.30 (3.80-5.40) m/uL Hgb 12.9 (11.4-16.0) gm/dL Hct 39.0 (34.0-46.0) % MCV 90.7 (80.0-100.0) fL MCH 30.0 (25.0-35.0) pg MCHC 33.1 (31.0-37.0) g/dL RDW 14.0 (11.5-15.5) % Plt Count 337 (150-450) k/uL MPV 7.7 Neutrophils % 57 % Lymphocytes % 31 % Monocytes % 5 % Eosinophils % 3 % Basophils % 1 % Neutrophils # 6.8 (1.3-7.7) k/uL Lymphocytes # 3.7 (1.0-4.8) k/uL Monocytes # 0.6 (0-1.0) k/uL Eosinophils # 0.3 (0-0.7) k/uL Basophils # 0.1 (0-0.2) k/uL PT 11.4 (10.0-12.5) sec INR 1.1 (<1.2) APTT 31.2 H (22.0-30.0) sec Sodium 139 (137-145) mmol/L Potassium 4.2 (3.5-5.1) mmol/L Chloride 105 (98-107) mmol/L Carbon Dioxide 21 L (22-30) mmol/L Anion Gap 13 mmol/L BUN 21 H (7-17) mg/dL Creatinine 0.86 (0.52-1.04) mg/dL Est GFR (CKD-EPI)AfAm 75 (>60 ml/min/1.73 sqM) Est GFR (CKD-EPI)NonAf 65 (>60 ml/min/1.73 sqM) Glucose 105 H (74-99) mg/dL Calcium 9.8 (8.4-10.2) mg/dL Magnesium 1.6 (1.6-2.3) mg/dL Total Bilirubin 0.7 (0.2-1.3) mg/dL AST 33 (14-36) U/L ALT 21 (4-34) U/L Alkaline Phosphatase 84 (38-126) U/L Troponin I (0.000-0.034) ng/mL Total Protein 7.3 (6.3-8.2) g/dL Albumin 4.3 (3.5-5.0) g/dL 01/01/24 01/01/24 Range/Units 12:55 16:05 WBC (3.8-10.6) k/uL RBC (3.80-5.40) m/uL Hgb (11.4-16.0) gm/dL Hct (34.0-46.0) % MCV (80.0-100.0) fL MCH (25.0-35.0) pg MCHC (31.0-37.0) g/dL RDW (11.5-15.5) % Plt Count (150-450) k/uL MPV Neutrophils % % Lymphocytes % % Monocytes % % Eosinophils % % Basophils % % Neutrophils # (1.3-7.7) k/uL Lymphocytes # (1.0-4.8) k/uL Monocytes # (0-1.0) k/uL Eosinophils # (0-0.7) k/uL Basophils # (0-0.2) k/uL PT (10.0-12.5) sec INR (<1.2) APTT (22.0-30.0) sec Sodium (137-145) mmol/L Potassium (3.5-5.1) mmol/L Chloride (98-107) mmol/L Carbon Dioxide (22-30) mmol/L Anion Gap mmol/L BUN (7-17) mg/dL Creatinine (0.52-1.04) mg/dL Est GFR (CKD-EPI)AfAm (>60 ml/min/1.73 sqM) Est GFR (CKD-EPI)NonAf (>60 ml/min/1.73 sqM) Glucose (74-99) mg/dL Calcium (8.4-10.2) mg/dL Magnesium (1.6-2.3) mg/dL Total Bilirubin (0.2-1.3) mg/dL AST (14-36) U/L ALT (4-34) U/L Alkaline Phosphatase (38-126) U/L Troponin I <0.012 <0.012 (0.000-0.034) ng/mL Total Protein (6.3-8.2) g/dL Albumin (3.5-5.0) g/dL Disposition <Brian Thorpe - Last Filed: 01/01/24 14:32> Is patient prescribed a controlled substance at d/c from ED?: No Time of Disposition: 17:00 <Sylvester Menendez - Last Filed: 01/01/24 17:16> Clinical Impression: Atypical chest pain, Chest pain Disposition: HOME SELF-CARE Condition: Fair Instructions (If sedation given, give patient instructions): Chest Pain (ED) Referrals: Hector Sheridan MD [Primary Care Provider] - 1-2 days
[2024-01-01 13:03] LABS: Basophils # (A) 0.1 k/uL (0-0.2); Basophils % (A) 1 %; Eosinophils # (A) 0.3 k/uL (0-0.7); Eosinophils % (A) 3 %; HGB 12.9 gm/dL (11.4-16.0); Lymphocytes # (A) 3.7 k/uL (1.0-4.8); Lymphocytes % (A) 31 %; MCHC 33.1 g/dL (31.0-37.0); MCV 90.7 fL (80.0-100.0); Mean Platelet Volume 7.7; Monocytes # (A) 0.6 k/uL (0-1.0); Monocytes % (A) 5 %; Neutrophils # (A) 6.8 k/uL (1.3-7.7); Neutrophils % (A) 57 %; Platelet Count 337 k/uL (150-450); WBC 11.9 k/uL (3.8-10.6)
--- NOTE | 2024-01-01 13:09 | XR ---
EXAMINATION TYPE: XR chest 2V DATE OF EXAM: 01/01/2024 COMPARISON: 11/13/2020 HISTORY: Shortness of breath TECHNIQUE: Frontal and lateral views of the chest are obtained. FINDINGS: Scattered senescent parenchymal changes noted. Hyperinflation compatible with COPD. No evidence for infiltrate. No evidence for atelectasis. Heart size is stable. Mediastinal structures are stable and grossly unremarkable. No evidence for hilar prominence. Degenerative changes dorsal spine. IMPRESSION: 1. No evidence for acute pulmonary disease.
[2024-01-01 13:12] LABS: INR 1.1 (<1.2); Partial Thromboplastin Time 31.2 sec (22.0-30.0); Prothrombin Time 11.4 sec (10.0-12.5)
[2024-01-01 13:19] LABS: ALT 21 U/L (4-34); AST 33 U/L (14-36); African American GFR (CKD) 75 (>60 ml/min/1.73 sqM); Albumin 4.3 g/dL (3.5-5.0); Alkaline Phosphatase 84 U/L (38-126); Anion Gap 13 mmol/L; Blood Urea Nitrogen 21 mg/dL (7-17); Calcium 9.8 mg/dL (8.4-10.2); Carbon Dioxide 21 mmol/L (22-30); Chloride 105 mmol/L (98-107); Glucose 105 mg/dL (74-99); Magnesium 1.6 mg/dL (1.6-2.3); Non-African American GFR(CKD) 65 (>60 ml/min/1.73 sqM); Potassium 4.2 mmol/L (3.5-5.1); Sodium 139 mmol/L (137-145); Total Bilirubin 0.7 mg/dL (0.2-1.3); Total Protein 7.3 g/dL (6.3-8.2)
[2024-01-01 14:33] VITALS: TEMP 98.2
[2024-01-01 17:42] VITALS: BP 158/70; PULSE 67; RESP 18
== END 2024-01-01 17:25 | disposition home or self-care (01) ==
LOC: EC 12:09
DX: R07.89 Other chest pain (principal); Z88.1 Allergy status to other antibiotic agents
CPT/HCPCS: 36415; 71046; 80053; 83735; 84484; 85025; 85610; 85730; 93005; 99285

== ENCOUNTER → 2024-07-02 | Outpatient (CLI) | payer MEDICARE, BC ==
--- NOTE | 2024-07-02 11:13 | MM ---
Reason for Exam: Additional evaluation requested from prior study. Last screening mammogram was performed 12 month(s) ago. Patient History: Menarche at age 12. First Full-Term at age 18. Hysterectomy at age 44. Postmenopausal. Breast cancer, right, age 74. Previous chest radiation therapy at age 74. Previous chemotherapy at age 74. Estrogen for 5 years from age 50 until age 55. Hormonal Contraceptives, starting at age 19 for 10 years. 09/2019, Lumpectomy on the Right side. 09/08/2019, Malignant Core Biopsy on the right side. 2019, Chemotherapy. 2019, Radiation Therapy. Maternal cousin had breast cancer, age 63. Maternal cousin had breast cancer, age 50. Maternal cousin had breast cancer, age 59. Maternal cousin had breast cancer, age 51. Prior Study Comparison: 07/18/2017 Bilateral Screening Mammogram, [facility]. 08/01/2018 Bilateral Screening Mammogram, [facility]. 08/07/2018 Left Diagnostic Mammogram, [facility]. 02/05/2019 Left Diagnostic Mammogram, [facility]. 08/11/2019 Bilateral Screening Mammogram, [facility]. 08/25/2019 Right Diagnostic Mammogram, [facility]. 09/08/2019 Right Diagnostic Mammogram, [facility]. 08/13/2020 Bilateral Diagnostic Mammogram, [facility]. 12/31/2020 Right Diagnostic Mammogram, [facility]. 07/04/2021 Bilateral Diagnostic Mammogram, [facility]. 07/05/2022 Bilateral MG 3D diag mammo w/cad GRANT, [facility]. 12/25/2022 Right MG 3D diag mammo w/cad RT, [facility]. 06/27/2023 Bilateral MG 3D diag mammo w/cad GRANT, [facility]. Tissue Density: The breasts are heterogeneously dense, which may obscure small masses. Findings: Analyzed By CAD. Postoperative lumpectomy distortion right breast. No evidence for new mass or new area of distortion. Benign calcifications seen within both breasts. Overall Assessment: Benign, BI-RAD 2 Management: Diagnostic Mammogram of both breasts in 1 year. . Results were given to the patient verbally at the time of exam. Patient should continue monthly self-breast exams. A clinical breast exam by your physician is recommended on an annual basis. This exam should not preclude additional follow-up of suspicious palpable abnormalities. Note on Dianelys scores and lifetime risk: 1. A Dianelys score greater than 3% is considered moderate risk. If this is the case, consider specialist referral to assess eligibility for a risk reducing agent. 2. If overall lifetime risk for the development of breast cancer is 20% or higher, the patient may qualify for future screening with alternating mammogram and breast MRI. [facility], , 07/02/2024 10:49 AM. Electronically signed and approved by: Pedro Luis Strickland M.D. Radiologis
== END | disposition home or self-care (01) ==
LOC: RADMAMWWP 10:00
PROVIDERS: ATTEND Radiology Radiation Oncology
DX: C50.411 Malignant neoplasm of upper-outer quadrant of right female breast
CPT/HCPCS: 77062; 77066

== ENCOUNTER → 2024-07-18 | Outpatient (CLI) | payer MEDICARE, BC ==
--- NOTE | 2024-07-18 14:08 | BD ---
EXAMINATION TYPE: Axial Bone Density DATE OF EXAM: 07/18/2024 CLINICAL HISTORY: 79 years old Female. ICD-10 CODE: C50.411 BREAST CA Height: 64.5 in Weight: 178 lbs FRAX RISK QUESTIONS: Secondary Osteoporosis: 1. Type 1 Diabetes: yes RISK FACTORS EXAM MEASUREMENTS: Bone mineral densitometry was performed using the [employer] System. Bone mineral density as measured about the Lumbar spine is: ----- L1-L4(G/cm2): 1.530 T Score Values are as follows: ----- L1: 1.6 ----- L2: 2.0 ----- L3: 2.9 ----- L4: 4.5 ----- L1-L4: 2.9 Z Score Values are as follows: ----- L1: 2.9 ----- L2: 3.3 ----- L3: 4.2 ----- L4: 5.8 ----- L1-L4: 4.2 Bone mineral density has: Increased 0.1% since study of: 07/17/2022 Bone mineral density about the R hip (g/cm2): 1.056 Bone mineral density about the L hip (g/cm2): 0.991 T Score values are as follows: -----R Neck: -0.4 -----L Neck: -0.8 -----R Total: 0.4 -----L Total: -0.1 Z Score values are as follows: -----R Neck: 1.4 -----L Neck: 1.0 -----R Total: 2.0 -----L Total: 1.5 Bone mineral density has: Decreased -1.8% since study of: 07/17/2022 FRAX%s: The graph provided illustrates a 10.8% chance for a major osteoporotic fx and a 1.9% chance f or the hips probability for fx in 10 years time. IMPRESSION: Normal (Values between +1 and -1 indicate normal bone mass). Consider repeating this study in 5 year s or sooner if there is some new clinical indication. NOTE: T-SCORE=SD OF THE YOUNG ADULT MEAN. [facility], , 07/18/2024 2:06 PM
== END | disposition home or self-care (01) ==
LOC: RADBDWWP 10:38
PROVIDERS: ATTEND Internal Medicine Hematology & Oncology
CPT/HCPCS: 77080